=== PATIENT | male | born 1960 | race Caucasian/White ===

== ENCOUNTER → 2017-10-25 | Outpatient (CLI) | payer OTHER ==
[~2017-10-25] VITALS: Ht 182.9 cm; Wt 101.6 kg
[~2017-10-25] MED LIST: CATHETER FLUSH 10 ML SYR IV PRN; EMPA1TAB PO; GLYCOPYRROLATE 0.2 MG/ML (ROBINUL) 2 ML VIAL ONE; HYDR-3816 PO; LACTATED RINGERS 1,000 ML IV ONE; LIDOCAINE JELLY 2% (XYLOCAINE) 5 ML TUBE ONE; LIDOCAINE PF 2% 5 ML (XYLOCAINE) VIAL ONE; LOSA1TAB23 PO; MIDAZOLAM 2 MG/2 ML (VERSED) VIAL ONE; NEOSTIGMINE (BLOXIVERZ ) 1 MG/1ML 10 ML VIAL ONE; ONDANSETRON 4 MG/2 ML (SDV) Z0FRAN ONE; REGADENOSON 0.4 MG/5 ML SYR (LEXISCAN) IV ONE; ROCURONIUM 50 MG/5 ML (ZEMURON) VIAL IV ONE; VERA240T98 PO; fentaNYL INJECTION 100 MCG/2 ML AMP ONE; proPOfol 200 MG/20 ML (DIPRIVAN) VIAL IV ONE
[2017-10-25 07:51] VITALS: BP 170/99
--- NOTE | 2017-10-25 12:58 | STRESS TEST ---
DATE OF SERVICE: 10/25/2017 PHARMACOLOGICAL NUCLEAR STRESS TEST REPORT PRIMARY PHYSICIAN: Dr. Maurice Gtz. DIAGNOSIS: I48.91. PROCEDURE DETAILS: The patient was brought to the stress lab after informed consent was taken. Pharmacological nuclear stress test was performed according to the protocol. For details of the pharmacological stress test, please review Dr. Gtz's dictation. A 10.24 mCi of Myoview were given for rest imaging and 32.0 mCi of Myoview were given for stress imaging. TID 1.04, EF 59% with no wall motion abnormalities. There is a small fixed apical defect noted. CONCLUSION: 1. Normal LV function with no wall motion abnormalities. 2. There is a small fixed apical defect, which is likely an artifact considering that there is normal wall motion on gated images, Job ID: [id number] DocumentID: [id number] Dictated Date: 10/25/2017 10:32:40 Nail Professional Date: 10/25/2017 11:15:08 Dictated By: NIKKI CAMARILLO MD
== END ==
LOC: CARD 06:46
PROVIDERS: ATTEND Internal Medicine
DX: I48.91 Unspecified atrial fibrillation (principal)
CPT/HCPCS: 78452; 93017

== ENCOUNTER 2017-10-26 09:54 | Outpatient (CLI) | payer OTHER ==
[~2017-10-26] VITALS: Ht 182.9 cm; Wt 101.6 kg
[2017-10-26] MEDS ORDERED: VERA240T98 PO (12:58)
[2017-10-26] MEDS ORDERED: LOSA1TAB23 PO (12:58)
[2017-10-26] MEDS ORDERED: HYDR-3816 PO (12:58)
[2017-10-26] MEDS ORDERED: EMPA1TAB PO (12:58)
[2017-10-26 12:59] VITALS: BP 153/94
== END 2017-10-26 13:10 | disposition home or self-care (01) ==
LOC: PREOP 09:54
PROVIDERS: ATTEND Surgery
DX: Z01.818 Encounter for other preprocedural examination (principal); Z11.2 Encounter for screening for other bacterial diseases; K80.20 Calculus of gallbladder without cholecystitis without obstruction
CPT/HCPCS: 87081

== ENCOUNTER 2017-10-27 07:00 | Day surgery (SDC) | payer OTHER ==
[~2017-10-27] VITALS: Ht 182.9 cm; Wt 101.6 kg
[~2017-10-27 07:00] MED LIST changes: -CATHETER FLUSH 10 ML SYR IV PRN; -GLYCOPYRROLATE 0.2 MG/ML (ROBINUL) 2 ML VIAL ONE; -LACTATED RINGERS 1,000 ML IV ONE; -LIDOCAINE JELLY 2% (XYLOCAINE) 5 ML TUBE ONE; -LIDOCAINE PF 2% 5 ML (XYLOCAINE) VIAL ONE; -MIDAZOLAM 2 MG/2 ML (VERSED) VIAL ONE; -NEOSTIGMINE (BLOXIVERZ ) 1 MG/1ML 10 ML VIAL ONE; -ONDANSETRON 4 MG/2 ML (SDV) Z0FRAN ONE; -REGADENOSON 0.4 MG/5 ML SYR (LEXISCAN) IV ONE; -ROCURONIUM 50 MG/5 ML (ZEMURON) VIAL IV ONE; -fentaNYL INJECTION 100 MCG/2 ML AMP ONE; -proPOfol 200 MG/20 ML (DIPRIVAN) VIAL IV ONE
[2017-10-27] MEDS: LACTATED RINGERS 1,000 ML IV PRN ×3 (07:15→11:19)
--- OUTSIDE RECORDS SUMMARY | 2017-10-27 07:27 | XMS REPORT | Continuity of Care Document ---
Author Author [facility] Organization [facility] Address Unknown Phone Unavailable Allergies Active Description Code Type Severity Reaction Onset Reported/Identified Relationship to Patient Clinical Status Yes No Known Drug Allergies [id number] Drug Allergy Unknown N/A 10/25/2017 Medications There is no data. Problems Date Dx Coded Attending Type Code Diagnosis Diagnosed By 04/20/2016 Ot 719.06 JOINT EFFUSION-L/LEG 04/20/2016 Ot 959.7 LOWER LEG INJURY NOS 04/20/2016 Ot E000.8 OTHER EXTERNAL CAUSE STATUS 04/20/2016 Ot E029.9 OTHER ACTIVITY 04/20/2016 Ot E849.0 ACCIDENT IN HOME 04/20/2016 Ot E884.2 FALL FROM CHAIR 04/20/2016 SURENDRA RICHARD MD (DDU) Ot V68.01 DISABILITY EXAMINATION 04/20/2016 SURENDRA RICHARD MD (U) Ot V82.89 SCREEN FOR OTH SPECIF CONDITIONS 04/22/2016 AMANDA MTZ DO Ot R10.13 EPIGASTRIC PAIN 04/22/2016 AMANDA MTZ DO Ot R31.9 HEMATURIA, UNSPECIFIED 05/12/2016 AMANDA MTZ DO Ot R10.13 EPIGASTRIC PAIN 05/12/2016 AMANDA MTZ DO Ot R31.9 HEMATURIA, UNSPECIFIED 10/09/2016 AMANDA MTZ DO Ot R10.13 EPIGASTRIC PAIN 10/09/2016 AMANDA MTZ DO Ot R31.9 HEMATURIA, UNSPECIFIED 10/11/2016 WILLIAN LESTER, TESSA Sanchez Ot M25.562 PAIN IN LEFT KNEE 10/11/2016 WILLIAN LESTER, TESSA Sanchez Ot M54.16 RADICULOPATHY, LUMBAR REGION 11/04/2016 TESSA DORSEY MD Ot M25.562 PAIN IN LEFT KNEE 11/04/2016 WILLIAN LESTER, TESSA Sanchez Ot M54.16 RADICULOPATHY, LUMBAR REGION 10/24/2017 AMANDA MTZ DO Ot R10.13 EPIGASTRIC PAIN 10/24/2017 AMANDA MTZ DO Ot R31.9 HEMATURIA, UNSPECIFIED 10/24/2017 TESSA DORSEY MD Ot M25.562 PAIN IN LEFT KNEE 10/24/2017 TESSA DORSEY MD Ot M54.16 RADICULOPATHY, LUMBAR REGION Procedures There is no data. Results Test Result Range Capillary blood glucose measurement by glucometer (mass/volume) - 10/27/17 07: 17 Capillary blood glucose measurement by glucometer (mass/volume) 203 mg/dL 70-110 Encounters ACCT No. Visit Date/Time Discharge Status Pt. Type Provider Facility Loc./Unit Complaint [id number] 10/09/2016 08:59:00 10/09/2016 23:59:59 CLS Outpatient TESSA DORSEY MD [facility] RAD LUMBAR RADICULOPATHY , KNEE PAIN;LEFT [id number] 04/21/2016 10:09:00 04/21/2016 23:59:59 CLS Outpatient AMANDA MTZ DO [facility] RAD HEMOTURIA,R10.13 [id number] 08/14/2014 11:11:00 08/14/2014 23:59:59 CLS Outpatient JOSE MANUEL LESTER, SURENDRA Wilson (DDU) [facility] RAD [id number] 10/27/2017 07:24:00 Document Registration [id number] 10/25/2017 06:46:00 ACT Outpatient AMANDA MTZ DO [facility] CARD I48.91 [id number] 10/06/2011 09:39:00 Document Registration
--- OUTSIDE RECORDS SUMMARY | 2017-10-27 07:27 | XMS REPORT | Clinical Summary ---
Author Author [facility] Organization [facility] Address Unknown Phone Unavailable Care Team Providers Care Dramatic Art Teacher Name Role Phone PCP Unavailable Source Comments Some departments are not documenting in the electronic medical record. If you do not see the information that you expected, contact Release of Information in the Health Information Management department at [phone] for further assistance in locating additional records.[facility] Allergies No Known Allergies Current Medications Prescription Sig. Disp. Refills Start End Date Status Date losartan-hydrochlorothiaz Take 1 Tab by mouth every Active mauro (HYZAAR) 100-25 mg morning. tablet verapamil SR (VERELAN) Take by mouth at bedtime Active 240 mg C24P daily. empagliflozin-linagliptin Take 25 mg by mouth Active (GLYXAMBI) 25-5 mg tab daily. Active Problems Problem Noted Date Degenerative disc disease, lumbar 01/19/2017 Family History Relation Name Status Comments Father Mother Social History Tobacco Use Types Packs/Day Years Used Date Never Smoker Alcohol Use Drinks/Week oz/Week Comments Yes 1 Standard 0.6 drinks or equivalent Sex Assigned at Date Recorded Not on file Last Filed Vital Signs Vital Sign Reading Time Taken Blood Pressure 139/92 01/19/2017 12:18 PM CDT Pulse 78 01/19/2017 12:18 PM CDT Temperature 36.7 C (98.1 F) 01/19/2017 12:18 PM CDT Respiratory Rate 15 01/19/2017 12:18 PM CDT Oxygen Saturation 96% 01/19/2017 12:18 PM CDT Inhaled Oxygen - - Concentration Weight 103.9 kg (229 lb) 01/19/2017 12:18 PM CDT Height 180.3 cm (5' 11") 01/19/2017 12:18 PM CDT Body Mass Index 31.94 01/19/2017 12:18 PM CDT Plan of Treatment Health Maintenance Due Date Last Done Comments HEPATITIS C SCREENING 1959 PHYSICAL (COMPREHENSIVE) 1966 EXAM PERTUSSIS VACCINE 1970 TETANUS VACCINE 1976 COLORECTAL CANCER 2009 SCREENING INFLUENZA VACCINE 05/10/2017 Results Not on filefrom Last 3 Months
[2017-10-27 07:28] VITALS: BP 172/92
[2017-10-27] MEDS ORDERED: ceFAZolin INJECTION 1,000 MG in NS (IVPB) 50 ML IV ONE (07:30)
--- NOTE | 2017-10-27 07:53 | Progress Note-Pre Operative ---
Pre-Operative Progress Note H&P Reviewed The H&P was reviewed, patient examined and no changes noted. Date Seen by Provider: Oct 27, 2017 Time Seen by Provider: 07:45 Date H&P Reviewed: Oct 27, 2017 Time H&P Reviewed: 07:50 Pre-Operative Diagnosis: Symptomatic Chronic calculous cholecystitis ABBIE LEY APRN Oct 27, 2017 7:53 am
[2017-10-27] MEDS ORDERED: morphine INJ 10 MG/ML 1ML (SYR OR VIAL) IVP PRN (08:00)
[2017-10-27] MEDS ORDERED: ONDANSETRON 4 MG/2 ML (SDV) Z0FRAN IVP PRN ×2 (08:00→10:45)
[2017-10-27] MEDS ORDERED: ACETAMINOPHEN 325 MG TABLET/CAPLET (TYLENOL) PO PRN (08:00)
[2017-10-27] MEDS ORDERED: HYDROcodone/APAP 5 MG/325 MG (LORTAB) TAB PO ONE (08:00)
[2017-10-27] MEDS ORDERED: LIDOCAINE/EPI 1%-1:200,000 (XYLOCAINE) 10 ML VIAL ONE (08:36)
[2017-10-27] MEDS ORDERED: ceFAZolin 1,000 MG (ANCEF) VIAL IV ONE (09:30)
--- NOTE | 2017-10-27 10:34 | Progress Note-Post Operative ---
Post-Operative Progess Note Surgeon (s)/Administrative Underwriter (s) Surgeon LATESHA LEW MD Administrative Underwriter: kyrie goff TOE TRIMMER Pre-Operative Diagnosis Symptomatic Chronic calculous cholecystitis Post-Operative Diagnosis same, liver cirrhosis. Procedure & Operative Findings Date of Procedure 10/27/17 Procedure Performed/Findings laparoscopic cholecystectomy Anesthesia Type GET Estimated Blood Loss Estimated blood loss (mL): minimal Specimens/Packing Specimens Removed gallbladder. LATESHA LEW MD Oct 27, 2017 10:34 am
--- NOTE | 2017-10-27 10:37 | Discharge Inst-Surgical ---
D/C Lap Instructions-KIDO New, Converted, or Re-Newed RX: RX on Chart Follow Up Appt in 2 weeks Activity as tolerated No driving for 24 hours No driving while on pain medications Incentive Spirometry use every 2 hours while awake High Fiber Diet 25g or more per day Avoid Alcohol, Caffeine, Spicy [place] and Acid foods. Drink 64 fluid oz or more of fluids per day. Symptoms to Report: Fever over 101 degree F, Nausea/Vomiting If any problems/questions: Contact your physician or go to Emergency Room LATESHA LEW MD Oct 27, 2017 10:37 am
[2017-10-27] MEDS ORDERED: MEPERIDINE (DEMEROL) INJ 50 MG/ML IVP PRN (10:45)
[2017-10-27] MEDS: morphine INJ 10 MG/ML 1ML (SYR OR VIAL) IVP PRN ×2 (11:01→11:13)
[2017-10-27 11:40] VITALS: BP 170/92
[2017-10-27 12:10] VITALS: BP 159/95
[2017-10-27 12:23] VITALS: BP 159/95
--- NOTE | 2017-10-27 13:22 | OPERATIVE REPORT ---
DATE OF SERVICE: 10/27/2017 PRIMARY CARE PHYSICIAN: Dr. Maurice Gtz. PREOPERATIVE DIAGNOSIS: Symptomatic chronic calculous cholecystitis. POSTOPERATIVE DIAGNOSIS: Symptomatic chronic calculous cholecystitis with liver cirrhosis. PROCEDURE: Laparoscopic cholecystectomy. SURGEON: Latesha Louis MD CERTIFIED SURGICAL TECHNOLOGIST: Chu Smith APRN. ANESTHESIA: General endotracheal. ESTIMATED BLOOD LOSS: Minimal. FINDINGS: Significant liver cirrhosis with mild to moderate chronic gallbladder wall thickening and multiple small stones. DISPOSITION: The patient tolerated the procedure well. INDICATIONS FOR PROCEDURE: The patient is a 57-year-old male with right upper abdominal quadrant pain with associated nausea and vomiting. He has had this for the past few weeks. He reports that the symptoms and pain became severe enough that he was seen in Emergency Department and was found to be in atrial fibrillation with glucose of 486 as well as the WBC of 22. An echocardiogram was done and this atrial fibrillation had been converted back to sinus rhythm. He has been seen by Dr. Contreras since that time and cleared for surgery. A CT scan was done, which showed gallstones as well as liver cirrhosis. DESCRIPTION OF PROCEDURE: The patient was brought to the operating room, laid supine on the table. After adequate IV pain and sedating medications and general endotracheal intubation, the abdomen was prepped and draped in standard surgical fashion. A 0.5% Marcaine with epinephrine was then used to anesthetize the overlying skin in the left upper abdominal quadrant and a small transverse skin incision made using a 15 blade. An 0 silk suture was applied to the medial aspect of the incision for retraction and a Veress needle inserted with a low opening pressure of 0 mmHg and the abdomen was then insufflated to 15 mmHg pressure. The Veress needle removed and a 5 mm Xcel trocar placed followed by a 5 mm 45 degree angle laparoscope visualizing the peritoneal cavity. A four-quadrant abdominal x-ray was performed. There was significant liver cirrhosis identified of unknown etiology. There was no intraperitoneal carcinomatosis as well as no identifiable masses. There was a chronically mild to moderately inflamed gallbladder wall. Under direct visualization, we then proceeded to place a supraumbilical 10 mm port after the skin and peritoneum were anesthetized using 0.5% Marcaine with epinephrine and a transverse skin incision made using a 15 blade. In a similar manner, a right upper abdominal quadrant 5 mm port was placed. The patient was then placed in steep reverse Trendelenburg position as well as planed right side up, left side down. The fundus of the gallbladder was then retracted anteriorly and superiorly. The hepatoduodenal ligament was then opened using electrocautery as well as blunt dissection using the hook instrument. The entire critical view of safety was identified including the triangle of Calot as well as the cystic duct and artery going into the gallbladder as the only two structures going into the gallbladder as well as the cystic plate behind the proximal gallbladder. A timeout was then taken and the cystic duct and artery were then clipped proximally, distally and cut with EndoShears. The gallbladder was then dissected off the liver bed using electrocautery on the hook instrument with visualization of good hemostasis as well as no leaking ducts of Luschka. The gallbladder was removed through the 10 mm port site using an EndoCatch bag. The 10 mm port site fascia and peritoneum were then closed under direct visualization using a Camilo-Urban device and an 0 Vicryl suture. The abdomen was desufflated and remaining ports removed. All skin incisions were closed using 4-0 Monocryl running subcuticular sutures. Wounds were then cleaned and covered with Dermabond. The patient tolerated this procedure well. We will start IV normal pain medication as well as a clear liquid diet. Once he is tolerating clears and has good pain control with oral pain medications and ambulating well, we will discharge him home. Job ID: [id number] DocumentID: [id number] Dictated Date: 10/27/2017 10:35:10 Wig Maker Date: 10/27/2017 13:22:10 Dictated By: LATESHA LOUIS MD MTDD
== END 2017-10-27 12:24 | disposition home or self-care (01) ==
LOC: SDC 07:00
PROVIDERS: ATTEND Surgery
DX: K80.10 Calculus of gallbladder with chronic cholecystitis without obstruction (principal); K74.60 Unspecified cirrhosis of liver; I48.91 Unspecified atrial fibrillation; I10 Essential (primary) hypertension; E11.9 Type 2 diabetes mellitus without complications; Z79.899 Other long term (current) drug therapy
CPT/HCPCS: 82962

== ENCOUNTER → 2019-10-01 | Outpatient (CLI) | payer OTHER ==
[~2019-10-01] MED LIST changes: +HYDR-34 PO; -HYDR-3816 PO; +VERA240T14 PO; -VERA240T98 PO
--- NOTE | 2019-10-01 15:24 | Diagnostic Imaging Report ---
INDICATION: Knee pain. History of previous ACL repair. COMPARISON: None. FINDINGS: Multiple radiographic views of the right knee were obtained. Orthopedic screws are identified within the distal femur and proximal tibia consistent with previous ACL repair. Screws appear appropriately positioned. No unexpected radiopaque foreign bodies are seen. Osseous structures are intact. Joint spaces are maintained. There is no large joint effusion. IMPRESSION: 1. Metallic orthopedic screws consistent with previous ACL repair. 2. No evidence of acute fracture or dislocation of the right knee. Dictated by: Dictated on workstation # [id number]
== END ==
LOC: RAD 14:48
PROVIDERS: ATTEND Internal Medicine
DX: M25.561 Pain in right knee (principal); Z96.698 Presence of other orthopedic joint implants; Z98.890 Other specified postprocedural states
CPT/HCPCS: 73562

== ENCOUNTER 2019-10-03 17:51 | Emergency (ER) | payer OTHER ==
[~2019-10-03] VITALS: Ht 180 cm; Wt 98.6 kg
--- NOTE | 2019-10-03 18:14 | ED Lower Extremity ---
General Chief Complaint: Lower Extremity Stated Complaint: R LEG PAIN Source: patient Exam Limitations: no limitations History of Present Illness Date Seen by Provider: Oct 03, 2019 Time Seen by Provider: 18:12 Initial Comments To ER complaint by 3 females with reports of right leg pain for 6 months. If no different today. One of the females informs me that she is a nurse and that his leg was taught and red today. She is worried about "circulation". The redness has resolved and he is afebrile. History of meniscus surgery to the right leg. The pain is the entire leg from the hip down to the feet. Onset: just prior to arrival Severity: moderate Pain/Injury Location: right knee Method of Injury: fell Modifying Factors: Worse With Movement Allergies and Home Medications Allergies Coded Allergies: No Known Drug Allergies (Unverified , 10/25/17) Home Medications Empagliflozin/Linagliptin 1 Each Tablet, 1 EACH PO DAILY, (Reported) Hydrocodone Bit/Acetaminophen 1 Each Tablet, 1 EACH PO Q6H PRN for PAIN-MODERATE TO SEVERE, (Reported) Losartan/Hydrochlorothiazide 1 Each Tablet, 1 EACH PO DAILY, (Reported) Verapamil HCl 240 Mg Tablet.er, 240 MG PO DAILY, (Reported) Patient Home Medication List Home Medication List Reviewed: Yes Review of Systems Constitutional: see HPI EENTM: see HPI Respiratory: no symptoms reported Cardiovascular: no symptoms reported Genitourinary: no symptoms reported Musculoskeletal: see HPI Skin: no symptoms reported Psychiatric/Neurological: No Symptoms Reported Past Wausfqn-Xtfxty-Gpciof Hx Patient Social History Alcohol Use: Denies Use Recreational Drug Use: No Smoking Status: Never a Smoker Recent Foreign Travel: No Contact w/Someone Who Travel: No Recent Hopitalizations: No Physical Abuse: No Sexual Abuse: No Mistreated: No Fear: No Seasonal Allergies Seasonal Allergies: No Past Medical History Surgeries: Yes (R knee ACL and menisucus repair, L knee scope, lumbar fusion) Appendectomy, Gallbladder, Tonsillectomy Respiratory: No Cardiac: Yes (stress test on 10/25/17, ) Hypertension Neurological: No Gastrointestinal: Yes Gall Bladder Disease Musculoskeletal: Yes Degenerate Disk Disease, Arthritis Endocrine: Yes Diabetes, Non-Insulin dep Cancer: No Psychosocial: No Integumentary: No Blood Disorders: No Physical Exam Vital Signs Vital Signs - First Documented 10/03/19 18:07 Temp 36.9 Pulse 79 Resp 20 B/P (MAP) 169/94 (119) Pulse Ox 98 Capillary Refill : Height, Weight, BMI Height: 6'0.00" Weight: 224lbs. 0.0oz. 101.468891ay; 30.4 BMI Method: General Appearance: WD/WN, no apparent distress HEENT: PERRL/EOMI, normal ENT inspection Respiratory: normal breath sounds, no respiratory distress, no accessory muscle use Hips: bilateral hip non-tender, bilateral hip normal inspection, bilateral hip normal range of motion Legs: right leg pain; bilateral leg other Knees: right knee soft tissue tenderness Ankles: bilateral ankle other Feet: bilateral foot other Neurologic/Psychiatric: alert, normal mood/affect, oriented x 3 Skin: normal color, warm/dry There is no asymmetry in the appearance of either leg. The dorsalis pedis and posterior tibial pulses 2+ in strength bilateral. Both lower knees are warm and there is no cellulitis changed to either lower extremity. There is no palpable knee effusion. Progress/Results/Core Measures Results/Orders Lab Results Laboratory Tests Test 10/03/19 18:32 Range/Units White Blood Count 6.0 4.3-11.0 10^3/uL Red Blood Count 4.74 4.35-5.85 10^6/uL Hemoglobin 14.2 13.3-17.7 G/DL Hematocrit 42 40-54 % Mean Corpuscular Volume 90 80-99 FL Mean Corpuscular Hemoglobin 30 25-34 PG Mean Corpuscular Hemoglobin Concent 34 32-36 G/DL Red Cell Distribution Width 13.0 10.0-14.5 % Platelet Count 152 130-400 10^3/uL Mean Platelet Volume 10.6 H 7.4-10.4 FL Neutrophils (%) (Auto) 53 42-75 % Lymphocytes (%) (Auto) 39 12-44 % Monocytes (%) (Auto) 7 0-12 % Eosinophils (%) (Auto) 1 0-10 % Basophils (%) (Auto) 1 0-10 % Neutrophils # (Auto) 3.2 1.8-7.8 X 10^3 Lymphocytes # (Auto) 2.3 1.0-4.0 X 10^3 Monocytes # (Auto) 0.4 0.0-1.0 X 10^3 Eosinophils # (Auto) 0.1 0.0-0.3 10^3/uL Basophils # (Auto) 0.0 0.0-0.1 10^3/uL D-Dimer 0.28 0.00-0.49 UG/ML Sodium Level 133 L 135-145 MMOL/L Potassium Level 3.7 3.6-5.0 MMOL/L Chloride Level 101 98-107 MMOL/L Carbon Dioxide Level 22 21-32 MMOL/L Anion Gap 10 5-14 MMOL/L Blood Urea Nitrogen 16 7-18 MG/DL Creatinine 0.87 0.60-1.30 MG/DL Estimat Glomerular Filtration Rate > 60 BUN/Creatinine Ratio 18 Glucose Level 183 H 70-105 MG/DL Calcium Level 8.6 8.5-10.1 MG/DL My Orders Orders - CHARLENE CHUNG APRN Cbc With Automated Diff (10/03/19 18:11) Basic Metabolic Panel (10/03/19 18:11) Fibrin Degradation Products (10/03/19 18:11) Rx-Hydrocodone/Apap 5-325 Mg (Rx-Vicodin (10/03/19 19:00) Vital Signs/I&O 10/03/19 18:07 Temp 36.9 Pulse 79 Resp 20 B/P (MAP) 169/94 (119) Pulse Ox 98 Departure Communication (Admissions) Right mid calf circumference obtained by RN was 12-3/4 inches, the left was act ually bigger at 13-1/4 inches circumference 1923-I discussed with him the previous MRI of the lumbar spine from 10/09/16 showing neural foraminal narrowing at right side greater than left at L3-L4, L4- L5 and L5-S1. Patient states "whoever read that is full of shit", states that he saw a surgeon Dr. Arenas in [place] who is the orthopedic surgeon for the [facility] and told him that their interpretation of the MRI was incorrect and that his back is not the issue. Impression Primary Impression: Chronic pain of right lower extremity Additional Impression: Lumbar radiculopathy, acute Disposition: 01 HOME, SELF-CARE Condition: Improved Departure-Patient Inst. Decision time for Depature: 18:52 Referrals: AMANDA MTZ DO (PCP/Family) Primary Care Physician Patient Instructions: Radiculopathy (DC) Add. Discharge Instructions: All discharge instructions reviewed with patient and/or family. Voiced understanding. Copy Copies To 1: AMANDA MTZ PETER J APRN Oct 03, 2019 18:14
[2019-10-03 18:45] LABS: BASOPHILS % (AUTO) 1 % (0-10); EOSINOPHILS # (AUTO) 0.1 10^3/uL (0.0-0.3); EOSINOPHILS % (AUTO) 1 % (0-10); HEMATOCRIT 42 % (40-54); HEMOGLOBIN 14.2 G/DL (13.3-17.7); LYMPHOCYTES # (AUTO) 2.3 X 10^3 (1.0-4.0); LYMPHOCYTES % (AUTO) 39 % (12-44); MEAN CORPUSCULAR HEMOGLOBIN 30 PG (25-34); MEAN CORPUSCULAR HGB CONC 34 G/DL (32-36); MEAN CORPUSCULAR VOLUME 90 FL (80-99); MEAN PLATELET VOLUME 10.6 FL (7.4-10.4); MONOCYTES # (AUTO) 0.4 X 10^3 (0.0-1.0); MONOCYTES % (AUTO) 7 % (0-12); NEUTROPHILS # (AUTO) 3.2 X 10^3 (1.8-7.8); NEUTROPHILS % (AUTO) 53 % (42-75); PLATELET COUNT 152 10^3/uL (130-400)
[2019-10-03] MEDS ORDERED: RX-HYDROCODONE/APAP 5/325 MG #4 TAB PK PO PRN (19:00)
[2019-10-03 19:14] LABS: BUN/CREATININE RATIO 18; CALCIUM 8.6 MG/DL (8.5-10.1); CARBON DIOXIDE 22 MMOL/L (21-32); CHLORIDE 101 MMOL/L (98-107); CREATININE SERUM 0.87 MG/DL (0.60-1.30); GFR ESTIMATED > 60; GLUCOSE 183 MG/DL (70-105); POTASSIUM 3.7 MMOL/L (3.6-5.0); SODIUM 133 MMOL/L (135-145)
[2019-10-03 19:26] VITALS: BP 182/89
== END 2019-10-03 19:29 | disposition home or self-care (01) ==
LOC: EDUNIT# 17:51 → ER 17:52
DX: M54.16 Radiculopathy, lumbar region (principal); G89.29 Other chronic pain; I10 Essential (primary) hypertension; E11.9 Type 2 diabetes mellitus without complications; Z90.89 Acquired absence of other organs; Z90.49 Acquired absence of other specified parts of digestive tract
CPT/HCPCS: 36415; 80048; 85025; 85379

== ENCOUNTER → 2019-10-16 | Outpatient (CLI) | payer OTHER ==
--- NOTE | 2019-10-16 10:14 | Diagnostic Imaging Report ---
EXAMINATION: Magnetic resonance imaging of the right knee without intravenous contrast. DATE: October 16, 2019. COMPARISON: Right knee radiographs October 01, 2019. INDICATION: 59-year-old male, right knee pain. Evaluation for iliotibial band fat friction syndrome. TECHNIQUE: Multiplanar, multisequence non contrast enhanced MR imaging was accomplished. FINDINGS: MENISCI: The medial meniscus is intact. The lateral meniscus is intact. LIGAMENTS AND TENDONS: The patient is status post anterior cruciate ligament reconstruction. The graft is intact. The posterior cruciate ligament is intact. The medial collateral ligament is intact. The iliotibial band, mid third lateral capsular ligament, fibular collateral ligament, biceps femoris tendon, and conjoined tendon are intact. The quadriceps tendon and patella ligament are intact. JOINT: There is minimal surface irregularity of the patellar cartilage. The medial and lateral compartment cartilage is intact. There is no knee joint effusion, prominent synovitis, or intra-articular body. BONE: There is unremarkable bone marrow signal. Specifically, negative for fracture, osteomyelitis, osteonecrosis, or marrow replacing process. BURSAE AND SOFT TISSUES: There is no Arenas's cyst. There is no evidence of iliotibial band fat friction syndrome on MRI. IMPRESSION: 1. Status post anterior cruciate ligament reconstruction with intact graft. 2. Intact medial and lateral meniscus. 3. Minimal patellofemoral compartment osteoarthritis. No knee joint effusion. 4. No acute fracture, bone contusion, or evidence of osteonecrosis. 5. Unremarkable soft tissue evaluation. Dictated by: Dictated on workstation # [id number]
== END ==
LOC: RAD 07:45
PROVIDERS: ATTEND Nurse Practitioner
DX: M76.31 Iliotibial band syndrome, right leg (principal); Z98.890 Other specified postprocedural states
CPT/HCPCS: 73721

== ENCOUNTER 2021-06-20 11:57 | Observation (INO) | payer MEDICARE ==
[~2021-06-20] VITALS: Ht 182 cm; Wt 100.0 kg
[~2021-06-20 11:57] MED LIST changes: -VERA240T14 PO; +[UNRECOGNIZED DRUG - CODE] PO
[2021-06-20] MEDS ORDERED: LACTATED RINGERS 1,000 ML IV STA (12:04)
[2021-06-20] MEDS ORDERED: ONDANSETRON 4 MG/2 ML (SDV) Z0FRAN IVP ONE ×2 (12:15→13:45)
[2021-06-20] MEDS ORDERED: NS IV 1000 ML 1,000 ML ONE (12:24)
[2021-06-20 12:25] LABS: BASOPHILS % (AUTO) 0 % (0-10); EOSINOPHILS % (AUTO) 0 % (0-10); HEMATOCRIT 49 % (40-54); HEMOGLOBIN 16.7 g/dL (13.3-17.7); LYMPHOCYTES # (AUTO) 1.6 10^3/uL (1.0-4.0); LYMPHOCYTES % (AUTO) 10 % (12-44); MEAN CORPUSCULAR HEMOGLOBIN 30 pg (25-34); MEAN CORPUSCULAR HGB CONC 34 g/dL (32-36); MEAN CORPUSCULAR VOLUME 88 fL (80-99); MEAN PLATELET VOLUME 11.1 fL (9.0-12.2); MONOCYTES # (AUTO) 0.9 10^3/uL (0.0-1.0); MONOCYTES % (AUTO) 5 % (0-12); NEUTROPHILS # (AUTO) 13.3 10^3/uL (1.8-7.8); NEUTROPHILS % (AUTO) 84 % (42-75); PLATELET COUNT 204 10^3/uL (130-400); WHITE BLOOD COUNT 15.8 10^3/uL (4.3-11.0)
--- NOTE | 2021-06-20 12:29 | ED GI ---
General Stated Complaint: NAUSEA/VOMITING Source of Information: Patient History of Present Illness Date Seen by Provider: Jun 20, 2021 Time Seen by Provider: 12:05 Initial Comments PT ARRIVES VIA POV FROM HOME C/O NAUSEA/VOMITING AND ABDOMINAL PAIN SINCE 299 YESTERDAY AM HAS VOMITED X 5 TODAY--STATES HE HAS NOT BEEN ABLE TO KEEP ANYTHING DOWN --LAST FOOD INTAKE WAS 2100 ON TUESDAY NIGHT 06/18/21 PAIN IS MOSTLY ALL ACROSS UPPER ABDOMEN, AND IS MUCH WORSE IF HE TRIES TO DRINK ANYTHING--HAS NOT ATTEMPTED TO EAT SINCE SYMPTOMS BEGAN HAD NORMAL BM THIS AM HAS HAD DECREASED URINE OUTPUT NO FEVER NO COUGH OR RESPIRATORY SYMPTOMS PT HAS HAD PRIOR CHOLECYSTECTOMY AND APPENDECTOMY, BUT DENIES ANY CHRONIC GI PROBLEMS PT IS DIABETIC, NORMALLY TAKES PILLS, BUT HAS NOT TAKEN ANY OF HIS MEDICATIONS AT ALL SINCE TUESDAY PT DOES NOT CHECK HIS BLOOD SUGAR NO KNOWN SICK CONTACTS OR SUSPICIOUS FOODS PT HAS HAD BOTH COVID-19 VACCINES--LAST ONE IN JANUARY OR FEBRUARY PCP: DR. MTZ Allergies and Home Medications Allergies Coded Allergies: No Known Drug Allergies (Unverified , 10/25/17) Patient Home Medication List Home Medication List Reviewed: Yes Hydrocodone Bit/Acetaminophen (Lortab 7.5 Mg Tablet) 1 Each Tablet, 1 EACH PO Q6H PRN for PAIN-MODERATE TO SEVERE, (Reported) Entered as Reported by: PRAVEENA CRAMER on 10/26/171257 Last Action: Last Taken Edited Losartan/Hydrochlorothiazide (Losartan-Hctz 100-25 mg Tab) 1 Each Tablet, 1 EACH PO DAILY, (Reported) Entered as Reported by: PRAVEENA CRAMER on 10/26/171257 Last Action: Last Taken Edited Verapamil HCl (Verapamil ER) 240 Mg Tablet.er, 240 MG PO DAILY, (Reported) Entered as Reported by: PRAVEENA CRAMER on 10/26/171257 Last Action: Last Taken Edited Discontinued Medications Empagliflozin/Linagliptin (Glyxambi 25 mg-5 mg Tablet) 1 Each Tablet, 1 EACH PO DAILY, (Reported) Discontinued Reason: No Longer Taking Entered as Reported by: PRAVEENA CRAMER on 10/26/171257 Last Action: Discontinued Review of Systems Review of Systems Constitutional: no symptoms reported Respiratory: No Symptoms Reported Cardiovascular: No Symptoms Reported Gastrointestinal: See HPI, Abdominal Pain; Denies Constipated, Denies Diarrhea; Nausea, Poor Appetite, Poor Fluid Intake, Vomiting Genitourinary: See HPI Musculoskeletal: no symptoms reported Skin: no symptoms reported Psychiatric/Neurological: No Symptoms Reported Endocrine: No Symptoms Reported Hematologic/Lymphatic: No Symptoms Reported Past Hnkwvmn-Nlntfc-Tgcyxz Hx Patient Social History Tobacco Use?: No Substance use?: No Alcohol Use?: Yes (HEAVY USE IN PAST, NOW WITH RARE USE) Seasonal Allergies Seasonal Allergies: No Past Medical History Surgery/Hospitalization HX: RIGHT KNEE MENISCUS REPAIR 2014 RIGHT ACL REPAIR 02/2017 LEFT KNEE SCOPE 2009 APPENDECTOMY CHOLECYSTECTOMY 2018 LUMBAR FUSION 2010 SPINAL CORD STIMULATOR TONSILLECTOMY Surgeries: Yes (R knee ACL and menisucus repair, L knee scope, lumbar fusion) Appendectomy, Gallbladder, Orthopedic, Tonsillectomy Respiratory: No Cardiac: Yes (stress test on 10/25/17, ) Hypertension Neurological: No Genitourinary: No Gastrointestinal: Yes (S/P GEORGES AND APPY) Gall Bladder Disease Musculoskeletal: Yes (LUMBAR FUSION; SPINE STIMULATOR; BILAT KNEE SURGERIES) Degenerate Disk Disease, Arthritis, Chronic Back Pain Endocrine: Yes (DOES NOT CHECK BLOOD SUGAR) Diabetes, Non-Insulin dep HEENT: No (S/P TONSILLECTOMY) Tonsilitis Cancer: No Psychosocial: No Integumentary: No Blood Disorders: No Physical Exam Vital Signs Vital Signs - First Documented 06/20/21 12:00 Temp 36.3 Pulse 96 Resp 18 B/P (MAP) 193/98 (129) Pulse Ox 98 O2 Delivery Room Air Capillary Refill : Height/Weight/BMI Height: 6'0.00" Weight: 224lbs. 0.0oz. [id number]; 30.00 BMI Method: General Appearance: WD/WN, no apparent distress HEENT: No scleral icterus (R), No scleral icterus (L); other (ORAL MUCOSA DRY) Neck: normal inspection Respiratory: normal breath sounds, no respiratory distress, no accessory muscle use Cardiovascular: normal peripheral pulses, regular rate, rhythm, no murmur Gastrointestinal: abnormal bowel sounds (DECREASED), distended; No guarding, No rebound; tenderness (DIFFUSE UPPER ABDOMINAL TENDERNESS); No hernia, No mass; other Extremities: normal inspection, no pedal edema, normal capillary refill Back: normal inspection, no CVA tenderness Neurologic/Psychiatric: renal dietitian II-XII nml as tested, no motor/sensory deficits, alert, normal mood/affect, oriented x 3 Skin: normal color, warm/dry; No rash Progress/Results/Core Measures Results/Orders Lab Results Laboratory Tests Test 06/20/21 12:05 06/20/21 12:10 06/20/21 12:22 Range/Units SARS-CoV-2 RNA (RT-PCR) Not Detected Not Detecte White Blood Count 15.8 H 4.3-11.0 10^3/uL Red Blood Count 5.58 H 4.30-5.52 10^6/uL Hemoglobin 16.7 13.3-17.7 g/dL Hematocrit 49 40-54 % Mean Corpuscular Volume 88 80-99 fL Mean Corpuscular Hemoglobin 30 25-34 pg Mean Corpuscular Hemoglobin Concent 34 32-36 g/dL Red Cell Distribution Width 12.6 10.0-14.5 % Platelet Count 204 130-400 10^3/uL Mean Platelet Volume 11.1 9.0-12.2 fL Immature Granulocyte % (Auto) 0 % Neutrophils (%) (Auto) 84 H 42-75 % Lymphocytes (%) (Auto) 10 L 12-44 % Monocytes (%) (Auto) 5 0-12 % Eosinophils (%) (Auto) 0 0-10 % Basophils (%) (Auto) 0 0-10 % Neutrophils # (Auto) 13.3 H 1.8-7.8 10^3/uL Lymphocytes # (Auto) 1.6 1.0-4.0 10^3/uL Monocytes # (Auto) 0.9 0.0-1.0 10^3/uL Eosinophils # (Auto) 0.0 0.0-0.3 10^3/uL Basophils # (Auto) 0.0 0.0-0.1 10^3/uL Immature Granulocyte # (Auto) 0.1 0.0-0.1 10^3/uL Neutrophils % (Manual) 85 % Lymphocytes % (Manual) 11 % Monocytes % (Manual) 4 % Blood Morphology Comment NORMAL Erythrocyte Sedimentation Rate 3 0-30 MM/HR Sodium Level 137 135-145 MMOL/L Potassium Level 3.3 L 3.6-5.0 MMOL/L Chloride Level 86 L 98-107 MMOL/L Carbon Dioxide Level 27 21-32 MMOL/L Anion Gap 24 H 5-14 MMOL/L Blood Urea Nitrogen 32 H 7-18 MG/DL Creatinine 1.23 0.60-1.30 MG/DL Estimat Glomerular Filtration Rate 60 BUN/Creatinine Ratio 26 Glucose Level 464 *H 70-105 MG/DL Calcium Level 9.9 8.5-10.1 MG/DL Corrected Calcium 9.7 8.5-10.1 MG/DL Magnesium Level 2.0 1.6-2.4 MG/DL Total Bilirubin 1.0 0.1-1.0 MG/DL Aspartate Amino Transf (AST/SGOT) 19 5-34 U/L Alanine Aminotransferase (ALT/SGPT) 59 H 0-55 U/L Alkaline Phosphatase 91 40-136 U/L Troponin I < 0.028 <0.028 NG/ML C-Reactive Protein High Sensitivity 0.57 H 0.00-0.50 MG/DL Total Protein 8.0 6.4-8.2 GM/DL Albumin 4.3 3.2-4.5 GM/DL Amylase Level 54 25-125 U/L Lipase 35 8-78 U/L Procalcitonin 0.05 <0.10 NG/ML Glucometer 464 *H 70-110 MG/DL My Orders Orders - LORETA LEE DO Ed Iv/Invasive Line Start (06/20/21 12:04) Ekg Tracing (06/20/21 12:04) Monitor-Rhythm Ecg Trace Only (06/20/21 12:04) Cbc With Automated Diff (06/20/21 12:04) Comprehensive Metabolic Panel (06/20/21 12:04) Procalcitonin (Pct) (06/20/21 12:04) Hs C Reactive Protein (06/20/21 12:04) Erythrocyte Sedimentation Rate (06/20/21 12:04) Chest 1 View, Ap/Pa Only (06/20/21 12:04) Covid 19 Inhouse Test (06/20/21 12:04) Ondansetron Injection (Zofran Injectio (06/20/21 12:15) Lactated Ringers (Lr 1000 Ml Iv Solution (06/20/21 12:04) Ed Iv/Invasive Line Start (06/20/21 12:04) Amylase (06/20/21 12:04) Lipase (06/20/21 12:04) Magnesium (06/20/21 12:04) Ua Culture If Indicated (06/20/21 12:04) Troponin I (06/20/21 12:04) Isolation Central Supply Req (06/20/21 12:04) Accucheck Stat ONCE (06/20/21 12:23) Ed Iv/Invasive Line Start (06/20/21 12:23) Ns Iv 1000 Ml (Sodium Chloride 0.9%) (06/20/21 12:30) Ns Iv 1000 Ml (Sodium Chloride 0.9%) (06/20/21 12:24) Manual Differential (06/20/21 12:10) Insulin (Regular) Human (Novolin R (Per (06/20/21 13:00) Ed Iv/Invasive Line Start (06/20/21 12:50) Ns Iv 1000 Ml (Sodium Chloride 0.9%) (06/20/21 13:00) Ct Abdomen/Pelvis W (06/20/21 12:52) Iohexol Injection (Omnipaque 350 Mg/Ml 1 (06/20/21 13:15) Received Contrast (Hold Metformin- Contr (06/20/21 13:15) Ns (Ivpb) (Sodium Chloride 0.9% Ivpb Bag (06/20/21 13:15) Hydralazine Injection (Apresoline Inject (06/20/21 13:45) Ondansetron Injection (Zofran Injectio (06/20/21 13:45) Pantoprazole Injection (Protonix Injecti (06/20/21 13:45) Fentanyl Inj (Sublimaze Injection) (06/20/21 13:45) Medications Given in ED Vital Signs/I&O 06/20/21 12:00 Temp 36.3 Pulse 96 Resp 18 B/P (MAP) 193/98 (129) Pulse Ox 98 O2 Delivery Room Air 06/21/21 00:00 Intake Total 1000 ml Balance 1000 ml Progress Progress Note : Progress Note PLACED IN ISOLATION ROOM PPE WORN AT ALL TIMES COVID-19 TESTING PERFORMED ACCUCHECK 464 GIVEN IV FLUIDS AND ZOFRAN, PHENERGAN + BENADRYL PT EVENTUALLY ABLE TO VOID AFTER 3RD LITER OF FLUIDS GIVEN HYDRALAZINE FOR ELEVATED BP Initial ECG Impression Date: Jun 20, 2021 Initial ECG Impression Time: 13:41 Initial ECG Rate: 90 Initial ECG Rhythm: Normal Sinus Diagnostic Imaging Comments PER RADIOLOGIST REPORTS AT 1358: CXR-- FINDINGS: The heart size, mediastinal configuration, and pulmonary vascularity are within normal limits. There is no pleural effusion, pneumothorax, or pneumonia. The osseous structures are unremarkable. IMPRESSION: No acute cardiopulmonary abnormality. CT ABDOMEN/PELVIS-- FINDINGS: The heart size is normal. The lung bases are clear. There is fatty infiltration of the liver. There are no focal liver lesions. There is a somewhat nodular contour of the liver suggesting cirrhotic morphology. Gallbladder surgically absent. No biliary duct dilatation. Spleen is normal. The pancreas and adrenal glands are unremarkable. There is a 5 to 6 mm nonobstructing stone in the right kidney. There is no other evidence of nephrolithiasis. The stone is unchanged compared to prior examination. There is no hydronephrosis. There are no ureteral stones. Aorta is nonaneurysmal. Bowel gas pattern is nonspecific. There is no CT evidence of appendicitis. No free air. No ascites. No focal inflammatory changes. Bladder is normal. Prostate is normal. There is no pelvic mass, adenopathy or free fluid. There are degenerative post surgical changes in lumbar spine. IMPRESSION: Unchanged 6 mm nonobstructing right renal calculus. There is no evidence of obstructive uropathy. Fatty infiltration liver. Additionally there is nodular contour of the liver suggesting cirrhotic morphology. Recommend clinical correlation. Degenerative and postsurgical changes in the lumbar spine. No other acute abnormality in the abdomen or pelvis. Reviewed: Reviewed by Ok Departure Communication (Admissions) 1402--MESSAGE LEFT ON DR DUMONT'S CELL PHONE. [phone]--SPOKE WITH DR. DUMONT, ACCEPTS PT FOR ADMIT. Impression Primary Impression: Uncontrolled type 2 diabetes mellitus Additional Impressions: Intractable nausea and vomiting Dehydration Hypertension Disposition: ADMITTED INPATIENT Condition: Improved (ERASED) Admissions Decision to Admit Reason: Admit from ER (General) Decision to Admit/Date: Jun 20, 2021 Time/Decision to Admit Time: 14:00 Departure-Patient Inst. Referrals: AMANDA MTZ DO (PCP/Family) Primary Care Physician LORETA LEE DO Jun 20, 2021 12:29
[2021-06-20] MEDS ORDERED: NS IV 1000 ML 1,000 ML IV SCH ×2 (12:30→13:00)
[2021-06-20 12:36] LABS: ALBUMIN 4.3 GM/DL (3.2-4.5); CHLORIDE 86 MMOL/L (98-107); POTASSIUM 3.3 MMOL/L (3.6-5.0); SODIUM 137 MMOL/L (135-145)
[2021-06-20 12:38] LABS: AMYLASE 54 U/L (25-125); CALCIUM 9.9 MG/DL (8.5-10.1)
[2021-06-20 12:40] LABS: CARBON DIOXIDE 27 MMOL/L (21-32)
[2021-06-20 12:42] LABS: ALKALINE PHOSPHATASE 91 U/L (40-136); CREATININE SERUM 1.23 MG/DL (0.60-1.30); GFR ESTIMATED 60; GLUCOSE 464 MG/DL (70-105); LYMPHOCYTES % (MANUAL) 11 %; MONOCYTES % (MANUAL) 4 %; NEUTROPHILS % (MANUAL) 85 %; RBC MORPH NORMAL
[2021-06-20 12:44] LABS: BUN/CREATININE RATIO 26
[2021-06-20 12:45] LABS: ALANINE AMINOTRANSFERASE 59 U/L (0-55)
[2021-06-20 12:46] LABS: LIPASE 35 U/L (8-78)
[2021-06-20 12:50] LABS: ERYTHROCYTE SEDIMENTATION RATE 3 MM/HR (0-30)
[2021-06-20] MEDS ORDERED: inSUlin (REGULAR) HUMAN 1 UNIT/0.01 ML (CHARGE PER UNIT) SC ONE (13:00)
[2021-06-20] MEDS ORDERED: NS 100 ML (IVPB) BAG IV ONE (13:15)
[2021-06-20] MEDS ORDERED: HOLD METFORMIN - RECEIVED CONTRAST 20 ML VIAL IV SCH (13:15)
[2021-06-20] MEDS ORDERED: IOHEXOL 350 MG/ML 100 ML (OMNIPAQUE 350) VIAL IV ONE (13:15)
[2021-06-20] MEDS ORDERED: PANTOPRAZOLE 40 MG (PROTONIX) VIAL IV ONE (13:45)
[2021-06-20] MEDS ORDERED: fentaNYL INJ 100 MCG/2 ML AMP IVP ONE (13:45)
[2021-06-20] MEDS ORDERED: hydrALAZINE (APESOLINE) 20 MG/ML VIAL IV ONE (13:45)
--- NOTE | 2021-06-20 13:50 | Diagnostic Imaging Report ---
PROCEDURE: CT abdomen and pelvis with contrast. TECHNIQUE: Multiple contiguous axial images were obtained through the abdomen and pelvis after administration of intravenous contrast. Auto Exposure Controls were utilized during the CT exam to meet ALARA standards for radiation dose reduction. All CT scans use one or more of the following dose optimizing techniques: automated exposure control, MA and/or KvP adjustment based on patient size and exam type or iterative reconstruction. INDICATION: Abdominal pain with nausea and vomiting. Comparison made with prior examination of 04/21/2016. FINDINGS: The heart size is normal. The lung bases are clear. There is fatty infiltration of the liver. There are no focal liver lesions. There is a somewhat nodular contour of the liver suggesting cirrhotic morphology. Gallbladder surgically absent. No biliary duct dilatation. Spleen is normal. The pancreas and adrenal glands are unremarkable. There is a 5 to 6 mm nonobstructing stone in the right kidney. There is no other evidence of nephrolithiasis. The stone is unchanged compared to prior examination. There is no hydronephrosis. There are no ureteral stones. Aorta is nonaneurysmal. Bowel gas pattern is nonspecific. There is no CT evidence of appendicitis. No free air. No ascites. No focal inflammatory changes. Bladder is normal. Prostate is normal. There is no pelvic mass, adenopathy or free fluid. There are degenerative post surgical changes in lumbar spine. IMPRESSION: Unchanged 6 mm nonobstructing right renal calculus. There is no evidence of obstructive uropathy. Fatty infiltration liver. Additionally there is nodular contour of the liver suggesting cirrhotic morphology. Recommend clinical correlation. Degenerative and postsurgical changes in the lumbar spine. No other acute abnormality in the abdomen or pelvis. Dictated by: Dictated on workstation # [id number]
--- NOTE | 2021-06-20 13:53 | Diagnostic Imaging Report ---
INDICATION: Nausea and vomiting. FINDINGS: The heart size, mediastinal configuration, and pulmonary vascularity are within normal limits. There is no pleural effusion, pneumothorax, or pneumonia. The osseous structures are unremarkable. IMPRESSION: No acute cardiopulmonary abnormality. Dictated by: Dictated on workstation # [id number]
[2021-06-20] MEDS ORDERED: diphenhydrAMINE 50 MG/ML INJ (BENADRYL) ONE (14:13)
[2021-06-20] MEDS ORDERED: PROMETHAZINE INJ 25 MG/ML (PHENERGAN) AMP ONE (14:14)
[2021-06-20] MEDS ORDERED: PROMETHAZINE INJ 25 MG/ML (PHENERGAN) AMP IVP ONE (14:15)
[2021-06-20] MEDS ORDERED: diphenhydrAMINE 50 MG/ML INJ (BENADRYL) IVP ONE (14:15)
[2021-06-20] MEDS: 1/2 NS W/KCL 20 MEQ/L 1,000 ML IV SCH ×3 (14:41→22:21)
[2021-06-20 15:00] VITALS: BP 194/74
[2021-06-20 15:22] LABS: BILIRUBIN,URINE NEGATIVE (NEGATIVE); CLARITY,URINE CLEAR; COLOR,URINE YELLOW; GLUCOSE, URINE (UA) 3+ (NEGATIVE); KETONES,URINE 1+ (NEGATIVE); LEUKOCYTE ESTERASE ,URINE NEGATIVE (NEGATIVE); NITRITE,URINE NEGATIVE (NEGATIVE); PROTEIN,URINE 2+ (NEGATIVE)
[2021-06-20 15:38] LABS: BACTERIA,URINE NEGATIVE /HPF; RBC,URINE 0-2 /HPF; RENAL EPITHELIAL CELLS,URINE 0-2 /HPF; SQUAMOUS EPITHELIAL CELL,UR 0-2 /HPF; WBC,URINE RARE /HPF
[2021-06-20 15:45] VITALS: BP 164/94
[2021-06-20] MEDS ORDERED: diphenhydrAMINE 50 MG/ML INJ (BENADRYL) IV PRN (15:45)
[2021-06-20] MEDS: ONDANSETRON 4 MG/2 ML (SDV) Z0FRAN IV PRN ×2 (15:47→22:10)
[2021-06-20] MEDS: inSUlin ASPART (NovoLOG) 1 UNIT/0.01 ML (CHARGE PER UNIT) SC SCH ×2 (17:13→20:52)
[2021-06-20] MEDS: PROMETHAZINE INJ 25 MG/ML (PHENERGAN) AMP IV PRN (17:20)
[2021-06-20] MEDS: fentaNYL INJ 100 MCG/2 ML AMP IV PRN ×3 (17:43→22:21)
[2021-06-20] MEDS: hydrALAZINE (APESOLINE) 20 MG/ML VIAL IV PRN (19:55)
[2021-06-20 20:00] VITALS: BP 179/91
[2021-06-20 23:30] VITALS: BP 169/79
[2021-06-21] VITALS (7 sets, daily range): BP systolic 172–198; BP diastolic 81–98
[2021-06-21] MEDS: fentaNYL INJ 100 MCG/2 ML AMP IV PRN ×11 (00:58→23:44)
[2021-06-21] MEDS: PROMETHAZINE INJ 25 MG/ML (PHENERGAN) AMP IV PRN ×3 (00:58→16:18)
[2021-06-21] MEDS: 1/2 NS W/KCL 20 MEQ/L 1,000 ML IV SCH ×5 (01:12→18:39)
[2021-06-21] MEDS: hydrALAZINE (APESOLINE) 20 MG/ML VIAL IV PRN ×4 (03:17→23:44)
[2021-06-21] MEDS: inSUlin ASPART (NovoLOG) 1 UNIT/0.01 ML (CHARGE PER UNIT) SC SCH ×4 (06:14→20:45)
[2021-06-21 06:27] LABS: BASOPHILS % (AUTO) 0 % (0-10); EOSINOPHILS % (AUTO) 0 % (0-10); HEMATOCRIT 43 % (40-54); LYMPHOCYTES # (AUTO) 2.1 10^3/uL (1.0-4.0); LYMPHOCYTES % (AUTO) 17 % (12-44); MEAN CORPUSCULAR HEMOGLOBIN 30 pg (25-34); MEAN CORPUSCULAR HGB CONC 33 g/dL (32-36); MEAN CORPUSCULAR VOLUME 91 fL (80-99); MONOCYTES # (AUTO) 0.9 10^3/uL (0.0-1.0); MONOCYTES % (AUTO) 7 % (0-12); NEUTROPHILS # (AUTO) 9.6 10^3/uL (1.8-7.8); NEUTROPHILS % (AUTO) 76 % (42-75); PLATELET COUNT 157 10^3/uL (130-400); WHITE BLOOD COUNT 12.7 10^3/uL (4.3-11.0)
[2021-06-21 06:56] LABS: ALBUMIN 3.4 GM/DL (3.2-4.5); POTASSIUM 3.4 MMOL/L (3.6-5.0)
[2021-06-21 06:58] LABS: CALCIUM 8.3 MG/DL (8.5-10.1)
[2021-06-21 07:02] LABS: CREATININE SERUM 0.79 MG/DL (0.60-1.30)
[2021-06-21] MEDS: ONDANSETRON 4 MG/2 ML (SDV) Z0FRAN IV PRN (08:55)
[2021-06-21] MEDS: PANTOPRAZOLE 40 MG (PROTONIX) VIAL IV SCH (08:55)
[2021-06-21] MEDS: VERAPAMIL SR 240 MG (CALAN SR) TAB PO SCH (11:24)
[2021-06-21] MEDS: LOSARTAN 100 MG (COZAAR) TABLET PO SCH (11:25)
[2021-06-21] MEDS ORDERED: CHLORASEPTIC SPRAY 177 ML LIQUID MC PRN (11:30)
--- NOTE | 2021-06-21 12:07 | History & Physical-Hospitalist ---
History of Present Illness HPI/Chief Complaint Pt is a 61 yo male who presented to ED yesterday morning for nausea and vomiting for the last 36 hours. Pt has hx of HTN, uncontrolled non-insulin dependent diabetes and hyperlipidemia. Pt reports not being able to keep anything down for 36 hours and sever epigastric pain. Pt states he has pain when swallowing. Pt's last meal was and he last vomited yesterday evening. He has been dry heaving today, but has not vomited. Last BM was solid yesterday morning. Pt reports he takes Rybelsus for his diabetes, but is not compliant. He last saw his PCP in March and believes his HgbA1c was around 9, but he is not certain of this. Source: patient Exam Limitations: no limitations Date Seen 06/21/21 Time Seen by a Provider: 09:45 Attending Physician Frances Griffin MD PCP Maurice Gtz DO Referring Physician Date of Admission Jun 20, 2021 at 14:00 Home Medications & Allergies Home Medications Reviewed patient Home Medication Reconciliation performed by pharmacy medication reconciliations certified bench jeweler technician and/or nursing. Patients Allergies have been reviewed. Allergies Allergies Coded Allergies No Known Drug Allergies (Unverified10/25/17) Past Azaljho-Zmehsl-Veafyf Hx Patient Social History Tobacco Use?: No Substance use?: No Alcohol Use?: Yes (HEAVY USE IN PAST, NOW WITH RARE USE) Pt feels they are or have been: No Immunizations Up To Date Second COVID19 Vaccination Kofi: MODERNA BOTH VACCINES Seasonal Allergies Seasonal Allergies: No Current Status Advance Directives: No Communicates: Verbally Primary Language: [place] Preferred Spoken Language: [place] Is interpretation needed?: Yes Implanted or Applied Medical D: Orthopedic hardware Past Medical History Surgeries: Appendectomy, Gallbladder, Orthopedic, Tonsillectomy Hypertension Gall Bladder Disease Degenerate Disk Disease, Arthritis, Chronic Back Pain Diabetes, Non-Insulin dep Tonsilitis Blood Disorders: No Review of Systems Constitutional: no symptoms reported Respiratory: No cough, No dyspnea on exertion, No short of breath Cardiovascular: No chest pain, No palpitations Gastrointestinal: abdominal pain (RLQ); No constipation, No diarrhea; loss of appetite, nausea, vomiting Genitourinary: No dysuria, No frequency, No hematuria Psychiatric/Neurological: Headache Physical Exam Physical Exam Vital Signs Vital Signs - First Documented 06/20/21 12:00 Temp 36.3 Pulse 96 Resp 18 B/P (MAP) 193/98 (129) Pulse Ox 98 O2 Delivery Room Air Capillary Refill : Less Than 3 Seconds Height, Weight, BMI Height: 6'0.00" Weight: 224lbs. 0.0oz. 101.443367nx; 30.18 BMI Method: General Appearance: Mild Distress (d/t pain) HEENT: PERRL/EOMI Neck: Full Range of Motion, Normal Inspection Respiratory: Chest Non Tender, Lungs Clear, Normal Breath Sounds, No Accessory Muscle Use, No Respiratory Distress Cardiovascular: Regular Rate, Rhythm, No Murmur, Normal Peripheral Pulses Gastrointestinal: Normal Bowel Sounds, Soft, Tenderness (RLQ and epigastric regions) Extremity: Normal Capillary Refill, Normal Inspection, Normal Range of Motion, Non Tender, No Calf Tenderness, No Pedal Edema Neurologic/Psychiatric: Alert, Oriented x3, No Motor/Sensory Deficits, Normal Mood/Affect, civil design specialist II-XII Norm as Tested Skin: Normal Color, Warm/Dry Results Results/Procedures Labs Laboratory Tests 06/20/21 12:10 06/21/21 05:35 Patient resulted labs reviewed. Assessment/Plan Admission Diagnosis Uncontrolled T2DM, Intractable Nausea/vomiting Admission Status: Observation Reason for Inpatient Admission: Uncontrolled T2DM, intractable N/V Assessment and Plan Intractable N/V with epigastric and RLQ abdominal pain 6mm ureteral stone Dehydration ROSAMARIA- POA I'm unsure of the etiology his symptoms though it's likely multifactorial Discussed with surgery who will see today and possible scope if able Continue fentanyl for pain Zofran and Phenergan prn nausea Chloraseptic spray for sore throat Continue IVF Creatinine improved Urology consult for tomorrow AM\\ Protonix Uncontrolled Non-Insulin Dependent T2DM -SSI a1c ordered BS 464 on arrival, improved to the 200s today Sliding scale a Resume home meds when med rec done HTN hydralazine prn until able to PO Hx of ETOH abuse -CT abd/pelvis showed fatty liver with signs of possible cirrhosis Diagnosis/Problems Diagnosis/Problems (1) Uncontrolled type 2 diabetes mellitus Status: Acute Qualifiers: Glycemic state: with hyperglycemia Qualified Codes: E11.65 - Type 2 diabetes mellitus with hyperglycemia (2) Intractable nausea and vomiting Status: Acute (3) Hypertension Status: Acute (4) Dehydration Status: Acute FRANCES GRIFFIN MD Jun 21, 2021 12:07
--- NOTE | 2021-06-21 15:55 | Consultation - Surgery ---
RALPH NEW 06/21/21 1555: History of Present Illness History of Present Illness Patient Consulted On(mario/time) 06/21/21 15:49 Date Seen by Provider: Jun 21, 2021 Time Seen by Provider: 15:30 Reason for Visit: Nausea and Vomiting History of Present Illness Patient is a 61 y/o male who presented to the ED yesterday morning, 20 June, for intractable nausea and vomiting. Patient reports that he has had severe nausea and vomiting since . Patient reports he has not been able to keep a meal down since . He has associated epigastric pain that has been occurring alongside the nausea and vomiting. The patient reports that Zofran, Benadryl, and ice chips help with the nausea. He says that eating, drinking, or swallowing makes it worse. He reports the pain as a constant sharp pain that feels like heartburn. He says it hurts "when I'm awake." The pain stays local to the epigastric region but he also reports rib pain due to vomiting and dry heaving. He says that the pain is a 5/10 when it is minor and a 9/10 at its worst. Patient reports normal bowel and bladder habits and denies bloody stool or vomitus. Allergies and Home Medications Allergies Coded Allergies: No Known Drug Allergies (Unverified , 10/25/17) Patient Home Medication List Hydrocodone Bit/Acetaminophen (Lortab 7.5 Mg Tablet) 1 Each Tablet, 1 EACH PO Q6H PRN for PAIN-MODERATE TO SEVERE, (Reported) Entered as Reported by: PRAVEENA CRAMER on 10/26/171257 Last Action: Last Taken Edited Losartan/Hydrochlorothiazide (Losartan-Hctz 100-25 mg Tab) 1 Each Tablet, 1 EACH PO DAILY, (Reported) Entered as Reported by: PRAVEENA CRAMER on 10/26/171257 Last Action: Converted Verapamil HCl (Verapamil ER) 240 Mg Tablet.er, 240 MG PO DAILY, (Reported) Entered as Reported by: PRAVEENA CRAMER on 10/26/171257 Last Action: Continued Discontinued Medications Empagliflozin/Linagliptin (Glyxambi 25 mg-5 mg Tablet) 1 Each Tablet, 1 EACH PO DAILY, (Reported) Discontinued Reason: No Longer Taking Entered as Reported by: PRAVEENA CRAMER on 10/26/17 6880 Last Action: Discontinued Past Tlcwucw-Ulpels-Mjdsxq Hx Patient Social History Smoking Status: Never a Smoker Recent Hopitalizations: No Alcohol Use?: Yes (HEAVY USE IN PAST, NOW WITH RARE USE) Have you traveled recently?: No Seasonal Allergies Seasonal Allergies: No Surgeries History of Surgeries: Yes (R knee ACL and menisucus repair, L knee scope, l umbar fusion) Surgeries: Appendectomy, Gallbladder, Orthopedic, Tonsillectomy Respiratory History of Respiratory Disorde: No Cardiovascular History of Cardiac Disorders: Yes (stress test on 10/25/17, ) Cardiac Disorders: Hypertension Neurological History of Neurological Disord: No Genitourinary History of Genitourinary Disor: Yes Genitourinary Disorders: Kidney Stones Gastrointestinal History of Gastrointestinal Di: Yes (S/P GEORGES AND APPY) Gastrointestinal Disorders: Gall Bladder Disease Musculoskeletal History of Musculoskeletal Dis: Yes (LUMBAR FUSION; SPINE STIMULATOR; BILAT KNEE SURGERIES) Musculoskeletal Disorders: Degenerate Disk Disease, Arthritis, Chronic Back Pain Endocrine History of Endocrine Disorders: Yes (DOES NOT CHECK BLOOD SUGAR) Endocrine Disorders: Diabetes, Non-Insulin dep HEENT History of HEENT Disorders: No (S/P TONSILLECTOMY) HEENT Disorders: Tonsilitis Cancer History of Cancer: No Psychosocial History of Psychiatric Problem: No Integumentary History of Skin or Integumenta: No Blood Transfusions History of Blood Disorders: No Family Medical History Significant Family History: Heart Disease (Mother and Sister), Cancer (Colon cancer in brother and lung cancer in sister), GI Disease (Sister and mother with ulcerative colitis), Stroke (Father) Review of Systems-General Constitutional: No chills EENTM: throat pain Respiratory: No cough, No hemoptysis Gastrointestinal: abdominal pain (Diffuse abdominal tenderness); No constipation, No diarrhea, No melena; nausea, vomiting Genitourinary: No dysuria, No frequency Musculoskeletal: back pain Physical Exam-General Problems Physical Exam Vital Signs Vital Signs - First Documented 06/20/21 12:00 Temp 36.3 Pulse 96 Resp 18 B/P (MAP) 193/98 (129) Pulse Ox 98 O2 Delivery Room Air Capillary Refill : Less Than 3 Seconds General Appearance: moderate distress (Patient in moderate amount of pain at the beginning of the encounter but pain wore off as medicine took effect) Eyes: Bilateral Eye PERRL, Bilateral Eye EOMI HEENT: PERRL/EOMI; No pale conjunctivae (R), No pale conjunctivae (L) Neck: non-tender, supple, normal inspection Respiratory: lungs clear, normal breath sounds, no respiratory distress, no accessory muscle use, other (Rib tenderness from vomiting) Cardiovascular: normal peripheral pulses, regular rate, rhythm, no murmur Peripheral Pulses: 2+ Dorsalis Pedis (R), 2+ Left Dors-Pedis (L), 2+ Radial Pulses (R), 2+ Radial Pulses (L) Gastrointestinal: normal bowel sounds, soft; No distended, No guarding; tenderness (Diffuse tenderness over all 4 quadrants) Extremities: normal inspection, no pedal edema, normal capillary refill 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, no motor/sensory deficits, alert, normal mood/affect, oriented x 3 Skin: normal color, warm/dry Lymphatic: no adenopathy (Head and neck) Data Review Labs Laboratory Tests 06/20/21 20:11: Glucometer 253H 06/21/21 05:35: White Blood Count 12.7H, Red Blood Count 4.70, Hemoglobin 14.0, Hematocrit 43, Mean Corpuscular Volume 91, Mean Corpuscular Hemoglobin 30, Mean Corpuscular Hemoglobin Concent 33, Red Cell Distribution Width 12.9, Platelet Count 157, Mean Platelet Volume 11.0, Immature Granulocyte % (Auto) 0, Neutrophils (%) (Auto) 76H, Lymphocytes (%) (Auto) 17, Monocytes (%) (Auto) 7, Eosinophils (%) (Auto) 0, Basophils (%) (Auto) 0, Neutrophils # (Auto) 9.6H, Lymphocytes # (Auto) 2.1, Monocytes # (Auto) 0.9, Eosinophils # (Auto) 0.0, Basophils # (Auto) 0.0, Immature Granulocyte # (Auto) 0.1, Sodium Level 136, Potassium Level 3.4L, Chloride Level 98, Carbon Dioxide Level 28, Anion Gap 10, Blood Urea Nitrogen 29H, Creatinine 0.79, Estimat Glomerular Filtration Rate 99, BUN/Creatinine Ratio 37, Glucose Level 200H, Calcium Level 8.3L, Corrected Calcium 8.8, Total Bilirubin 1.0, Aspartate Amino Transf (AST/SGOT) 16, Alanine Aminotransferase (ALT/SGPT) 39, Alkaline Phosphatase 61, Total Protein 6.0L, Albumin 3.4 06/21/21 06:09: Glucometer 203H 06/21/21 12:07: Glucometer 178H Assessment/Plan Assessment/Plan Assessment/Plan 1. Acute nausea and vomiting 2. HTN, Diabetes 3. Family history of colon cancer (brother) 1. Continue Zofran, benadryl, and pain medication PRN. Continue IV fluids to help combat dehydration. Consider possible workup for viral or bacterial origin. 2. Possible EGD to address N/V 3. Possible colonoscopy to address family history of colon cancer. Patient has never had a colonoscopy. NGOC CABALLERO DO 06/21/21 1629: History of Present Illness History of Present Illness Time Seen by Provider: 14:01 History of Present Illness Surgery asked to consult regarding burning abd pain. HPI per ED: PT ARRIVES VIA POV FROM HOME, C/O NAUSEA/VOMITING AND ABDOMINAL PAIN SINCE 0300 YESTERDAY AM HAS VOMITED X 5 TODAY--STATES HE HAS NOT BEEN ABLE TO KEEP ANYTHING DOWN --LAST FOOD INTAKE WAS 2100 ON TUESDAY NIGHT 06/18/21 PAIN IS MOSTLY ALL ACROSS UPPER ABDOMEN, AND IS MUCH WORSE IF HE TRIES TO DRINK ANYTHING--HAS NOT ATTEMPTED TO EAT SINCE SYMPTOMS BEGAN HAD NORMAL BM THIS AM, HAS HAD DECREASED URINE OUTPUT, NO FEVER, NO COUGH OR RESPIRATORY SYMPTOMS PT HAS HAD PRIOR CHOLECYSTECTOMY AND APPENDECTOMY, BUT DENIES ANY CHRONIC GI PROBLEMS PT IS DIABETIC, NORMALLY TAKES PILLS, BUT HAS NOT TAKEN ANY OF HIS MEDICATIONS AT ALL SINCE TUESDAY PT DOES NOT CHECK HIS BLOOD SUGAR, NO KNOWN SICK CONTACTS OR SUSPICIOUS FOODS, PT HAS HAD BOTH COVID-19 VACCINES--LAST ONE IN JANUARY OR FEBRUARY Pt states abdominal pain started after vomiting all night. Vomiting started after eating a subway sandwich. When he got here is Glucose was 460's. Allergies and Home Medications Allergies Coded Allergies: No Known Drug Allergies (Unverified , 10/25/17) Patient Home Medication List Home Medication List Reviewed: Yes Hydrocodone Bit/Acetaminophen (Lortab 7.5 Mg Tablet) 1 Each Tablet, 1 EACH PO Q6H PRN for PAIN-MODERATE TO SEVERE, (Reported) Entered as Reported by: PRAVEENA CRAMER on 10/26/17 1258 Last Action: Last Taken Edited Losartan/Hydrochlorothiazide (Losartan-Hctz 100-25 mg Tab) 1 Each Tablet, 1 EACH PO DAILY, (Reported) Entered as Reported by: PRAVEENA CRAMER on 10/26/171257 Last Action: Converted Verapamil HCl (Verapamil ER) 240 Mg Tablet.er, 240 MG PO DAILY, (Reported) Entered as Reported by: PRAVEENA CRAMER on 10/26/171257 Last Action: Continued Discontinued Medications Empagliflozin/Linagliptin (Glyxambi 25 mg-5 mg Tablet) 1 Each Tablet, 1 EACH PO DAILY, (Reported) Discontinued Reason: No Longer Taking Entered as Reported by: PRAVEENA CRAMER on 10/26/171257 Last Action: Discontinued Past Tnsmpfx-Vlydie-Bvbncn Hx Patient Social History Smoking Status: Never a Smoker Alcohol Use?: No Surgeries History of Surgeries: Yes Surgeries: Appendectomy, Gallbladder, Orthopedic, Tonsillectomy Respiratory History of Respiratory Disorde: No Cardiovascular History of Cardiac Disorders: Yes Cardiac Disorders: Hypertension Neurological History of Neurological Disord: No Genitourinary History of Genitourinary Disor: Yes Genitourinary Disorders: Kidney Stones Gastrointestinal History of Gastrointestinal Di: Yes Gastrointestinal Disorders: Gall Bladder Disease Musculoskeletal History of Musculoskeletal Dis: Yes Musculoskeletal Disorders: Degenerate Disk Disease, Arthritis, Chronic Back Pain Endocrine History of Endocrine Disorders: Yes Endocrine Disorders: Diabetes, Non-Insulin dep (uncontrolled) HEENT Loss of Vision: Denies Hearing Impairment: Hard of Hearing Cancer History of Cancer: No Psychosocial History of Psychiatric Problem: No Family Medical History Significant Family History: Heart Disease (Mother and Sister), Cancer (Colon cancer in brother and lung cancer in sister), GI Disease (Sister and mother with ulcerative colitis), Stroke (Father) Review of Systems-General Constitutional: No chills; malaise EENTM: throat pain; No hoarseness, No mouth pain, No mouth swelling Respiratory: No cough, No hemoptysis Cardiovascular: No chest pain, No edema Gastrointestinal: abdominal pain (Diffuse abdominal tenderness); No constipation, No diarrhea, No melena; nausea, vomiting Genitourinary: No dysuria, No frequency Musculoskeletal: back pain, joint pain, muscle stiffness Skin: No change in color, No change in hair/nails Psychiatric/Neurological: Denies Anxiety, Denies Depressed, Denies Seizure, Denies Tremors Physical Exam-General Problems Physical Exam General Appearance: WD/WN, mild distress Eyes: Bilateral Eye PERRL, Bilateral Eye EOMI HEENT: No pale conjunctivae (R), No pale conjunctivae (L) Neck: non-tender, supple, normal inspection Respiratory: lungs clear, normal breath sounds, no respiratory distress Cardiovascular: regular rate, rhythm, no murmur Gastrointestinal: normal bowel sounds, soft; No distended, No guarding; ten derness (Diffuse tenderness over all 4 quadrants, most sub-xyphoid and more in RUQ compared to other quadrants) Back: no CVA tenderness, no vertebral tenderness Extremities: normal inspection, no pedal edema, normal capillary refill 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 TECHNIQUE: Multiple contiguous axial images were obtained through the abdomen and pelvis after administration of intravenous contrast. Auto Exposure Controls were utilized during the CT exam to meet ALARA standards for radiation dose reduction. All CT scans use one or more of the following dose optimizing techniques: automated exposure control, MA and/or KvP adjustment based on patient size and exam type or iterative reconstruction. INDICATION: Abdominal pain with nausea and vomiting. Comparison made with prior examination of 04/21/2016. FINDINGS: The heart size is normal. The lung bases are clear. There is fatty infiltration of the liver. There are no focal liver lesions. There is a somewhat nodular contour of the liver suggesting cirrhotic morphology. Gallbladder surgically absent. No biliary duct dilatation. Spleen is normal. The pancreas and adrenal glands are unremarkable. There is a 5 to 6 mm nonobstructing stone in the right kidney. There is no other evidence of nephrolithiasis. The stone is unchanged compared to prior examination. There is no hydronephrosis. There are no ureteral stones. Aorta is nonaneurysmal. Bowel gas pattern is nonspecific. There is no CT evidence of appendicitis. No free air. No ascites. No focal inflammatory changes. Bladder is normal. Prostate is normal. There is no pelvic mass, adenopathy or free fluid. There are degenerative post surgical changes in lumbar spine. IMPRESSION: Unchanged 6 mm nonobstructing right renal calculus. There is no evidence of obstructive uropathy. Fatty infiltration liver. Additionally there is nodular contour of the liver suggesting cirrhotic morphology. Recommend clinical correlation. Degenerative and postsurgical changes in the lumbar spine. No other acute abnormality in the abdomen or pelvis. Dictated by: Dictated on workstation # [id number] Dict: 06/20/21 1342 Trans: 06/20/21 1438 CV [id number] Interpreted by: JADE SALAS MD Electronically signed by: JADE SALAS MD 06/20/21 1438 Assessment/Plan Assessment/Plan Assessment/Plan 1. Acute nausea and vomiting 2. Abdominal pain 3. HTN, Diabetes 4. Family history of colon cancer (brother) 1. Continue Zofran, benadryl, and pain medication PRN. Continue IV fluids to help combat dehydration. Consider possible workup for viral or bacterial origin. 2. Possible EGD to address N/V 3. Possible colonoscopy because of age and family history of colon cancer; however brother was in his 60's when diagnosed. Patient has never had a colonoscopy. No reason to do EGD during this visit; because no hematemesis or coffee ground emesis and even though he describes a burning pain it started after vomiting. If anything changes or pt is here long enough could prep and do both while he is here. Supervisory-Addendum Brief Verification & Attestation Participated in pt care: history, MDM, physical Personally performed: exam, history, MDM, supervision of care Care discussed with: Medical Student Procedures: n/a Verification and Attestation of Medical Student E/M Service A medical student performed and documented this service. I then reviewed and verified all information documented by the medical student and made modifications to such information, when appropriate. I personally performed a physical exam, medical decision making and then discussed any differences between the notes and made revisions as necessary to create one note. Ngoc Caballero , 06/21/21 , 16:35 RALPH NEW Jun 21, 2021 15:55 NGOC CABALLERO DO Jun 21, 2021 16:29
[2021-06-21] MEDS ORDERED: NITROGLYCERIN 2% OINT 1 GM UNIT DOSE PACKET TOP PRN (20:45)
[2021-06-22] MEDS: 1/2 NS W/KCL 20 MEQ/L 1,000 ML IV SCH ×3 (01:16→17:04)
[2021-06-22] MEDS: fentaNYL INJ 100 MCG/2 ML AMP IV PRN ×5 (02:53→13:31)
[2021-06-22] MEDS: ONDANSETRON 4 MG/2 ML (SDV) Z0FRAN IV PRN ×2 (02:53→08:58)
[2021-06-22 03:53] VITALS: BP 172/84
[2021-06-22 04:30] LABS: HEMOGLOBIN 13.2 g/dL (13.3-17.7); MEAN PLATELET VOLUME 10.8 fL (9.0-12.2); WHITE BLOOD COUNT 8.5 10^3/uL (4.3-11.0)
[2021-06-22 04:48] LABS: POTASSIUM 3.8 MMOL/L (3.6-5.0)
[2021-06-22 04:49] LABS: CALCIUM 8.1 MG/DL (8.5-10.1)
[2021-06-22 04:54] LABS: CREATININE SERUM 0.71 MG/DL (0.60-1.30)
[2021-06-22] MEDS: inSUlin ASPART (NovoLOG) 1 UNIT/0.01 ML (CHARGE PER UNIT) SC SCH ×3 (05:21→16:20)
[2021-06-22] MEDS: PROMETHAZINE INJ 25 MG/ML (PHENERGAN) AMP IV PRN (05:57)
--- NOTE | 2021-06-22 08:11 | Progress Note - Surgery ---
SHADY LYLES MED STUDENT 06/22/21 0811: Subjective Date Seen by a Provider: Jun 22, 2021 Time Seen by a Provider: 07:15 Subjective/Events-last exam surgery consult for: N/V/abdominal pain Patient is resting comfortably in bed. He complains of sharp 8/10 epigastric pain that comes and goes. It has improved since fluid intake. He continues to have dry heaving, FRANCO, nausea. He states his abdomen is tender and feels bloated. The medications have helped. His is tolerating a liquid diet, ambulating, and having no difficulty with BM or urination. Review of Systems General: No Chills, No Fatigue, No Malaise HEENT: Head Aches; No Visual Changes, No Eye Pain Pulmonary: No Dyspnea, No Cough Cardiovascular: No: Chest Pain, Palpitations Gastrointestinal: Nausea, Abdominal Pain (epigastric); No: Vomiting, Diarrhea, Constipation Genitourinary: No Dysuria, No Frequency Neurological: No: Weakness, Numbness Objective Exam Vital Signs Date Time Temp Pulse Resp B/P (MAP) Pulse Ox O2 Delivery O2 Flow Rate FiO2 06/22/21 05:56 37.1 06/22/21 03:53 37.1 82 20 172/84 (113) 95 Room Air 06/22/21 01:00 95 06/21/21 23:30 37.6 85 18 195/87 (123) 96 Room Air 06/21/21 21:29 36.9 06/21/21 20:16 36.9 78 18 198/92 (127) 97 Room Air 06/21/21 20:00 Room Air 06/21/21 19:00 91 06/21/21 15:30 37.0 78 18 180/84 (116) 96 Room Air 06/21/21 12:58 88 06/21/21 11:01 37.4 88 20 178/81 (113) 97 Room Air 06/21/21 08:25 172/92 (118) I & O 06/22/21 07:00 Intake Total 3850 ml Balance 3850 ml Capillary Refill : Less Than 3 Seconds General Appearance: Mild Distress (d/t pain) HEENT: PERRL/EOMI Neck: Full Range of Motion, Normal Inspection, Non Tender, Supple Respiratory: Chest Non Tender, Lungs Clear, Normal Breath Sounds, No Accessory Muscle Use, No Respiratory Distress Cardiovascular: Regular Rate, Rhythm, No Murmur, Normal Peripheral Pulses Peripheral Pulses: 2+ Dorsalis Pedis (R), 2+ Left Dors-Pedis (L), 2+ Radial Pulses (R), 2+ Radial Pulses (L) Gastrointestinal: normal bowel sounds, soft, distended; No guarding; tenderness (diffuse tenderness, mostly epigastric) Extremity: Normal Capillary Refill, Normal Inspection, Normal Range of Motion, Non Tender, No Calf Tenderness, No Pedal Edema Neurologic/Psychiatric: Alert, Oriented x3, No Motor/Sensory Deficits, Normal Mood/Affect, 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 Norm as Tested Skin: Normal Color, Warm/Dry Results Lab Laboratory Tests 06/21/21 12:07: Glucometer 178H 06/21/21 16:26: Glucometer 189H 06/21/21 19:47: Glucometer 182H 06/22/21 04:15: White Blood Count 8.5, Red Blood Count 4.48, Hemoglobin 13.2L, Hematocrit 40, Mean Corpuscular Volume 90, Mean Corpuscular Hemoglobin 30, Mean Corpuscular Hemoglobin Concent 33, Red Cell Distribution Width 12.7, Platelet Count 123L, Mean Platelet Volume 10.8, Percent Immature Platelet Fraction 5.2, Sodium Level 134L, Potassium Level 3.8, Chloride Level 101, Carbon Dioxide Level 22, Anion Gap 11, Blood Urea Nitrogen 23H, Creatinine 0.71, Estimat Glomerular Filtration Rate 112, BUN/Creatinine Ratio 32, Glucose Level 177H, Calcium Level 8.1L 06/22/21 05:30: Glucometer 176H Assessment/Plan Assessment/Plan Assessment/Plan 1. Acute nausea and vomiting 2. Abdominal pain 3. HTN, Diabetes 4. Family history of colon cancer (brother) 1. Continue Zofran, benadryl, and pain medication PRN. Continue IV fluids to help combat dehydration. advance diet as tolerated. 2. EGD and colonoscopy as outpatient for symptoms of N/V and no prior screening colonoscopy and family hx of colon cancer. consider starting a PPI. No reason to do EGD during this visit; because no hematemesis or coffee ground emesis and even though he describes a burning pain it started after vomiting. If anything changes or pt is here long enough could prep and do both while he is here. 3. CT abdomen/pelvis showed nonobstructing renal stone and chronic liver pathology. Continue to drink plenty of fluids. NOBLE CABALLERO DO 06/22/21 1641: Subjective Time Seen by a Provider: 15:16 Subjective/Events-last exam Pt seen and examined, states pain is better; still no hematemesis or coffee ground emesis. Review of Systems General: No Chills Pulmonary: No Dyspnea, No Cough Cardiovascular: No: Chest Pain, Palpitations Gastrointestinal: Nausea, Abdominal Pain (epigastric); No: Vomiting, Diarrhea, Constipation Objective Exam General Appearance: Mild Distress (d/t pain) Respiratory: Lungs Clear, Normal Breath Sounds, No Accessory Muscle Use, No Respiratory Distress Cardiovascular: Regular Rate, Rhythm, No Murmur Gastrointestinal: soft, distended; No guarding; tenderness (diffuse tenderness, mostly epigastric) Assessment/Plan Assessment/Plan Assessment/Plan 1. Acute nausea and vomiting 2. Abdominal pain 3. HTN, Diabetes 4. Family history of colon cancer (brother) 1. Continue Zofran, benadryl, and pain medication PRN. Continue IV fluids to help combat dehydration. advance diet as tolerated. 2. EGD and colonoscopy as outpatient for symptoms of N/V and no prior screening colonoscopy and family hx of colon cancer. consider starting a PPI. No reason to do EGD during this visit; because no hematemesis or coffee ground emesis and even though he describes a burning pain it started after vomiting. If anything changes or pt is here long enough could prep and do both while he is here. 3. CT abdomen/pelvis showed nonobstructing renal stone and chronic liver pathology. Continue to drink plenty of fluids. Supervisory-Addendum Brief Verification & Attestation Participated in pt care: history, MDM, physical Personally performed: exam, history, MDM, supervision of care Care discussed with: Medical Student Procedures: n/a Verification and Attestation of Medical Student E/M Service A medical student performed and documented this service. I then reviewed and verified all information documented by the medical student and made modifications to such information, when appropriate. I personally performed a physical exam, medical decision making and then discussed any differences between the notes and made revisions as necessary to create one note. Noble Caballero , 06/22/21 , 16:41 SHADY LYLES MED STUDENT Jun 22, 2021 08:11 NOBLE CABALLERO DO Jun 22, 2021 16:41
[2021-06-22 08:20] VITALS: BP 183/100
[2021-06-22] MEDS: VERAPAMIL SR 240 MG (CALAN SR) TAB PO SCH (08:57)
[2021-06-22] MEDS: PANTOPRAZOLE 40 MG (PROTONIX) VIAL IV SCH (08:57)
[2021-06-22] MEDS: LOSARTAN 100 MG (COZAAR) TABLET PO SCH (08:58)
[2021-06-22] MEDS ORDERED: BACL20TA PO (09:27)
[2021-06-22] MEDS ORDERED: SEMA3TAB PO (09:27)
[2021-06-22] MEDS ORDERED: FENO200C PO (09:27)
[2021-06-22] MEDS ORDERED: HYDR-3817 PO (09:27)
[2021-06-22 10:11] VITALS: BP 190/86
[2021-06-22] MEDS: hydrALAZINE (APESOLINE) 20 MG/ML VIAL IV PRN (10:19)
[2021-06-22 12:00] VITALS: BP 142/60
[2021-06-22 16:00] VITALS: BP 182/86
[2021-06-22] MEDS ORDERED: PANT40TA52 PO (16:44)
[2021-06-22] MEDS ORDERED: ONDA4TAB11 PO (16:44)
--- NOTE | 2021-06-23 12:41 | CONSULTATION REPORT ---
DATE OF SERVICE: 06/22/2021 ATTENDING PHYSICIAN: Dr. Griffin. SUMMARY: A 61-year-old white man admitted through the emergency room because of nausea and vomiting, was found by CAT scan to have a 6 mm nonobstructing right renal stone that has not changed from before. He has no symptoms related to it. I reviewed his present history and physical. IMPRESSION: Right renal stone, nonobstructing. PLAN: It is the choice of the patient if he wants to observe the stone or proceed later on with ESWL, he will inform us of his decision if he wants the ESWL. CC: Dr. Rocio Griffin -- requested, unable to deliver. CC: Dr. Nathalie Cuadra -- requested, unable to deliver. Job ID: [id number] DocumentID: [id number] Dictated Date: 06/23/2021 11:55:28 Tier And Detonator Date: 06/23/2021 12:40:16 Dictated By: VENKAT MALDONADO MD
--- NOTE | 2021-06-26 09:54 | Physician Query-Final Dx ---
GUILLERMINA TREVINO 06/26/21 0954: Final Diagnosis Give Final Diagnosis Please give Final Diagnosis FRANCES DUMONT MD 06/29/21 1506: Final Diagnosis Give Final Diagnosis Dr Cuadra discharged patient. please send to him. GUILLERMINA TREVINO Jun 26, 2021 09:54 FRANCES DUMONT MD Jun 29, 2021 15:06
== END 2021-06-22 16:41 | disposition home or self-care (01) ==
LOC: EDUNIT# 11:57 → ER 12:00 → UNDOADMOB 14:00 → 4TH 14:00 → UNDODISOB 06-22 17:20
PROVIDERS: ADMIT Family Medicine; ATTEND Internal Medicine
DX: E11.65 Type 2 diabetes mellitus with hyperglycemia (principal); R11.2 Nausea with vomiting, unspecified; I10 Essential (primary) hypertension; E86.0 Dehydration; M19.90 Unspecified osteoarthritis, unspecified site; G89.29 Other chronic pain; M54.9 Dorsalgia, unspecified; E11.9 Type 2 diabetes mellitus without complications; Z79.891 Long term (current) use of opiate analgesic; Z79.899 Other long term (current) drug therapy; Z90.89 Acquired absence of other organs; Z90.49 Acquired absence of other specified parts of digestive tract; Z80.0 Family history of malignant neoplasm of digestive organs
CPT/HCPCS: 71045; 74177; 80048; 80053 ×2; 81000; 82150; 82947 ×3; 83036; 83690; 83735; 84145; 84484; 85007; 85025; 85027 ×2; 85652; 86141; 87636; 93005; 93041; 96361; 96372; 96374; 96375; 96376; 99284; G0378; 36415

== ENCOUNTER 2022-05-20 05:31 | Emergency (ER) | payer MEDICARE | END 2022-05-20 06:20 | disposition left against medical advice (07) | LOC: EDUNIT# 05:31 → ER 05:33 | DX: R09.81 Nasal congestion (principal) ==

== ENCOUNTER → 2022-05-20 | Outpatient (CLI) | payer MEDICARE ==
[~2022-05-20] MED LIST changes: +BACL20TA PO; +FENO200C27 PO; +HYDR-3817 PO; +ONDA4TAB11 PO; +PANT40TA52 PO; +SEMA3TAB4 PO; +VERA240T90 PO; -[UNRECOGNIZED DRUG - CODE] PO
--- NOTE | 2022-05-20 11:34 | Diagnostic Imaging Report ---
INDICATION: Facial paresthesias. TECHNIQUE: Multiple contiguous axial images were obtained through the brain without the use of intravenous contrast. Auto Exposure Controls were utilized during the CT exam to meet ALARA standards for radiation dose reduction. There is no prior CT for comparison. FINDINGS: There are no extra-axial fluid collections. No intracranial hemorrhage. No intracranial mass or mass effect. No midline shift. The ventricles are normal in size and position. There are some ill-defined low-density changes in the left posterior temporal/occipital cortex and subcortical white matter. No other focal abnormalities in the brain parenchyma are seen IMPRESSION: Focal patchy areas of low density in the left temporo-occipital region, in the cortex and subcortical white matter. These may represent ischemic changes; recommend MRI for further characterization. There is no hemorrhage or mass effect. Dictated by: Dictated on workstation # [id number]
--- NOTE | 2022-05-20 12:42 | Diagnostic Imaging Report ---
PROCEDURE: US carotid duplex, bilateral. TECHNIQUE: Multiple real-time grayscale images were obtained over the carotid arteries in various projections, bilaterally. Additional spectral analysis and color Doppler duplex images were also obtained. INDICATION: Facial paresthesias COMPARISON: None available. FINDINGS: Minimal plaque noted within bilateral carotid arterial systems. Peak systolic velocities of the bilateral carotid arterial systems are within normal limits. Additionally, the bilateral internal carotid artery to common carotid artery ratios are within normal limits. Antegrade flow within the bilateral vertebral arteries. IMPRESSION: No evidence of hemodynamically significant stenosis. Antegrade flow within the bilateral vertebral arteries. Parameters based on the consensus panel Bryson-Scale and Doppler ultrasound criteria published August 2003, Radiology, Volume 229. DOPPLER (peak systolic velocity M/S Right Left CCA 0.68 0.59 ICA Proximal 0.68 0.53 ICA Mid 0.91 0.45 ICA Distal 0.51 0.44 RATIO 1.34 0.90 ECA 0.58 0.90 VERT 0.40 0.47 Dictated by: Dictated on workstation # [id number]
== END ==
LOC: RAD 12:00
PROVIDERS: ATTEND Internal Medicine
DX: R20.2 Paresthesia of skin (principal); E11.9 Type 2 diabetes mellitus without complications; I10 Essential (primary) hypertension
CPT/HCPCS: 70450; 93880

== ENCOUNTER 2022-05-31 08:54 | Inpatient (IN) | payer MEDICARE ==
[~2022-05-31] VITALS: Ht 188 cm; Wt 99.4 kg
[2022-05-31] MEDS ORDERED: DOCUSATE SODIUM 100 MG (COLACE) CAP PO PRN (09:45)
[2022-05-31] MEDS ORDERED: LACTULOSE SYRUP 10GM/15ML (ENULOSE) 30ML UDC PO PRN (09:45)
[2022-05-31] MEDS ORDERED: LOPERAMIDE 2 MG (IMODIUM) TABLET PO PRN (09:45)
[2022-05-31] MEDS ORDERED: guaiFENesin/CODEINE (ROBITUSSIN AC) 10ML UDC PO PRN (09:45)
[2022-05-31] MEDS ORDERED: MELATONIN 3 MG TABLET PO PRN (09:45)
[2022-05-31] MEDS ORDERED: diphenhydrAMINE 25 MG TAB (BENADRYL) PO PRN (09:45)
[2022-05-31] MEDS ORDERED: ALPRAZolam 0.25 MG (XANAX) TAB PO PRN (09:45)
[2022-05-31] MEDS ORDERED: ACETAMINOPHEN 325 MG TABLET PO PRN (09:45)
[2022-05-31] MEDS ORDERED: FLEET ENEMA ADULT 1 EA BTL PR PRN (09:45)
[2022-05-31] MEDS ORDERED: BISACODYL 10 MG SUPP (DULCOLAX) PR PRN (09:45)
[2022-05-31] MEDS ORDERED: ONDANSETRON 4 MG (ZOFRAN) ORAL DISSOLVE TAB PO PRN (09:45)
[2022-05-31] MEDS ORDERED: CALCIUM CARBONATE 500 MG (TUMS) TAB.CHEW PO PRN (09:45)
[2022-05-31] MEDS ORDERED: CLOP75TA28 PO (12:41)
[2022-05-31] MEDS ORDERED: ASPI-1238 PO (12:41)
[2022-05-31] MEDS ORDERED: LOSA100T57 PO (12:41)
[2022-05-31] MEDS ORDERED: GABA-486 PO (12:41)
[2022-05-31] MEDS ORDERED: INSU200I4 SC (12:41)
[2022-05-31] MEDS ORDERED: ATOR40TA70 PO (12:41)
[2022-05-31] MEDS ORDERED: AMLO-251 PO (12:41)
[2022-05-31] MEDS ORDERED: INSU100I40 SC (12:41)
[2022-05-31] MEDS ORDERED: ALPR0.5T7 PO (12:41)
--- NOTE | 2022-05-31 15:32 | Progress Note ---
JITENDRA HENDERSON 05/31/22 1532: Progress Note CC: Debility due to CVA HPI: Cole Hernandez is a 62y/o M who presented to the [facility] ED on 05/22 due to FRANCO, facial droop, and weakness. His sxs started earlier in the week and he went to the ED at [facility] in [facility] on 05/20 but he left w/o being seen. He reported his sxs to his PCP. A head CT and carotid US were ordered by his PCP. CT findings were, according to radiology, focal patchy areas of low density in the left temporo- occipital region, in the cortex and subcortical white matter. These may represent ischemic changes; recommend MRI for further characterization. Carotid US showed no evidence of hemodynamically significant stenosis. He continued to have intermittent FRANCO and facial droop and that was what caused him to go to the ER at [facility] on 05/22. While at [facility] he was followed by neurology and cardiology. Received PT and OT as well. He did have an episode where he fell while in the bathroom while at [facility]. Pt was able to live at home w/o issue before this incident. He now has greatly decreased function of both right extremities in addition to right sided facial droop. Pt feels that he has been having slow improvement in the function of his right side. PMH: HTN, DM type 2, HLD, sleep apnea, anxiety, chronic back pain, arthritis PSH: appendectomy, cholecystectomy, tonsillectomy, spinal cord stimulator All: NKDA Medications: lortab 7.5/325 Q4H PRN, alprazolam 0.5mg Q8H PRN, lipitor 80mg HS, aspirin 81mg QD, plavix 75mg QD, insulin glargine 24 units QAM, lispro 8 units before meals, losartan 100mg QD, verapamil 240mg QD, gabapentin 100 HS, fenofibrate 200mg QD SH: non-smoker, lives at home, denies alcohol use FH: Afib, cancer, stroke, GI disease ROS: gen- no fever, chills heent- decreased vision on right, no eye pain cardiac- no CP, palpitations lungs- no SOB, cough GI- no ab pain, N/V, constipation, diarrhea - no dysuria, hematuria MSK- right sided weakness, no back pain neuro- no numbness or tingling PE: gen- WD/WN, no distress heent- EOMI/PERRL, no photophobia cardiac- RRR, no murmurs lungs- CTAB, regular rate GI- soft, not tender LE- not tender, no edema neuro- CN 7,11 abnormal on right side, CN 2-12 otherwise normal, strength in RUE and RLQ 1/5, LUE and LLE 5/5, DTR 2+/4 b/l in triceps, biceps, patellar and achilles, unable to do gait testing due to inability to walk Imaging: Head CT 05/20- focal patchy areas of low density in the left temporo-occipital region, in the cortex and subcortical white matter. These may represent ischemic changes; recommend MRI for further characterization. Carotid US 05/20- no evidence of hemodynamically significant stenosis. Head MRI 05/23- multiple areas of encephelomalacia CTA head 05/24- high-grade stenosis of occlusion of M1 segement of MCA CT brain 05/25- multiple left sided conn radiata infarctions MRI fast 05/25- multifocal restricted diffusion throughout left cerebral hemisphere consistent w/ multiple infarctions Assessment: Debility CVA Right sided weakness HTN Diabetes mellitus type 2 HLD Sleep apnea Anxiety Chronic back pain Fall risk Plan: Start PT, OT, speech therapy Monitor blood sugars Start long acting insulin and SSI Restart home meds Pain control Closely monitor due to risk of fall DVT prophylaxis: SCDs Diet: diabetic diet Code status; full code HIWOT ORTIZ DO 06/01/22 0549: Supervisory-Addendum Brief Verification & Attestation Participated in pt care: history, MDM, physical Personally performed: exam, history, MDM, supervision of care Care discussed with: Medical Student Procedures: n/a Results interpretation: Verified all documentation Verification and Attestation of Medical Student E/M Service A medical student performed and documented this service in my presence. I reviewed and verified all information documented by the medical student and made modifications to such information, when appropriate. I personally performed the physical exam and medical decision making. Hiwot Ortiz Jun 01, 2022,05:49 JITENDRA HENDERSON May 31, 2022 15:32 HIWOT ORTIZ DO Jun 01, 2022 05:49
--- NOTE | 2022-05-31 15:59 | PM&R Post Admission Assessment ---
PM&R HP Date of Visit: May 31, 2022 Time of Visit: 19:00 History of Present Illness CC: CVA with right sided weakness and dysarthria HPI: This is a 62[address]WM of [address] Gtz's who presents to ARU following a hospital course at [facility] for CVA suspected embolic type. Right sided weakness is profound with dysarthria will require aggressive therapy in order to regain function in order to return back to independent living. Suspected PAF so monitor placed prior to DC from [facility] and remains in place. CC: Debility due to CVA HPI: Cole Hernandez is a 62y/o M who presented to the [facility] ED on 05/22 due to FRANCO, facial droop, and weakness. His sxs started earlier in the week and he went to the ED at [facility] in [facility] on 05/20 but he left w/o being seen. He reported his sxs to his PCP. A head CT and carotid US were ordered by his PCP. CT findings were, according to radiology, focal patchy areas of low density in the left temporo- occipital region, in the cortex and subcortical white matter. These may represent ischemic changes; recommend MRI for further characterization. Carotid US showed no evidence of hemodynamically significant stenosis. He continued to have intermittent FRANCO and facial droop and that was what caused him to go to the ER at [facility] on 05/22. While at [facility] he was followed by neurology and cardiology. Received PT and OT as well. He did have an episode where he fell while in the bathroom while at [place]. Pt was able to live at home w/o issue before this incident. He now has greatly decreased function of both right extremities in addition to right sided facial droop. Pt feels that he has been having slow improvement in the function of his right side. PMH: HTN, DM type 2, HLD, sleep apnea, anxiety, chronic back pain, arthritis PSH: appendectomy, cholecystectomy, tonsillectomy, spinal cord stimulator All: NKDA Medications: lortab 7.5/325 Q4H PRN, alprazolam 0.5mg Q8H PRN, lipitor 80mg HS, aspirin 81mg QD, plavix 75mg QD, insulin glargine 24 units QAM, lispro 8 units before meals, losartan 100mg QD, verapamil 240mg QD, gabapentin 100 HS, fenofibrate 200mg QD SH: non-smoker, lives at home, denies alcohol use FH: Afib, cancer, stroke, GI disease ROS: gen- no fever, chills heent- decreased vision on right, no eye pain cardiac- no CP, palpitations lungs- no SOB, cough GI- no ab pain, N/V, constipation, diarrhea - no dysuria, hematuria MSK- right sided weakness, no back pain neuro- no numbness or tingling PE: gen- WD/WN, no distress heent- EOMI/PERRL, no photophobia cardiac- RRR, no murmurs lungs- CTAB, regular rate GI- soft, not tender LE- not tender, no edema neuro- CN 7,11 abnormal on right side, CN 2-12 otherwise normal, strength in RUE and RLQ 1/5, LUE and LLE 5/5, DTR 2+/4 b/l in triceps, biceps, patellar and achilles, unable to do gait testing due to inability to walk Imaging: Head CT 05/20- focal patchy areas of low density in the left temporo-occipital region, in the cortex and subcortical white matter. These may represent ischemic changes; recommend MRI for further characterization. Carotid US 05/20- no evidence of hemodynamically significant stenosis. Head MRI 05/23- multiple areas of encephelomalacia CTA head 05/24- high-grade stenosis of occlusion of M1 segement of MCA CT brain 05/25- multiple left sided conn radiata infarctions MRI fast 05/25- multifocal restricted diffusion throughout left cerebral hemisphere consistent w/ multiple infarctions Assessment: Debility CVA Right sided weakness HTN Diabetes mellitus type 2 HLD Sleep apnea Anxiety Chronic back pain Fall risk Plan: Start PT, OT, speech therapy Monitor blood sugars Start long acting insulin and SSI Restart home meds Pain control Closely monitor due to risk of fall DVT prophylaxis: SCDs Diet: diabetic diet Code status; full code JITENDRA HENDERSON May 31, 2022 15:32 Past [id number] Hx Past Med/Social Hx: Reviewed Nursing Past Med/Soc Hx, Reviewed and Corrections made Patient Social History Marrital Status: Employed/Student: employed Alcohol Use: Denies Use Smoking Status: Never a Smoker Recent Hopitalizations: No Seasonal Allergies Seasonal Allergies: No Past Medical History Surgeries: Appendectomy, Gallbladder, Orthopedic, Tonsillectomy Cardiac: High Cholesterol, Hypertension Neurological: Stroke Genitourinary: Kidney Stones Gastrointestinal: Gall Bladder Disease Musculoskeletal: Degenerate Disk Disease, Arthritis, Chronic Back Pain Endocrine: Diabetes, Non-Insulin dep HEENT: Tonsilitis Loss of Vision: Denies Hearing Impairment: Hard of Hearing History of Blood Disorders: No Family History Heart Disease, Cancer, GI Disease, Stroke PM&R Allergy/Meds/Data Review Allergies Coded Allergies: No Known Drug Allergies (Unverified , 10/25/17) Home Medications Scheduled Amlodipine Besylate (Amlodipine Besylate), 10 MG PO DAILY, (Reported) Aspirin (Aspirin EC), 81 MG PO DAILY, (Reported) Atorvastatin Calcium (Atorvastatin Calcium), 40 MG PO HS, (Reported) Clopidogrel Bisulfate (Clopidogrel), 75 MG PO DAILY, (Reported) Fenofibrate,Micronized (Fenofibrate), 200 MG PO DAILY, (Reported) Gabapentin (Gabapentin), 100 MG PO HS, (Reported) Insulin Aspart (Niacinamide) (Fiasp 100 Unit/ml Flextouch), 8 UNITS SC AC, (Reported) Insulin Degludec (Tresiba Flextouch U-200), 24 UNITS SC DAILY, (Reported) Losartan Potassium (Losartan Potassium), 100 MG PO DAILY, (Reported) Verapamil HCl (Verapamil ER), 240 MG PO DAILY, (Reported) Scheduled PRN Alprazolam (Alprazolam), 0.5 MG PO Q8H PRN for ANXIETY, (Reported) Baclofen (Baclofen), 20 MG PO Q8H PRN for MUSCLE SPASMS, (Reported) Hydrocodone/Acetaminophen (Hydrocodone-Acetamin 7.5-325), 1 EACH PO Q4H PRN for PAIN-MODERATE (5-7), (Reported) Discontinued Medications Losartan/Hydrochlorothiazide (Losartan-Hctz 100-25 mg Tab), 1 EACH PO DAILY, (Reported) Discontinued Reason: No Longer Taking Ondansetron (Ondansetron Odt), 4 MG PO Q6H PRN for NAUSEA/VOMITING Discontinued Reason: No Longer Taking Pantoprazole Sodium (Pantoprazole Sodium), 40 MG PO DAILY Discontinued Reason: No Longer Taking Semaglutide (Rybelsus), 3 MG PO DAILY, (Reported) Discontinued Reason: No Longer Taking Current Medications Current Medications Reviewed Review of Systems Constitutional: see HPI, malaise, weakness EENTM: no symptoms reported Respiratory: no symptoms reported Cardiovascular: no symptoms reported Gastrointestinal: no symptoms reported Genitourinary: no symptoms reported Musculoskeletal: back pain, joint pain Skin: no symptoms reported Psychiatric/Neurological: Anxiety, Depressed, Numbness, Paresthesia, Tingling, Tremors, Weakness All Other Systems Reviewed Negative Unless Noted: Yes Physical Exam Physical Exam Vital Signs Capillary Refill : Height, Weight, BMI Height: 6'0.00" Weight: 224lbs. 0.0oz. [id number]; 30.18 BMI Method: General Appearance: No Apparent Distress, WD/WN, Obese Eyes: Bilateral Eye Normal Inspection, Bilateral Eye PERRL HEENT: PERRL/EOMI, Normal ENT Inspection, Pharynx Normal Neck: Full Range of Motion, Normal Inspection, Non Tender, Supple, Carotid Bruit Respiratory: Chest Non Tender, Lungs Clear, Normal Breath Sounds, No Accessory Muscle Use, No Respiratory Distress Cardiovascular: Regular Rate, Rhythm, No Edema, No Gallop, No JVD, No Murmur, Normal Peripheral Pulses Gastrointestinal: Normal Bowel Sounds, No Organomegaly, No Pulsatile Mass, Non Tender, Soft Back: Normal Inspection, No CVA Tenderness, No Vertebral Tenderness Extremity: Normal Capillary Refill, Normal Inspection, Normal Range of Motion (except right side), Non Tender, No Calf Tenderness, No Pedal Edema Neurologic/Psychiatric: Alert, Oriented x3, Normal Mood/Affect, concession attendant II-XII Norm as Tested, Abnormal Gait, Aphasia, Depressed Affect, Motor Weakness (right sided weakness 1/5) Skin: Normal Color, Warm/Dry Lymphatic: No Adenopathy PM&R Medical Assessment & Plan REHAB/MEDICAL ASSESSMENT AND PLAN: REHAB IMPAIRMENT GROUP: CVA ETIOLOGIC DIAGNOSIS: CVA The comorbidities that impact the patients function and/or functional outcome by: catastrophic CVA with right sided weakness, DM, HTN, HLP, Suspected PAF monitor intact REHAB PLAN: The patient is being admitted to our comprehensive inpatient rehabilitation facility and can tolerate the intensity of service consisting of at least: 180 minutes of therapy a day, 5 out of 7 days a week Rehab treatment will consist of: PT OT will focus on regaining independence with use of assistive devices in order to compensate for right sided weakness in order to return to independent living The patient/family has a good understanding of our discharge process and will benefit from an interdisciplinary inpatient rehabilitation program. The patient has potential to make improvement and is in need of at least two of the [facility] multidisciplinary therapies including but not limited to physical, occupational, speech, and prosthetics and orthotics. Additionally the patient will need services from respiratory, nutritional services, wound care, psychology, etc. (Customize this to each patient). Given the patients complex condition and risk of further medical complications, rehabilitation services cannot be safely or effectively provided at a lower level of care such as a assisted facility. BARRIERS TO DISCHARGE: Catastrophic CVA right sided weakness ESTIMATED LOS: 14 days DISPOSITION: Home with spouse RELEVANT CHANGES SINCE PREADMISSION SCREENING: I have compared the patients medical and functional status at the time of the preadmission screening and there are: no changes PROGNOSIS: Fair REHABILITATION GOALS: 1. PT OT will focus on regaining independence with use of assistive devices in order to compensate for right sided weakness in order to return to independent living All the above goals were reviewed with the patient and he/she is in agreement. By signing this document, I acknowledge that I have personally performed a full physical examination on this patient within 24 hours of admission to this inpatient rehabilitation facility and have determined the patient to be able to tolerate the above course of treatment at an intensive level for a reasonable period of time. I will be completing a detailed individualized Plan of Care for this patient by day #4 of the patients stay based upon the Preadmission Screen, the Post-Admission Evaluation, and the therapy evaluations. Admission Dx/Comorbidities: (1) CVA (cerebral vascular accident) ICD Codes: I63.9 - Cerebral infarction, unspecified (2) Dysarthria ICD Codes: R47.1 - Dysarthria and anarthria (3) Right sided weakness ICD Codes: R53.1 - Weakness (4) Uncontrolled type 2 diabetes mellitus Status: Acute ICD Codes: E11.65 - Type 2 diabetes mellitus with hyperglycemia (5) Hypertension Status: Acute ICD Codes: I10 - Essential (primary) hypertension Assessment/Plan Assessment and Plan Assess & Plan/Chief Complaint Assessment: Debility CVA Right sided weakness Dysarthria HTN Diabetes mellitus type 2 HLD Sleep apnea Anxiety Chronic back pain Fall risk SHAE suspected needs sleep study Suspected AF monitor in place Plan: Start PT, OT, speech therapy Monitor blood sugars Start long acting insulin and SSI Restart home meds Pain control Closely monitor due to risk of fall DEBBY ORTIZ DO May 31, 2022 15:59
[2022-05-31] MEDS ORDERED: NON-FORMULARY MEDICATION 1 EA EA (Baclofen 20 MG) PO PRN (16:00)
[2022-05-31] MEDS ORDERED: HYDROcodone/APAP 7.5 MG/325 MG (LORTAB, LORCET PLUS) TABLET PO PRN (16:00)
--- NOTE | 2022-05-31 16:22 | Physical Therapy Evaluation ---
PT Evaluation-General Medical Diagnosis Admission Date May 31, 2022 at 14:55 Medical Diagnosis: CVA Onset Date: May 22, 2022 Therapy Diagnosis Therapy Diagnosis: impaired mobility, right hemiparesis Height/Weight Height (Feet): 6 Height (Inches): 0.00 Weight (Pounds): 224 Weight (Ounces): 0.0 Referral Physician: Hiwot Duenas DO Reason for Referral: Evaluation/Treatment Medical History Additional Medical History PMH: HTN, DM type 2, HLD, sleep apnea, anxiety, chronic back pain, arthritis PSH: appendectomy, cholecystectomy, tonsillectomy, spinal cord stimulator Reviewed History: Yes Social History Current Living Status: Spouse Entry Into Home: Level Entry Prior Prior Level of Function SCALE: Activities may be completed with or without assistive devices. 9-Wjydagzuzj-ghobbfm completes the activity by him/herself with no assistance from a helper. 5-Set-up or Clean-up Assistance-helper sets up or cleans up; patient completes activity. [place] assists only prior to or following the activity. 4-Supervision or Touching Assistance-helper provides verbal cues and/or touching/steadying and/or contact guard assistance as patient completes activity. Assistance may be provided throughout the activity or intermittently. 3-Partial/Moderate Assistance-helper does LESS THAN HALF the effort. [place] lifts, holds or supports trunk or limbs, but provides less than half the effort. 2-Substantial/Maximal Assistance-helper does MORE THAN HALF the effort. [place] lifts or holds trunk or limbs and provides more than half the effort. 6-Meuqptlzq-vaxalh does ALL the effort. Patient does none of the effort to complete the activity. Or, the assistance of 2 or more helpers is required for the patient to complete the activity. If activity was not attempted, code reason: 7-Patient Refused. 9-Not Applicable-not attempted and the patient did not perform the activity before the current illness, exacerbation or injury. 10-Not Attempted due to Environmental Limitations-(lack of equipment, weather restraints, etc.). 88-Not Attempted due to Medical Conditions or Safety Concerns. Bed Mobility: 6 Transfers (B,C,W/C): 6 Gait: 6 Stairs: 6 Indoor Mobility (Ambulation): Independent Stairs: Independent PT Evaluation-Current Subjective Patient in family vehicle pre tx, agrees to PT, has no complaints of pain. Will be co-treating with OT for part of tx due to poor patient mobility, strength, endurance, severe debility, coordinate UE and LE during activity, safety and reduce risk of falls. Pt/Family Goals to be independent at home Objective Patient Orientation: Person, Place, Non-Verbal/Aphasic, Situation ROM/Strength ROM Lower Extremities WNL Strength Lower Extremities LLE (hip flexion 4/5, knee flexion 5/5, knee extension 5/5, dorsiflexion 5/5), RLE (hip flexion 0/5, knee flexion 0/5, knee extension 2/5, dorsiflexion 0/5) Neuromuscular (Tone, Coordination, Reflexes) Patient has difficulty communicating but seemed to be able to follow directions for visual testing, patient appears to have intact peripheral vision and tracking bilaterally Sensory Vision: Functional Hearing: Functional Sensation Right Lower Extremit: Intact Sensation Left Lower Extremity: Intact Transfers Roll Left & Right (QC): 3 Sit to Lying (QC): 3 Lying to Sitting/Side of Bed(Q: 3 Sit to Stand (QC): 3 Chair/Mqe-oe-Juwpu Xfer(QC): 3 Toilet Transfer (QC): 3 Car Transfer (QC): 3 Patient performs rolling and supine <-> sit with min assist, sit <-> stand min assist, stand pivot to the left with min assist and to the right with mod assist, car transfer mod assist. Needs assist moving right leg during supine <- > sit, positioning and safety during transfers. Gait Does the Patient Walk?: Yes Mode of Locomotion: Both Anticipated Mode of Locomotion: Walk Walk 10 feet (QC): 3 Walk 50 ft with 2 Turns(QC): 88 Walk 150 ft (QC): 88 Walking 10ft/uneven surface-QC: 88 Distance: 20'x4 Gait Assistive Device: Walker Platform Comments/Gait Description Patient can ambulate 20' with a platform walker with min assist, used nichole wrap on the right ankle to prevent dropfoot but patient still drags his toes a little, leans to the right side, poor step through on the right side. Patient also ambulated 20' with a hemiwalker with min/mod assist, still use of nichole wrap. Patient has some knee hyperextension on the right side, sometimes slight buckling but can bear weight pretty well on the right LE. Wheelchair Training Does the Pt Use a Wheelchair?: Yes Distance: 150'x2, 120' Wheel 50 ft with 2 turns (QC): 3 Wheel 150 ft (QC): 3 Type of Wheelchair: Manual min assist, uses left arm and leg to propel and steer, min assist for tight areas and through doorways Stairs 1 Step (curb) (QC): 88 4 Steps (QC): 88 12 Steps (QC): 88 Balance Sitting Static: Fair Sitting Dynamic: Poor Standing Static: Poor Standing Dynamic: Poor Picking up an Object (QC): 88 Treatment Patient also stood in the parallel bars practicing weight shifting and also toe taps on the left side with right side weight bearing (3 sets of 10). PT performed bed mobility and transfers, ambulation, standing and toe taps, WC mobility, OT performed UE positioning and safety during activity, safety education with patient and . Assessment/Needs Patient in bed post tx with nurse call, phone, tray, all needs met. Patient has impaired mobility and right hemiparesis. Needs min to mod assist for transfers and bed mobility. Patient will need an AFO. Rehab Potential: Fair PT Short Term Goals Short Term Goals Time Frame: Jun 07, 2022 Roll Left & Right: 4 (CGA) Sit to lyin (CGA) Lying to sitting on side of be: 4 (CGA) Sit to stand: 4 (CGA) Chair/kss-mm-lvasw transfer: 4 (CGA) Walk 10 feet: 4 (CGA) Walk 50 feet with two turns: 4 (CGA) PT Chcf Goals Factory Worker Goals PT Factory Worker Goals Time Frame: Jun 21, 2022 Roll Left & Right (QC): 4 (SBA) Sit to Lying (QC): 4 (SBA) Lying-Sitting on Side/Bed(QC): 4 (SBA) Sit to Stand (QC): 4 (SBA) Chair/Ehi-yj-Qivyw Xfer(QC): 4 (SBA) Toilet Transfer (QC): 4 (SBA) Car Transfer (QC): 4 (CGA) Does the Patient Walk: Yes Walk 10 feet (QC): 4 (SBA) Walk 50ft with 2 Turns (QC): 4 (SBA) Walk 150 ft (QC): 4 (SBA) Walking 10ft on Uneven Surface: 4 (CGA) 1 Step (curb) (QC): 4 (CGA) 4 Steps (QC): 88 12 Steps (QC): 88 Picking up an Object (QC): 4 (CGA using it administrative assistant) Wheel 50 feet with 2 turns (QC: 6 Wheel 150 feet: 6 PT Plan Problem List Problem List: Activity Tolerance, Functional Strength, Safety, Balance, Gait, Transfer, Bed Mobility, ROM Treatment/Plan Treatment Plan: Continue Plan of Care Treatment Plan: Bed Mobility, Education, Functional Activity Malini, Functional Strength, Group Therapy, Gait, Safety, Therapeutic Exercise, Transfers Treatment Duration: Jun 21, 2022 Frequency: At least 5 of 7 days/Wk (IRF) Estimated Hrs Per Day: 1.5 hours per day Patient and/or Family Agrees t: Yes Safety Risks/Education Patient Education: Gait Training, Transfer Techniques, Correct Positioning, W/C Management, Safety Issues Teaching Recipient: Patient Teaching Methods: Demonstration, Discussion Response to Teaching: Reinforcement Needed Discharge Recommendations Plan Patient will perform bed mobility and transfer training, balance and endurance training, functional strengthening, stair training, gait training, and education, to improve functional mobility and independence at home. Therapy Discharge Recommendati: Scheduled Assistance, Home & Family, Post Acute PT Time/GCodes Time In: 1455 Time Out: 1635 Total Billed Treatment Time: 90 Total Billed Treatment 1 visit EVM 10' FA 80' PT eval from [id number], OT eval from [id number], co-treat from [id number] BUDDY GARCIA PT May 31, 2022 16:22
--- NOTE | 2022-05-31 16:27 | Occupational Therapy Eval ---
OT Evaluation-General/PLF Medical Diagnosis Admission Date May 31, 2022 at 14:55 Medical Diagnosis: CVA Onset Date: May 22, 2022 Therapy Diagnosis Therapy Diagnosis: decreased ADL status, impaired functional use RUE Height/Weight Height (Feet): 6 Height (Inches): 0.00 Weight (Pounds): 224 Weight (Ounces): 0.0 Referral Physician: Yulissa Referral Reason: Evaluation/Treatment Medical History Additional Medical History HTN, DM type 2, HLD, sleep apnea, anxiety, chronic back pain, arthritis, appendectomy, cholecystectomy, tonsillectomy, spinal cord stimulator Current History ED 05/22/22 c/o FRANCO, facial droop, weakness Social History Home: Single Level Current Living Status: Spouse Entry Into Home: Level Entry ADL-Prior Level of Function SCALE: Activities may be completed with or without assistive devices. 2-Kattzbtdsp-rdamllq completes the activity by him/herself with no assistance from a helper. 5-Set-up or Clean-up Assistance-helper sets up or cleans up; patient completes activity. [place] assists only prior to or following the activity. 4-Supervision or Touching Assistance-helper provides verbal cues and/or touching/steadying and/or contact guard assistance as patient completes activity. Assistance may be provided throughout the activity or intermittently. 3-Partial/Moderate Assistance-helper does LESS THAN HALF the effort. [place] lifts, holds or supports trunk or limbs, but provides less than half the effort. 2-Substantial/Maximal Assistance-helper does MORE THAN HALF the effort. [place] lifts or holds trunk or limbs and provides more than half the effort. 6-Vybtkbotq-pikess does ALL the effort. Patient does none of the effort to complete the activity. Or, the assistance of 2 or more helpers is required for the patient to complete the activity. If activity was not attempted, code reason: 7-Patient Refused. 9-Not Applicable-not attempted and the patient did not perform the activity before the current illness, exacerbation or injury. 10-Not Attempted due to Environmental Limitations-(lack of equipment, weather restraints, etc.). 88-Not Attempted due to Medical Conditions or Safety Concerns. ADL PLOF Comments Pt reports IND with ADLS and functional mobility at PLOF, no AD. He has a walk in shower with a small seat, or a tub/shower without SC. Self Care: Independent Functional Cognition: Independent DME/Equipment: Shower (built in seat), Tub/Shower OT Current Status Subjective Pt agreeable to OT evaluation and OT/PT cotreat. Pt had difficulty with word finding during session, requiring increased time to communicate. Mental Status/Objective Patient Orientation: Person, Place, Situation Current Hand Dominance: Right Upper Extremity ROM LUE WFL RUE decreased. trace movements palpated in shoulder against gravity. Pt able to flex/extend elbow in gravity eliminated plane. finger flexion/extension with increased time. Upper Extremity Coordination Decreased due to decreased movement RUE. Upper Extremity Sensation Pt reports "duller" sensation in RUE. Upper Extremity Strength RUE grossly 2-/5 LUE grossly 5/5 ADL-Treatment Eating (QC): 5 (Per pt/spouse report.) Oral Hygiene (QC): 7 Shower/Bathe Self (QC): 7 Upper Body Dressing (QC): 7 Lower Body Dressing (QC): 7 On/Off Footwear (QC): 7 Toileting Hygiene (QC): 7 Other Treatments OT evaluation complete. OT/PT cotreat due to skill of 2 clinicians required which a cardiac rehabilitation specialist could not perform in order to coordinate UE/LEs, decrease fall risk, and due to pt's limitations in strength, L side weakness, mobility, and transfers. OT focused on UE placement and cues for sequencing and safety, PT focused on LE placement, gross overall movement, and transfers/mobility. Pt performed functional mobility in therapy gym using hemiwalker (20' min/mod A and nichole wrap R ankle to prevent drop foot), bed mobility, then w/c mobility in hallways. He stood in parallel bars and performed weight shifting side to side in order to increase proprioceptive input to RUE/LE and weight bear through R side. Pt then completed 3x10 LLE toe touches to a step, requiring pt to bear weight through R side. Pt used R platform walker x3 trials (20') across therapy gym, w/c follow, min A (nichole wrap R ankle to prevent drop foot). Pt performed w/c mobility back to his room, transferring to bed. Post tx, pt in bed, call light in reach and all needs met. SPT Min A to L side, mod A to R side. Min A rolling and supine to/from sit (assist moving RLE), min A sit to/from stand. Mod A car transfer. Pt requires cues for positioning and safety during transfers. Education OT Patient Education: Correct positioning, Energy conservation, Modified ADL techniques, Progress toward Goal/Update tx plan, Purpose of tx/functional activities, Rehab process, Safety issues, Transfer techniques Teaching Recipient: Patient Teaching Methods: Discussion Response to Teaching: Verbalize Understanding OT Short Term Goals Short Term Goals Time Frame: Jun 23, 2022 Oral hygiene: 5 Toileting hygiene: 4 Shower/bathe self: 4 Lower body dressin Putting on/taking off footwear: 4 OT Slot Floor Person Goals Slot Floor Person Goals Time Frame: Jul 02, 2022 Eating (QC): 6 Oral Hygiene (QC): 6 Toileting Hygiene (QC): 6 Shower/Bathe Self (QC): 6 Upper Body Dressing (QC): 6 Lower Body Dressing (QC): 6 On/Off Footwear (QC): 6 Additional Goals: 1-Demonstrate ADL Tasks, 2-Verbalize Understanding, 3- ImproveStrength/Malini 1=Demonstrate adherence to instructed precautions during ADL tasks. 2=Patient will verbalize/demonstrate understanding of assistive devices/modifications for ADL. 3=Patient will improve strength/tolerance for activity to enable patient to perform ADL's. OT Education/Plan Problem List/Assessment Assessment: Decreased Activ Tolerance, Decreased UE Strength, Impaired Bed Mob ility, Impaired Coordination, Impaired Funct Balance, Impaired I ADL's, Impaired Self-Care Skills, Restricted Funct UE ROM Discharge Recommendations Plan/Recommendations: Continue POC Treatment Plan/Plan of Care Patient would benefit from OT for education, treatment and training to promote independence in ADL's, mobility, safety and/or upper extremity function for ADL's. Plan of Care: ADL Retraining, Functional Mobility, Group Exercise/Act as Ind, UE Funct Exercise/Act, UE Neuromus Re-Ed/Coord, W/C Management Training Treatment Duration: Jul 02, 2022 Frequency: At least 5 of 7 days/Wk (IRF) Estimated Hrs Per Day: 1.5 hours per day Agreement: Yes Rehab Potential: Good Time/GCodes Start Time: 15:05 Stop Time: 16:35 Total Time Billed (hr/min): 90 Billed Treatment Time [id number] OT eval (10'), [id number] Cotreat (80') 1, EVM (10'), FA 5 (80') DYLON DIETZ OT May 31, 2022 16:27
[2022-05-31 16:31] VITALS: BP 134/63
[2022-05-31] MEDS ORDERED: INSULIN ASPART SC SCH (17:00)
[2022-05-31] MEDS ORDERED: BACLOFEN 10 MG (LIORESAL) TAB PO PRN (17:00)
[2022-05-31] MEDS ORDERED: [UNRECOGNIZED DRUG - OTHER] SC SCH (17:00)
[2022-05-31] MEDS: inSUlin ASPART (NovoLOG) 1 UNIT/0.01 ML (CHARGE PER UNIT) SC SCH (17:44)
[2022-05-31 19:21] VITALS: BP 139/62
[2022-05-31] MEDS: polyethylene glycoL POWDER 17 GM (MIRALAX) PACK PO SCH (20:43)
[2022-05-31] MEDS: SENNA W/DOCUSATE (SENOKOT S) TABLET PO SCH (20:44)
[2022-05-31] MEDS: amLODIPine 10 MG (NORVASC) TAB PO SCH (20:48)
[2022-05-31] MEDS ORDERED: DOCUSATE SODIUM 100 MG (COLACE) CAP PO SCH (21:00)
[2022-05-31] MEDS ORDERED: GABAPENTIN 100 MG (NEURONTIN) CAP PO SCH (21:00)
[2022-05-31] MEDS: ALPRAZolam 0.5 MG (XANAX) TAB PO PRN (21:12)
[2022-05-31 21:27] VITALS: BP 162/69
[2022-06-01 06:06] LABS: BASOPHILS % (AUTO) 0 % (0-10); EOSINOPHILS # (AUTO) 0.1 10^3/uL (0.0-0.3); EOSINOPHILS % (AUTO) 1 % (0-10); HEMATOCRIT 30 % (40-54); HEMOGLOBIN 10.1 g/dL (13.3-17.7); LYMPHOCYTES # (AUTO) 1.9 10^3/uL (1.0-4.0); LYMPHOCYTES % (AUTO) 27 % (12-44); MEAN CORPUSCULAR HEMOGLOBIN 31 pg (25-34); MEAN CORPUSCULAR HGB CONC 34 g/dL (32-36); MEAN CORPUSCULAR VOLUME 91 fL (80-99); MEAN PLATELET VOLUME 10.2 fL (9.0-12.2); MONOCYTES # (AUTO) 0.6 10^3/uL (0.0-1.0); MONOCYTES % (AUTO) 9 % (0-12); NEUTROPHILS # (AUTO) 4.4 10^3/uL (1.8-7.8); NEUTROPHILS % (AUTO) 62 % (42-75); PLATELET COUNT 200 10^3/uL (130-400); WHITE BLOOD COUNT 7.1 10^3/uL (4.3-11.0)
--- NOTE | 2022-06-01 06:14 | PM&R Progress Note ---
Subjective HPI/CC On Admission Date Seen by Provider: Jun 01, 2022 Time Seen by Provider: 09:00 Subjective/Events-last exam 06/01/2022: Pt is doing a lot better Pt is a very private person Discontinue Gabapnetin per request Bowels moved yesterday He fell last night without an injury Updated pt and regarding the plan Review of Systems General: Fatigue, Malaise Neurological: Weakness, Incoordination, Change in speech Objective Exam Vital Signs Vital Signs Date Time Temp Pulse Resp B/P (MAP) Pulse Ox O2 Delivery O2 Flow Rate FiO2 06/01/22 09:39 96 Room Air 06/01/22 07:34 36.5 84 20 177/86 (116) Capillary Refill : General Appearance: No Apparent Distress, WD/WN, Obese HEENT: PERRL/EOMI, Normal ENT Inspection, Pharynx Normal Neck: Full Range of Motion, Normal Inspection, Non Tender, Supple, Carotid Bruit Respiratory: Chest Non Tender, Lungs Clear, Normal Breath Sounds, No Accessory Muscle Use, No Respiratory Distress Cardiovascular: Regular Rate, Rhythm, No Edema, No Gallop, No JVD, No Murmur, Normal Peripheral Pulses Gastrointestinal: Normal Bowel Sounds, No Organomegaly, No Pulsatile Mass, Non Tender, Soft Back: Normal Inspection, No CVA Tenderness, No Vertebral Tenderness Extremity: Normal Capillary Refill, Normal Inspection, Normal Range of Motion (except right side), Non Tender, No Calf Tenderness, No Pedal Edema Neurologic/Psychiatric: Alert, Oriented x3, Normal Mood/Affect, event coordinator II-XII Norm as Tested, Abnormal Gait, Aphasia, Depressed Affect, Motor Weakness (right sided weakness 1/5) Skin: Normal Color, Warm/Dry Lymphatic: No Adenopathy Results/Procedures Lab Laboratory Tests 06/01/22 05:51 Patient resulted labs reviewed. FIM Transfers Therapy Code Descriptions/Definitions Functional [place] Measure: 0=Not Assessed/NA 4=Minimal Assistance 1=Total Assistance 5=Supervision or Setup 2=Maximal Assistance 6=Modified [place] 3=Moderate Assistance 7=Complete IndependenceSCALE: Activities may be completed with or without assistive devices. 7-Pjmrxgmwfx-eccnuvb completes the activity by him/herself with no assistance from a helper. 5-Set-up or Clean-up Assistance-helper sets up or cleans up; patient completes activity. [place] assists only prior to or following the activity. 4-Supervision or Touching Assistance-helper provides verbal cues and/or touching/steadying and/or contact guard assistance as patient completes activity. Assistance may be provided throughout the activity or intermittently. 3-Partial/Moderate Assistance-helper does LESS THAN HALF the effort. [place] lifts, holds or supports trunk or limbs, but provides less than half the effort. 2-Substantial/Maximal Assistance-helper does MORE THAN HALF the effort. [place] lifts or holds trunk or limbs and provides more than half the effort. 3-Gddsrxywn-bitebg does ALL the effort. Patient does none of the effort to complete the activity. Or, the assistance of 2 or more helpers is required for the patient to complete the activity. If activity was not attempted, code reason: 7-Patient Refused. 9-Not Applicable-not attempted and the patient did not perform the activity before the current illness, exacerbation or injury. 10-Not Attempted due to Environmental Limitations-(lack of equipment, weather restraints, etc.). 88-Not Attempted due to Medical Conditions or Safety Concerns. Roll Left to Right (QC): 3 Sit to Lying (QC): 3 Sit to Stand (QC): 3 Chair/Yqn-io-Qhszw Xfer(QC): 3 Car Transfer (QC): 3 Gait Training Does the Patient Walk?: Yes Walk 10 feet (QC): 3 Walk 50 ft with 2 Turns(QC): 88 Walk 150 ft (QC): 88 Walking 10ft/uneven surface-QC: 88 Gait Assistive Device: Walker Platform Wheelchair Training Does the Pt Use a Wheelchair?: Yes Distance: 150'x2, 120' Wheel 50 ft with 2 turns (QC): 3 Wheel 150 ft (QC): 3 Type of Wheelchair: Manual Stair Training 1 Step (curb) (QC): 88 4 Steps (QC): 88 12 Steps (QC): 88 Balance Picking up an Object (QC): 88 ADL-Treatment Eating (QC): 5 (Per pt/spouse report.) Oral Hygiene (QC): 7 Shower/Bathe Self (QC): 7 Upper Body Dressing (QC): 7 Lower Body Dressing (QC): 7 On/Off Footwear (QC): 7 Toileting Hygiene (QC): 7 Assessment/Plan Assessment and Plan Assess & Plan/Chief Complaint Assessment: Debility CVA Right sided weakness Dysarthria HTN Diabetes mellitus type 2 HLD Sleep apnea Anxiety Chronic back pain Fall risk SHAE suspected needs sleep study Suspected AF monitor in place Plan: Start PT, OT, speech therapy Monitor blood sugars Start long acting insulin and SSI Restart home meds Pain control Closely monitor due to risk of fall 06/01/2022: Fall risk Monitor closely (1) CVA (cerebral vascular accident) (2) Dysarthria (3) Right sided weakness (4) Uncontrolled type 2 diabetes mellitus Status: Acute (5) Hypertension Status: Acute DEBBY ORTIZ DO Jun 01, 2022 06:14
--- NOTE | 2022-06-01 06:15 | Individualized Plan of Care ---
Individualized Plan of Care Rehab Nursing IPOC Order Admission Date May 31, 2022 at 14:55 Current Orders Orders Admission Order(Inpt,Obs,Sdc) (05/31/22 09:41) Kendall Woo (05/31/22 09:41) Sequential Compression Device (05/31/22 09:41) Signal Worker-Inpt Rehab Con (05/31/22 09:41) Rehab Nursing Orders-Ipoc (05/31/22 09:41) Physical Therapy Rehab Orders (05/31/22 09:41) Occupational Therapy Rehab Ord (05/31/22 09:41) Speech Therapy Rehab Orders (05/31/22 09:41) Cbc With Automated Diff (06/01/22 06:00) Comprehensive Metabolic Panel (06/01/22 06:00) Precautions (Aru) (05/31/22 09:41) Weekly Weight WEEK (05/31/22 09:41) Rehab-Intensity Of Therapy (05/31/22 09:41) Alprazolam Tablet (Xanax Tablet) (05/31/22 09:45) Calcium Carbonate Chew Tablet (Antacid C (05/31/22 09:45) Diphenhydramine Tablet (Benadryl Tablet) (05/31/22 09:45) Docusate Sodium Capsule (Colace Capsule) (05/31/22 21:00) Docusate Sodium Capsule (Colace Capsule) (05/31/22 09:45) Bisacodyl Suppository (Dulcolax Supposit (05/31/22 09:45) Lactulose Oral Solution (Enulose Oral So (05/31/22 09:45) Na Phos/Na Biphos Enema (Fleet Enema Jerry (05/31/22 09:45) Guaifenesin/Codeine Syrup (Robitussin Ac (05/31/22 09:45) Loperamide Tablet (Imodium Tablet) (05/31/22 09:45) Melatonin Tablet (Melatonin Tablet) (05/31/22 09:45) Polyethylene Glycol Powder Pkt (Miralax (05/31/22 21:00) Ondansetron Oral Dissolve Tab (Zofran (05/31/22 09:45) Senna S Tablet (Senokot S Tablet) (05/31/22 21:00) Acetaminophen Tablet/Caplet (Tylenol T (05/31/22 09:45) Code/Resuscitation (05/31/22 09:41) Initiate Admission Nursing Pro .admission (05/31/22 09:41) Admission Arrival Bed Request (05/31/22 15:02) Alprazolam Tablet (Xanax Tablet) (05/31/22 16:00) Amlodipine Tablet (Norvasc Tablet) (06/01/22 09:00) Aspirin Enteric Coated Tablet (Ecotrin T (06/01/22 09:00) Atorvastatin Tablet (Lipitor Tablet) (05/31/22 21:00) Clopidogrel Tablet (Plavix Tablet) (06/01/22 09:00) Gabapentin Capsule/Tablet (Neurontin Cap (05/31/22 21:00) Hydrocodone/Apap 7.5/325 Tab (Lortab 7. (05/31/22 16:00) Losartan Tablet (Cozaar Tablet) (06/01/22 09:00) Verapamil Sr Tablet (Calan Sr Tablet) (06/01/22 09:00) (Nf) Baclofen (05/31/22 16:00) (Nf) Fenofibrate,Micronized (Fenofibrate (06/01/22 09:00) (Nf) Insulin Aspart (Niacinamide) (Fiasp (05/31/22 17:00) (Nf) Insulin Degludec (Tresiba Flextouch (06/01/22 09:00) Accucheck Achs ACHS (05/31/22 15:58) Follow-Up Appointment (05/31/22 16:04) Cho 90g/M 0snack (25-2900 [place]) (05/31/22 Lunch) Insulin Aspart (Novolog) (Novolog (Charg (05/31/22 18:00) Baclofen Tablet (Lioresal Tablet) (05/31/22 17:00) Insulin Determir (Per Unit) (Levemir (Pe (06/01/22 09:00) Fenofibrate,Micronized Capsule (Lofibra (06/01/22 09:00) Amlodipine Tablet (Norvasc Tablet) (05/31/22 21:00) Enoxaparin Injection (Lovenox Injection) (06/01/22 08:00) Patient Visit (05/31/22 ) Pt Eval Moderate Complexity (05/31/22 ) Functional Activities, Ea 15 (05/31/22 ) Patient Visit (06/01/22 ) Speech Sound Lang Comp (06/01/22 ) Treat. Speech/Lang/Voice (06/01/22 ) Patient Visit (06/01/22 ) Exercise Therap, Ea 15 Min (06/01/22 ) Functional Activities, Ea 15 (06/01/22 ) Patient Visit (06/01/22 ) Rehab Nursing Orders: Ongoing Assess. of Function Status, Bladder Management, Bladder Scan, Bladder Training, Bowel Management, Bowel Training, Disease Management & Educaiton, DVT Prophylaxis, Fall Prevention, Fluid/Electrolyte/Nutrition Mgmt, Infection Prevention, Medication Management & Education, Management of Risks & Complications, Management of Skin Intergrity, Nutrition Management, Pain Management, Patient/Family Support, Safety Management, Swallow Precautions, Weight Bearing Precaution Intensity of Therapy to be met Patient to be seen: Min.3h per day/5 of 7d PT IPOC Problem List: Activity Tolerance, Functional Strength, Safety, Balance, Gait, Transfer, Bed Mobility, ROM Treatment Plan: Continue Plan of Care Bed Mobility, Education, Functional Activity Malini, Functional Strength, Group Therapy, Gait, Safety, Therapeutic Exercise, Transfers Treatment Duration: Jun 21, 2022 Frequency: At least 5 of 7 days/Wk (IRF) Estimated Hrs Per Day: 1.5 hours per day OT IPOC Problems: Decreased Activ Tolerance, Decreased UE Strength, Impaired Bed Mobility, Impaired Coordination, Impaired Funct Balance, Impaired I ADL's, Impaired Self-Care Skills, Restricted Funct UE ROM OT Treatment, Training and Edu: Yes Plan of Care: ADL Retraining, Functional Mobility, Group Exercise/Act as Ind, UE Funct Exercise/Act, UE Neuromus Re-Ed/Coord, W/C Management Training Treatment Duration: Jul 02, 2022 Frequency: At least 5 of 7 days/Wk (IRF) Estimated Hrs Per Day: 1.[address] IPOC Speech Therapy Treatment Plan: Continue Plan of Care Treatment Duration: Jun 01, 2022 Frequency: Modified Program (IRF) Estimated Hrs Per Day: Other Signal Worker/Case Mgmt Signal Worker/Case Managemen: Discharge Planning Dietitian/Lead Business Systems Analyst Dietitian/Lead Business Systems Analyst to monitor nutritional status and make changes and/or recommendations as needed and work with speech pathology on dietary upgrades as the occur. Physician IPOC Medical Issues being managed closely and that require the 24 hour availability of a physician: Recent catastrophic CVA with right sided weakness will require close monitoring for and additional deficits which could occur and will monitor closely for decline in function and progression of CVA Medical Issues: Bowel/Bladder Function, DVT Prophylaxis, Falls Precautions, Fluid/Electrolyte/Nutrition Balance, Infection Protection, Pain Management Brief Synthesis of Preadmission Screen, Post-Admission Evaluation, and Therapy Evaluations: PT OT will focus on regaining function of right side with use of assistive devices in order to regain stamina and ambulatory ability and increase ADL independence Medical Prognosis: Good Anticipated Length of Stay: 14 days DEBBY ORTIZ DO Jun 01, 2022 06:15
[2022-06-01 06:26] LABS: ALBUMIN 3.4 GM/DL (3.2-4.5); BILIRUBIN,TOTAL 0.4 MG/DL (0.1-1.0); CALCIUM 8.8 MG/DL (8.5-10.1); CREATININE SERUM 0.95 MG/DL (0.60-1.30); POTASSIUM 3.8 MMOL/L (3.6-5.0); TOTAL PROTEIN 5.8 GM/DL (6.4-8.2)
[2022-06-01 07:34] VITALS: BP 177/86
[2022-06-01] MEDS: FENOFIBRATE 134 MG (LOFIBRA) CAPSULE PO SCH (08:03)
[2022-06-01] MEDS: ASPIRIN E.C. 81 MG (ECOTRIN) TAB PO SCH (08:03)
[2022-06-01] MEDS: ENOXAPARIN 40 MG/0.4 ML (LOVENOX) SYR SC SCH (08:03)
[2022-06-01] MEDS: CLOPIDOGREL 75 MG (PLAVIX) TABLET PO SCH (08:03)
[2022-06-01] MEDS: LOSARTAN 100 MG (COZAAR) TABLET PO SCH (08:03)
[2022-06-01] MEDS: inSUlin ASPART (NovoLOG) 1 UNIT/0.01 ML (CHARGE PER UNIT) SC SCH ×3 (08:04→17:49)
[2022-06-01] MEDS ORDERED: amLODIPine 10 MG (NORVASC) TAB PO SCH (09:00)
[2022-06-01] MEDS ORDERED: FENOFIBRATE MICRONIZED 200 MG PO SCH (09:00)
[2022-06-01] MEDS ORDERED: INSULIN DEGLUDEC 24 UNIT SC SCH (09:00)
[2022-06-01] MEDS: SENNA W/DOCUSATE (SENOKOT S) TABLET PO SCH ×2 (09:34→21:00)
[2022-06-01] MEDS: VERAPAMIL SR 240 MG (CALAN SR) TAB PO SCH (09:34)
[2022-06-01] MEDS: polyethylene glycoL POWDER 17 GM (MIRALAX) PACK PO SCH ×2 (09:34→21:00)
--- NOTE | 2022-06-01 10:47 | ST Cognitive Linguistic Eval ---
Speech Evaluation-General Medical Diagnosis CVA Onset Date: May 22, 2022 Therapy Diagnosis Therapy Diagnosis: Expressive Aphasia, Dysarthria Precautions Precautions: Fall, Aspiration Precautions/Isolations: Aspiration, Fall Prevention, Standard Precautions Referral Referring Physician: Dr. Duenas Reason for Referral: Evaluation/Treatment Medical History Current History The patient is a 62 year-old male with a past medical history of HTN, DM, HLD, sleep apnea, anxiety, and arthritis, who presents to ARU following a CVA, Reviewed History: Yes Social History Current Living Status: Spouse Speech PLF-Current Status Prior Level of Function The patient was able to fluently communicate his wants and needs prior to his recent CVA. Subjective The patient was seated upright in his recliner, awake and alert upon entrance to his room by the clinician. The patient non-verbally acknowledged the clinician's verbal greeting and was agreeable to participation in the cognitive linguistic assessment. The patient's was present at bedside. To note, the patient's evaluation will focus on language with cognitive evaluation occurring following an improvement in expressive language skills. Language Eval: Auditory Comprehends Simple Yes/No Ques: Functional Indent/Objects Multiple Peace: Functional Ident/Pics in Multiple Peace: Functional Follows 1-Step Commands: Functional Follows General Conversations: Functional Language Eval: Verbal Language Completes Spontaneous Greeting: Functional Produces Auto, Serial Info: Mild Imitates Simple Words/Phrases: Moderate Word Finding: Moderate Requests Basic Needs: Moderate States Basic Personal Info: Mild Expresses Complex Ideas: Severe Objective Oral Motor/Speech Production The patient displays a right labial facial droop and weakness resulting in moderate dysarthria. Lingual protrusion is at midline. The patient is intelligible at the single word level, however, intelligible at more complex phrase structures cannot be evaluated due to expressive aphasia. Impression The patient displays moderate expressive aphasia and moderate dysarthria at this time. Skilled speech pathology is warranted to improve verbal communication while reducing the patient's frustrations with language deficits. Speech Patient Assess Expression of Ideas/Wants: Frequently (2) Understanding Verbal Content: Understands (4) Brief Interview-Mental Status: Yes Repetition of Three Words: Three (3) Temporal Orientation: Year: Correct (3) Temporal Orientation: Month: Accurate within 5 days(2) Temporal Orientation: Day: Correct (1) Recall : Wear to say "Sock": No, could not recall (0) (Due to expressive language deficit, not secondary to cognition.) Recall : Color: No, could not recall (0) (Due to expressive language deficit, not secondary to cognition.) Recall : Bed: No, could not recall (0) (Due to expressive language deficit, not secondary to cognition.) Memory/Recall Ability: None of the above were recalled (Due to expressive language deficit, the patient was unable to express the following information. The patient's cognition remains intact.) Speech Short Term Goals Short Term Goals Short Term Goals 1. The patient will complete confrontational naming with 90% accuracy and mild clinician verbal cueing. Time Frame-STG: One Week. Speech Sand Mill Operator Facing Sand Goals Sand Mill Operator Facing Sand Goals 1. The patient will display improved expressive communication for safe discharge to the least restricted environment. Time Frame: Three Weeks. Speech-Plan Treatment Plan Speech Therapy Treatment Plan: Continue Plan of Care Frequency: Modified Program (IRF) (Four to five times per week.) Estimated Hrs Per Day: .5 hour per day Rehab Potential: Fair Pt/Family Agrees to Plan: Yes Safety Risks/Education Teaching Recipient: Patient, Significant Other Teaching Methods: Discussion Response to Teaching: Verbalize Understanding Education Topics Provided: Results, Education re: Aphasia, Plan of Care, Goals Time Speech Therapy Time In: 09:30 Speech Therapy Time Out: 10:00 Total Billed Time: 30 Billed Treatment Time 1, DEBBIE STUART ELIZABETH ST Jun 01, 2022 10:47
--- NOTE | 2022-06-01 10:54 | Physical Therapy Daily Note ---
PT Daily Note-Current Subjective Patient in recliner pre tx, agrees to PT, has no complaints of pain. Appearance Patient in recliner post tx with nurse call, phone, tray, all needs met, in room. Mental Status Patient Orientation: Person, Unable to Assess, Non-Verbal/Aphasic Transfers SCALE: Activities may be completed with or without assistive devices. 6-Btqtagrsly-eyfifmp completes the activity by him/herself with no assistance from a helper. 5-Set-up or Clean-up Assistance-helper sets up or cleans up; patient completes activity. [place] assists only prior to or following the activity. 4-Supervision or Touching Assistance-helper provides verbal cues and/or touching/steadying and/or contact guard assistance as patient completes activity. Assistance may be provided throughout the activity or intermittently. 3-Partial/Moderate Assistance-helper does LESS THAN HALF the effort. [place] lifts, holds or supports trunk or limbs, but provides less than half the effort. 2-Substantial/Maximal Assistance-helper does MORE THAN HALF the effort. [place] lifts or holds trunk or limbs and provides more than half the effort. 8-Hzfswgqeb-rjvhaz does ALL the effort. Patient does none of the effort to complete the activity. Or, the assistance of 2 or more helpers is required for the patient to complete the activity. If activity was not attempted, code reason: 7-Patient Refused. 9-Not Applicable-not attempted and the patient did not perform the activity before the current illness, exacerbation or injury. 10-Not Attempted due to Environmental Limitations-(lack of equipment, weather restraints, etc.). 88-Not Attempted due to Medical Conditions or Safety Concerns. Sit to Stand (QC): 3 Chair/Rnq-yc-Vvmyw Xfer(QC): 3 Gait Training Distance: 50'x3 Walk 10 feet (QC): 3 Walk 50 ft with 2 Turns(QC): 3 Gait Persons Needed: 1 Gait Assistive Device: Walker Timothy min to mod assist for balance and weight shifting to help patient advance his right leg, nichole wrap for dropfoot on right side, occasional right knee hyperextension Wheelchair Training Does the Pt Use a Wheelchair?: Yes Wheel 50 ft with 2 turns (QC): 4 Wheel 150 ft (QC): 4 Type of Wheelchair: Manual SBA, has some difficulty turning but can do it on his own Exercises NuStep Minutes: 15 NuStep Workload: 5 (RUE not used) Treatments transfers, ambulation, functional strengthening, WC mobility Assessment Current Status: Fair Progress improving ambulation but needs significant assistance PT Short Term Goals Short Term Goals Time Frame: Jun 07, 2022 Roll Left & Right: 4 (CGA) Sit to lyin (CGA) Lying to sitting on side of be: 4 (CGA) Sit to stand: 4 (CGA) Chair/str-ps-kegkr transfer: 4 (CGA) Walk 10 feet: 4 (CGA) Walk 50 feet with two turns: 4 (CGA) PT Detention Goals Detention Goals PT Clearing Distribution Clerk Goals Time Frame: Jun 21, 2022 Roll Left & Right (QC): 4 (SBA) Sit to Lying (QC): 4 (SBA) Lying-Sitting on Side/Bed(QC): 4 (SBA) Sit to Stand (QC): 4 (SBA) Chair/Tdm-lm-[place] Xfer(QC): 4 (SBA) Toilet Transfer (QC): 4 (SBA) Car Transfer (QC): 4 (CGA) Does the Patient Walk: Yes Walk 10 feet (QC): 4 (SBA) Walk 50ft with 2 Turns (QC): 4 (SBA) Walk 150 ft (QC): 4 (SBA) Walking 10ft on Uneven Surface: 4 (CGA) 1 Step (curb) (QC): 4 (CGA) 4 Steps (QC): 88 12 Steps (QC): 88 Picking up an Object (QC): 4 (CGA using crystal machining coordinator) Wheel 50 feet with 2 turns (QC: 6 Wheel 150 feet: 6 PT Plan Problem List Problem List: Activity Tolerance, Functional Strength, Safety, Balance, Gait, Transfer, Bed Mobility, ROM Treatment/Plan Treatment Plan: Continue Plan of Care Treatment Plan: Bed Mobility, Education, Functional Activity Malini, Functional Strength, Group Therapy, Gait, Safety, Therapeutic Exercise, Transfers Treatment Duration: Jun 21, 2022 Frequency: At least 5 of 7 days/Wk (IRF) Estimated Hrs Per Day: 1.5 hours per day Patient and/or Family Agrees t: Yes Safety Risks/Education Patient Education: Gait Training, Transfer Techniques, Correct Positioning, W/C Management, Safety Issues Teaching Recipient: Patient Teaching Methods: Demonstration, Discussion Response to Teaching: Reinforcement Needed Time/GCodes Time In: 1000 Time Out: 1100 Total Billed Treatment Time: 60 Total Billed Treatment 1 visit EX 15' FA 45' BUDDY GARCIA PT Jun 01, 2022 10:54
--- NOTE | 2022-06-01 12:44 | Occupational Ther Daily Note ---
OT Current Status-Daily Note Subjective Pt alert, ambulating with nrsg using platform FWW. Pt is very anxious and frustrated today. present in room. Mental Status/Objective Patient Orientation: Person, Place, Non-Verbal/Aphasic, Time, Situation ADL-Treatment Pt declines completing shower today. Pt does agree to complete upper body bathing and dressing. Pt is very modest and anxious about completing ADLs. Mod A after set up with upper body bathing. Pt requires assist to stabilize in standing and assist to hike pants over hips for lower body dressing and toileting (clothing manipulation). Min A for upper body dressing. Sitting at sink, pt able to complete oral care independently. Dependent with footwear. Set up for eating. Therapy Code Descriptions/Definitions Functional [place] Measure: 0=Not Assessed/NA 4=Minimal Assistance 1=Total Assistance 5=Supervision or Setup 2=Maximal Assistance 6=Modified [place] 3=Moderate Assistance 7=Complete IndependenceSCALE: Activities may be completed with or without assistive devices. 4-Xgvhhfphco-igdfyxp completes the activity by him/herself with no assistance from a helper. 5-Set-up or Clean-up Assistance-helper sets up or cleans up; patient completes activity. [place] assists only prior to or following the activity. 4-Supervision or Touching Assistance-helper provides verbal cues and/or touching/steadying and/or contact guard assistance as patient completes activity. Assistance may be provided throughout the activity or intermittently. 3-Partial/Moderate Assistance-helper does LESS THAN HALF the effort. [place] lifts, holds or supports trunk or limbs, but provides less than half the effort. 2-Substantial/Maximal Assistance-helper does MORE THAN HALF the effort. [place] lifts or holds trunk or limbs and provides more than half the effort. 5-Jqvhjqyvg-thkuqv does ALL the effort. Patient does none of the effort to complete the activity. Or, the assistance of 2 or more helpers is required for the patient to complete the activity. If activity was not attempted, code reason: 7-Patient Refused. 9-Not Applicable-not attempted and the patient did not perform the activity before the current illness, exacerbation or injury. 10-Not Attempted due to Environmental Limitations-(lack of equipment, weather restraints, etc.). 88-Not Attempted due to Medical Conditions or Safety Concerns. Eating (QC): 5 Oral Hygiene (QC): 6 Shower/Bathe Self (QC): 1 (Per clinical judgment.) Upper Body Dressing (QC): 3 Lower Body Dressing (QC): 1 On/Off Footwear: 1 Toileting Hygiene (QC): 1 Toilet Transfer (QC): 1 Other Treatment Pt able to complete 5 R shldr elevations before fatiguing. 10 elbow flexion before fatigue with muscle facilitation then able to flex elbow 45 degrees by self. Pt given w/c tray to support R UE while in w/c. After therapy, pt sitting in recliner with call light/phone in reach. All needs met in room. OT Short Term Goals Short Term Goals Time Frame: Jun 23, 2022 Oral hygiene: 5 Toileting hygiene: 4 Shower/bathe self: 4 Lower body dressin Putting on/taking off footwear: 4 OT Skilled Nursing Goals Financial Reporting Analyst Goals Time Frame: Jul 02, 2022 Eating (QC): 6 Oral Hygiene (QC): 6 Toileting Hygiene (QC): 6 Shower/Bathe Self (QC): 6 Upper Body Dressing (QC): 6 Lower Body Dressing (QC): 6 On/Off Footwear (QC): 6 Additional Goals: 1-Demonstrate ADL Tasks, 2-Verbalize Understanding, 3- ImproveStrength/Malini 1=Demonstrate adherence to instructed precautions during ADL tasks. 2=Patient will verbalize/demonstrate understanding of assistive devices/modifications for ADL. 3=Patient will improve strength/tolerance for activity to enable patient to perform ADL's. OT Education/Plan Problem List/Assessment Assessment: Decreased Activ Tolerance, Decreased Safety Aware, Decreased UE Strength, Impaired Bed Mobility, Impaired Coordination, Impaired Funct Balance, Impaired Self-Care Skills, Restricted Funct UE ROM Discharge Recommendations Plan/Recommendations: Continue POC Treatment Plan/Plan of Care Patient would benefit from OT for education, treatment and training to promote independence in ADL's, mobility, safety and/or upper extremity function for ADL's. Plan of Care: ADL Retraining, Functional Mobility, Group Exercise/Act as Ind, UE Funct Exercise/Act, UE Neuromus Re-Ed/Coord, W/C Management Training Treatment Duration: Jul 02, 2022 Frequency: At least 5 of 7 days/Wk (IRF) Estimated Hrs Per Day: 1.5 hours per day Agreement: Yes Rehab Potential: Fair Time/GCodes Start Time: 08:30 Stop Time: 09:30 Total Time Billed (hr/min): 60 Billed Treatment Time 1 visit-ADL 3 (45 min) NM 1 (15 min) JEANETTE VALDOVINOS Jun 01, 2022 12:44
--- NOTE | 2022-06-01 14:30 | Therapy Group Daily Note ---
Therapy Daily Group Note Patient Education Topic Energy Cons, Other List Below (energy conservation/community access) Exercises LE Seated Exercise, UE Exercise Session Ratio (pt:therapist): 3:1 Goal of Session: Energy Conservation Tech., UE/LE Strengthing Goal Met for this Session: Yes Pt Benefit of Group: Contributions to Others, F/U Use of Strategies @Home, Increased Functional Safety, Increased Functional Strength, Improved Cognition, Recognition of Peers, Socialization Other/Notes Pt transported via w/c to OT/PT group in [facility]. OT/PT group consisted of introductions (name, place living, favorite restaurant), socialization, B UE/LE seated exercises and educational topics of energy conservation/community access. Pt anxious and requested not to introduce self though did actively listen to peers. Pt was able to complete B UE/LE seated exercises correctly with skilled instruction and modifications. Pt was able to demonstrate understanding of educational topics by nodding head in affirmative. After therapy, pt lying in bed with call light/phone in reach. All needs met in room. Start Time: 13:00 Stop Time: 14:00 Total Billed Treatment Time: 60 Total Billed Treatment 1-GRP JEANETTE VALDOVINOS Jun 01, 2022 14:30
[2022-06-01 20:30] VITALS: BP 146/66
[2022-06-01] MEDS: amLODIPine 10 MG (NORVASC) TAB PO SCH (20:59)
--- NOTE | 2022-06-02 06:15 | PM&R Progress Note ---
Subjective HPI/CC On Admission Date Seen by Provider: Jun 02, 2022 Time Seen by Provider: 08:30 Subjective/Events-last exam 06/02/2022: Pt is doing pretty well Bowels are moving Responding better Severely depressed so will initiate a behavioral consult No pain is reported 06/01/2022: Pt is doing a lot better Pt is a very private person Discontinue Gabapnetin per request Bowels moved yesterday He fell last night without an injury Updated pt and regarding the plan Review of Systems General: Fatigue, Malaise Objective Exam Vital Signs Vital Signs Date Time Temp Pulse Resp B/P (MAP) Pulse Ox O2 Delivery O2 Flow Rate FiO2 06/02/22 20:14 37.4 78 18 149/68 (95) 96 Room Air Capillary Refill : General Appearance: No Apparent Distress, WD/WN, Obese HEENT: PERRL/EOMI, Normal ENT Inspection, Pharynx Normal Neck: Full Range of Motion, Normal Inspection, Non Tender, Supple, Carotid Bruit Respiratory: Chest Non Tender, Lungs Clear, Normal Breath Sounds, No Accessory Muscle Use, No Respiratory Distress Cardiovascular: Regular Rate, Rhythm, No Edema, No Gallop, No JVD, No Murmur, Normal Peripheral Pulses Gastrointestinal: Normal Bowel Sounds, No Organomegaly, No Pulsatile Mass, Non Tender, Soft Back: Normal Inspection, No CVA Tenderness, No Vertebral Tenderness Extremity: Normal Capillary Refill, Normal Inspection, Normal Range of Motion (except right side), Non Tender, No Calf Tenderness, No Pedal Edema Neurologic/Psychiatric: Alert, Oriented x3, Normal Mood/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 FIM Transfers Therapy Code Descriptions/Definitions Functional [place] Measure: 0=Not Assessed/NA 4=Minimal Assistance 1=Total Assistance 5=Supervision or Setup 2=Maximal Assistance 6=Modified [place] 3=Moderate Assistance 7=Complete IndependenceSCALE: Activities may be completed with or without assistive devices. 8-Yhdrpgrurs-aazbwdw completes the activity by him/herself with no assistance from a helper. 5-Set-up or Clean-up Assistance-helper sets up or cleans up; patient completes activity. [place] assists only prior to or following the activity. 4-Supervision or Touching Assistance-helper provides verbal cues and/or touchi ng/steadying and/or contact guard assistance as patient completes activity. Assistance may be provided throughout the activity or intermittently. 3-Partial/Moderate Assistance-helper does LESS THAN HALF the effort. [place] lifts, holds or supports trunk or limbs, but provides less than half the effort. 2-Substantial/Maximal Assistance-helper does MORE THAN HALF the effort. [place] lifts or holds trunk or limbs and provides more than half the effort. 6-Xrbtzqfuy-feaeki does ALL the effort. Patient does none of the effort to complete the activity. Or, the assistance of 2 or more helpers is required for the patient to complete the activity. If activity was not attempted, code reason: 7-Patient Refused. 9-Not Applicable-not attempted and the patient did not perform the activity before the current illness, exacerbation or injury. 10-Not Attempted due to Environmental Limitations-(lack of equipment, weather restraints, etc.). 88-Not Attempted due to Medical Conditions or Safety Concerns. Roll Left to Right (QC): 3 Sit to Lying (QC): 3 Sit to Stand (QC): 3 Chair/Ryd-yq-Wxail Xfer(QC): 3 Car Transfer (QC): 3 Gait Training Does the Patient Walk?: Yes Distance: 50'x3 Walk 10 feet (QC): 3 Walk 50 ft with 2 Turns(QC): 3 Walk 150 ft (QC): 88 Walking 10ft/uneven surface-QC: 88 Gait Persons Needed: 1 Gait Assistive Device: Walker Timothy Wheelchair Training Does the Pt Use a Wheelchair?: Yes Distance: 150'x2, 120' Wheel 50 ft with 2 turns (QC): 4 Wheel 150 ft (QC): 4 Type of Wheelchair: Manual Stair Training 1 Step (curb) (QC): 88 4 Steps (QC): 88 12 Steps (QC): 88 Balance Picking up an Object (QC): 88 ADL-Treatment Eating (QC): 5 Oral Hygiene (QC): 6 Shower/Bathe Self (QC): 1 (Per clinical judgment.) Upper Body Dressing (QC): 3 Lower Body Dressing (QC): 1 On/Off Footwear (QC): 1 Toileting Hygiene (QC): 1 Toilet Transfer (QC): 1 Assessment/Plan Assessment and Plan Assess & Plan/Chief Complaint Assessment: Debility CVA Right sided weakness Dysarthria HTN Diabetes mellitus type 2 HLD Sleep apnea Anxiety Chronic back pain Fall risk SHAE suspected needs sleep study Suspected AF monitor in place Plan: Start PT, OT, speech therapy Monitor blood sugars Start long acting insulin and SSI Restart home meds Pain control Closely monitor due to risk of fall 06/01/2022: Fall risk Monitor closely 06/02/2022: Behavioral health consult for depression Supportive care (1) CVA (cerebral vascular accident) (2) Dysarthria (3) Right sided weakness (4) Uncontrolled type 2 diabetes mellitus Status: Acute (5) Hypertension Status: Acute DEBBY ORTIZ DO Jun 02, 2022 06:15
[2022-06-02 07:44] VITALS: BP 161/77
[2022-06-02] MEDS: inSUlin ASPART (NovoLOG) 1 UNIT/0.01 ML (CHARGE PER UNIT) SC SCH ×3 (07:56→18:32)
[2022-06-02] MEDS: ENOXAPARIN 40 MG/0.4 ML (LOVENOX) SYR SC SCH (07:57)
[2022-06-02 07:58] VITALS: BP 190/95
[2022-06-02] MEDS: SENNA W/DOCUSATE (SENOKOT S) TABLET PO SCH ×2 (09:15→19:50)
[2022-06-02] MEDS: FENOFIBRATE 134 MG (LOFIBRA) CAPSULE PO SCH (09:15)
[2022-06-02] MEDS: VERAPAMIL SR 240 MG (CALAN SR) TAB PO SCH (09:15)
[2022-06-02] MEDS: LOSARTAN 100 MG (COZAAR) TABLET PO SCH (09:15)
[2022-06-02] MEDS: CLOPIDOGREL 75 MG (PLAVIX) TABLET PO SCH (09:15)
[2022-06-02] MEDS: ASPIRIN E.C. 81 MG (ECOTRIN) TAB PO SCH (09:15)
[2022-06-02] MEDS: polyethylene glycoL POWDER 17 GM (MIRALAX) PACK PO SCH ×2 (09:17→19:50)
--- NOTE | 2022-06-02 10:05 | Speech Therapy Daily Note ---
Speech Daily Progress Note Subjective Date Seen by Provider: Jun 02, 2022 Time Seen by Provider: 09:30 The patient was seated upright in bed, awake and alert upon entrance to his room by the clinician. The patient greeted the clinician appropriately and was agreeable to participation in the language treatment session. Objective The patient becomes tearful throughout the treatment session on this date (similar to the prior session) during attempts at verbal communication. The clinician provided supportive listening and encouragement, providing education to the patient regarding language rehabilitation. Confrontational Naming of Familiar Objects: The clinician provided the patient with a toothbrush, toothpaste, brush, and razor. Each item was named verbally by the clinician prior to the patient's attempts. The patient was unable to name any of the objects independently on this date. Providing a cue regarding item function was not helpful with verbalization. Providing the initial phoneme was consistently helpful in 100% accuracy with object identification. The patient is able to consistently accurately repeat the word following a clinician model. Initial phoneme paraphasia was consistently present. Additionally perseveration of "toothbrush" was present throughout the exercise. Functional Phrases: The clinician visited with the patient regarding functional phrases and initiated a mock conversation between the patient and his . The patient was asked to respond with common phrases familiar to him. The patient was able to state, "I slept well." and "What have you been doing?" The clinician will begin to form a functional phrase list to aid in continued verbal communication at the conversational level. Assessment Assessment Current Status: Fair Progress Treatment Plan Continue Plan of Care Speech Short Term Goals Short Term Goals Short Term Goals 1. The patient will complete confrontational naming with 90% accuracy and mild clinician verbal cueing. Time Frame-STG: One Week. Speech End Matcher Goals Retirement Goals 1. The patient will display improved expressive communication for safe discharge to the least restricted environment. Time Frame: Three Weeks. Speech-Plan Treatment Plan Speech Therapy Treatment Plan: Continue Plan of Care Treatment Duration: Jun 01, 2022 Frequency: Modified Program (IRF) Estimated Hrs Per Day: .5 hour per day Rehab Potential: Fair Safety Risks/Education Teaching Recipient: Patient Teaching Methods: Discussion Response to Teaching: Verbalize Understanding Education Topics Provided: Word Finding Strategies, Cueing Hierarchy, Plan of Care Time Speech Therapy Time In: 09:30 Speech Therapy Time Out: 10:00 Total Billed Time: 30 Billed Treatment Time 1, SHADY WILLIAMSON Jun 02, 2022 10:05
--- NOTE | 2022-06-02 11:01 | Occupational Ther Daily Note ---
OT Current Status-Daily Note Subjective Pt alert, lying in bed. Pt agrees to therapy. present in room. Family training completed today for shower, pt is resistive to staff while completing toileting and shower, assisting with GAFFNEY present and assisting with transfers. Mental Status/Objective Patient Orientation: Person, Place, Non-Verbal/Aphasic, Time, Situation Attachments: Other-See Comments (loop recorder) ADL-Treatment Set up for eating. Independent oral care sitting at sink. Min A shower sitting 100% of the time on BSC. Min A upper body dressing, continues to need instruction for one armed technique. Max A for lower body dressing. Pt requires assist to thread R foot into pants then threaded pants on L by self. Assist to stand and hike pants over hips. Dependent with footwear. Toileting min to mod A. Therapy Code Descriptions/Definitions Functional [place] Measure: 0=Not Assessed/NA 4=Minimal Assistance 1=Total Assistance 5=Supervision or Setup 2=Maximal Assistance 6=Modified [place] 3=Moderate Assistance 7=Complete IndependenceSCALE: Activities may be completed with or without assistive devices. 0-Vgasxdowqt-ffepeez completes the activity by him/herself with no assistance from a helper. 5-Set-up or Clean-up Assistance-helper sets up or cleans up; patient completes activity. [place] assists only prior to or following the activity. 4-Supervision or Touching Assistance-helper provides verbal cues and/or touching/steadying and/or contact guard assistance as patient completes activity. Assistance may be provided throughout the activity or intermittently. 3-Partial/Moderate Assistance-helper does LESS THAN HALF the effort. [place] lifts, holds or supports trunk or limbs, but provides less than half the effort. 2-Substantial/Maximal Assistance-helper does MORE THAN HALF the effort. [place] lifts or holds trunk or limbs and provides more than half the effort. 7-Mzoxicswh-qrkahr does ALL the effort. Patient does none of the effort to complete the activity. Or, the assistance of 2 or more helpers is required for the patient to complete the activity. If activity was not attempted, code reason: 7-Patient Refused. 9-Not Applicable-not attempted and the patient did not perform the activity before the current illness, exacerbation or injury. 10-Not Attempted due to Environmental Limitations-(lack of equipment, weather restraints, etc.). 88-Not Attempted due to Medical Conditions or Safety Concerns. Eating (QC): 5 Oral Hygiene (QC): 6 Shower/Bathe Self (QC): 3 Upper Body Dressing (QC): 3 Lower Body Dressing (QC): 2 On/Off Footwear: 1 Toileting Hygiene (QC): 3 Toilet Transfer (QC): 4 Pt is demonstrating increased muscle activation throughout R UE. Pt is able to complete 1 set 10 reps of AAROM shldr ext, elbow flex/ext, wrist flex ext, AROM of finger flex/ext (fair). ROM completed in supine with gravity eliminated. After session pt lying in bed with call light/phone in reach. All needs met in room. OT Short Term Goals Short Term Goals Time Frame: Jun 23, 2022 Oral hygiene: 5 Toileting hygiene: 4 Shower/bathe self: 4 Lower body dressin Putting on/taking off footwear: 4 OT Correction Goals Landscape Crew Member Goals Time Frame: Jul 02, 2022 Eating (QC): 6 Oral Hygiene (QC): 6 Toileting Hygiene (QC): 6 Shower/Bathe Self (QC): 6 Upper Body Dressing (QC): 6 Lower Body Dressing (QC): 6 On/Off Footwear (QC): 6 Additional Goals: 1-Demonstrate ADL Tasks, 2-Verbalize Understanding, 3- ImproveStrength/Malini 1=Demonstrate adherence to instructed precautions during ADL tasks. 2=Patient will verbalize/demonstrate understanding of assistive devices/modifications for ADL. 3=Patient will improve strength/tolerance for activity to enable patient to perform ADL's. OT Education/Plan Problem List/Assessment Assessment: Decreased Activ Tolerance, Decreased UE Strength, Impaired Coordination, Impaired Self-Care Skills, Restricted Funct UE ROM (RUE) Discharge Recommendations Plan/Recommendations: Continue POC Treatment Plan/Plan of Care Patient would benefit from OT for education, treatment and training to promote independence in ADL's, mobility, safety and/or upper extremity function for ADL's. Plan of Care: ADL Retraining, Functional Mobility, Group Exercise/Act as Ind, UE Funct Exercise/Act, UE Neuromus Re-Ed/Coord, W/C Management Training Treatment Duration: Jul 02, 2022 Frequency: At least 5 of 7 days/Wk (IRF) Estimated Hrs Per Day: 1.5 hours per day Agreement: Yes Rehab Potential: Fair Time/GCodes Start Time: 07:30 Stop Time: 08:45 Total Time Billed (hr/min): 75 Billed Treatment Time 1 visit-ADL 5 (60 min) NM 1 (15 min) JEANETTE VALDOVINOS Jun 02, 2022 11:01
--- NOTE | 2022-06-02 11:05 | Physical Therapy Daily Note ---
PT Daily Note-Current Subjective Pt. in bed, agrees to Rx, appears frustrated during Rx. Pain Location: No Pain Reported Mental Status Patient Orientation: Non-Verbal/Aphasic Attachments: Other-See Comments (nichole wrap to facilitate DF R foot) Transfers SCALE: Activities may be completed with or without assistive devices. 6-Ybuhyjaevw-nsxowlc completes the activity by him/herself with no assistance from a helper. 5-Set-up or Clean-up Assistance-helper sets up or cleans up; patient completes activity. [place] assists only prior to or following the activity. 4-Supervision or Touching Assistance-helper provides verbal cues and/or touching/steadying and/or contact guard assistance as patient completes activity. Assistance may be provided throughout the activity or intermittently. 3-Partial/Moderate Assistance-helper does LESS THAN HALF the effort. [place] lifts, holds or supports trunk or limbs, but provides less than half the effort. 2-Substantial/Maximal Assistance-helper does MORE THAN HALF the effort. [place] lifts or holds trunk or limbs and provides more than half the effort. 9-Sksfidpuo-plqwfx does ALL the effort. Patient does none of the effort to complete the activity. Or, the assistance of 2 or more helpers is required for the patient to complete the activity. If activity was not attempted, code reason: 7-Patient Refused. 9-Not Applicable-not attempted and the patient did not perform the activity before the current illness, exacerbation or injury. 10-Not Attempted due to Environmental Limitations-(lack of equipment, weather restraints, etc.). 88-Not Attempted due to Medical Conditions or Safety Concerns. Sit to Stand (QC): 4 Chair/Ydr-hj-Xlfmf Xfer(QC): 3 needed instruction each TRF for technique etc Gait Training Does the Patient Walk?: Yes Walk 10 feet (QC): 3 Walk 50 ft with 2 Turns(QC): 3 Gait Persons Needed: 1 Gait Assistive Device: Walker Platform w/c close behind, needs assist to stabilize R LE a times, needs instruction for sequence as well as occas asisst to advance RLE and to take more even step length Wheelchair Training Does the Pt Use a Wheelchair?: Yes Wheel 50 ft with 2 turns (QC): 5 Wheel 150 ft (QC): 5 Type of Wheelchair: Manual needs assist for instruction in braking and use of LEs Exercises Supine Ex: Bridging, Ankle pumps, Quad Set, Rolling, Glut sets, Heel Slides, Short Arc Quads, Scooting, D1 F/E UE, Straight leg raise, Hip abd/add Supine Reps: 15 (assisted) Seated Therapy Exercises: Sit to stand, Shoulder Flex Seated Reps: 12 Standing: Sit to Stand, Weight shifts Standing Reps: 12 Treatments sup therex, sitting RLE P/AAROM, sit to stands using LUE on arm of chair, standing at // bars for right knee stabilization/ extension and wt shift left to right, awareness, safety , gait platform on right 50 ft x 3 , see above, up in recliner after Rx with scott at hand Assessment Current Status: Good Progress frustrated but gives good effort PT Short Term Goals Short Term Goals Time Frame: Jun 07, 2022 Roll Left & Right: 4 (CGA) Sit to lyin (CGA) Lying to sitting on side of be: 4 (CGA) Sit to stand: 4 (CGA) Chair/tos-od-vpyds transfer: 4 (CGA) Walk 10 feet: 4 (CGA) Walk 50 feet with two turns: 4 (CGA) PT Sorter Upholstery Parts Goals Sorter Upholstery Parts Goals PT Sorter Upholstery Parts Goals Time Frame: Jun 21, 2022 Roll Left & Right (QC): 4 (SBA) Sit to Lying (QC): 4 (SBA) Lying-Sitting on Side/Bed(QC): 4 (SBA) Sit to Stand (QC): 4 (SBA) Chair/Bld-jq-Ilcus Xfer(QC): 4 (SBA) Toilet Transfer (QC): 4 (SBA) Car Transfer (QC): 4 (CGA) Does the Patient Walk: Yes Walk 10 feet (QC): 4 (SBA) Walk 50ft with 2 Turns (QC): 4 (SBA) Walk 150 ft (QC): 4 (SBA) Walking 10ft on Uneven Surface: 4 (CGA) 1 Step (curb) (QC): 4 (CGA) 4 Steps (QC): 88 12 Steps (QC): 88 Picking up an Object (QC): 4 (CGA using horse groomer) Wheel 50 feet with 2 turns (QC: 6 Wheel 150 feet: 6 PT Plan Treatment/Plan Treatment Plan: Continue Plan of Care Treatment Plan: Bed Mobility, Education, Functional Activity Malini, Functional Strength, Group Therapy, Gait, Safety, Therapeutic Exercise, Transfers Treatment Duration: Jun 21, 2022 Frequency: At least 5 of 7 days/Wk (IRF) Estimated Hrs Per Day: 1.5 hours per day Patient and/or Family Agrees t: Yes Safety Risks/Education Patient Education: Gait Training, Transfer Techniques, Correct Positioning, W/C Management, Disease Process, Safety Issues Teaching Recipient: Patient Teaching Methods: Demonstration, Discussion Response to Teaching: Verbalize Understanding, Return Demonstration, Reinforcement Needed Time/GCodes Time In: 1000 Time Out: 1100 Total Billed Treatment Time: 60 Total Billed Treatment 1,GT20m,FA15m,EX25m GEOVANNA JONES BREAKDOWN PERSON Jun 02, 2022 11:05
--- NOTE | 2022-06-02 13:25 | Physical Therapy Daily Note ---
PT Daily Note-Current Subjective Pt. up in recliner with lunch tray in front of him. He had not eaten or drank any thing from it. Pt. declined allowing this HYDRAULIC BULL RIVETER OPERATOR to help him eat. Pt. does not make eye contact and again this PM appears depressed, agrees to short gait, in bed and LE ex Pain Location: No Pain Reported Mental Status Patient Orientation: Non-Verbal/Aphasic Transfers SCALE: Activities may be completed with or without assistive devices. 4-Csyntparvi-cngoosu completes the activity by him/herself with no assistance from a helper. 5-Set-up or Clean-up Assistance-helper sets up or cleans up; patient completes activity. [place] assists only prior to or following the activity. 4-Supervision or Touching Assistance-helper provides verbal cues and/or touching/steadying and/or contact guard assistance as patient completes activity. Assistance may be provided throughout the activity or intermittently. 3-Partial/Moderate Assistance-helper does LESS THAN HALF the effort. [place] li fts, holds or supports trunk or limbs, but provides less than half the effort. 2-Substantial/Maximal Assistance-helper does MORE THAN HALF the effort. [place] lifts or holds trunk or limbs and provides more than half the effort. 9-Faifhesyb-iwtwrz does ALL the effort. Patient does none of the effort to complete the activity. Or, the assistance of 2 or more helpers is required for the patient to complete the activity. If activity was not attempted, code reason: 7-Patient Refused. 9-Not Applicable-not attempted and the patient did not perform the activity before the current illness, exacerbation or injury. 10-Not Attempted due to Environmental Limitations-(lack of equipment, weather restraints, etc.). 88-Not Attempted due to Medical Conditions or Safety Concerns. sit to stand min to CGA, gait 10 ft platf walker mod assist, gets somewhat upset with instruction for approaching the bed safely, pt. not completely turned to safely sit but lets go of walker with no regard for right arm and attempts to sit . This HYDRAULIC BULL RIVETER OPERATOR reinstructing pt. which appears to perturb him Gait Training Does the Patient Walk?: Yes Gait Assistive Device: Walker Platform mod asst 10 ft to bed with turn, unsafe technique Exercises Supine Ex: Ankle pumps, Rolling, Heel Slides, Scooting, Straight leg raise Supine Reps: 10 (assisted) Treatments TRs, gait, pillows for positioning, call scott left hand Assessment Current Status: Fair Progress appears depressed, lacks motivation PT Short Term Goals Short Term Goals Time Frame: Jun 07, 2022 Roll Left & Right: 4 (CGA) Sit to lyin (CGA) Lying to sitting on side of be: 4 (CGA) Sit to stand: 4 (CGA) Chair/pgk-rt-pmlnj transfer: 4 (CGA) Walk 10 feet: 4 (CGA) Walk 50 feet with two turns: 4 (CGA) PT L D Rn Goals Assisted Goals PT L D Rn Goals Time Frame: Jun 21, 2022 Roll Left & Right (QC): 4 (SBA) Sit to Lying (QC): 4 (SBA) Lying-Sitting on Side/Bed(QC): 4 (SBA) Sit to Stand (QC): 4 (SBA) Chair/Apz-nd-Qiidb Xfer(QC): 4 (SBA) Toilet Transfer (QC): 4 (SBA) Car Transfer (QC): 4 (CGA) Does the Patient Walk: Yes Walk 10 feet (QC): 4 (SBA) Walk 50ft with 2 Turns (QC): 4 (SBA) Walk 150 ft (QC): 4 (SBA) Walking 10ft on Uneven Surface: 4 (CGA) 1 Step (curb) (QC): 4 (CGA) 4 Steps (QC): 88 12 Steps (QC): 88 Picking up an Object (QC): 4 (CGA using system engineer) Wheel 50 feet with 2 turns (QC: 6 Wheel 150 feet: 6 PT Plan Treatment/Plan Treatment Plan: Continue Plan of Care Treatment Plan: Bed Mobility, Education, Functional Activity Malini, Functional Strength, Group Therapy, Gait, Safety, Therapeutic Exercise, Transfers Treatment Duration: Jun 21, 2022 Frequency: At least 5 of 7 days/Wk (IRF) Estimated Hrs Per Day: 1.5 hours per day Patient and/or Family Agrees t: Yes Safety Risks/Education Patient Education: Gait Training, Transfer Techniques, Correct Positioning, Safety Issues Teaching Recipient: Health Care Proxy Teaching Methods: Demonstration Response to Teaching: Unable to Return Demonstration, Reinforcement Needed Time/GCodes Time In: 1245 Time Out: 1300 Total Billed Treatment Time: 15 Total Billed Treatment 1,FA15m GEOVANNA JONES HYDRAULIC BULL RIVETER OPERATOR Jun 02, 2022 13:25
[2022-06-02 20:14] VITALS: BP 149/68
[2022-06-02] MEDS: amLODIPine 10 MG (NORVASC) TAB PO SCH (20:19)
--- NOTE | 2022-06-03 06:00 | PM&R Progress Note ---
Subjective HPI/CC On Admission Date Seen by Provider: Jun 03, 2022 Time Seen by Provider: 11:00 Subjective/Events-last exam 06/03/2022: Patient dramatically improved Able to walk with a complex cane with leg support Feels much better Improved morale 06/02/2022: Pt is doing pretty well Bowels are moving Responding better Severely depressed so will initiate a behavioral consult No pain is reported 06/01/2022: Pt is doing a lot better Pt is a very private person Discontinue Gabapnetin per request Bowels moved yesterday He fell last night without an injury Updated pt and regarding the plan Review of Systems General: Fatigue, Malaise Objective Exam Vital Signs Vital Signs Date Time Temp Pulse Resp B/P (MAP) Pulse Ox O2 Delivery O2 Flow Rate FiO2 06/03/22 21:30 Room Air 06/03/22 19:32 37.2 73 20 165/76 (105) 98 Capillary Refill : General Appearance: No Apparent Distress, WD/WN, Obese HEENT: PERRL/EOMI, Normal ENT Inspection, Pharynx Normal Neck: Full Range of Motion, Normal Inspection, Non Tender, Supple, Carotid Bruit Respiratory: Chest Non Tender, Lungs Clear, Normal Breath Sounds, No Accessory Muscle Use, No Respiratory Distress Cardiovascular: Regular Rate, Rhythm, No Edema, No Gallop, No JVD, No Murmur, Normal Peripheral Pulses Gastrointestinal: Normal Bowel Sounds, No Organomegaly, No Pulsatile Mass, Non Tender, Soft Back: Normal Inspection, No CVA Tenderness, No Vertebral Tenderness Extremity: Normal Capillary Refill, Normal Inspection, Normal Range of Motion (except right side), Non Tender, No Calf Tenderness, No Pedal Edema Neurologic/Psychiatric: Alert, Oriented x3, Normal Mood/Affect, staff research scientist II-XII Norm as Tested, Abnormal Gait, Aphasia, Depressed Affect, Motor Weakness (right sided weakness 1/5) Skin: Normal Color, Warm/Dry Lymphatic: No Adenopathy Results/Procedures Lab Patient resulted labs reviewed. FIM Transfers Therapy Code Descriptions/Definitions Functional [place] Measure: 0=Not Assessed/NA 4=Minimal Assistance 1=Total Assistance 5=Supervision or Setup 2=Maximal Assistance 6=Modified [place] 3=Moderate Assistance 7=Complete IndependenceSCALE: Activities may be completed with or without assistive devices. 3-Loqmnafbay-poctprb completes the activity by him/herself with no assistance from a helper. 5-Set-up or Clean-up Assistance-helper sets up or cleans up; patient completes activity. [place] assists only prior to or following the activity. 4-Supervision or Touching Assistance-helper provides verbal cues and/or touching/steadying and/or contact guard assistance as patient completes activity. Assistance may be provided throughout the activity or intermittently. 3-Partial/Moderate Assistance-helper does LESS THAN HALF the effort. [place] li fts, holds or supports trunk or limbs, but provides less than half the effort. 2-Substantial/Maximal Assistance-helper does MORE THAN HALF the effort. [place] lifts or holds trunk or limbs and provides more than half the effort. 9-Twkbhulfp-bqjhuc does ALL the effort. Patient does none of the effort to complete the activity. Or, the assistance of 2 or more helpers is required for the patient to complete the activity. If activity was not attempted, code reason: 7-Patient Refused. 9-Not Applicable-not attempted and the patient did not perform the activity before the current illness, exacerbation or injury. 10-Not Attempted due to Environmental Limitations-(lack of equipment, weather restraints, etc.). 88-Not Attempted due to Medical Conditions or Safety Concerns. Roll Left to Right (QC): 3 Sit to Lying (QC): 3 Sit to Stand (QC): 4 Chair/Ubt-qr-Plzgn Xfer(QC): 3 Car Transfer (QC): 3 Gait Training Does the Patient Walk?: Yes Distance: 50'x3 Walk 10 feet (QC): 3 Walk 50 ft with 2 Turns(QC): 3 Walk 150 ft (QC): 88 Walking 10ft/uneven surface-QC: 88 Gait Persons Needed: 1 Gait Assistive Device: Walker Platform Wheelchair Training Does the Pt Use a Wheelchair?: Yes Distance: 150'x2, 120' Wheel 50 ft with 2 turns (QC): 5 Wheel 150 ft (QC): 5 Type of Wheelchair: Manual Stair Training 1 Step (curb) (QC): 88 4 Steps (QC): 88 12 Steps (QC): 88 Balance Picking up an Object (QC): 88 ADL-Treatment Eating (QC): 5 Oral Hygiene (QC): 6 Shower/Bathe Self (QC): 3 Upper Body Dressing (QC): 3 Lower Body Dressing (QC): 2 On/Off Footwear (QC): 1 Toileting Hygiene (QC): 3 Toilet Transfer (QC): 4 Assessment/Plan Assessment and Plan Assess & Plan/Chief Complaint Assessment: Debility CVA Right sided weakness Dysarthria HTN Diabetes mellitus type 2 HLD Sleep apnea Anxiety Chronic back pain Fall risk SHAE suspected needs sleep study Suspected AF monitor in place Plan: Start PT, OT, speech therapy Monitor blood sugars Start long acting insulin and SSI Restart home meds Pain control Closely monitor due to risk of fall 06/01/2022: Fall risk Monitor closely 06/02/2022: Behavioral health consult for depression Supportive care 06/03/2022: Dramatic improvement Ambulated (1) CVA (cerebral vascular accident) (2) Dysarthria (3) Right sided weakness (4) Uncontrolled type 2 diabetes mellitus Status: Acute (5) Hypertension Status: Acute DEBBY ORTIZ DO Jun 03, 2022 06:00
[2022-06-03 07:54] VITALS: BP 162/78
[2022-06-03] MEDS: inSUlin ASPART (NovoLOG) 1 UNIT/0.01 ML (CHARGE PER UNIT) SC SCH ×3 (08:38→16:58)
[2022-06-03] MEDS: ENOXAPARIN 40 MG/0.4 ML (LOVENOX) SYR SC SCH (08:39)
[2022-06-03] MEDS: ASPIRIN E.C. 81 MG (ECOTRIN) TAB PO SCH (08:41)
[2022-06-03] MEDS: CLOPIDOGREL 75 MG (PLAVIX) TABLET PO SCH (08:41)
[2022-06-03] MEDS: LOSARTAN 100 MG (COZAAR) TABLET PO SCH (08:41)
[2022-06-03] MEDS: FENOFIBRATE 134 MG (LOFIBRA) CAPSULE PO SCH (08:41)
[2022-06-03] MEDS: VERAPAMIL SR 240 MG (CALAN SR) TAB PO SCH (08:41)
--- NOTE | 2022-06-03 08:45 | Occupational Ther Daily Note ---
OT Current Status-Daily Note Subjective Pt alert, lying in bed. Pt's in room. Pt agrees to therapy. No c/o pain at this time. Mental Status/Objective Patient Orientation: Person, Place, Non-Verbal/Aphasic, Time, Situation Attachments: Other-See Comments (loop recorder) ADL-Treatment SBA for supine to EOB. CGA for SPT from EOB to w/c. Pt propelled w/c to bathroom then assist to position at sink. Pt completed oral care independently seated at sink. Therapy Code Descriptions/Definitions Functional [place] Measure: 0=Not Assessed/NA 4=Minimal Assistance 1=Total Assistance 5=Supervision or Setup 2=Maximal Assistance 6=Modified [place] 3=Moderate Assistance 7=Complete IndependenceSCALE: Activities may be completed with or without assistive devices. 8-Cucsqmaist-spqkfhx completes the activity by him/herself with no assistance from a helper. 5-Set-up or Clean-up Assistance-helper sets up or cleans up; patient completes activity. [place] assists only prior to or following the activity. 4-Supervision or Touching Assistance-helper provides verbal cues and/or touching/steadying and/or contact guard assistance as patient completes activity. Assistance may be provided throughout the activity or intermittently. 3-Partial/Moderate Assistance-helper does LESS THAN HALF the effort. [place] lifts, holds or supports trunk or limbs, but provides less than half the effort. 2-Substantial/Maximal Assistance-helper does MORE THAN HALF the effort. [place] lifts or holds trunk or limbs and provides more than half the effort. 2-Icejxdpvm-pqhpcx does ALL the effort. Patient does none of the effort to complete the activity. Or, the assistance of 2 or more helpers is required for the patient to complete the activity. If activity was not attempted, code reason: 7-Patient Refused. 9-Not Applicable-not attempted and the patient did not perform the activity before the current illness, exacerbation or injury. 10-Not Attempted due to Environmental Limitations-(lack of equipment, weather restraints, etc.). 88-Not Attempted due to Medical Conditions or Safety Concerns. Eating (QC): 5 Oral Hygiene (QC): 6 Upper Body Dressing (QC): 2 (Mod A) Other Treatment Pt propels w/c to therapy gym independently. Pt transferred to therapy mat with CGA. Pt sat on edge of mat table independently. Pt completed dynamic sitting and wt bearing through R UE to increase muscle activation using proprioception. Pt required assistance to position R UE during wt bearing though pt was able to stabilize R UE in position in static sitting. Minimal subluxation of R shldr jt noted. Massage and light stretch to R shldr to increase ROM and decrease pain with movement. Pt then complete AAROM and APROM for shldr flexion, shldr elevation, elbow flex/ext. Fair AROM with forearm sup/pron, wrist flex and finger flex/ext. Arm bike completed 4 min forward/backward rotation with minim al resistance and facilitation of R UE movements. Initially with arm bike movements pt able to maintain R shldr positioning then after 2 min shldr fatigue and subluxation noted required support to maintain proper positioning. Then with assistance pt able to use R UE to complete forward rotation on arm bike for 1.5 min. Pt then complete passive stretch with table to R UE by sliding extended arm forward. After therapy, pt lying in bed with call light/phone in reach. All needs met in room. OT Short Term Goals Short Term Goals Time Frame: Jun 23, 2022 Oral hygiene: 5 Toileting hygiene: 4 Shower/bathe self: 4 Lower body dressin Putting on/taking off footwear: 4 OT Jail Goals Medical Billing And Coding Specialist Goals Time Frame: Jul 02, 2022 Eating (QC): 6 Oral Hygiene (QC): 6 Toileting Hygiene (QC): 6 Shower/Bathe Self (QC): 6 Upper Body Dressing (QC): 6 Lower Body Dressing (QC): 6 On/Off Footwear (QC): 6 Additional Goals: 1-Demonstrate ADL Tasks, 2-Verbalize Understanding, 3- ImproveStrength/Malini 1=Demonstrate adherence to instructed precautions during ADL tasks. 2=Patient will verbalize/demonstrate understanding of assistive devices/modifications for ADL. 3=Patient will improve strength/tolerance for activity to enable patient to perform ADL's. OT Education/Plan Problem List/Assessment Assessment: Decreased Activ Tolerance, Decreased Safety Aware, Decreased UE Strength, Impaired Coordination, Impaired Funct Balance, Impaired Self-Care Skills, Restricted Funct UE ROM Discharge Recommendations Plan/Recommendations: Continue POC Treatment Plan/Plan of Care Patient would benefit from OT for education, treatment and training to promote independence in ADL's, mobility, safety and/or upper extremity function for ADL's. Plan of Care: ADL Retraining, Functional Mobility, Group Exercise/Act as Ind, UE Funct Exercise/Act, UE Neuromus Re-Ed/Coord, W/C Management Training Treatment Duration: Jul 02, 2022 Frequency: At least 5 of 7 days/Wk (IRF) Estimated Hrs Per Day: 1.5 hours per day Agreement: Yes Rehab Potential: Fair Time/GCodes Start Time: 07:30 Stop Time: 08:45 Total Time Billed (hr/min): 75 Billed Treatment Time 1 visit-ADL 2 (30 min) NM 3 (45 min) JEANETTE VALDOVINOS Jun 03, 2022 08:45
[2022-06-03] MEDS: SENNA W/DOCUSATE (SENOKOT S) TABLET PO SCH ×2 (09:21→21:00)
[2022-06-03] MEDS: polyethylene glycoL POWDER 17 GM (MIRALAX) PACK PO SCH ×2 (09:21→21:00)
--- NOTE | 2022-06-03 10:32 | Speech Therapy Daily Note ---
Speech Daily Progress Note Subjective Date Seen by Provider: Jun 03, 2022 Time Seen by Provider: 09:30 The patient was seated upright in bed, awake and alert upon entrance to his room by the clinician. The patient acknowledged the clinician's verbal greeting and was agreeable to participation in the cognitive linguistic treatment session. Objective Confrontational Naming of Familiar Objects: The clinician provided the patient with a toothbrush, toothpaste, brush, and razor. Each item was named verbally by the clinician prior to the patient's attempts and the patient completed accurate repetition. The patient was unable to name any of the objects independently on this date. Providing a cue regarding item function was not helpful with verbalization. Providing the initial phoneme was consistently helpful in 100% accuracy with object identification. Writing: Writing was attempted on this date. The patient attempted to write his name, a sentence, water, and bathroom. The patient wrote "[place]" for his name, water (accurately), "I was" for his sentence, and was unable to print bathroom. The patient uses his non-dominant hand for all writing. The patient was unable to provide an additional word following "was" throughout his sentence. The patient wrote "water" with ease, however, could not initiate "bathroom." The patient was unable to follow verbal directions for letter identification, requiring the clinician to print the letter for copying. A handout was provided with a recommended therapy schedule and additional practice while the clinician is not providing one on one care. Additionally, the clinician discussed the patient's ability to get his wants and needs met. The patient was able to accurately state, "I need the bathroom," when asked what he would say to staff if he needed the restroom. The clinician asked if a communication board may be useful to point to and the patient agreed. The clinician will work to provide a communication board for the patient. Assessment Assessment Current Status: Fair Progress Treatment Plan Continue Plan of Care Speech Short Term Goals Short Term Goals Short Term Goals 1. The patient will complete confrontational naming with 90% accuracy and mild clinician verbal cueing. Time Frame-STG: One Week. Speech Care Home Goals Care Home Goals 1. The patient will display improved expressive communication for safe discharge to the least restricted environment. Time Frame: Three Weeks. Speech-Plan Treatment Plan Speech Therapy Treatment Plan: Continue Plan of Care Treatment Duration: Jun 01, 2022 Frequency: Modified Program (IRF) Estimated Hrs Per Day: .5 hour per day Rehab Potential: Fair Safety Risks/Education Teaching Recipient: Patient Teaching Methods: Discussion Response to Teaching: Verbalize Understanding Education Topics Provided: Recommendations, Word Finding Strategies Time Speech Therapy Time In: 09:30 Speech Therapy Time Out: 10:00 Total Billed Time: 30 Billed Treatment Time Valdo KBESTEBAN SHADY HERNANDEZ Jun 03, 2022 10:31
--- NOTE | 2022-06-03 10:54 | Physical Therapy Daily Note ---
PT Daily Note-Current Subjective Patient in bed pre tx, agrees to PT, has no complaints of pain. Patient now has shoes that we can put an AFO into. Patient puts on shirt with assist and shoes with AFO. Appearance Patient in recliner post tx with nurse call, phone, tray, all needs met. Mental Status Patient Orientation: Person, Unable to Assess, Non-Verbal/Aphasic Transfers SCALE: Activities may be completed with or without assistive devices. 4-Nqpdyiizwc-daoqggl completes the activity by him/herself with no assistance from a helper. 5-Set-up or Clean-up Assistance-helper sets up or cleans up; patient completes activity. [place] assists only prior to or following the activity. 4-Supervision or Touching Assistance-helper provides verbal cues and/or touching/steadying and/or contact guard assistance as patient completes activity. Assistance may be provided throughout the activity or intermittently. 3-Partial/Moderate Assistance-helper does LESS THAN HALF the effort. [place] lifts, holds or supports trunk or limbs, but provides less than half the effort. 2-Substantial/Maximal Assistance-helper does MORE THAN HALF the effort. [place] lifts or holds trunk or limbs and provides more than half the effort. 9-Ppjvqnhoo-ymtvbe does ALL the effort. Patient does none of the effort to complete the activity. Or, the assistance of 2 or more helpers is required for the patient to complete the activity. If activity was not attempted, code reason: 7-Patient Refused. 9-Not Applicable-not attempted and the patient did not perform the activity before the current illness, exacerbation or injury. 10-Not Attempted due to Environmental Limitations-(lack of equipment, weather restraints, etc.). 88-Not Attempted due to Medical Conditions or Safety Concerns. Roll Left & Right (QC): 4 Lying to Sitting/Side of Bed(Q: 4 Sit to Stand (QC): 3 Chair/Chi-ve-Pkcdv Xfer(QC): 3 Gait Training Distance: 30'x9 Walk 10 feet (QC): 3 Gait Persons Needed: 1 Gait Assistive Device: Walker Timothy Patient ambulated 30' x 9 with min assist using a hemiwalker. Patient also uses a right side AFO and a right side knee cage to control knee hyperextension. Patient needs assist with balance and proper positioning and assistance to encourage foot clearance and step through on the right side. Treatments bed mobility and transfers, ambulation Assessment Current Status: Fair Progress Patient needs a custom fit AFO set into a few degrees of dorsiflexion to control knee hyperextension and promote foot clearance to decrease risk of falls during ambulation and transfers. PT Short Term Goals Short Term Goals Time Frame: Jun 07, 2022 Roll Left & Right: 4 (CGA) Sit to lyin (CGA) Lying to sitting on side of be: 4 (CGA) Sit to stand: 4 (CGA) Chair/bwk-fj-wcozn transfer: 4 (CGA) Walk 10 feet: 4 (CGA) Walk 50 feet with two turns: 4 (CGA) PT Residential Goals Residential Goals PT Residential Goals Time Frame: Jun 21, 2022 Roll Left & Right (QC): 4 (SBA) Sit to Lying (QC): 4 (SBA) Lying-Sitting on Side/Bed(QC): 4 (SBA) Sit to Stand (QC): 4 (SBA) Chair/Rsw-ou-Zvhvp Xfer(QC): 4 (SBA) Toilet Transfer (QC): 4 (SBA) Car Transfer (QC): 4 (CGA) Does the Patient Walk: Yes Walk 10 feet (QC): 4 (SBA) Walk 50ft with 2 Turns (QC): 4 (SBA) Walk 150 ft (QC): 4 (SBA) Walking 10ft on Uneven Surface: 4 (CGA) 1 Step (curb) (QC): 4 (CGA) 4 Steps (QC): 88 12 Steps (QC): 88 Picking up an Object (QC): 4 (CGA using farm equipment engine mechanic) Wheel 50 feet with 2 turns (QC: 6 Wheel 150 feet: 6 PT Plan Problem List Problem List: Activity Tolerance, Functional Strength, Safety, Balance, Gait, Transfer, Bed Mobility, ROM Treatment/Plan Treatment Plan: Continue Plan of Care Treatment Plan: Bed Mobility, Education, Functional Activity Malini, Functional Strength, Group Therapy, Gait, Safety, Therapeutic Exercise, Transfers Treatment Duration: Jun 21, 2022 Frequency: At least 5 of 7 days/Wk (IRF) Estimated Hrs Per Day: 1.5 hours per day Patient and/or Family Agrees t: Yes Safety Risks/Education Patient Education: Gait Training, Transfer Techniques, Correct Positioning, Safety Issues Teaching Recipient: Patient Teaching Methods: Demonstration, Discussion Response to Teaching: Reinforcement Needed Time/GCodes Time In: 1000 Time Out: 1100 Total Billed Treatment Time: 60 Total Billed Treatment 1 visit FA BUDDY BARKER PT Jun 03, 2022 10:54
--- NOTE | 2022-06-03 15:07 | Physical Therapy Daily Note ---
PT Daily Note-Current Subjective Patient in bed pre tx, agrees to PT, has no complaints of pain. Appearance Patient in bed post tx, has nurse call, phone, tray, in room. Mental Status Patient Orientation: Person, Non-Verbal/Aphasic Transfers SCALE: Activities may be completed with or without assistive devices. 8-Ihzkwckewq-ubyloye completes the activity by him/herself with no assistance from a helper. 5-Set-up or Clean-up Assistance-helper sets up or cleans up; patient completes activity. [place] assists only prior to or following the activity. 4-Supervision or Touching Assistance-helper provides verbal cues and/or touching/steadying and/or contact guard assistance as patient completes activity. Assistance may be provided throughout the activity or intermittently. 3-Partial/Moderate Assistance-helper does LESS THAN HALF the effort. [place] lifts, holds or supports trunk or limbs, but provides less than half the effort. 2-Substantial/Maximal Assistance-helper does MORE THAN HALF the effort. [place] l ifts or holds trunk or limbs and provides more than half the effort. 4-Uzivukbwu-xzmeqx does ALL the effort. Patient does none of the effort to complete the activity. Or, the assistance of 2 or more helpers is required for the patient to complete the activity. If activity was not attempted, code reason: 7-Patient Refused. 9-Not Applicable-not attempted and the patient did not perform the activity before the current illness, exacerbation or injury. 10-Not Attempted due to Environmental Limitations-(lack of equipment, weather restraints, etc.). 88-Not Attempted due to Medical Conditions or Safety Concerns. Exercises Supine Ex: Bridging, Heel Slides, Short Arc Quads, Straight leg raise, Hip abd/add Supine Reps: 20 (AAROM RLE except for bridging) manually resisted leg press x20, supine hip flexion AAROM x20, hooklying hip add RLE x20 Treatments RLE strengthening Assessment Current Status: Fair Progress AAROM with most of the exercises PT Short Term Goals Short Term Goals Time Frame: Jun 07, 2022 Roll Left & Right: 4 (CGA) Sit to lyin (CGA) Lying to sitting on side of be: 4 (CGA) Sit to stand: 4 (CGA) Chair/hej-of-wwsbz transfer: 4 (CGA) Walk 10 feet: 4 (CGA) Walk 50 feet with two turns: 4 (CGA) PT Inventory Associate And Driver Goals Nursing Home Goals PT Inventory Associate And Driver Goals Time Frame: Jun 21, 2022 Roll Left & Right (QC): 4 (SBA) Sit to Lying (QC): 4 (SBA) Lying-Sitting on Side/Bed(QC): 4 (SBA) Sit to Stand (QC): 4 (SBA) Chair/Vdr-fd-Fabsl Xfer(QC): 4 (SBA) Toilet Transfer (QC): 4 (SBA) Car Transfer (QC): 4 (CGA) Does the Patient Walk: Yes Walk 10 feet (QC): 4 (SBA) Walk 50ft with 2 Turns (QC): 4 (SBA) Walk 150 ft (QC): 4 (SBA) Walking 10ft on Uneven Surface: 4 (CGA) 1 Step (curb) (QC): 4 (CGA) 4 Steps (QC): 88 12 Steps (QC): 88 Picking up an Object (QC): 4 (CGA using full stack python developer) Wheel 50 feet with 2 turns (QC: 6 Wheel 150 feet: 6 PT Plan Problem List Problem List: Activity Tolerance, Functional Strength, Safety, Balance, Gait, Transfer, Bed Mobility, ROM Treatment/Plan Treatment Plan: Continue Plan of Care Treatment Plan: Bed Mobility, Education, Functional Activity Malini, Functional Strength, Group Therapy, Gait, Safety, Therapeutic Exercise, Transfers Treatment Duration: Jun 21, 2022 Frequency: At least 5 of 7 days/Wk (IRF) Estimated Hrs Per Day: 1.5 hours per day Patient and/or Family Agrees t: Yes Safety Risks/Education Patient Education: Correct Positioning, Safety Issues Teaching Recipient: Patient Teaching Methods: Demonstration, Discussion Response to Teaching: Reinforcement Needed Time/GCodes Time In: 1450 Time Out: 1505 Total Billed Treatment Time: 15 Total Billed Treatment 1 visit EX 15BUDDY VELASQUEZ PT Jun 03, 2022 15:07
[2022-06-03 19:32] VITALS: BP 165/76
[2022-06-03] MEDS: amLODIPine 10 MG (NORVASC) TAB PO SCH (21:21)
--- NOTE | 2022-06-04 06:13 | PM&R Progress Note ---
Subjective HPI/CC On Admission Date Seen by Provider: Jun 04, 2022 Time Seen by Provider: 12:30 Subjective/Events-last exam 06/04/2022: Patient still doing pretty well Right eye drooping noted and the decision was made to place on Eliquis empirically since he is external monitoring is not a live feed so will place on telemetry in the meantime Consulting cardiology evaluated the records and noted Eliquis was not on the dis charge med list so it was not started until today when I started it Patient overall doing much better Hesitant about depression medication and I did speak with Deb after she saw him at 1400 06/03/2022: Patient dramatically improved Able to walk with a complex cane with leg support Feels much better Improved morale 06/02/2022: Pt is doing pretty well Bowels are moving Responding better Severely depressed so will initiate a behavioral consult No pain is reported 06/01/2022: Pt is doing a lot better Pt is a very private person Discontinue Gabapnetin per request Bowels moved yesterday He fell last night without an injury Updated pt and regarding the plan Review of Systems General: Fatigue, Malaise Objective Exam Vital Signs Vital Signs Date Time Temp Pulse Resp B/P (MAP) Pulse Ox O2 Delivery O2 Flow Rate FiO2 06/05/22 01:00 70 06/04/22 21:01 36.8 16 149/71 (97) 98 Room Air Capillary Refill : General Appearance: No Apparent Distress, WD/WN, Obese HEENT: PERRL/EOMI, Normal ENT Inspection, Pharynx Normal Neck: Full Range of Motion, Normal Inspection, Non Tender, Supple, Carotid Bruit Respiratory: Chest Non Tender, Lungs Clear, Normal Breath Sounds, No Accessory Muscle Use, No Respiratory Distress Cardiovascular: Regular Rate, Rhythm, No Edema, No Gallop, No JVD, No Murmur, Normal Peripheral Pulses Gastrointestinal: Normal Bowel Sounds, No Organomegaly, No Pulsatile Mass, Non Tender, Soft Back: Normal Inspection, No CVA Tenderness, No Vertebral Tenderness Extremity: Normal Capillary Refill, Normal Inspection, Normal Range of Motion (except right side), Non Tender, No Calf Tenderness, No Pedal Edema Neurologic/Psychiatric: Alert, Oriented x3, Normal Mood/Affect, hose cementer II-XII Norm as Tested, Abnormal Gait, Aphasia, Depressed Affect, Motor Weakness (right sided weakness 1/5) Skin: Normal Color, Warm/Dry Lymphatic: No Adenopathy Results/Procedures Lab Patient resulted labs reviewed. FIM Transfers Therapy Code Descriptions/Definitions Functional [place] Measure: 0=Not Assessed/NA 4=Minimal Assistance 1=Total Assistance 5=Supervision or Setup 2=Maximal Assistance 6=Modified [place] 3=Moderate Assistance 7=Complete IndependenceSCALE: Activities may be completed with or without assistive devices. 5-Usucjiogun-ajmljai completes the activity by him/herself with no assistance from a helper. 5-Set-up or Clean-up Assistance-helper sets up or cleans up; patient completes activity. [place] assists only prior to or following the activity. 4-Supervision or Touching Assistance-helper provides verbal cues and/or touching/steadying and/or contact guard assistance as patient completes activity. Assistance may be provided throughout the activity or intermittently. 3-Partial/Moderate Assistance-helper does LESS THAN HALF the effort. [place] lifts, holds or supports trunk or limbs, but provides less than half the effort. 2-Substantial/Maximal Assistance-helper does MORE THAN HALF the effort. [place] lifts or holds trunk or limbs and provides more than half the effort. 7-Junvijbgb-wczgwk does ALL the effort. Patient does none of the effort to complete the activity. Or, the assistance of 2 or more helpers is required for the patient to complete the activity. If activity was not attempted, code reason: 7-Patient Refused. 9-Not Applicable-not attempted and the patient did not perform the activity before the current illness, exacerbation or injury. 10-Not Attempted due to Environmental Limitations-(lack of equipment, weather restraints, etc.). 88-Not Attempted due to Medical Conditions or Safety Concerns. Roll Left to Right (QC): 4 Sit to Lying (QC): 3 Sit to Stand (QC): 3 Chair/Txb-az-Lfgkp Xfer(QC): 3 Car Transfer (QC): 3 Gait Training Does the Patient Walk?: Yes Distance: 30'x9 Walk 10 feet (QC): 3 Walk 50 ft with 2 Turns(QC): 3 Walk 150 ft (QC): 88 Walking 10ft/uneven surface-QC: 88 Gait Persons Needed: 1 Gait Assistive Device: Walker Timothy Wheelchair Training Does the Pt Use a Wheelchair?: Yes Distance: 150'x2, 120' Wheel 50 ft with 2 turns (QC): 5 Wheel 150 ft (QC): 5 Type of Wheelchair: Manual Stair Training 1 Step (curb) (QC): 88 4 Steps (QC): 88 12 Steps (QC): 88 Balance Picking up an Object (QC): 88 ADL-Treatment Eating (QC): 5 Oral Hygiene (QC): 6 Shower/Bathe Self (QC): 3 Upper Body Dressing (QC): 2 (Mod A) Lower Body Dressing (QC): 2 On/Off Footwear (QC): 1 Toileting Hygiene (QC): 3 Toilet Transfer (QC): 4 Assessment/Plan Assessment and Plan Assess & Plan/Chief Complaint Assessment: Debility CVA Right sided weakness Dysarthria HTN Diabetes mellitus type 2 HLD Sleep apnea Anxiety Chronic back pain Fall risk SHAE suspected needs sleep study Suspected AF monitor in place and placed on Eliquis empirically on 06/04/2022 by me Plan: Start PT, OT, speech therapy Monitor blood sugars Start long acting insulin and SSI Restart home meds Pain control Closely monitor due to risk of fall 06/01/2022: Fall risk Monitor closely 06/02/2022: Behavioral health consult for depression Supportive care 06/03/2022: Dramatic improvement Ambulated 06/04/2022: Start Eliquis [employer] Senior Specialist closely (1) CVA (cerebral vascular accident) (2) Dysarthria (3) Right sided weakness (4) Uncontrolled type 2 diabetes mellitus Status: Acute (5) Hypertension Status: Acute DEBBY ORTIZ DO Jun 04, 2022 06:13
--- NOTE | 2022-06-04 06:52 | Occupational Ther Daily Note ---
OT Current Status-Daily Note Subjective Pt in bed, requesting to use toilet. Pt agrees to therapy. No c/o pain. Mental Status/Objective Patient Orientation: Person, Place, Non-Verbal/Aphasic, Time, Situation Attachments: Other-See Comments (extermal loop recorder) ADL-Treatment 1st session () Supine to EOB independent. CGA for SPT from EOB to w/c. Transported to bathroom via w/c. CGA for toilet transfer. Pt completed 1st clothing management with CGA then completed hygiene and pulling pants up over hips while sitting on toilet. Pt requested to go back to bed after washing hands independently at sink. EOB to supine independently. After session, pt lying in bed with call light/phone in reach. All needs met in room. 2nd session () Pt able to set up own meal and use regular utensils to eat. Supine to EOB, independently. Educated on one handed dressing technique, min A with positioning shirt and manipulating over R shldr. Pt declines using AE for Mod A using hemiwalker to ambulate to bathroom. Pt sat at sink to complete oral care and grooming. Therapy Code Descriptions/Definitions Functional [place] Measure: 0=Not Assessed/NA 4=Minimal Assistance 1=Total Assistance 5=Supervision or Setup 2=Maximal Assistance 6=Modified [place] 3=Moderate Assistance 7=Complete IndependenceSCALE: Activities may be completed with or without assistive devices. 9-Hnohxhghau-frkngwc completes the activity by him/herself with no assistance from a helper. 5-Set-up or Clean-up Assistance-helper sets up or cleans up; patient completes activity. [place] assists only prior to or following the activity. 4-Supervision or Touching Assistance-helper provides verbal cues and/or touching/steadying and/or contact guard assistance as patient completes activity. Assistance may be provided throughout the activity or intermittently. 3-Partial/Moderate Assistance-helper does LESS THAN HALF the effort. [place] lifts, holds or supports trunk or limbs, but provides less than half the effort. 2-Substantial/Maximal Assistance-helper does MORE THAN HALF the effort. [place] lifts or holds trunk or limbs and provides more than half the effort. 5-Rgumouyqk-oxfdet does ALL the effort. Patient does none of the effort to complete the activity. Or, the assistance of 2 or more helpers is required for the patient to complete the activity. If activity was not attempted, code reason: 7-Patient Refused. 9-Not Applicable-not attempted and the patient did not perform the activity before the current illness, exacerbation or injury. 10-Not Attempted due to Environmental Limitations-(lack of equipment, weather restraints, etc.). 88-Not Attempted due to Medical Conditions or Safety Concerns. Eating (QC): 6 Oral Hygiene (QC): 6 Upper Body Dressing (QC): 3 Other Treatment 2nd session [id number]: Pt propelled w/c to/from therapy gym independently. Pt completed BUE neuromotor tasks to increase active muscle movement in R UE. Pt is progressing with how many reps completed when using specific muscle groups for shldr elevation, bicep ext/flex, wrist flex/ext and finger flex/ext. Wt bearing and stretch to R UE completed during therapy while in standing and sitting. After session, pt sitting in recliner with call light/phone in reach. All needs met in room. OT Short Term Goals Short Term Goals Time Frame: Jun 23, 2022 Oral hygiene: 5 Toileting hygiene: 4 Shower/bathe self: 4 Lower body dressin Putting on/taking off footwear: 4 OT Maintenance Job Titles Goals Retirement Goals Time Frame: Jul 02, 2022 Eating (QC): 6 Oral Hygiene (QC): 6 Toileting Hygiene (QC): 6 Shower/Bathe Self (QC): 6 Upper Body Dressing (QC): 6 Lower Body Dressing (QC): 6 On/Off Footwear (QC): 6 Additional Goals: 1-Demonstrate ADL Tasks, 2-Verbalize Understanding, 3- ImproveStrength/Malini 1=Demonstrate adherence to instructed precautions during ADL tasks. 2=Patient will verbalize/demonstrate understanding of assistive devices/modifications for ADL. 3=Patient will improve strength/tolerance for activity to enable patient to perform ADL's. OT Education/Plan Problem List/Assessment Assessment: Decreased Activ Tolerance, Impaired Funct Balance, Impaired Self- Care Skills, Restricted Funct UE ROM Discharge Recommendations Plan/Recommendations: Continue POC Treatment Plan/Plan of Care Patient would benefit from OT for education, treatment and training to promote independence in ADL's, mobility, safety and/or upper extremity function for ADL's. Plan of Care: ADL Retraining, Functional Mobility, Group Exercise/Act as Ind, UE Funct Exercise/Act, UE Neuromus Re-Ed/Coord, W/C Management Training Treatment Duration: Jul 02, 2022 Frequency: At least 5 of 7 days/Wk (IRF) Estimated Hrs Per Day: 1.5 hours per day Agreement: Yes Rehab Potential: Fair Time/GCodes Start Time: 06:30 (729) Stop Time: 06:45 (30) Total Time Billed (hr/min): 75 Billed Treatment Time 1st session [id number]: 1 visit-ADL 1 (15 min) 2nd session [id number]: 1 visit-ADL 1 (20 min) NM 3 (40 min) JEANETTE VALDOVINOS Jun 04, 2022 06:51
[2022-06-04 07:57] VITALS: BP 164/73
[2022-06-04] MEDS: CLOPIDOGREL 75 MG (PLAVIX) TABLET PO SCH (07:59)
[2022-06-04] MEDS: FENOFIBRATE 134 MG (LOFIBRA) CAPSULE PO SCH (07:59)
[2022-06-04] MEDS: LOSARTAN 100 MG (COZAAR) TABLET PO SCH (07:59)
[2022-06-04] MEDS: ASPIRIN E.C. 81 MG (ECOTRIN) TAB PO SCH (07:59)
[2022-06-04] MEDS: VERAPAMIL SR 240 MG (CALAN SR) TAB PO SCH (07:59)
[2022-06-04] MEDS: ENOXAPARIN 40 MG/0.4 ML (LOVENOX) SYR SC SCH (08:00)
[2022-06-04] MEDS: inSUlin ASPART (NovoLOG) 1 UNIT/0.01 ML (CHARGE PER UNIT) SC SCH ×3 (08:00→17:17)
[2022-06-04] MEDS: polyethylene glycoL POWDER 17 GM (MIRALAX) PACK PO SCH ×2 (08:06→20:44)
[2022-06-04] MEDS: SENNA W/DOCUSATE (SENOKOT S) TABLET PO SCH ×2 (08:07→20:45)
--- NOTE | 2022-06-04 10:55 | Physical Therapy Daily Note ---
PT Daily Note-Current Subjective Patient in bed pre tx, agrees to PT, has no complaints of pain. Therapist assists patient put on shirt and shoes and AFO and knee cage. Appearance Patient in bed post tx with nurse call, phone, tray, all needs met. Mental Status Patient Orientation: Person, Unable to Assess, Non-Verbal/Aphasic Transfers SCALE: Activities may be completed with or without assistive devices. 7-Tnshqqoivz-sbtvkxj completes the activity by him/herself with no assistance from a helper. 5-Set-up or Clean-up Assistance-helper sets up or cleans up; patient completes activity. [place] assists only prior to or following the activity. 4-Supervision or Touching Assistance-helper provides verbal cues and/or touching/steadying and/or contact guard assistance as patient completes activity. Assistance may be provided throughout the activity or intermittently. 3-Partial/Moderate Assistance-helper does LESS THAN HALF the effort. [place] lifts, holds or supports trunk or limbs, but provides less than half the effort. 2-Substantial/Maximal Assistance-helper does MORE THAN HALF the effort. [place] lifts or holds trunk or limbs and provides more than half the effort. 9-Wcojyhrgz-fgqsye does ALL the effort. Patient does none of the effort to complete the activity. Or, the assistance of 2 or more helpers is required for the patient to complete the activity. If activity was not attempted, code reason: 7-Patient Refused. 9-Not Applicable-not attempted and the patient did not perform the activity before the current illness, exacerbation or injury. 10-Not Attempted due to Environmental Limitations-(lack of equipment, weather restraints, etc.). 88-Not Attempted due to Medical Conditions or Safety Concerns. Roll Left & Right (QC): 6 Sit to Lying (QC): 3 Lying to Sitting/Side of Bed(Q: 4 Sit to Stand (QC): 3 Chair/Vgg-wv-Wwmkd Xfer(QC): 3 Practiced stand pivot transfers x5 to each side, focusing on safety and positioning Gait Training Distance: 40'x3 Walk 10 feet (QC): 3 Gait Persons Needed: 1 Gait Assistive Device: Walker Timothy AFO right side and right side knee cage. Patient needs assist with balance and advancing his right leg. Wheelchair Training Does the Pt Use a Wheelchair?: Yes Wheel 50 ft with 2 turns (QC): 4 Wheel 150 ft (QC): 4 Type of Wheelchair: Manual 200', patient needed a couple of rest breaks Exercises NuStep Minutes: 15 NuStep Workload: 5 (right arm not used) Treatments bed mobility and transfers, ambulation, functional strengthening, WC mobility training Assessment Current Status: Fair Progress slightly improved ambulation, still has poor endurance, needs frequent rest breaks PT Short Term Goals Short Term Goals Time Frame: Jun 07, 2022 Roll Left & Right: 4 (CGA) Sit to lyin (CGA) Lying to sitting on side of be: 4 (CGA) Sit to stand: 4 (CGA) Chair/cth-zh-hytci transfer: 4 (CGA) Walk 10 feet: 4 (CGA) Walk 50 feet with two turns: 4 (CGA) PT Correction Goals Station Operator Goals PT Station Operator Goals Time Frame: Jun 21, 2022 Roll Left & Right (QC): 4 (SBA) Sit to Lying (QC): 4 (SBA) Lying-Sitting on Side/Bed(QC): 4 (SBA) Sit to Stand (QC): 4 (SBA) Chair/Xdy-kg-Ltzks Xfer(QC): 4 (SBA) Toilet Transfer (QC): 4 (SBA) Car Transfer (QC): 4 (CGA) Does the Patient Walk: Yes Walk 10 feet (QC): 4 (SBA) Walk 50ft with 2 Turns (QC): 4 (SBA) Walk 150 ft (QC): 4 (SBA) Walking 10ft on Uneven Surface: 4 (CGA) 1 Step (curb) (QC): 4 (CGA) 4 Steps (QC): 88 12 Steps (QC): 88 Picking up an Object (QC): 4 (CGA using sumatra opener) Wheel 50 feet with 2 turns (QC: 6 Wheel 150 feet: 6 PT Plan Problem List Problem List: Activity Tolerance, Functional Strength, Safety, Balance, Gait, T ransfer, Bed Mobility, ROM Treatment/Plan Treatment Plan: Continue Plan of Care Treatment Plan: Bed Mobility, Education, Functional Activity Malini, Functional Strength, Group Therapy, Gait, Safety, Therapeutic Exercise, Transfers Treatment Duration: Jun 21, 2022 Frequency: At least 5 of 7 days/Wk (IRF) Estimated Hrs Per Day: 1.5 hours per day Patient and/or Family Agrees t: Yes Safety Risks/Education Patient Education: Gait Training, Transfer Techniques, Correct Positioning, W/C Management, Safety Issues Teaching Recipient: Patient Teaching Methods: Demonstration, Discussion Response to Teaching: Reinforcement Needed Time/GCodes Time In: 1000 Time Out: 1100 Total Billed Treatment Time: 60 Total Billed Treatment 1 visit EX 15' FA 45' BUDDY GARCIA PT Jun 04, 2022 10:55
[2022-06-04 11:02] VITALS: BP 159/76
[2022-06-04] MEDS: APIXABAN 5 MG (ELIQUIS) TABLET PO SCH ×2 (11:45→20:44)
[2022-06-04] MEDS ORDERED: ARTIFICAL TEARS 0.4 ML UNIT DOSE (REFRESH PLUS) OU PRN (12:15)
--- NOTE | 2022-06-04 12:30 | Speech Therapy Daily Note ---
Speech Daily Progress Note Subjective Date Seen by Provider: Jun 04, 2022 Time Seen by Provider: 09:30 The patient was seated upright in his bed, awake and alert upon entrance to his room by the clinician. The patient greeted the clinician appropriately and was agreeable to participation in the cognitive linguistic treatment session. The patient's was present at bedside and remained throughout the evaluation. Objective - Functional phrases: With the patient's present, the clinician could retrieve information from the patient's and patient regarding functional phrases the patient may use frequently. The following were presented: - "Get out of my way." The patient's dogs' names are Stefany and Lalito. - The patient consumes root beer, sprite, and powerade. - "What are we cooking tonight." - The patient will most frequently requests chips. - "Where's the kids?" - The patient's children's names are Margret and Dinesh. The patient's grand children's names are Crew and Genevieve. - The clinician requested the patient's bring pictures of family members for therapy use. Per patient's , the patient was soft-spoken prior to the CVA and "Did not speak often but when he did it was short and direct." As the clinician has struggled to elicit appropriate intensity levels or verbose speech, the importance and rationale of increased communication attempts were provided. The patient appears significantly reluctant to display errors, which are necessary so the clinician can provide accurate modeling and correction. Additionally, the clinician was able to educate and practice cueing hierarchy for word-finding throughout daily, spontaneous conversation. As the clinician was contemplating the usefulness of a communication board, the patient continues to display the ability to request specific items of need (bathroom, thirsty, drink, etc), as well as, nonverbally request items through pointing, facial expressions and gestures. At this time, a communication board is not appropriate and may hinder my request for additional verbal communication requests. Assessment Assessment Current Status: Fair Progress Treatment Plan Continue Plan of Care Speech Short Term Goals Short Term Goals Short Term Goals 1. The patient will complete confrontational naming with 90% accuracy and mild clinician verbal cueing. Time Frame-STG: One Week. Speech Prison Goals Air Tool Operator Goals 1. The patient will display improved expressive communication for safe discharge to the least restricted environment. Time Frame: Three Weeks. Speech-Plan Treatment Plan Speech Therapy Treatment Plan: Continue Plan of Care Treatment Duration: Jun 01, 2022 Frequency: Modified Program (IRF) Estimated Hrs Per Day: .5 hour per day Rehab Potential: Fair Safety Risks/Education Teaching Recipient: Patient, Significant Other Teaching Methods: Discussion Response to Teaching: Verbalize Understanding Education Topics Provided: Hierarchy Word-Finding Cueing Time Speech Therapy Time In: 09:30 Speech Therapy Time Out: 10:00 Total Billed Time: 30 Billed Treatment Time 1DEBBIE ELIZABETH ST Jun 04, 2022 12:30
--- NOTE | 2022-06-04 13:56 | Consultation-Cardiology ---
HPI-Cardiology Cardiology Consultation: Date of Consultation 06/04/22 Time Seen by a Provider: 14:15 Date of Admission 05-31-22 Attending Physician Maurice Gtz DO Admitting Physician Admitting Physician: Hiwot Duenas DO Attending Physician: Hiwot Duenas DO Consulting Physician Ben Powers MD HPI: Chief Complaint: Cryptogenic CVA Mr. 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 He is currently able to answer questions with simple, one word answers. No c/o CP, SOB or palpitations at this time. Review of Systems-Cardiology Review of Systems Constitutional: No chills; malaise Ears/Nose/Throat: No epistaxis Respiratory: As described under HPI Cardiovascular: As described under HPI Gastrointestinal: No diarrhea, No vomiting Genitourinary: No dysuria Musculoskeletal: no symptoms reported Skin: No rash on exposed areas, No ulcerations on exposed areas Psychiatric/Neurological: As described under HPI, anxiety Hematologic: No bleeding abnormalities All Other Systems Reviewed Negative Unless Noted: Yes OEB-Qyfrjy-Rlobll Hx Patient Social History Marrital Status: Employed/Student: employed Smoking Status: Never a Smoker Have you traveled recently?: No Alcohol Use?: No Pt feels they are or have been: No Past Medical History PMH As described under Assessment. Family Medical History Family Medical History: Documented family h/o mother having a-fib Allergies and Home Medications Allergies Coded Allergies: No Known Drug Allergies (Unverified , 10/25/17) Patient Home Medication List Alprazolam (Alprazolam) 0.5 Mg Tablet, 0.5 MG PO Q8H PRN for ANXIETY, (Reported) Entered as Reported by: EVAN TAM on 05/31/221240 Last Action: Continued Amlodipine Besylate (Amlodipine Besylate) 10 Mg Tablet, 10 MG PO DAILY, (Reported) Entered as Reported by: EVAN TAM on 05/31/221240 Last Action: Continued Aspirin (Aspirin EC) 81 Mg Tablet.dr, 81 MG PO DAILY, (Reported) Entered as Reported by: EAVN TAM on 05/31/22 124 Last Action: Continued Atorvastatin Calcium (Atorvastatin Calcium) 40 Mg Tablet, 80 MG PO HS, (Reported) Entered as Reported by: EVAN TAM on 05/31/221240 Last Action: Reviewed Baclofen (Baclofen) 20 Mg Tablet, 20 MG PO Q8H PRN for MUSCLE SPASMS, (Reported) Entered as Reported by: JANUARY HUDSON on 06/22/21926 Last Action: Converted Clopidogrel Bisulfate (Clopidogrel) 75 Mg Tablet, 75 MG PO DAILY, (Reported) Entered as Reported by: EVAN TAM on 05/31/221240 Last Action: Continued Fenofibrate,Micronized (Fenofibrate) 200 Mg Capsule, 200 MG PO DAILY, (Reported) Entered as Reported by: JANUARY HUDSON on 06/22/21926 Last Action: Converted Gabapentin (Gabapentin) 100 Mg Capsule, 100 MG PO HS, (Reported) Entered as Reported by: EVAN TAM on 05/31/221240 Last Action: Continued Hydrocodone/Acetaminophen (Hydrocodone-Acetamin 7.5-325) 1 Each Tablet, 1 EACH PO Q4H PRN for PAIN-MODERATE (5-7), (Reported) Entered as Reported by: JANUARY HUDSON on 06/22/21926 Last Action: Continued Insulin Aspart (Niacinamide) (Fiasp 100 Unit/ml Flextouch) 100 Unit/Ml (3 Ml) Insuln.pen, 8 UNITS SC AC, (Reported) Entered as Reported by: EVAN TAM on 05/31/221240 Last Action: Converted Insulin Degludec (Tresiba Flextouch U-200) 200 Unit/Ml (3 Ml) Insuln.pen, 24 UNITS SC DAILY, (Reported) Entered as Reported by: EVAN TAM on 05/31/221240 Last Action: Converted Losartan Potassium (Losartan Potassium) 100 Mg Tablet, 100 MG PO DAILY, (Reported) Entered as Reported by: EVAN TAM on 05/31/221240 Last Action: Continued Verapamil HCl (Verapamil ER) 240 Mg Tablet.er, 240 MG PO DAILY, (Reported) Entered as Reported by: PRAVEENA CRAMER on 10/26/17 236 Last Action: Continued Discontinued Medications Losartan/Hydrochlorothiazide (Losartan-Hctz 100-25 mg Tab) 1 Each Tablet, 1 EACH PO DAILY, (Reported) Discontinued Reason: No Longer Taking Entered as Reported by: PRAVEENA CRAMER on 10/26/17 1258 Last Action: Discontinued Ondansetron (Ondansetron Odt) 4 Mg Tab.rapdis, 4 MG PO Q6H PRN for NAUSEA/VOMITING Discontinued Reason: No Longer Taking Prescribed by: YOLANDA CAMPBELL on 06/22/211643 Last Action: Discontinued Pantoprazole Sodium (Pantoprazole Sodium) 40 Mg Tablet.dr, 40 MG PO DAILY Discontinued Reason: No Longer Taking Prescribed by: YOLANDA CAMPBELL on 06/22/211643 Last Action: Discontinued Semaglutide (Rybelsus) 3 Mg Tablet, 3 MG PO DAILY, (Reported) Discontinued Reason: No Longer Taking Entered as Reported by: JANUARY HUDSON on 06/22/21 0942 Last Action: Discontinued Physical Exam-Cardiology Physical Exam Vital Signs/I&O 06/07/22 07:49 Temp 37.3 Pulse 81 Resp 16 B/P (MAP) 151/74 (99) Pulse Ox 97 O2 Delivery Room Air Capillary Refill : Constitutional: other (Awake, alert and oriented) HEENT: hearing is well preserved, oral hygience is good Neck: No carotid bruit; carotid pulses are 2 + bilaterally Respiratory: No accessory muscle use, No respiratory distress; chest expansion is symmetric, chest is bilaterally symmetric, lungs clear to auscultation Cardiovascular: regular rate-rhythm; No JVD; S1 and S2 Gastrointestinal: No tender; soft, round, audible bowel sounds Extremities: no lower extremity edema bilateral Neurologic/Psychiatric: other (expressive aphasia; right hemiparesis) Skin: No rash on exposed areas, No ulcerations on exposed areas Data Review Labs Laboratory Tests 06/06/22 11:19: Glucometer 185H 06/06/22 15:34: Glucometer 164H 06/06/22 20:18: Glucometer 135H 06/07/22 05:38: White Blood Count 5.7, Red Blood Count 3.58L, Hemoglobin 10.9L, Hematocrit 33L, Mean Corpuscular Volume 92, Mean Corpuscular Hemoglobin 30, Mean Corpuscular Hemoglobin Concent 33, Red Cell Distribution Width 13.1, Platelet Count 114L, Mean Platelet Volume 11.8, Immature Granulocyte % (Auto) 0, Neutrophils (%) (Auto) 55, Lymphocytes (%) (Auto) 36, Monocytes (%) (Auto) 7, Eosinophils (%) (Auto) 2, Basophils (%) (Auto) 1, Neutrophils # (Auto) 3.1, Lymphocytes # (Auto) 2.0, Monocytes # (Auto) 0.4, Eosinophils # (Auto) 0.1, Basophils # (Auto) 0.1, Immature Granulocyte # (Auto) 0.0, Sodium Level 137, Potassium Level 4.7, Chl oride Level 109H, Carbon Dioxide Level 14L, Anion Gap 14, Blood Urea Nitrogen 18, Creatinine 0.93, Estimat Glomerular Filtration Rate 92, BUN/Creatinine Ratio 19, Glucose Level 101, Calcium Level 8.8, Corrected Calcium 9.4, Total Bilirubin 0.4, Aspartate Amino Transf (AST/SGOT) 41H, Alanine Aminotransferase (ALT/SGPT) 33, Alkaline Phosphatase 59, Total Protein 6.7, Albumin 3.3 06/07/22 06:12: Glucometer 94 ECG Impression ECG Initial ECG Rhythm: Normal Sinus A/P-Cardiology Assessment/Admission Diagnosis 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 Aceves at [facility] states atrial arrhythmia is suspected by [place] cardiology services (although never documented); Eliquis was listed as being started, but it does not seem to be on his discharge meds from [place] - [place] [facility], Dr. Guzman, notes state they are concerned stroke is d/t short segment of MCA stenosis - 21 Day event monitor is in place from [facility] this is scheduled to be followed by Dr. Rose of [place] cardiology services Echocardiogram at [facility] is stated to show LVEF 60% with no evidence of PFO or shunt Carotid u/s of 05-20-22: No evidence of hemodynamically significant stenosis. Antegrade flow within the bilateral vertebral arteries. 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 - Continue tele to eval for arrhythmia - Continue Eliquis d/t suspected arrhythmia (although none documented as of yet) - D/t suspicion of MCA stenosis as cause of CVA for which he has been on Plavix and ASA we will continue antiplatelet tx with Plavix - we are stopping ASA b/c having him on all 3 agents increases his risk of bleeding Monitor lab closely Advise out pt sleep studies 21 [address] in [address] (from [place]) - continue Extensive records from [place] have been reviewed in detail Further recs will be based on his hospital course We would like to thank medical services for this consult I have discussed plan of care with patient and spouse SUMMER AL Jun 04, 2022 13:56
--- NOTE | 2022-06-04 14:09 | Physical Therapy Daily Note ---
PT Daily Note-Current Subjective Patient in bed pre tx, agrees to PT, has no complaints of pain. Appearance Patient in bed post tx with nurse call, phone, tray, all needs met. Mental Status Patient Orientation: Person, Unable to Assess, Non-Verbal/Aphasic Transfers SCALE: Activities may be completed with or without assistive devices. 3-Ziobhigcfi-rpdvocd completes the activity by him/herself with no assistance from a helper. 5-Set-up or Clean-up Assistance-helper sets up or cleans up; patient completes activity. [place] assists only prior to or following the activity. 4-Supervision or Touching Assistance-helper provides verbal cues and/or touching/steadying and/or contact guard assistance as patient completes activity. Assistance may be provided throughout the activity or intermittently. 3-Partial/Moderate Assistance-helper does LESS THAN HALF the effort. [place] lifts, holds or supports trunk or limbs, but provides less than half the effort. 2-Substantial/Maximal Assistance-helper does MORE THAN HALF the effort. [place] lifts or holds trunk or limbs and provides more than half the effort. 4-Ydylskhyp-eufiak does ALL the effort. Patient does none of the effort to complete the activity. Or, the assistance of 2 or more helpers is required for the patient to complete the activity. If activity was not attempted, code reason: 7-Patient Refused. 9-Not Applicable-not attempted and the patient did not perform the activity before the current illness, exacerbation or injury. 10-Not Attempted due to Environmental Limitations-(lack of equipment, weather restraints, etc.). 88-Not Attempted due to Medical Conditions or Safety Concerns. Exercises Supine Ex: Bridging (AROM), Heel Slides, Short Arc Quads Supine Reps: 20 (AAROM) supine hip flexion x20 AAROM, manually resisted leg press x20, hooklying hip add x20 AAROM Treatments RLE exercise Assessment Current Status: Poor Progress no change seen in muscle activation PT Short Term Goals Short Term Goals Time Frame: Jun 07, 2022 Roll Left & Right: 4 (CGA) Sit to lyin (CGA) Lying to sitting on side of be: 4 (CGA) Sit to stand: 4 (CGA) Chair/oog-jz-orgbx transfer: 4 (CGA) Walk 10 feet: 4 (CGA) Walk 50 feet with two turns: 4 (CGA) PT Detention Goals Nuclear Supervising Operator Goals PT Nuclear Supervising Operator Goals Time Frame: Jun 21, 2022 Roll Left & Right (QC): 4 (SBA) Sit to Lying (QC): 4 (SBA) Lying-Sitting on Side/Bed(QC): 4 (SBA) Sit to Stand (QC): 4 (SBA) Chair/Wek-gw-Ygsfv Xfer(QC): 4 (SBA) Toilet Transfer (QC): 4 (SBA) Car Transfer (QC): 4 (CGA) Does the Patient Walk: Yes Walk 10 feet (QC): 4 (SBA) Walk 50ft with 2 Turns (QC): 4 (SBA) Walk 150 ft (QC): 4 (SBA) Walking 10ft on Uneven Surface: 4 (CGA) 1 Step (curb) (QC): 4 (CGA) 4 Steps (QC): 88 12 Steps (QC): 88 Picking up an Object (QC): 4 (CGA using broker assistant) Wheel 50 feet with 2 turns (QC: 6 Wheel 150 feet: 6 PT Plan Problem List Problem List: Activity Tolerance, Functional Strength, Safety, Balance, Gait, Transfer, Bed Mobility, ROM Treatment/Plan Treatment Plan: Continue Plan of Care Treatment Plan: Bed Mobility, Education, Functional Activity Malini, Functional Strength, Group Therapy, Gait, Safety, Therapeutic Exercise, Transfers Treatment Duration: Jun 21, 2022 Frequency: At least 5 of 7 days/Wk (IRF) Estimated Hrs Per Day: 1.5 hours per day Patient and/or Family Agrees t: Yes Safety Risks/Education Patient Education: Correct Positioning, Safety Issues Teaching Recipient: Patient Teaching Methods: Demonstration, Discussion Response to Teaching: Reinforcement Needed Time/GCodes Time In: 1345 Time Out: 1400 Total Billed Treatment Time: 15 Total Billed Treatment 1 visit EX BUDDY GUY PT Jun 04, 2022 14:09
--- NOTE | 2022-06-04 14:44 | Behavioral Health Consult ---
Consult- Consult Date Seen by Provider: Jun 04, 2022 Time Seen by Provider: 13:49 Patient: Cole Hernandez : 1960 Date: 06/04/2022 Referral: Dr. Duenas CPT Code: 48211 Psychodiagnostic Examination, 1 unit(s) Start Time: 1348 Stop Time: 1430 Chief Complaint: Depression Referral: Cole Hernandez is a 62 year old male referred by Dr. Duenas for a clinical diagnostic assessment. Information sources for this evaluation include self-report/observation and medical records. Presenting Problem: The presenting clinical problem is Depression. Mr. Hernandez was evaluated in his hospital room on the rehabilitation unit. He is post stroke and has severe expressive aphasia. He was frustrated with trying to communicate and yes/no questions were utilized to assist this. Mr. Hernandez agreed that he michaud s had some down feelings but was somewhat reluctant to classify this as depression. He does feel he is coping with new challenges, and this is overwhelming. He was also able to confirm that he is seeing progress, and this does make him more hopeful. He was provided with some education regarding the prevalence of depression and stroke recovery. He is recommended for antidepressant treatment. He did not disagree but was not ready to agree until he shares this information with his and discusses it more with her. Symptoms observed or reported requiring current level of care include depressed mood. Observations/Mental Status: Overall appearance was unremarkable clinically. Mr. Ramires general approach to the evaluation indicated interest. Orientation was intact for person, place, time, and situation. He evidenced good understanding of the reason for the appointment. The predominant mood was that of frustrated with inability to vocalize. Affect appropriate to expressed concerns and presenting problem. Immediate attention and concentration were unremarkable clinically during the interview. Level of intellectual functioning compared to same age peers was average range. Tone of voice was soft and manner of speech was hesitant due to severe aphasia. Expressive speech was marked by poor word articulation. Current destructive behavior patterns: none reported or indicated. Eye contact was good. Insight was average. Mr. Ramires style of interacting during the appointment was appropriate and motivated. Current/Previous Mental Health Treatment: Past psychiatric history: denied. History of self or other harm: denied. Summary of Assessment Information/Prognosis: Mr. Ramires presenting problem and symptoms appear consistent with a preliminary diagnosis of F43.21 Adjustment Disorder with Depressed Mood at this point. Current emotional symptoms are of moderate intensity. Diagnostic Impressions: ICD-10: F43.21 Adjustment Disorder with Depressed Mood Initial Treatment Plan/Recommendations: The anticipated long-term goal(s) include take medication as prescribed and report as to effectiveness and side effects. The recommendations at this time include the following: Antidepressant treatment. Karlie Humbertojuanpablojenna verbalized an understanding of these recommendations. GUILHERME BASS [facility] Jun 04, 2022 14:44
--- NOTE | 2022-06-04 16:56 | Consultation-Cardiology ---
HPI-Cardiology Cardiology Consultation: Date of Consultation 06/04/22 Time Seen by a Provider: 16:30 Date of Admission Attending Physician Maurice Gtz DO Admitting Physician Admitting Physician: Hiwot Duenas DO Attending Physician: Hiwot Duenas DO Consulting Physician MARTIN IVERSON MD, MA, FACP, FACC, [facility], CCDS HPI: Chief Complaint: Cryptogenic CVA Mr. 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 He is currently able to answer questions with simple, one word answers. No c/o CP, SOB or palpitations at this time. Review of Systems-Cardiology Review of Systems Constitutional: No chills; malaise Ears/Nose/Throat: No epistaxis Respiratory: As described under HPI Cardiovascular: As described under HPI Gastrointestinal: No diarrhea, No vomiting Genitourinary: No dysuria Musculoskeletal: no symptoms reported Skin: No rash on exposed areas, No ulcerations on exposed areas Psychiatric/Neurological: As described under HPI, anxiety Hematologic: No bleeding abnormalities All Other Systems Reviewed Negative Unless Noted: Yes SNR-Cwnlkb-Awlkwx Hx Patient Social History Marrital Status: Employed/Student: employed Smoking Status: Never a Smoker Have you traveled recently?: No Alcohol Use?: No Pt feels they are or have been: No Past Medical History PMH As described under Assessment. Family Medical History Family Medical History: Documented family h/o mother having a-fib Allergies and Home Medications Allergies Coded Allergies: No Known Drug Allergies (Unverified , 10/25/17) Patient Home Medication List Home Medication List Reviewed: Yes Alprazolam (Alprazolam) 0.5 Mg Tablet, 0.5 MG PO Q8H PRN for ANXIETY, (Reported) Entered as Reported by: EVAN TAM on 05/31/221240 Last Action: Continued Amlodipine Besylate (Amlodipine Besylate) 10 Mg Tablet, 10 MG PO DAILY, (Reported) Entered as Reported by: EVAN TAM on 05/31/221240 Last Action: Continued Aspirin (Aspirin EC) 81 Mg Tablet.dr, 81 MG PO DAILY, (Reported) Entered as Reported by: EVAN TAM on 05/31/22 124 Last Action: Continued Atorvastatin Calcium (Atorvastatin Calcium) 40 Mg Tablet, 80 MG PO HS, (Reported) Entered as Reported by: EVAN TAM on 05/31/221240 Last Action: Reviewed Baclofen (Baclofen) 20 Mg Tablet, 20 MG PO Q8H PRN for MUSCLE SPASMS, (Reported) Entered as Reported by: JANUARY HUDSON on 06/22/21926 Last Action: Converted Clopidogrel Bisulfate (Clopidogrel) 75 Mg Tablet, 75 MG PO DAILY, (Reported) Entered as Reported by: EVAN TAM on 05/31/221240 Last Action: Continued Fenofibrate,Micronized (Fenofibrate) 200 Mg Capsule, 200 MG PO DAILY, (Reported) Entered as Reported by: JANUARY HUDSON on 06/22/21926 Last Action: Converted Gabapentin (Gabapentin) 100 Mg Capsule, 100 MG PO HS, (Reported) Entered as Reported by: EVAN TAM on 05/31/221240 Last Action: Continued Hydrocodone/Acetaminophen (Hydrocodone-Acetamin 7.5-325) 1 Each Tablet, 1 EACH PO Q4H PRN for PAIN-MODERATE (5-7), (Reported) Entered as Reported by: JANUARY HUDSON on 06/22/21926 Last Action: Continued Insulin Aspart (Niacinamide) (Fiasp 100 Unit/ml Flextouch) 100 Unit/Ml (3 Ml) Insuln.pen, 8 UNITS SC AC, (Reported) Entered as Reported by: EVAN TAM on 05/31/221240 Last Action: Converted Insulin Degludec (Tresiba Flextouch U-200) 200 Unit/Ml (3 Ml) Insuln.pen, 24 UNITS SC DAILY, (Reported) Entered as Reported by: EVAN TAM on 05/31/221240 Last Action: Converted Losartan Potassium (Losartan Potassium) 100 Mg Tablet, 100 MG PO DAILY, (Reported) Entered as Reported by: EVAN TAM on 05/31/221240 Last Action: Continued Verapamil HCl (Verapamil ER) 240 Mg Tablet.er, 240 MG PO DAILY, (Reported) Entered as Reported by: PRAVEENA CRAMER on 10/26/17 2873 Last Action: Continued Discontinued Medications Losartan/Hydrochlorothiazide (Losartan-Hctz 100-25 mg Tab) 1 Each Tablet, 1 EACH PO DAILY, (Reported) Discontinued Reason: No Longer Taking Entered as Reported by: PRAVEENA CRAMER on 10/26/17 1258 Last Action: Discontinued Ondansetron (Ondansetron Odt) 4 Mg Tab.rapdis, 4 MG PO Q6H PRN for NAUSEA/VOMITING Discontinued Reason: No Longer Taking Prescribed by: YOLANDA CAMPBELL on 06/22/211643 Last Action: Discontinued Pantoprazole Sodium (Pantoprazole Sodium) 40 Mg Tablet.dr, 40 MG PO DAILY Discontinued Reason: No Longer Taking Prescribed by: YOLANDA CAMPBELL on 06/22/211643 Last Action: Discontinued Semaglutide (Rybelsus) 3 Mg Tablet, 3 MG PO DAILY, (Reported) Discontinued Reason: No Longer Taking Entered as Reported by: JANUARY HUDSON on 06/22/21926 Last Action: Discontinued Physical Exam-Cardiology Physical Exam Vital Signs/I&O 06/04/22 06/04/22 06/04/22 06/04/22 07:57 09:13 11:02 12:05 Temp 37.7 37.0 Pulse 76 78 59 Resp 18 18 B/P (MAP) 164/73 (103) 159/76 (103) Pulse Ox 97 96 O2 Delivery Room Air Room Air Room Air 06/04/22 12:52 Pulse 74 Capillary Refill : Constitutional: other (Awake, alert and oriented) HEENT: hearing is well preserved, oral hygience is good Neck: No carotid bruit; carotid pulses are 2 + bilaterally Respiratory: No accessory muscle use, No respiratory distress; chest expansion is symmetric, chest is bilaterally symmetric, lungs clear to auscultation Cardiovascular: regular rate-rhythm; No JVD; S1 and S2 Gastrointestinal: No tender; soft, round, audible bowel sounds Extremities: no lower extremity edema bilateral Neurologic/Psychiatric: other (expressive aphasia; right hemiparesis) Skin: No rash on exposed areas, No ulcerations on exposed areas Data Review Labs Laboratory Tests 06/03/22 20:46: Glucometer 149H 06/04/22 05:28: Glucometer 126H 06/04/22 10:51: Glucometer 124H A/P-Cardiology Assessment/Admission Diagnosis 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 Aceves at [facility] states atrial arrhythmia is suspected by [facility] services (although never documented); Eliquis was listed as being started, but it does not seem to be on his discharge meds from [facility], Dr. Guzman, notes state they are concerned stroke is d/t short segment of MCA stenosis - 21 Day event monitor is in place from [facility] this is scheduled to be followed by Dr. Rose of [facility] Echocardiogram at [facility] is stated to show LVEF 60% with no evidence of PFO or shunt Carotid u/s of 05-20-22: No evidence of hemodynamically significant stenosis. Antegrade flow within the bilateral vertebral arteries. 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 - Continue tele to eval for arrhythmia - Continue Eliquis d/t suspected atrial arrhythmia - D/t suspicion of MCA stenosis as cause of CVA for which he has been on Plavix and ASA we will continue antiplatelet tx with Plavix - we are stopping ASA b/c having him on all 3 agents increases his risk of bleeding Monitor lab closely Advise out pt sleep studies 21 [address] monitor in place (from [facility]) - continue Extensive records from [facility] have been reviewed in detail Further recs will be based on his hospital course We would like to thank medical services for this consult I have discussed plan of care with patient and spouse MARTIN IVERSON MD FACP [facility] CCDS Jun 04, 2022 16:56
[2022-06-04] MEDS: amLODIPine 10 MG (NORVASC) TAB PO SCH (20:54)
[2022-06-04 21:01] VITALS: BP 149/71
--- NOTE | 2022-06-05 06:37 | PM&R Progress Note ---
Subjective HPI/CC On Admission Date Seen by Provider: Jun 05, 2022 Time Seen by Provider: 12:00 Subjective/Events-last exam 06/05/2022: Appreciate Dr. Powers Doing well overall and son at the bedside Concerned about his vision at times Eliquis maintained 06/04/2022: Patient still doing pretty well Right eye drooping noted and the decision was made to place on Eliquis empirically since he is external monitoring is not a live feed so will place on telemetry in the meantime Consulting cardiology evaluated the records and noted Eliquis was not on the discharge med list so it was not started until today when I started it Patient overall doing much better Hesitant about depression medication and I did speak with Deb after she saw him at 1400 06/03/2022: Patient dramatically improved Able to walk with a complex cane with leg support Feels much better Improved morale 06/02/2022: Pt is doing pretty well Bowels are moving Responding better Severely depressed so will initiate a behavioral consult No pain is reported 06/01/2022: Pt is doing a lot better Pt is a very private person Discontinue Gabapnetin per request Bowels moved yesterday He fell last night without an injury Updated pt and regarding the plan Review of Systems General: Fatigue, Malaise Neurological: Weakness Objective Exam Vital Signs Vital Signs Date Time Temp Pulse Resp B/P (MAP) Pulse Ox O2 Delivery O2 Flow Rate FiO2 06/05/22 12:21 75 06/05/22 09:00 Room Air 06/05/22 07:30 36.6 20 154/73 (100) 98 Capillary Refill : General Appearance: No Apparent Distress, WD/WN, Obese HEENT: PERRL/EOMI, Normal ENT Inspection, Pharynx Normal Neck: Full Range of Motion, Normal Inspection, Non Tender, Supple, Carotid Bruit Respiratory: Chest Non Tender, Lungs Clear, Normal Breath Sounds, No Accessory Muscle Use, No Respiratory Distress Cardiovascular: Regular Rate, Rhythm, No Edema, No Gallop, No JVD, No Murmur, Normal Peripheral Pulses Gastrointestinal: Normal Bowel Sounds, No Organomegaly, No Pulsatile Mass, Non Tender, Soft Back: Normal Inspection, No CVA Tenderness, No Vertebral Tenderness Extremity: Normal Capillary Refill, Normal Inspection, Normal Range of Motion (except right side), Non Tender, No Calf Tenderness, No Pedal Edema Neurologic/Psychiatric: Alert, Oriented x3, Normal Mood/Affect, refining still operator II-XII Norm as Tested, Abnormal Gait, Aphasia, Depressed Affect, Motor Weakness (right sided weakness 1/5) Skin: Normal Color, Warm/Dry Lymphatic: No Adenopathy Results/Procedures Lab Patient resulted labs reviewed. FIM Transfers Therapy Code Descriptions/Definitions Functional [place] Measure: 0=Not Assessed/NA 4=Minimal Assistance 1=Total Assistance 5=Supervision or Setup 2=Maximal Assistance 6=Modified [place] 3=Moderate Assistance 7=Complete IndependenceSCALE: Activities may be completed with or without assistive devices. 0-Dzerxknktv-muthllv completes the activity by him/herself with no assistance from a helper. 5-Set-up or Clean-up Assistance-helper sets up or cleans up; patient completes activity. [place] assists only prior to or following the activity. 4-Supervision or Touching Assistance-helper provides verbal cues and/or touching/steadying and/or contact guard assistance as patient completes activity. Assistance may be provided throughout the activity or intermittently. 3-Partial/Moderate Assistance-helper does LESS THAN HALF the effort. [place] lifts, holds or supports trunk or limbs, but provides less than half the effort. 2-Substantial/Maximal Assistance-helper does MORE THAN HALF the effort. [place] lifts or holds trunk or limbs and provides more than half the effort. 0-Papuhbjts-ycpvsw does ALL the effort. Patient does none of the effort to complete the activity. Or, the assistance of 2 or more helpers is required for the patient to complete the activity. If activity was not attempted, code reason: 7-Patient Refused. 9-Not Applicable-not attempted and the patient did not perform the activity before the current illness, exacerbation or injury. 10-Not Attempted due to Environmental Limitations-(lack of equipment, weather restraints, etc.). 88-Not Attempted due to Medical Conditions or Safety Concerns. Roll Left to Right (QC): 6 Sit to Lying (QC): 3 Sit to Stand (QC): 3 Chair/Uif-oh-Dgncg Xfer(QC): 3 Car Transfer (QC): 3 Gait Training Does the Patient Walk?: Yes Distance: 40'x3 Walk 10 feet (QC): 3 Walk 50 ft with 2 Turns(QC): 3 Walk 150 ft (QC): 88 Walking 10ft/uneven surface-QC: 88 Gait Persons Needed: 1 Gait Assistive Device: Walker Timothy Wheelchair Training Does the Pt Use a Wheelchair?: Yes Distance: 150'x2, 120' Wheel 50 ft with 2 turns (QC): 4 Wheel 150 ft (QC): 4 Type of Wheelchair: Manual Stair Training 1 Step (curb) (QC): 88 4 Steps (QC): 88 12 Steps (QC): 88 Balance Picking up an Object (QC): 88 ADL-Treatment Eating (QC): 6 Oral Hygiene (QC): 6 Shower/Bathe Self (QC): 3 Upper Body Dressing (QC): 3 Lower Body Dressing (QC): 2 On/Off Footwear (QC): 1 Toileting Hygiene (QC): 3 Toilet Transfer (QC): 4 Assessment/Plan Assessment and Plan Assess & Plan/Chief Complaint Assessment: Debility CVA Right sided weakness Dysarthria HTN Diabetes mellitus type 2 HLD Sleep apnea Anxiety Chronic back pain Fall risk SHAE suspected needs sleep study Suspected AF monitor in place and placed on Eliquis empirically on 06/04/2022 by nv Plan: Start PT, OT, speech therapy Monitor blood sugars Start long acting insulin and SSI Restart home meds Pain control Closely monitor due to risk of fall 06/01/2022: Fall risk Monitor closely 06/02/2022: Behavioral health consult for depression Supportive care 06/03/2022: Dramatic improvement Ambulated 06/04/2022: Start Eliquis Tour Coordinator closely 06/05/2022: Eliquis PT and OT (1) CVA (cerebral vascular accident) (2) Dysarthria (3) Right sided weakness (4) Uncontrolled type 2 diabetes mellitus Status: Acute (5) Hypertension Status: Acute DEBBY ORTIZ DO Jun 05, 2022 06:37
[2022-06-05 07:30] VITALS: BP 154/73
[2022-06-05] MEDS: inSUlin ASPART (NovoLOG) 1 UNIT/0.01 ML (CHARGE PER UNIT) SC SCH ×3 (08:30→17:00)
[2022-06-05] MEDS: LOSARTAN 100 MG (COZAAR) TABLET PO SCH (08:30)
[2022-06-05] MEDS: polyethylene glycoL POWDER 17 GM (MIRALAX) PACK PO SCH ×2 (08:30→19:26)
[2022-06-05] MEDS: VERAPAMIL SR 240 MG (CALAN SR) TAB PO SCH (08:30)
[2022-06-05] MEDS: FENOFIBRATE 134 MG (LOFIBRA) CAPSULE PO SCH (08:30)
[2022-06-05] MEDS: CLOPIDOGREL 75 MG (PLAVIX) TABLET PO SCH (08:30)
[2022-06-05] MEDS: APIXABAN 5 MG (ELIQUIS) TABLET PO SCH ×2 (08:30→20:31)
[2022-06-05] MEDS: SENNA W/DOCUSATE (SENOKOT S) TABLET PO SCH ×2 (08:31→20:31)
--- NOTE | 2022-06-05 09:32 | Physical Therapy Daily Note ---
PT Daily Note-Current Subjective Pt sitting up in recliner with Sp shaving pt's face upon arrival. Pt agrees to PT. Mental Status Patient Orientation: Person, Place Attachments: Other-See Comments (Telemetry as well as AFO & knee cage for R LE) Transfers SCALE: Activities may be completed with or without assistive devices. 6-Sgqmtpijuu-kduikje completes the activity by him/herself with no assistance from a helper. 5-Set-up or Clean-up Assistance-helper sets up or cleans up; patient completes activity. [place] assists only prior to or following the activity. 4-Supervision or Touching Assistance-helper provides verbal cues and/or rajesh poncho/steadying and/or contact guard assistance as patient completes activity. Assistance may be provided throughout the activity or intermittently. 3-Partial/Moderate Assistance-helper does LESS THAN HALF the effort. [place] lifts, holds or supports trunk or limbs, but provides less than half the effort. 2-Substantial/Maximal Assistance-helper does MORE THAN HALF the effort. [place] lifts or holds trunk or limbs and provides more than half the effort. 1-Lsrgoetjl-fgvsoa does ALL the effort. Patient does none of the effort to complete the activity. Or, the assistance of 2 or more helpers is required for the patient to complete the activity. If activity was not attempted, code reason: 7-Patient Refused. 9-Not Applicable-not attempted and the patient did not perform the activity before the current illness, exacerbation or injury. 10-Not Attempted due to Environmental Limitations-(lack of equipment, weather restraints, etc.). 88-Not Attempted due to Medical Conditions or Safety Concerns. Sit to Lying (QC): 4 Sit to Stand (QC): 3 Weight Bearing Full Weight Bearing Full Weight Bearing Exercises Supine Ex: Ankle pumps, Quad Set, Glut sets, Heel Slides, Straight leg raise, Hip abd/add Supine Reps: 15 Treatments Pt reports fatigue and asks to return to bed since pt has been up for several hours. Nurse gives meds before TF. Pt TF from recliner via SPT to EOB then to Supine. Pt completes Supine EX with RB as needed. Pt resting with all needs met,call light in hand. Assessment Current Status: Fair Progress Pt fatigues easily, needs RB to recover. PT Short Term Goals Short Term Goals Time Frame: Jun 07, 2022 Roll Left & Right: 4 (CGA) Sit to lyin (CGA) Lying to sitting on side of be: 4 (CGA) Sit to stand: 4 (CGA) Chair/aqs-uw-gcyxk transfer: 4 (CGA) Walk 10 feet: 4 (CGA) Walk 50 feet with two turns: 4 (CGA) PT Banquet Stewardess Goals Mcc Goals PT Mcc Goals Time Frame: Jun 21, 2022 Roll Left & Right (QC): 4 (SBA) Sit to Lying (QC): 4 (SBA) Lying-Sitting on Side/Bed(QC): 4 (SBA) Sit to Stand (QC): 4 (SBA) Chair/Ozv-oi-Chnzi Xfer(QC): 4 (SBA) Toilet Transfer (QC): 4 (SBA) Car Transfer (QC): 4 (CGA) Does the Patient Walk: Yes Walk 10 feet (QC): 4 (SBA) Walk 50ft with 2 Turns (QC): 4 (SBA) Walk 150 ft (QC): 4 (SBA) Walking 10ft on Uneven Surface: 4 (CGA) 1 Step (curb) (QC): 4 (CGA) 4 Steps (QC): 88 12 Steps (QC): 88 Picking up an Object (QC): 4 (CGA using salvage worker) Wheel 50 feet with 2 turns (QC: 6 Wheel 150 feet: 6 PT Plan Problem List Problem List: Activity Tolerance, Functional Strength Treatment/Plan Treatment Plan: Continue Plan of Care Treatment Plan: Bed Mobility, Education, Functional Activity Malini, Functional Strength, Group Therapy, Gait, Safety, Therapeutic Exercise, Transfers Treatment Duration: Jun 21, 2022 Frequency: At least 5 of 7 days/Wk (IRF) Estimated Hrs Per Day: 1.5 hours per day Patient and/or Family Agrees t: Yes Time/GCodes Time In: 830 Time Out: 900 Total Billed Treatment Time: 30 Total Billed Treatment 1, FA (10m) & EX (20m) CARMITA ANNE PTA Jun 05, 2022 09:32
--- NOTE | 2022-06-05 12:14 | Progress Note - Cardiology ---
Cardiology SOAP Progress Note Subjective: No cp or palp or syncope Some gen weakness and malaise Persistent R-sided weakness No n/v/d Objective: I&O/Vital Signs 06/05/22 06/05/22 06/05/22 06/05/22 01:00 07:00 07:30 09:00 Temp 36.6 Pulse 70 68 78 Resp 20 B/P (MAP) 154/73 (100) Pulse Ox 98 O2 Delivery Room Air Room Air Weight (Pounds): 224 Weight (Ounces): 0.0 Weight (Calculated Kilograms): 101.814444 Constitutional: other (Awake, alert and oriented) Respiratory: No accessory muscle use, No respiratory distress; chest expansion is symmetric, chest is bilaterally symmetric, lungs clear to auscultation Cardiovascular: regular rate-rhythm; No JVD; S1 and S2 Gastrointestional: No tender; soft, round, audible bowel sounds Extremities: no lower extremity edema bilateral Neurologic/Psychiatric: other (expressive aphasia; right hemiparesis) Skin: No rash on exposed areas, No ulcerations on exposed areas Results/Procedures: Labs Laboratory Tests 06/04/22 21:01: Glucometer 106 06/05/22 06:00: Glucometer 105 06/05/22 11:11: Glucometer 121H A/P: Assessment: 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 Aceves at [facility] states atrial arrhythmia is suspected by [facility] (although never documented); Eliquis was listed as being started, but it does not seem to be on his discharge meds from [facility], Dr. Guzman, notes state they are concerned stroke is d/t short segment of MCA stenosis - 21 Day event monitor is in place from [facility] this is scheduled to be followed by Dr. Rose of [facility] Echocardiogram at [facility] is stated to show LVEF 60% with no evidence of PFO or shunt Carotid u/s of 8-11-22: No evidence of hemodynamically significant stenosis. Antegrade flow within the bilateral vertebral arteries. 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 - Continue tele to eval for arrhythmia - Continue Eliquis d/t suspected atrial arrhythmia - D/t suspicion of MCA stenosis as cause of CVA for which he has been on Plavix and ASA we will continue antiplatelet tx with Plavix - we are stopping ASA b/c having him on all 3 agents increases his risk of bleeding Monitor lab closely Advise out pt sleep studies [address] (from [facility]) - continue Extensive records from [facility] have been reviewed in detail Further recs will be based on his hospital course We would like to thank medical services for this consult I have discussed plan of care with patient and spouse MARTIN IVERSON MD FACP FAC CCDS Jun 05, 2022 12:13
[2022-06-05 20:30] VITALS: BP 147/69
[2022-06-05] MEDS: amLODIPine 10 MG (NORVASC) TAB PO SCH (20:31)
[2022-06-06] MEDS: polyethylene glycoL POWDER 17 GM (MIRALAX) PACK PO SCH ×2 (07:20→19:16)
[2022-06-06 07:30] VITALS: BP 171/74
--- NOTE | 2022-06-06 07:39 | PM&R Progress Note ---
Subjective HPI/CC On Admission Date Seen by Provider: Jun 06, 2022 Time Seen by Provider: 12:00 Subjective/Events-last exam 06/06/2022: Patient doing well Eliquis maintained No bleeding problems Discontinue the telemetry Monitoring closely 06/05/2022: Appreciate Dr. Powers Doing well overall and son at the bedside Concerned about his vision at times Eliquis maintained 06/04/2022: Patient still doing pretty well Right eye drooping noted and the decision was made to place on Eliquis empirically since he is external monitoring is not a live feed so will place on telemetry in the meantime Consulting cardiology evaluated the records and noted Eliquis was not on the discharge med list so it was not started until today when I started it Patient overall doing much better Hesitant about depression medication and I did speak with Deb after she saw him at 1400 06/03/2022: Patient dramatically improved Able to walk with a complex cane with leg support Feels much better Improved morale 06/02/2022: Pt is doing pretty well Bowels are moving Responding better Severely depressed so will initiate a behavioral consult No pain is reported 06/01/2022: Pt is doing a lot better Pt is a very private person Discontinue Gabapnetin per request Bowels moved yesterday He fell last night without an injury Updated pt and regarding the plan Review of Systems General: Fatigue HEENT: Visual Changes Neurological: Weakness, Incoordination, Change in speech Objective Exam Vital Signs Vital Signs Date Time Temp Pulse Resp B/P (MAP) Pulse Ox O2 Delivery O2 Flow Rate FiO2 06/06/22 20:00 Room Air 06/06/22 07:30 36.8 82 18 171/74 (106) 97 Capillary Refill : General Appearance: No Apparent Distress, WD/WN, Obese HEENT: PERRL/EOMI, Normal ENT Inspection, Pharynx Normal Neck: Full Range of Motion, Normal Inspection, Non Tender, Supple, Carotid Bruit Respiratory: Chest Non Tender, Lungs Clear, Normal Breath Sounds, No Accessory Muscle Use, No Respiratory Distress Cardiovascular: Regular Rate, Rhythm, No Edema, No Gallop, No JVD, No Murmur, Normal Peripheral Pulses Gastrointestinal: Normal Bowel Sounds, No Organomegaly, No Pulsatile Mass, Non Tender, Soft Back: Normal Inspection, No CVA Tenderness, No Vertebral Tenderness Extremity: Normal Capillary Refill, Normal Inspection, Normal Range of Motion (except right side), Non Tender, No Calf Tenderness, No Pedal Edema Neurologic/Psychiatric: Alert, Oriented x3, Normal Mood/Affect, block captain II-XII Norm as Tested, Abnormal Gait, Aphasia, Depressed Affect, Motor Weakness (right sided weakness 1/5) Skin: Normal Color, Warm/Dry Lymphatic: No Adenopathy Results/Procedures Lab Patient resulted labs reviewed. FIM Transfers Therapy Code Descriptions/Definitions Functional [place] Measure: 0=Not Assessed/NA 4=Minimal Assistance 1=Total Assistance 5=Supervision or Setup 2=Maximal Assistance 6=Modified [place] 3=Moderate Assistance 7=Complete IndependenceSCALE: Activities may be completed with or without assistive devices. 9-Votrlwoxyi-kefsnre completes the activity by him/herself with no assistance from a helper. 5-Set-up or Clean-up Assistance-helper sets up or cleans up; patient completes activity. [place] assists only prior to or following the activity. 4-Supervision or Touching Assistance-helper provides verbal cues and/or touching/steadying and/or contact guard assistance as patient completes activity. Assistance may be provided throughout the activity or intermittently. 3-Partial/Moderate Assistance-helper does LESS THAN HALF the effort. [place] lifts, holds or supports trunk or limbs, but provides less than half the effort. 2-Substantial/Maximal Assistance-helper does MORE THAN HALF the effort. [place] lifts or holds trunk or limbs and provides more than half the effort. 6-Xftgzrmwy-lrybod does ALL the effort. Patient does none of the effort to complete the activity. Or, the assistance of 2 or more helpers is required for the patient to complete the activity. If activity was not attempted, code reason: 7-Patient Refused. 9-Not Applicable-not attempted and the patient did not perform the activity before the current illness, exacerbation or injury. 10-Not Attempted due to Environmental Limitations-(lack of equipment, weather restraints, etc.). 88-Not Attempted due to Medical Conditions or Safety Concerns. Roll Left to Right (QC): 6 Sit to Lying (QC): 4 Sit to Stand (QC): 3 Chair/Wgd-ny-Aricx Xfer(QC): 3 Car Transfer (QC): 3 Gait Training Does the Patient Walk?: Yes Distance: 40'x3 Walk 10 feet (QC): 3 Walk 50 ft with 2 Turns(QC): 3 Walk 150 ft (QC): 88 Walking 10ft/uneven surface-QC: 88 Gait Persons Needed: 1 Gait Assistive Device: Walker Timothy Wheelchair Training Does the Pt Use a Wheelchair?: Yes Distance: 150'x2, 120' Wheel 50 ft with 2 turns (QC): 4 Wheel 150 ft (QC): 4 Type of Wheelchair: Manual Stair Training 1 Step (curb) (QC): 88 4 Steps (QC): 88 12 Steps (QC): 88 Balance Picking up an Object (QC): 88 ADL-Treatment Eating (QC): 6 Oral Hygiene (QC): 6 Shower/Bathe Self (QC): 3 Upper Body Dressing (QC): 3 Lower Body Dressing (QC): 2 On/Off Footwear (QC): 1 Toileting Hygiene (QC): 3 Toilet Transfer (QC): 4 Assessment/Plan Assessment and Plan Assess & Plan/Chief Complaint Assessment: Debility CVA Right sided weakness Dysarthria HTN Diabetes mellitus type 2 HLD Sleep apnea Anxiety Chronic back pain Fall risk SHAE suspected needs sleep study Suspected AF monitor in place and placed on Eliquis empirically on 06/04/2022 by [place] Plan: Start PT, OT, speech therapy Monitor blood sugars Start long acting insulin and SSI Restart home meds Pain control Closely monitor due to risk of fall 06/01/2022: Fall risk Monitor closely 06/02/2022: Behavioral health consult for depression Supportive care 06/03/2022: Dramatic improvement Ambulated 06/04/2022: Start Eliquis Nursing Faculty closely 06/05/2022: Eliquis PT and OT 06/06/2022: Eliquis Aggressive therapy (1) CVA (cerebral vascular accident) (2) Dysarthria (3) Right sided weakness (4) Uncontrolled type 2 diabetes mellitus Status: Acute (5) Hypertension Status: Acute DEBBY ORTIZ DO Jun 06, 2022 07:39
[2022-06-06] MEDS: inSUlin ASPART (NovoLOG) 1 UNIT/0.01 ML (CHARGE PER UNIT) SC SCH ×3 (08:41→17:11)
[2022-06-06] MEDS: APIXABAN 5 MG (ELIQUIS) TABLET PO SCH ×2 (08:42→19:51)
[2022-06-06] MEDS: SENNA W/DOCUSATE (SENOKOT S) TABLET PO SCH ×2 (08:42→19:51)
[2022-06-06] MEDS: CLOPIDOGREL 75 MG (PLAVIX) TABLET PO SCH (08:42)
[2022-06-06] MEDS: FENOFIBRATE 134 MG (LOFIBRA) CAPSULE PO SCH (08:42)
[2022-06-06] MEDS: VERAPAMIL SR 240 MG (CALAN SR) TAB PO SCH (08:42)
[2022-06-06] MEDS: LOSARTAN 100 MG (COZAAR) TABLET PO SCH (08:42)
--- NOTE | 2022-06-06 12:34 | Progress Note - Cardiology ---
Cardiology SOAP Progress Note Subjective: No cp or palp or syncope No shortness of breath No swelling R-sided weakness as before Speech impairment as before Objective: I&O/Vital Signs 06/06/22 06/06/22 06/06/22 06/06/22 01:00 07:22 07:30 09:00 Temp 36.8 Pulse 80 72 82 Resp 18 B/P (MAP) 171/74 (106) Pulse Ox 97 O2 Delivery Room Air Room Air Weight (Pounds): 224 Weight (Ounces): 0.0 Weight (Calculated Kilograms): 101.927798 Constitutional: other (Awake, alert and oriented) Respiratory: No accessory muscle use, No respiratory distress; chest expansion is symmetric, chest is bilaterally symmetric, lungs clear to auscultation Cardiovascular: regular rate-rhythm; No JVD; S1 and S2 Gastrointestional: No tender; soft, round, audible bowel sounds Extremities: no lower extremity edema bilateral Neurologic/Psychiatric: other (expressive aphasia; right hemiparesis) Skin: No rash on exposed areas, No ulcerations on exposed areas Results/Procedures: Labs Laboratory Tests 06/05/22 15:41: Glucometer 158H 06/05/22 20:33: Glucometer 168H 06/06/22 05:44: Glucometer 113H 06/06/22 11:19: Glucometer 185H A/P: Assessment: Thromboembolic CVA with right-sided hemiparesis and dyphasia (Studies at [facility] as below) - Head MRI 05/23/22- multiple areas of encephelomalacia - CTA head 05/24/22- high-grade stenosis of occlusion of M1 segement of MCA - CT brain 05/25/22- multiple left sided conn radiata infarctions - MRI fast 05/25/22- multifocal restricted diffusion throughout left cerebral hemisphere consistent w/ multiple infarctions - Per Discharge note of Dr. Aceves at [facility] states atrial arrhythmia is suspected by [facility] [facility] (although never documented); Eliquis was listed as being started, but it does not seem to be on his discharge meds from [facility] [facility], Dr. Guzman, notes state they are concerned stroke is d/t short segment of MCA stenosis - 21 Day event monitor is in place from [facility] this is scheduled to be followed by Dr. Rose of [facility] Echocardiogram at [facility] is stated to show LVEF 60% with no evidence of PFO or shunt Carotid u/s of 8-11-22: No evidence of hemodynamically significant stenosis. Antegrade flow within the bilateral vertebral arteries. 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 - Continue tele to eval for arrhythmia - Continue Eliquis d/t suspected atrial arrhythmia - D/t suspicion of MCA stenosis as cause of CVA for which he has been on Plavix and ASA we will continue antiplatelet tx with Plavix - we are stopping ASA b/c having him on all 3 agents increases his risk of bleeding Monitor lab closely Advise out pt sleep studies [address] monitor in place (from [facility] [facility]) - continue BP averaging somewhat high, but appears reasonable to maintain at this level, given his severe cerebrovascular stenoses (i.e, avoid hypotension) I have discussed plan of care with patient and spouse MARTIN IVERSON MD FACP FAC CCDS Jun 06, 2022 12:34
[2022-06-06] MEDS: amLODIPine 10 MG (NORVASC) TAB PO SCH (19:51)
[2022-06-06 20:21] VITALS: BP 152/70
[2022-06-07 05:45] LABS: BASOPHILS # (AUTO) 0.1 10^3/uL (0.0-0.1); BASOPHILS % (AUTO) 1 % (0-10); EOSINOPHILS # (AUTO) 0.1 10^3/uL (0.0-0.3); EOSINOPHILS % (AUTO) 2 % (0-10); HEMATOCRIT 33 % (40-54); HEMOGLOBIN 10.9 g/dL (13.3-17.7); LYMPHOCYTES % (AUTO) 36 % (12-44); MEAN CORPUSCULAR HEMOGLOBIN 30 pg (25-34); MEAN CORPUSCULAR HGB CONC 33 g/dL (32-36); MEAN CORPUSCULAR VOLUME 92 fL (80-99); MEAN PLATELET VOLUME 11.8 fL (9.0-12.2); MONOCYTES # (AUTO) 0.4 10^3/uL (0.0-1.0); MONOCYTES % (AUTO) 7 % (0-12); NEUTROPHILS # (AUTO) 3.1 10^3/uL (1.8-7.8); NEUTROPHILS % (AUTO) 55 % (42-75); PLATELET COUNT 114 10^3/uL (130-400); WHITE BLOOD COUNT 5.7 10^3/uL (4.3-11.0)
[2022-06-07 05:53] LABS: ALBUMIN 3.3 GM/DL (3.2-4.5)
--- NOTE | 2022-06-07 05:53 | PM&R Progress Note ---
Subjective HPI/CC On Admission Date Seen by Provider: Jun 07, 2022 Time Seen by Provider: 09:30 Subjective/Events-last exam 06/07/2022: Much improved status Working with therapy Motivation doing fairly well Declines anti-depressant No falls 06/06/2022: Patient doing well Eliquis maintained No bleeding problems Discontinue the telemetry Monitoring closely 06/05/2022: Appreciate Dr. Powers Doing well overall and son at the bedside Concerned about his vision at times Eliquis maintained 06/04/2022: Patient still doing pretty well Right eye drooping noted and the decision was made to place on Eliquis empirically since he is external monitoring is not a live feed so will place on telemetry in the meantime Consulting cardiology evaluated the records and noted Eliquis was not on the discharge med list so it was not started until today when I started it Patient overall doing much better Hesitant about depression medication and I did speak with Deb after she saw him at 1400 06/03/2022: Patient dramatically improved Able to walk with a complex cane with leg support Feels much better Improved morale 06/02/2022: Pt is doing pretty well Bowels are moving Responding better Severely depressed so will initiate a behavioral consult No pain is reported 06/01/2022: Pt is doing a lot better Pt is a very private person Discontinue Gabapnetin per request Bowels moved yesterday He fell last night without an injury Updated pt and regarding the plan Review of Systems General: Fatigue, Malaise Objective Exam Vital Signs Vital Signs Date Time Temp Pulse Resp B/P (MAP) Pulse Ox O2 Delivery O2 Flow Rate FiO2 06/07/22 21:08 36.7 65 16 144/67 (92) 96 Room Air Capillary Refill : General Appearance: No Apparent Distress, WD/WN, Obese HEENT: PERRL/EOMI, Normal ENT Inspection, Pharynx Normal Neck: Full Range of Motion, Normal Inspection, Non Tender, Supple, Carotid Bruit Respiratory: Chest Non Tender, Lungs Clear, Normal Breath Sounds, No Accessory Muscle Use, No Respiratory Distress Cardiovascular: Regular Rate, Rhythm, No Edema, No Gallop, No JVD, No Murmur, Normal Peripheral Pulses Gastrointestinal: Normal Bowel Sounds, No Organomegaly, No Pulsatile Mass, Non Tender, Soft Back: Normal Inspection, No CVA Tenderness, No Vertebral Tenderness Extremity: Normal Capillary Refill, Normal Inspection, Normal Range of Motion (except right side), Non Tender, No Calf Tenderness, No Pedal Edema Neurologic/Psychiatric: Alert, Oriented x3, Normal 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 FIM Transfers Therapy Code Descriptions/Definitions Functional [place] Measure: 0=Not Assessed/NA 4=Minimal Assistance 1=Total Assistance 5=Supervision or Setup 2=Maximal Assistance 6=Modified [place] 3=Moderate Assistance 7=Complete IndependenceSCALE: Activities may be completed with or without assistive devices. 0-Jirhhmcsvd-ncjfqab completes the activity by him/herself with no assistance from a helper. 5-Set-up or Clean-up Assistance-helper sets up or cleans up; patient completes activity. [place] assists only prior to or following the activity. 4-Supervision or Touching Assistance-helper provides verbal cues and/or touching/steadying and/or contact guard assistance as patient completes activity. Assistance may be provided throughout the activity or intermittently. 3-Partial/Moderate Assistance-helper does LESS THAN HALF the effort. [place] lifts, holds or supports trunk or limbs, but provides less than half the effort. 2-Substantial/Maximal Assistance-helper does MORE THAN HALF the effort. [place] lifts or holds trunk or limbs and provides more than half the effort. 6-Tcpqfswdq-dlzhgt does ALL the effort. Patient does none of the effort to complete the activity. Or, the assistance of 2 or more helpers is required for the patient to complete the activity. If activity was not attempted, code reason: 7-Patient Refused. 9-Not Applicable-not attempted and the patient did not perform the activity before the current illness, exacerbation or injury. 10-Not Attempted due to Environmental Limitations-(lack of equipment, weather restraints, etc.). 88-Not Attempted due to Medical Conditions or Safety Concerns. Roll Left to Right (QC): 6 Sit to Lying (QC): 4 Sit to Stand (QC): 3 Chair/Hvq-mv-Oowsd Xfer(QC): 3 Car Transfer (QC): 3 Gait Training Does the Patient Walk?: Yes Distance: 40'x3 Walk 10 feet (QC): 3 Walk 50 ft with 2 Turns(QC): 3 Walk 150 ft (QC): 88 Walking 10ft/uneven surface-QC: 88 Gait Persons Needed: 1 Gait Assistive Device: Walker Timothy Wheelchair Training Does the Pt Use a Wheelchair?: Yes Distance: 150'x2, 120' Wheel 50 ft with 2 turns (QC): 4 Wheel 150 ft (QC): 4 Type of Wheelchair: Manual Stair Training 1 Step (curb) (QC): 88 4 Steps (QC): 88 12 Steps (QC): 88 Balance Picking up an Object (QC): 88 ADL-Treatment Eating (QC): 6 Oral Hygiene (QC): 6 Shower/Bathe Self (QC): 3 Upper Body Dressing (QC): 3 Lower Body Dressing (QC): 2 On/Off Footwear (QC): 1 Toileting Hygiene (QC): 3 Toilet Transfer (QC): 4 Assessment/Plan Assessment and Plan Assess & Plan/Chief Complaint Assessment: Debility CVA Right sided weakness Dysarthria HTN Diabetes mellitus type 2 HLD Sleep apnea Anxiety Chronic back pain Fall risk SHAE suspected needs sleep study Suspected AF monitor in place and placed on Eliquis empirically on 06/04/2022 by ri Plan: Start PT, OT, speech therapy Monitor blood sugars Start long acting insulin and SSI Restart home meds Pain control Closely monitor due to risk of fall 06/01/2022: Fall risk Monitor closely 06/02/2022: Behavioral health consult for depression Supportive care 06/03/2022: Dramatic improvement Ambulated 06/04/2022: Start Eliquis Label Operator closely 06/05/2022: Eliquis PT and OT 06/06/2022: Eliquis Aggressive therapy 06/07/2022: Suspect SHAE Monitor BP (1) CVA (cerebral vascular accident) (2) Dysarthria (3) Right sided weakness (4) Uncontrolled type 2 diabetes mellitus Status: Acute (5) Hypertension Status: Acute DEBBY ORTIZ DO Jun 07, 2022 05:53
[2022-06-07 05:54] LABS: POTASSIUM 4.7 MMOL/L (3.6-5.0)
[2022-06-07 05:55] LABS: CALCIUM 8.8 MG/DL (8.5-10.1)
[2022-06-07 05:56] LABS: TOTAL PROTEIN 6.7 GM/DL (6.4-8.2)
[2022-06-07 05:58] LABS: BILIRUBIN,TOTAL 0.4 MG/DL (0.1-1.0)
[2022-06-07 05:59] LABS: CREATININE SERUM 0.93 MG/DL (0.60-1.30)
[2022-06-07 07:49] VITALS: BP 151/74
--- NOTE | 2022-06-07 08:30 | Occupational Ther Daily Note ---
OT Current Status-Daily Note Subjective Pt alert, sitting in recliner. Pt agrees to therapy. No c/o or signs of pain. Mental Status/Objective Patient Orientation: Person, Place, Non-Verbal/Aphasic, Time, Situation Attachments: IV ADL-Treatment Pt makes known that his assisted with shower over weekend. Verbal and physical cues to educate pt on one handed technique, min A. Independent with o ral care sitting at sink. Therapy Code Descriptions/Definitions Functional [place] Measure: 0=Not Assessed/NA 4=Minimal Assistance 1=Total Assistance 5=Supervision or Setup 2=Maximal Assistance 6=Modified [place] 3=Moderate Assistance 7=Complete IndependenceSCALE: Activities may be completed with or without assistive devices. 3-[place]-zwoimpe completes the activity by him/herself with no assistance from a helper. 5-Set-up or Clean-up Assistance-helper sets up or cleans up; patient completes activity. [place] assists only prior to or following the activity. 4-Supervision or Touching Assistance-helper provides verbal cues and/or touching/steadying and/or contact guard assistance as patient completes activity. Assistance may be provided throughout the activity or intermittently. 3-Partial/Moderate Assistance-helper does LESS THAN HALF the effort. [place] lifts, holds or supports trunk or limbs, but provides less than half the effort. 2-Substantial/Maximal Assistance-helper does MORE THAN HALF the effort. [place] lifts or holds trunk or limbs and provides more than half the effort. 1-Tqltewzzz-rojxqd does ALL the effort. Patient does none of the effort to complete the activity. Or, the assistance of 2 or more helpers is required for the patient to complete the activity. If activity was not attempted, code reason: 7-Patient Refused. 9-Not Applicable-not attempted and the patient did not perform the activity before the current illness, exacerbation or injury. 10-Not Attempted due to Environmental Limitations-(lack of equipment, weather restraints, etc.). 88-Not Attempted due to Medical Conditions or Safety Concerns. Eating (QC): 6 Oral Hygiene (QC): 6 Upper Body Dressing (QC): 3 On/Off Footwear: 2 Other Treatment Assist to propel w/c to therapy gym, propelled w/c independently back to room. Pt transferred to therapy mat, CGA. Pt working on dynamic sitting balance with wt bearing through R UE. Pt required moderate physical cues to stabilize R elbow during wt bearing. Pt is demonstrating movement throughout R UE. Pt given light resistance therapy sponge to work on strengthening priest and finger extensions. After therapy, pt lying in bed with call light/phone in reach. All needs met. Education OT Patient Education: Modified ADL techniques OT Short Term Goals Short Term Goals Time Frame: Jun 23, 2022 Oral hygiene: 5 Toileting hygiene: 4 Shower/bathe self: 4 Lower body dressin Putting on/taking off footwear: 4 OT Correction Goals Toy Painter Goals Time Frame: Jul 02, 2022 Eating (QC): 6 Oral Hygiene (QC): 6 Toileting Hygiene (QC): 6 Shower/Bathe Self (QC): 6 Upper Body Dressing (QC): 6 Lower Body Dressing (QC): 6 On/Off Footwear (QC): 6 Additional Goals: 1-Demonstrate ADL Tasks, 2-Verbalize Understanding, 3- ImproveStrength/Malini 1=Demonstrate adherence to instructed precautions during ADL tasks. 2=Patient will verbalize/demonstrate understanding of assistive devices/modifications for ADL. 3=Patient will improve strength/tolerance for activity to enable patient to perform ADL's. OT Education/Plan Problem List/Assessment Assessment: Decreased Safety Aware, Decreased UE Strength, Impaired Co ordination, Impaired Funct Balance, Impaired Self-Care Skills, Restricted Funct UE ROM Discharge Recommendations Plan/Recommendations: Continue POC Treatment Plan/Plan of Care Patient would benefit from OT for education, treatment and training to promote independence in ADL's, mobility, safety and/or upper extremity function for ADL's. Plan of Care: ADL Retraining, Functional Mobility, Group Exercise/Act as Ind, UE Funct Exercise/Act, UE Neuromus Re-Ed/Coord, W/C Management Training Treatment Duration: Jul 02, 2022 Frequency: At least 5 of 7 days/Wk (IRF) Estimated Hrs Per Day: 1.5 hours per day Agreement: Yes Rehab Potential: Fair Time/GCodes Start Time: 07:30 Stop Time: 08:15 Total Time Billed (hr/min): 45 Billed Treatment Time 1 visit-ADL 1 (20 min) NM 2 (25 min) JEANETTE VALDOVINOS Jun 07, 2022 08:30
[2022-06-07] MEDS: VERAPAMIL SR 240 MG (CALAN SR) TAB PO SCH (09:28)
[2022-06-07] MEDS: APIXABAN 5 MG (ELIQUIS) TABLET PO SCH ×2 (09:28→21:12)
[2022-06-07] MEDS: SENNA W/DOCUSATE (SENOKOT S) TABLET PO SCH ×2 (09:28→21:14)
[2022-06-07] MEDS: FENOFIBRATE 134 MG (LOFIBRA) CAPSULE PO SCH (09:28)
[2022-06-07] MEDS: LOSARTAN 100 MG (COZAAR) TABLET PO SCH (09:28)
[2022-06-07] MEDS: CLOPIDOGREL 75 MG (PLAVIX) TABLET PO SCH (09:29)
[2022-06-07] MEDS: inSUlin ASPART (NovoLOG) 1 UNIT/0.01 ML (CHARGE PER UNIT) SC SCH ×3 (09:29→17:47)
[2022-06-07] MEDS: polyethylene glycoL POWDER 17 GM (MIRALAX) PACK PO SCH ×2 (09:31→19:29)
--- NOTE | 2022-06-07 11:04 | Physical Therapy Daily Note ---
PT Daily Note-Current Subjective Pt sitting at EOB with Sp present upon arrival. Pt agrees to PT. Pain Location: No Pain Reported Mental Status Patient Orientation: Person, Place, Situation Attachments: Other-See Comments (Sling for R UE) Transfers SCALE: Activities may be completed with or without assistive devices. 4-Qrvjccspms-izsssgk completes the activity by him/herself with no assistance from a helper. 5-Set-up or Clean-up Assistance-helper sets up or cleans up; patient completes activity. [place] assists only prior to or following the activity. 4-Supervision or Touching Assistance-helper provides verbal cues and/or touching/steadying and/or contact guard assistance as patient completes activity. Assistance may be provided throughout the activity or intermittently. 3-Partial/Moderate Assistance-helper does LESS THAN HALF the effort. [place] lifts, holds or supports trunk or limbs, but provides less than half the effort. 2-Substantial/Maximal Assistance-helper does MORE THAN HALF the effort. [place] lifts or holds trunk or limbs and provides more than half the effort. 4-Qwgawrtpk-rtblcw does ALL the effort. Patient does none of the effort to complete the activity. Or, the assistance of 2 or more helpers is required for the patient to complete the activity. If activity was not attempted, code reason: 7-Patient Refused. 9-Not Applicable-not attempted and the patient did not perform the activity before the current illness, exacerbation or injury. 10-Not Attempted due to Environmental Limitations-(lack of equipment, weather restraints, etc.). 88-Not Attempted due to Medical Conditions or Safety Concerns. Sit to Stand (QC): 4 Weight Bearing Full Weight Bearing Full Weight Bearing Wheelchair Training Does the Pt Use a Wheelchair?: Yes Wheel 50 ft with 2 turns (QC): 5 Wheel 150 ft (QC): 5 Type of Wheelchair: Manual Exercises NuStep Minutes: 13 NuStep Workload: 4 Treatments TF to WC via SPT, declines need to use BR. Pt propels WCH in hallway to Therapy Gym. Pt TF to NuStep via SPT and uses for 13m until fatigued. After short RB, pt TF back to WC via SPT. Pt again propels in hallway. Pt and Sp agree that pt is improving and discuss how WC works and WCH safety as Sp is nervous when d/c. Pt TF back to recliner via SPT at CGA and pt rests. All needs met, call light in hand. Assessment Current Status: Good Progress TF are improving and pt is CGA using SPT. Pt needs occasional RB for fatigue. PT Short Term Goals Short Term Goals Time Frame: Jun 07, 2022 Roll Left & Right: 4 (CGA) Sit to lyin (CGA) Lying to sitting on side of be: 4 (CGA) Sit to stand: 4 (CGA) Chair/tpo-xq-futwz transfer: 4 (CGA) Walk 10 feet: 4 (CGA) Walk 50 feet with two turns: 4 (CGA) PT Production Cell Leader Goals Production Cell Leader Goals PT Skilled Nursing Goals Time Frame: Jun 21, 2022 Roll Left & Right (QC): 4 (SBA) Sit to Lying (QC): 4 (SBA) Lying-Sitting on Side/Bed(QC): 4 (SBA) Sit to Stand (QC): 4 (SBA) Chair/Lmt-df-Zcwnp Xfer(QC): 4 (SBA) Toilet Transfer (QC): 4 (SBA) Car Transfer (QC): 4 (CGA) Does the Patient Walk: Yes Walk 10 feet (QC): 4 (SBA) Walk 50ft with 2 Turns (QC): 4 (SBA) Walk 150 ft (QC): 4 (SBA) Walking 10ft on Uneven Surface: 4 (CGA) 1 Step (curb) (QC): 4 (CGA) 4 Steps (QC): 88 12 Steps (QC): 88 Picking up an Object (QC): 4 (CGA using brick off bearer) Wheel 50 feet with 2 turns (QC: 6 Wheel 150 feet: 6 PT Plan Problem List Problem List: Activity Tolerance, Gait Treatment/Plan Treatment Plan: Continue Plan of Care Treatment Plan: Bed Mobility, Education, Functional Activity Malini, Functional Strength, Group Therapy, Gait, Safety, Therapeutic Exercise, Transfers Treatment Duration: Jun 21, 2022 Frequency: At least 5 of 7 days/Wk (IRF) Estimated Hrs Per Day: 1.5 hours per day Patient and/or Family Agrees t: Yes Safety Risks/Education Patient Education: Transfer Techniques, W/C Management, Safety Issues Teaching Recipient: Patient, Significant Other Teaching Methods: Discussion Response to Teaching: Verbalize Understanding Time/GCodes Time In: 1000 Time Out: 1100 Total Billed Treatment Time: 60 Total Billed Treatment 1, WCH (15m), EX (20m) & FA x2 (25m) CARMITA ANNE MONEY MANAGER Jun 07, 2022 11:03
[2022-06-07] MEDS ORDERED: MELO15TA39 PO (12:07)
--- NOTE | 2022-06-07 12:31 | Speech Therapy Daily Note ---
Speech Daily Progress Note Subjective Date Seen by Provider: Jun 07, 2022 Time Seen by Provider: 09:30 The patient was seated upright in his recliner, awake and alert upon entrance to his room by the clinician. The patient greeted the clinician appropriately and was agreeable to participation in the cognitive linguistic treatment session. The patient's was present initially, however, stepped out of the room throughout the clinician's time. Objective The patient has a photo book present with familiar family and friends. The patient and clinician work towards naming familiar individuals and describing specific environments or locations pictured. The patient continues to struggle with confrontational naming, often displaying whole word paraphasia. The patient requires moderate clinician verbal cueing, specifically for encouragement. The patient becomes tearful throughout the exercise on this date, the clinician continues to provide supportive listening and presence. The patient has glasses and hearing aids present for the activity on this date. The clinician continues functional phrases and encourages initiation of conversational topics by the patient. The patient stated he does not speak loudly or often because he is fearful of being incorrect. The clinician stressed the importance of continued verbal output, as the patient is often very quiet throughout therapy sessions providing a barrier to improvement. Assessment Assessment Current Status: Fair Progress Treatment Plan Continue Plan of Care Speech Short Term Goals Short Term Goals Short Term Goals 1. The patient will complete confrontational naming with 90% accuracy and mild clinician verbal cueing. Time Frame-STG: One Week. Speech Jetting Machine Operator Goals Halfway Goals 1. The patient will display improved expressive communication for safe discharge to the least restricted environment. Time Frame: Three Weeks. Speech-Plan Treatment Plan Speech Therapy Treatment Plan: Continue Plan of Care Treatment Duration: Jun 01, 2022 Frequency: Modified Program (IRF) Estimated Hrs Per Day: .5 hour per day Rehab Potential: Fair Safety Risks/Education Teaching Recipient: Patient Teaching Methods: Discussion Response to Teaching: Verbalize Understanding Education Topics Provided: Exercises to Complete Independently Time Speech Therapy Time In: 09:30 Speech Therapy Time Out: 10:00 Total Billed Time: 30 Billed Treatment Time 1DEBBIE ELIZABETH ST Jun 07, 2022 12:31
--- NOTE | 2022-06-07 14:56 | Therapy Group Daily Note ---
Therapy Daily Group Note Patient Education Topic Exercises, Other List Below (Pain Management) Exercises LE Seated Exercise, UE Exercise Session Ratio (pt:therapist): 3:1 Goal of Session: Education on ARU Expectations, UE/LE Strengthing, Other (list) (Pain Management) Goal Met for this Session: Yes Pt Benefit of Group: Contributions to Others, F/U Use of Strategies @Home, Increased Functional Safety, Increased Functional Strength, Improved Cognition, Recognition of Peers, Socialization Other/Notes Pt propels self in [facility] to [facility] area for OT/PT group. Group consisted of introductions (name, place living), socialization, B UE/LE seated exercises, education on pain management and exercise. Pt introduced self appropriately and actively listened to peers. Pt tolerated B UE/LE seated exercises with L side and assistance w/EX on R side. Pt acknowledged understanding of educational topics by engaging in conversation, giving personal examples and actively list ening to topic. After therapy, pt sitting in recliner with call light/phone in reach. All needs met in room. Start Time: 13:00 Stop Time: 14:00 Total Billed Treatment Time: 60 Total Billed Treatment 1, GRP CARMITA ANNE COUTURIERE Jun 07, 2022 14:56
--- NOTE | 2022-06-07 17:16 | Progress Note - Cardiology ---
Cardiology SOAP Progress Note Subjective: No cp or palp or syncope No n/v/d Gen weakness and malaise R-sided weakness Objective: I&O/Vital Signs 06/07/22 06/07/22 07:49 09:00 Temp 37.3 Pulse 81 Resp 16 B/P (MAP) 151/74 (99) Pulse Ox 97 O2 Delivery Room Air Room Air Weight (Pounds): 224 Weight (Ounces): 0.0 Weight (Calculated Kilograms): 101.739295 Constitutional: other (Awake, alert and oriented) Respiratory: No accessory muscle use, No respiratory distress; chest expansion is symmetric, chest is bilaterally symmetric, lungs clear to auscultation Cardiovascular: regular rate-rhythm; No JVD; S1 and S2 Gastrointestional: No tender; soft, round, audible bowel sounds Extremities: no lower extremity edema bilateral Neurologic/Psychiatric: other (expressive aphasia; right hemiparesis) Skin: No rash on exposed areas, No ulcerations on exposed areas Results/Procedures: Labs Laboratory Tests 06/06/22 20:18: Glucometer 135H 06/07/22 05:38: White Blood Count 5.7, Red Blood Count 3.58L, Hemoglobin 10.9L, Hematocrit 33L, Mean Corpuscular Volume 92, Mean Corpuscular Hemoglobin 30, Mean Corpuscular Hemoglobin Concent 33, Red Cell Distribution Width 13.1, Platelet Count 114L, Mean Platelet Volume 11.8, Immature Granulocyte % (Auto) 0, Neutrophils (%) (Auto) 55, Lymphocytes (%) (Auto) 36, Monocytes (%) (Auto) 7, Eosinophils (%) (Auto) 2, Basophils (%) (Auto) 1, Neutrophils # (Auto) 3.1, Lymphocytes # (Auto) 2.0, Monocytes # (Auto) 0.4, Eosinophils # (Auto) 0.1, Basophils # (Auto) 0.1, Immature Granulocyte # (Auto) 0.0, Sodium Level 137, Potassium Level 4.7, Chloride Level 109H, Carbon Dioxide Level 14L, Anion Gap 14, Blood Urea Nitrogen 18, Creatinine 0.93, Estimat Glomerular Filtration Rate 92, BUN/Creatinine Ratio 19, Glucose Level 101, Calcium Level 8.8, Corrected Calcium 9.4, Total Bilirubin 0.4, Aspartate Amino Transf (AST/SGOT) 41H, Alanine Aminotransferase (ALT/SGPT) 33, Alkaline Phosphatase 59, Total Protein 6.7, Albumin 3.3 06/07/22 06:12: Glucometer 94 06/07/22 11:08: Glucometer 108 06/07/22 15:28: Glucometer 154H Laboratory Tests 06/07/22 05:38 A/P: Assessment: 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 Aceves at [facility] states atrial arrhythmia is suspected by [place] [facility] (although never documented); Eliquis was listed as being started, but it does not seem to be on his discharge meds from [place] - [facility] [facility], Dr. Guzman, notes state they are concerned stroke is d/t short segment of MCA stenosis - 21 Day event monitor is in place from [facility] this is scheduled to be followed by Dr. Rose of [place] [facility] Echocardiogram at [facility] is stated to show LVEF 60% with no evidence of PFO or shunt Carotid u/s of 05-20-22: No evidence of hemodynamically significant stenosis. Antegrade flow within the bilateral vertebral arteries. 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 - Continue tele to eval for arrhythmia - Continue Eliquis d/t suspected atrial arrhythmia - D/t suspicion of MCA stenosis as cause of CVA for which he has been on Plavix and ASA we will continue antiplatelet tx with Plavix - we are stopping ASA b/c having him on all 3 agents increases his risk of bleeding Monitor lab closely Advise out pt sleep studies [address] (from [place]) - continue BP averaging somewhat high, but appears reasonable to maintain at this level, given his severe cerebrovascular stenoses (i.e, avoid hypotension) MARTIN IVERSON MD FACP FAC CCDS Jun 07, 2022 17:15
[2022-06-07 21:08] VITALS: BP 144/67
[2022-06-07] MEDS: amLODIPine 10 MG (NORVASC) TAB PO SCH (21:12)
--- NOTE | 2022-06-08 06:48 | PM&R Progress Note ---
Subjective HPI/CC On Admission Date Seen by Provider: Jun 08, 2022 Time Seen by Provider: 09:00 Subjective/Events-last exam 06/08/2022: Major issues from an emotional status Tried to give him a pep talk like Jeff, PT did Very difficult to rise out of grief of catastrophic CVA 06/07/2022: Much improved status Working with therapy Motivation doing fairly well Declines anti-depressant No falls 06/06/2022: Patient doing well Eliquis maintained No bleeding problems Discontinue the telemetry Monitoring closely 06/05/2022: Appreciate Dr. Powers Doing well overall and son at the bedside Concerned about his vision at times Eliquis maintained 06/04/2022: Patient still doing pretty well Right eye drooping noted and the decision was made to place on Eliquis empirically since he is external monitoring is not a live feed so will place on telemetry in the meantime Consulting cardiology evaluated the records and noted Eliquis was not on the discharge med list so it was not started until today when I started it Patient overall doing much better Hesitant about depression medication and I did speak with Deb after she saw him at 1400 06/03/2022: Patient dramatically improved Able to walk with a complex cane with leg support Feels much better Improved morale 06/02/2022: Pt is doing pretty well Bowels are moving Responding better Severely depressed so will initiate a behavioral consult No pain is reported 06/01/2022: Pt is doing a lot better Pt is a very private person Discontinue Gabapnetin per request Bowels moved yesterday He fell last night without an injury Updated pt and regarding the plan Review of Systems General: Fatigue, Malaise Objective Exam Vital Signs Vital Signs Date Time Temp Pulse Resp B/P (MAP) Pulse Ox O2 Delivery O2 Flow Rate FiO2 06/08/22 21:18 36.8 64 16 150/68 (95) 97 Room Air Capillary Refill : General Appearance: No Apparent Distress, WD/WN, Obese HEENT: PERRL/EOMI, Normal ENT Inspection, Pharynx Normal Neck: Full Range of Motion, Normal Inspection, Non Tender, Supple, Carotid Bruit Respiratory: Chest Non Tender, Lungs Clear, Normal Breath Sounds, No Accessory Muscle Use, No Respiratory Distress Cardiovascular: Regular Rate, Rhythm, No Edema, No Gallop, No JVD, No Murmur, Normal Peripheral Pulses Gastrointestinal: Normal Bowel Sounds, No Organomegaly, No Pulsatile Mass, Non Tender, Soft Back: Normal Inspection, No CVA Tenderness, No Vertebral Tenderness Extremity: Normal Capillary Refill, Normal Inspection, Normal Range of Motion (except right side), Non Tender, No Calf Tenderness, No Pedal Edema Neurologic/Psychiatric: Alert, Oriented x3, Normal Mood/Affect, credit analysis manager II-XII Norm as Tested, Abnormal Gait, Aphasia, Depressed Affect, Motor Weakness (right sided weakness 1/5) Skin: Normal Color, Warm/Dry Lymphatic: No Adenopathy Results/Procedures Lab Patient resulted labs reviewed. FIM Transfers Therapy Code Descriptions/Definitions Functional [place] Measure: 0=Not Assessed/NA 4=Minimal Assistance 1=Total Assistance 5=Supervision or Setup 2=Maximal Assistance 6=Modified [place] 3=Moderate Assistance 7=Complete IndependenceSCALE: Activities may be completed with or without assistive devices. 7-Nzigkkoslr-skbizhz completes the activity by him/herself with no assistance from a helper. 5-Set-up or Clean-up Assistance-helper sets up or cleans up; patient completes activity. [place] assists only prior to or following the activity. 4-Supervision or Touching Assistance-helper provides verbal cues and/or touchin g/steadying and/or contact guard assistance as patient completes activity. Assistance may be provided throughout the activity or intermittently. 3-Partial/Moderate Assistance-helper does LESS THAN HALF the effort. [place] lifts, holds or supports trunk or limbs, but provides less than half the effort. 2-Substantial/Maximal Assistance-helper does MORE THAN HALF the effort. [place] lifts or holds trunk or limbs and provides more than half the effort. 2-[place]um[place]-ckyoxf does ALL the effort. Patient does none of the effort to complete the activity. Or, the assistance of 2 or more helpers is required for the patient to complete the activity. If activity was not attempted, code reason: 7-Patient Refused. 9-Not Applicable-not attempted and the patient did not perform the activity before the current illness, exacerbation or injury. 10-Not Attempted due to Environmental Limitations-(lack of equipment, weather restraints, etc.). 88-Not Attempted due to Medical Conditions or Safety Concerns. Roll Left to Right (QC): 6 Sit to Lying (QC): 4 Sit to Stand (QC): 4 Chair/Pfv-jv-Nzfmw Xfer(QC): 3 Car Transfer (QC): 3 Gait Training Does the Patient Walk?: Yes Distance: 40'x3 Walk 10 feet (QC): 3 Walk 50 ft with 2 Turns(QC): 3 Walk 150 ft (QC): 88 Walking 10ft/uneven surface-QC: 88 Gait Persons Needed: 1 Gait Assistive Device: Walker Timothy Wheelchair Training Does the Pt Use a Wheelchair?: Yes Distance: 150'x2, 120' Wheel 50 ft with 2 turns (QC): 5 Wheel 150 ft (QC): 5 Type of Wheelchair: Manual Stair Training 1 Step (curb) (QC): 88 4 Steps (QC): 88 12 Steps (QC): 88 Balance Picking up an Object (QC): 88 ADL-Treatment Eating (QC): 6 Oral Hygiene (QC): 6 Shower/Bathe Self (QC): 3 Upper Body Dressing (QC): 3 Lower Body Dressing (QC): 2 On/Off Footwear (QC): 2 Toileting Hygiene (QC): 3 Toilet Transfer (QC): 4 Assessment/Plan Assessment and Plan Assess & Plan/Chief Complaint Assessment: Debility CVA Right sided weakness Dysarthria HTN Diabetes mellitus type 2 HLD Sleep apnea Anxiety Chronic back pain Fall risk SHAE suspected needs sleep study Suspected AF monitor in place and placed on Eliquis empirically on 06/04/2022 by de Plan: Start PT, OT, speech therapy Monitor blood sugars Start long acting insulin and SSI Restart home meds Pain control Closely monitor due to risk of fall 06/01/2022: Fall risk Monitor closely 06/02/2022: Behavioral health consult for depression Supportive care 06/03/2022: Dramatic improvement Ambulated 06/04/2022: Start Eliquis Revenue Liaison closely 06/05/2022: Eliquis PT and OT 06/06/2022: Eliquis Aggressive therapy 06/07/2022: Suspect SHAE Monitor BP 06/08/2022: Try to rise above grief and depression (1) CVA (cerebral vascular accident) (2) Dysarthria (3) Right sided weakness (4) Uncontrolled type 2 diabetes mellitus Status: Acute (5) Hypertension Status: Acute DEBBY ORTIZ DO Jun 08, 2022 06:48
[2022-06-08 07:24] VITALS: BP 158/74
[2022-06-08] MEDS: VERAPAMIL SR 240 MG (CALAN SR) TAB PO SCH (08:42)
[2022-06-08] MEDS: CLOPIDOGREL 75 MG (PLAVIX) TABLET PO SCH (08:42)
[2022-06-08] MEDS: APIXABAN 5 MG (ELIQUIS) TABLET PO SCH ×2 (08:42→20:45)
[2022-06-08] MEDS: LOSARTAN 100 MG (COZAAR) TABLET PO SCH (08:42)
[2022-06-08] MEDS: FENOFIBRATE 134 MG (LOFIBRA) CAPSULE PO SCH (08:42)
[2022-06-08] MEDS: inSUlin ASPART (NovoLOG) 1 UNIT/0.01 ML (CHARGE PER UNIT) SC SCH ×3 (08:43→17:25)
[2022-06-08] MEDS: polyethylene glycoL POWDER 17 GM (MIRALAX) PACK PO SCH ×2 (08:44→20:49)
[2022-06-08] MEDS: SENNA W/DOCUSATE (SENOKOT S) TABLET PO SCH ×2 (08:44→20:49)
--- NOTE | 2022-06-08 10:18 | Physical Therapy Progress Note ---
Therapy Progress Note Patient politely refuses physical therapy today. Patient has been having a rough day emotionally. Patient continues to refuse even after careful and caring encouragement to participate. Dr. Duenas has talked to patient and also therapy supervisor intelligence analyst. Patient at this time would like to postpone therapy until tomorrow. BUDDY GARCIA PT Jun 08, 2022 10:18
--- NOTE | 2022-06-08 10:27 | Progress Note - Cardiology ---
Cardiology SOAP Progress Note Objective: I&O/Vital Signs 06/08/22 06/08/22 07:24 09:19 Temp 36.8 Pulse 72 Resp 18 B/P (MAP) 158/74 (102) Pulse Ox 97 O2 Delivery Room Air Room Air Weight (Pounds): 224 Weight (Ounces): 0.0 Weight (Calculated Kilograms): 101.329975 Constitutional: other (Awake, alert and oriented) Respiratory: No accessory muscle use, No respiratory distress; chest expansion is symmetric, chest is bilaterally symmetric, lungs clear to auscultation Cardiovascular: regular rate-rhythm; No JVD; S1 and S2 Gastrointestional: No tender; soft, round, audible bowel sounds Extremities: no lower extremity edema bilateral Neurologic/Psychiatric: other (expressive aphasia; right hemiparesis) Skin: No rash on exposed areas, No ulcerations on exposed areas Results/Procedures: Labs Laboratory Tests 06/07/22 11:08: Glucometer 108 06/07/22 15:28: Glucometer 154H 06/07/22 21:07: Glucometer 155H 06/08/22 05:34: Glucometer 130H Laboratory Tests 06/07/22 05:38 A/P: Assessment: 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 Aceves at [facility] states atrial arrhythmia is suspected by [place] [facility] (although never documented); Eliquis was listed as being started, but it does not seem to be on his discharge meds from [place] - [place] [facility], Dr. Guzman, notes state they are concerned stroke is d/t short segment of MCA stenosis - 21 Day event monitor is in place from [facility] this is scheduled to be followed by Dr. Rose of [place] [facility] Echocardiogram at [facility] is stated to show LVEF 60% with no evidence of PFO or shunt Carotid u/s of 05-20-22: No evidence of hemodynamically significant stenosis. Antegrade flow within the bilateral vertebral arteries. 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
--- NOTE | 2022-06-08 11:23 | Speech Therapy Daily Note ---
Speech Daily Progress Note Subjective Date Seen by Provider: Jun 08, 2022 Time Seen by Provider: 09:30 Upon entrance to the room, the patient has his hand over his eyes. The patient responds to the clinician's verbal greeting, however, does not make eye contact on this date. Objective The clinician discusses the upcoming therapy session (exercises, goals, etc.) as the patient becomes tearful. Per patient, the prior night was "bad." The clinician offered communication aid and assistance if the patient wished to discuss his evening with the clinician, however, he politely declined. The clinician provided the patient with "[place]" in larger font as he requested the day prior. The patient did not wish to attempt oral reading, therefore, the clinician read the text aloud for direct modeling of language. The text was left with the clinician's prior recommended exercises in the patient's room, in a plastic sheet. The patient continues tearfulness and continues to turn his face away from the clinician. At this time, the clinician provides the patient support and requested time/space. The patient stated, "just not a good one." At this time, the patient's reluctancy to commit verbal language errors and soft spoken demeanor is providing a barrier towards improvement. The patient has shared he is fearful to speak at louder tones as "the words don't come out right." The clinician encourages the patient to continue audible verbalizations as practice is necessary for improvement, self-awareness, and correction. Assessment Assessment Current Status: Refused Treatment (Politely.) Treatment Plan Continue Plan of Care Speech Short Term Goals Short Term Goals Short Term Goals 1. The patient will complete confrontational naming with 90% accuracy and mild clinician verbal cueing. Time Frame-STG: One Week. Speech Atlassian Administrator Goals Chcf Goals 1. The patient will display improved expressive communication for safe discharge to the least restricted environment. Time Frame: Three Weeks. Speech-Plan Treatment Plan Speech Therapy Treatment Plan: Continue Plan of Care Treatment Duration: Jun 01, 2022 Frequency: Modified Program (IRF) Estimated Hrs Per Day: .5 hour per day Rehab Potential: Fair Safety Risks/Education Teaching Recipient: Patient Teaching Methods: Discussion Response to Teaching: Verbalize Understanding Education Topics Provided: Recommendations, Therapy Progression Time Speech Therapy Time In: 09:30 Speech Therapy Time Out: 09:48 Total Billed Time: 18 Billed Treatment Time 1, SLTS MARY,SHADY ST Jun 08, 2022 11:23
--- NOTE | 2022-06-08 11:32 | Occ Therapy Progress Note ---
Therapy Progress Note Attempted to engage pt in therapy session at 0715 and at 1045. Pt refused therapy each time, making known that he is frustrated and begins to tear up then covers face with L hand and shakes head no. YEIMY continued to attempt to engage pt, asking if he wanted to call his (pt shook head no), go outside for therapy (pt shook head no) or if there was anything that the pt needed (pt shook head no). Alerted therapy supervisor leaf spring fabrication of pt refusal. Will attempt in pm. 2 visit-2 refusals JEANETTE VALDOVINOS Jun 08, 2022 11:32
[2022-06-08] MEDS: ALPRAZolam 0.5 MG (XANAX) TAB PO PRN (12:52)
--- NOTE | 2022-06-08 13:35 | Speech Therapy Daily Note ---
Speech Daily Progress Note Subjective Date Seen by Provider: Jun 08, 2022 Time Seen by Provider: 13:13 The patient was seated upright in his recliner, awake and alert upon entrance to his room by the clinician. The patient greeted the clinician appropriately and was agreeable to participation in the cognitive linguistic treatment session. The patient's was present at bedside and remained for the treatment session. Objective The patient was apologetic regarding his reduced participation throughout the morning visit. The clinician provided supportive presence and understanding, confirming with the patient that we will apple picking supervisor where we left off. The patient remains motivated for improvement. The clinician, patient, and patient's reviewed the recommended language exercises for completion outside of skilled treatment time. Additionally, the clinician and patient completed naming of individuals in the patient's photo book. At one time, the patient stated, "I don't know." The clinician provided praise, as she has requested the patient increased verbalizations to aid in conversation and communication repair. Assessment Assessment Current Status: Fair Progress Treatment Plan Continue Plan of Care Speech Short Term Goals Short Term Goals Short Term Goals 1. The patient will complete confrontational naming with 90% accuracy and mild clinician verbal cueing. Time Frame-STG: One Week. Speech Radiology Director Goals Radiology Director Goals 1. The patient will display improved expressive communication for safe discharge to the least restricted environment. Time Frame: Three Weeks. Speech-Plan Treatment Plan Speech Therapy Treatment Plan: Continue Plan of Care Treatment Duration: Jun 01, 2022 Frequency: Modified Program (IRF) Estimated Hrs Per Day: .5 hour per day Rehab Potential: Fair Safety Risks/Education Teaching Recipient: Patient, Significant Other Teaching Methods: Discussion Response to Teaching: Verbalize Understanding Education Topics Provided: Recommendations, Exercises Time Speech Therapy Time In: 13:13 Speech Therapy Time Out: 13:25 Total Billed Time: 12 Billed Treatment Time 1, TIP WILLIAMSONMIKE WALTERS Jun 08, 2022 13:35
--- NOTE | 2022-06-08 13:48 | Physical Therapy Progress Note ---
Therapy Progress Note Patient continues to refuse physical therapy this afternoon. Will try again in the morning. BUDDY GARCIA PT Jun 08, 2022 13:48
--- NOTE | 2022-06-08 14:06 | Occ Therapy Progress Note ---
Therapy Progress Note Pt declines therapy services. Encouraged pt to participate in OT and gave pt multiple choices, pt continues to pleasantly decline. Throughout the day when GAFFNEY attempted to engage pt in OT sessions, pt was pleasant though visibly upset/frustrated ie, tearful. Will attempt tomorrow. 1 refusal JEANETTE VALDOVINOS Jun 08, 2022 14:06
[2022-06-08] MEDS: amLODIPine 10 MG (NORVASC) TAB PO SCH (20:45)
[2022-06-08 21:18] VITALS: BP 150/68
--- NOTE | 2022-06-09 07:13 | PM&R Progress Note ---
Subjective HPI/CC On Admission Date Seen by Provider: Jun 09, 2022 Time Seen by Provider: 12:00 Subjective/Events-last exam 06/09/2022: Improved status today No pain Improved emotional well being today Participating in therapy 06/08/2022: Major issues from an emotional status Tried to give him a pep talk like Jeff, PT did Very difficult to rise out of grief of catastrophic CVA 06/07/2022: Much improved status Working with therapy Motivation doing fairly well Declines anti-depressant No falls 06/06/2022: Patient doing well Eliquis maintained No bleeding problems Discontinue the telemetry Monitoring closely 06/05/2022: Appreciate Dr. Powers Doing well overall and son at the bedside Concerned about his vision at times Eliquis maintained 06/04/2022: Patient still doing pretty well Right eye drooping noted and the decision was made to place on Eliquis empirically since he is external monitoring is not a live feed so will place on telemetry in the meantime Consulting cardiology evaluated the records and noted Eliquis was not on the discharge med list so it was not started until today when I started it Patient overall doing much better Hesitant about depression medication and I did speak with Deb after she saw him at 1400 06/03/2022: Patient dramatically improved Able to walk with a complex cane with leg support Feels much better Improved morale 06/02/2022: Pt is doing pretty well Bowels are moving Responding better Severely depressed so will initiate a behavioral consult No pain is reported 06/01/2022: Pt is doing a lot better Pt is a very private person Discontinue Gabapnetin per request Bowels moved yesterday He fell last night without an injury Updated pt and regarding the plan Review of Systems Neurological: Other (depression) Objective Exam Vital Signs Vital Signs Date Time Temp Pulse Resp B/P (MAP) Pulse Ox O2 Delivery O2 Flow Rate FiO2 06/09/22 21:00 Room Air 06/09/22 19:54 36.8 65 18 152/70 (97) 97 Capillary Refill : General Appearance: No Apparent Distress, WD/WN, Obese HEENT: PERRL/EOMI, Normal ENT Inspection, Pharynx Normal Neck: Full Range of Motion, Normal Inspection, Non Tender, Supple, Carotid Bruit Respiratory: Chest Non Tender, Lungs Clear, Normal Breath Sounds, No Accessory Muscle Use, No Respiratory Distress Cardiovascular: Regular Rate, Rhythm, No Edema, No Gallop, No JVD, No Murmur, Normal Peripheral Pulses Gastrointestinal: Normal Bowel Sounds, No Organomegaly, No Pulsatile Mass, Non Tender, Soft Back: Normal Inspection, No CVA Tenderness, No Vertebral Tenderness Extremity: Normal Capillary Refill, Normal Inspection, Normal Range of Motion (except right side), Non Tender, No Calf Tenderness, No Pedal Edema Neurologic/Psychiatric: Alert, Oriented x3, Normal Mood/Affect, anesthesiologist assistant certified II-XII Norm as Tested, Abnormal Gait, Aphasia, Depressed Affect, Motor Weakness (right sided weakness 1/5) Skin: Normal Color, Warm/Dry Lymphatic: No Adenopathy Results/Procedures Lab Patient resulted labs reviewed. FIM Transfers Therapy Code Descriptions/Definitions Functional [place] Measure: 0=Not Assessed/NA 4=Minimal Assistance 1=Total Assistance 5=Supervision or Setup 2=Maximal Assistance 6=Modified [place] 3=Moderate Assistance 7=Complete IndependenceSCALE: Activities may be completed with or without assistive devices. 3-Iqftxfcfvw-taxdfcb completes the activity by him/herself with no assistance from a helper. 5-Set-up or Clean-up Assistance-helper sets up or cleans up; patient completes activity. [place] assists only prior to or following the activity. 4-Supervision or Touching Assistance-helper provides verbal cues and/or touching/steadying and/or contact guard assistance as patient completes activity. Assistance may be provided throughout the activity or intermittently. 3-Partial/Moderate Assistance-helper does LESS THAN HALF the effort. [place] lifts, holds or supports trunk or limbs, but provides less than half the effort. 2-Substantial/Maximal Assistance-helper does MORE THAN HALF the effort. [place] lifts or holds trunk or limbs and provides more than half the effort. 5-Ekbfoguau-kdextd does ALL the effort. Patient does none of the effort to complete the activity. Or, the assistance of 2 or more helpers is required for the patient to complete the activity. If activity was not attempted, code reason: 7-Patient Refused. 9-Not Applicable-not attempted and the patient did not perform the activity before the current illness, exacerbation or injury. 10-Not Attempted due to Environmental Limitations-(lack of equipment, weather restraints, etc.). 88-Not Attempted due to Medical Conditions or Safety Concerns. Roll Left to Right (QC): 6 Sit to Lying (QC): 4 Sit to Stand (QC): 4 Chair/Bbr-qd-Ubhdf Xfer(QC): 3 Car Transfer (QC): 3 Gait Training Does the Patient Walk?: Yes Distance: 40'x3 Walk 10 feet (QC): 3 Walk 50 ft with 2 Turns(QC): 3 Walk 150 ft (QC): 88 Walking 10ft/uneven surface-QC: 88 Gait Persons Needed: 1 Gait Assistive Device: Walker Timothy Wheelchair Training Does the Pt Use a Wheelchair?: Yes Distance: 150'x2, 120' Wheel 50 ft with 2 turns (QC): 5 Wheel 150 ft (QC): 5 Type of Wheelchair: Manual Stair Training 1 Step (curb) (QC): 88 4 Steps (QC): 88 12 Steps (QC): 88 Balance Picking up an Object (QC): 88 ADL-Treatment Eating (QC): 6 Oral Hygiene (QC): 6 Shower/Bathe Self (QC): 3 Upper Body Dressing (QC): 3 Lower Body Dressing (QC): 2 On/Off Footwear (QC): 2 Toileting Hygiene (QC): 3 Toilet Transfer (QC): 4 Assessment/Plan Assessment and Plan Assess & Plan/Chief Complaint Assessment: Debility CVA Right sided weakness Dysarthria HTN Diabetes mellitus type 2 HLD Sleep apnea Anxiety Chronic back pain Fall risk SHAE suspected needs sleep study Suspected AF monitor in place and placed on Eliquis empirically on 06/04/2022 by me Depression Plan: Start PT, OT, speech therapy Monitor blood sugars Start long acting insulin and SSI Restart home meds Pain control Closely monitor due to risk of fall 06/01/2022: Fall risk Monitor closely 06/02/2022: Behavioral health consult for depression Supportive care 06/03/2022: Dramatic improvement Ambulated 06/04/2022: Start Eliquis Veterinary Technology Instructor closely 06/05/2022: Eliquis PT and OT 06/06/2022: Eliquis Aggressive therapy 06/07/2022: Suspect SHAE Monitor BP 06/08/2022: Try to rise above grief and depression 06/09/2022: Improved status (1) CVA (cerebral vascular accident) (2) Dysarthria (3) Right sided weakness (4) Uncontrolled type 2 diabetes mellitus Status: Acute (5) Hypertension Status: Acute DEBBY ORTIZ DO Jun 09, 2022 07:13
[2022-06-09 07:49] VITALS: BP 135/70
--- NOTE | 2022-06-09 08:23 | Speech Therapy Progress Note ---
Therapy Progress Note Speech pathology has been approached by multiple staff members requesting the appropriateness of a communication board for the patient. At this time, the patient is able to accurately communicate verbally (single words, yes/no responses, at times- short phrases) with additional response time provided. Additionally, the patient can communicate nonverbally with gestures (pointing, eye contact) and facial expressions. The clinician has attempted writing/spelling with the patient. At this time, the patient's writing mirrors his verbal speech/communication and causes increased frustration, however, does remain a goal. SHADY HERNANDEZ Jun 09, 2022 08:23
[2022-06-09] MEDS: inSUlin ASPART (NovoLOG) 1 UNIT/0.01 ML (CHARGE PER UNIT) SC SCH ×3 (08:32→17:04)
[2022-06-09] MEDS: FENOFIBRATE 134 MG (LOFIBRA) CAPSULE PO SCH (09:01)
[2022-06-09] MEDS: SENNA W/DOCUSATE (SENOKOT S) TABLET PO SCH ×2 (09:01→21:02)
[2022-06-09] MEDS: CLOPIDOGREL 75 MG (PLAVIX) TABLET PO SCH (09:01)
[2022-06-09] MEDS: VERAPAMIL SR 240 MG (CALAN SR) TAB PO SCH (09:01)
[2022-06-09] MEDS: APIXABAN 5 MG (ELIQUIS) TABLET PO SCH ×2 (09:01→21:02)
[2022-06-09] MEDS: LOSARTAN 100 MG (COZAAR) TABLET PO SCH (09:01)
[2022-06-09] MEDS: polyethylene glycoL POWDER 17 GM (MIRALAX) PACK PO SCH ×2 (09:02→21:02)
--- NOTE | 2022-06-09 10:18 | Speech Therapy Daily Note ---
Speech Daily Progress Note Subjective Date Seen by Provider: Jun 09, 2022 Time Seen by Provider: 09:30 The patient was seated upright in his recliner, awake and alert upon entrance to the patient's room by the clinician. The patient is in much improved spirits, motivated, and ready to begin the cognitive linguistic treatment session. The patient has his hearing aides in place and independently places glasses on. Objective While tears remain intermittently present throughout the treatment session, they are displayed appropriately and the patient continues to push himself forward throughout the task. The patient remains extremely participatory throughout each exercise on this date. The patient completes oral reading of a short sentence with fair accuracy, displaying increased difficulty with blends (strike, drops, prism). The sentence is read five times aloud by the patient with moderate verbal cueing from the clinician. Following, the more difficult words were practiced five times each with increasing accuracy on each attempt. A white board was provided by the patient's RN on this date. Due to its presence, the clinician re-attempted writing exercises. The patient is able to write single letters to dictation. The patient was able to write one single word with his left hand, prior to perseveration being present. The clinician will continue attempts at written communication. The patient participated in informal conversation on this date with moderate clinician cueing. Throughout gestures, short phrases, and facial expressions, the patient was able to communicate the location of his street address to the clinician when familiar locations from his hometown were provided. Assessment Assessment Current Status: Fair Progress Treatment Plan Continue Plan of Care Speech Short Term Goals Short Term Goals Short Term Goals 1. The patient will complete confrontational naming with 90% accuracy and mild clinician verbal cueing. Time Frame-STG: One Week. Speech Halfway Goals Programmer Analyst Health It Goals 1. The patient will display improved expressive communication for safe discharge to the least restricted environment. Time Frame: Three Weeks. Speech-Plan Treatment Plan Speech Therapy Treatment Plan: Continue Plan of Care Treatment Duration: Jun 01, 2022 Frequency: Modified Program (IRF) Estimated Hrs Per Day: .5 hour per day Rehab Potential: Fair Safety Risks/Education Teaching Recipient: Patient Teaching Methods: Demonstration, Discussion Response to Teaching: Verbalize Understanding, Return Demonstration Education Topics Provided: Cueing Hierarchy, Communication Exercises Time Speech Therapy Time In: 09:30 Speech Therapy Time Out: 10:00 Total Billed Time: 30 Billed Treatment Time 1, SHADY WILLIAMSON Jun 09, 2022 10:18
--- NOTE | 2022-06-09 10:52 | Physical Therapy Daily Note ---
PT Daily Note-Current Subjective Pt. up in recliner, agrees to Rx, Appears frustrated on and off through Rx. No c/o pain Pain Location: No Pain Reported Mental Status Patient Orientation: Non-Verbal/Aphasic Attachments: Other-See Comments (AFO and cage RLE) Transfers SCALE: Activities may be completed with or without assistive devices. 1-Rofjocogbk-ufbksdz completes the activity by him/herself with no assistance from a helper. 5-Set-up or Clean-up Assistance-helper sets up or cleans up; patient completes activity. Arma assists only prior to or following the activity. 4-Supervision or Touching Assistance-helper provides verbal cues and/or touching/steadying and/or contact guard assistance as patient completes activity. Assistance may be provided throughout the activity or intermittently. 3-Partial/Moderate Assistance-helper does LESS THAN HALF the effort. Arma lifts, holds or supports trunk or limbs, but provides less than half the effort. 2-Substantial/Maximal Assistance-helper does MORE THAN HALF the effort. Arma lifts or holds trunk or limbs and provides more than half the effort. 7-Ehmuxsoqe-lxdhif does ALL the effort. Patient does none of the effort to complete the activity. Or, the assistance of 2 or more helpers is required for the patient to complete the activity. If activity was not attempted, code reason: 7-Patient Refused. 9-Not Applicable-not attempted and the patient did not perform the activity before the current illness, exacerbation or injury. 10-Not Attempted due to Environmental Limitations-(lack of equipment, weather restraints, etc.). 88-Not Attempted due to Medical Conditions or Safety Concerns. Roll Left & Right (QC): 4 Sit to Lying (QC): 4 Lying to Sitting/Side of Bed(Q: 4 Sit to Stand (QC): 4 Chair/Hzp-kp-Ljmpg Xfer(QC): 3 in out bed required min assist and instruction, SPTs chair to chair with discussion about safety and most advantageous , most efficient direction to turn etc Weight Bearing Full Weight Bearing Full Weight Bearing Gait Training Does the Patient Walk?: Yes Walk 10 feet (QC): 3 Walk 50 ft with 2 Turns(QC): 3 Gait Persons Needed: 1 Gait Assistive Device: Walker Timothy gait requires assist for alignment and weight shift and cues for trunk extension R>L . uneven step length, step to gait with w/c close behind 35 ft x 3 Wheelchair Training Does the Pt Use a Wheelchair?: Yes Wheel 50 ft with 2 turns (QC): 5 Type of Wheelchair: Manual pt. frustrated when attempting to move forward in w/c with use of only one arm and inability to successfully put RLE on leg rest and off indep. Pts cervical ROM was assessed, pt. able to see behind himself both left and right and was able to successfully propel w/c reverse with good control looking behind him both ways for 150 ft with [address] in to his room and positioned for short walk to his recliner Exercises Supine Ex: Bridging, Ankle pumps, Quad Set, Rolling, Glut sets, Lower trunk rotation, Heel Slides, Short Arc Quads, Scooting, Straight leg raise, Hip abd/add Supine Reps: 20 assist for ther ex Neuromuscular as above Assessment Current Status: Good Progress PT Short Term Goals Short Term Goals Time Frame: Jun 07, 2022 Roll Left & Right: 4 (CGA) Sit to lyin (CGA) Lying to sitting on side of be: 4 (CGA) Sit to stand: 4 (CGA) Chair/kjx-sd-xdwpa transfer: 4 (CGA) Walk 10 feet: 4 (CGA) Walk 50 feet with two turns: 4 (CGA) PT Nitric Acid Concentrator Operator Goals Jail Goals PT Jail Goals Time Frame: Jun 21, 2022 Roll Left & Right (QC): 4 (SBA) Sit to Lying (QC): 4 (SBA) Lying-Sitting on Side/Bed(QC): 4 (SBA) Sit to Stand (QC): 4 (SBA) Chair/Ani-ue-Ejgzj Xfer(QC): 4 (SBA) Toilet Transfer (QC): 4 (SBA) Car Transfer (QC): 4 (CGA) Does the Patient Walk: Yes Walk 10 feet (QC): 4 (SBA) Walk 50ft with 2 Turns (QC): 4 (SBA) Walk 150 ft (QC): 4 (SBA) Walking 10ft on Uneven Surface: 4 (CGA) 1 Step (curb) (QC): 4 (CGA) 4 Steps (QC): 88 12 Steps (QC): 88 Picking up an Object (QC): 4 (CGA using reproducer) Wheel 50 feet with 2 turns (QC: 6 Wheel 150 feet: 6 PT Plan Treatment/Plan Treatment Plan: Continue Plan of Care Treatment Plan: Bed Mobility, Education, Functional Activity Malini, Functional Strength, Group Therapy, Gait, Safety, Therapeutic Exercise, Transfers Treatment Duration: Jun 21, 2022 Frequency: At least 5 of 7 days/Wk (IRF) Estimated Hrs Per Day: 1.5 hours per day Patient and/or Family Agrees t: Yes Safety Risks/Education Patient Education: Gait Training, Transfer Techniques, Correct Positioning, W/C Management, Disease Process, Safety Issues Teaching Recipient: Patient Teaching Methods: Demonstration, Discussion Response to Teaching: Verbalize Understanding, Return Demonstration, Reinforcement Needed Time/GCodes Time In: 1000 Time Out: 1045 Total Billed Treatment Time: 45 Total Billed Treatment 1,GT20m,WC 10m,EX15m GEOVANNA JONES MANAGER PROCUREMENT Jun 09, 2022 10:52
--- NOTE | 2022-06-09 11:46 | Occupational Ther Daily Note ---
OT Current Status-Daily Note Subjective Pt alert, sitting in recliner. Just finishing with PT session. No c/o pain. Mental Status/Objective Patient Orientation: Person, Place, Non-Verbal/Aphasic, Time, Situation Attachments: Other-See Comments (AFO R ankle) ADL-Treatment Pt declines ADLs. assists with showering. Therapy Code Descriptions/Definitions Functional [place] Measure: 0=Not Assessed/NA 4=Minimal Assistance 1=Total Assistance 5=Supervision or Setup 2=Maximal Assistance 6=Modified [place] 3=Moderate Assistance 7=Complete IndependenceSCALE: Activities may be completed with or without assistive devices. 1-Xvasimwipw-eynwpvv completes the activity by him/herself with no assistance from a helper. 5-Set-up or Clean-up Assistance-helper sets up or cleans up; patient completes activity. [place] assists only prior to or following the activity. 4-Supervision or Touching Assistance-helper provides verbal cues and/or touching/steadying and/or contact guard assistance as patient completes activity. Assistance may be provided throughout the activity or intermittently. 3-Partial/Moderate Assistance-helper does LESS THAN HALF the effort. [place] lifts, holds or supports trunk or limbs, but provides less than half the effort. 2-Substantial/Maximal Assistance-helper does MORE THAN HALF the effort. [place] lifts or holds trunk or limbs and provides more than half the effort. 5-Ojsvrrree-suffns does ALL the effort. Patient does none of the effort to complete the activity. Or, the assistance of 2 or more helpers is required for the patient to complete the activity. If activity was not attempted, code reason: 7-Patient Refused. 9-Not Applicable-not attempted and the patient did not perform the activity before the current illness, exacerbation or injury. 10-Not Attempted due to Environmental Limitations-(lack of equipment, weather restraints, etc.). 88-Not Attempted due to Medical Conditions or Safety Concerns. Other Treatment Pt ambulated ~50' with 2 rest breaks using Inofilewalker mod A. Pt completed arm bike without resistance for 2.5 min forward rotation and 2.5 backward rotation with B UE's then 1 min without resistance forward resistance using R UE and guidance. R hand HOLLAND wrapped to handle to support zipper trimmer. Pt then working on no resistance gravity eliminated horizontal abd/add(AAROM), shldr protraction/retraction(AAROM), finger flex/ext(AROM). Pt then taken back to room. SBA for SPT from w/c to recliner. Call light/phone in reach. All needs met. OT Short Term Goals Short Term Goals Time Frame: Jun 23, 2022 Oral hygiene: 5 Toileting hygiene: 4 Shower/bathe self: 4 Lower body dressin Putting on/taking off footwear: 4 OT Policy Manager Goals Policy Manager Goals Time Frame: Jul 02, 2022 Eating (QC): 6 Oral Hygiene (QC): 6 Toileting Hygiene (QC): 6 Shower/Bathe Self (QC): 6 Upper Body Dressing (QC): 6 Lower Body Dressing (QC): 6 On/Off Footwear (QC): 6 Additional Goals: 1-Demonstrate ADL Tasks, 2-Verbalize Understanding, 3- ImproveStrength/Malini 1=Demonstrate adherence to instructed precautions during ADL tasks. 2=Patient will verbalize/demonstrate understanding of assistive devices/modifications for ADL. 3=Patient will improve strength/tolerance for activity to enable patient to perform ADL's. OT Education/Plan Problem List/Assessment Assessment: Decreased Activ Tolerance, Decreased UE Strength, Impaired Coordination, Impaired Funct Balance, Impaired Self-Care Skills, Restricted Funct UE ROM Discharge Recommendations Plan/Recommendations: Continue POC Treatment Plan/Plan of Care Patient would benefit from OT for education, treatment and training to promote independence in ADL's, mobility, safety and/or upper extremity function for ADL's. Plan of Care: ADL Retraining, Functional Mobility, Group Exercise/Act as Ind, UE Funct Exercise/Act, UE Neuromus Re-Ed/Coord, W/C Management Training Treatment Duration: Jul 02, 2022 Frequency: At least 5 of 7 days/Wk (IRF) Estimated Hrs Per Day: 1.5 hours per day Agreement: Yes Rehab Potential: Fair Time/GCodes Start Time: 10:45 Stop Time: 11:45 Total Time Billed (hr/min): 60 Billed Treatment Time 1 visit-NM 3 (45 min) FA 1 (15 min) JEANETTE VALDOVINOS Jun 09, 2022 11:46
--- NOTE | 2022-06-09 13:20 | Occupational Ther Daily Note ---
OT Current Status-Daily Note Subjective Pt very quiet throughout treatment, only answers minimal questions. Does have aphasia. Appearance Pt left sitting in recliner, all needs within reach at therapy departure. ADL-Treatment Therapy Code Descriptions/Definitions Functional [place] Measure: 0=Not Assessed/NA 4=Minimal Assistance 1=Total Assistance 5=Supervision or Setup 2=Maximal Assistance 6=Modified [place] 3=Moderate Assistance 7=Complete IndependenceSCALE: Activities may be completed with or without assistive devices. 1-Xfdpuoncqf-frkckja completes the activity by him/herself with no assistance from a helper. 5-Set-up or Clean-up Assistance-helper sets up or cleans up; patient completes activity. Vanduser assists only prior to or following the activity. 4-Supervision or Touching Assistance-helper provides verbal cues and/or rajesh poncho/steadying and/or contact guard assistance as patient completes activity. Assistance may be provided throughout the activity or intermittently. 3-Partial/Moderate Assistance-helper does LESS THAN HALF the effort. Vanduser lifts, holds or supports trunk or limbs, but provides less than half the effort. 2-Substantial/Maximal Assistance-helper does MORE THAN HALF the effort. Vanduser lifts or holds trunk or limbs and provides more than half the effort. 0-Sryhtszci-sqgvrv does ALL the effort. Patient does none of the effort to complete the activity. Or, the assistance of 2 or more helpers is required for the patient to complete the activity. If activity was not attempted, code reason: 7-Patient Refused. 9-Not Applicable-not attempted and the patient did not perform the activity before the current illness, exacerbation or injury. 10-Not Attempted due to Environmental Limitations-(lack of equipment, weather restraints, etc.). 88-Not Attempted due to Medical Conditions or Safety Concerns. Other Treatment Pt participated in RUE self/AAROM/and PROM exercises. Minimal subluxation of R shldr jt noted. Massage and light stretch to R shldr to increase ROM and decrease pain with movement. Exercises included: shldr flexion, scapula eleva tion/depression, scapula protraction/retraction, elbow flex/ext, forearm sup/pron, wrist flex and finger flex/ext. Tapping at biceps and triceps at end range to complete full ROM. Min cues/assist to maintain control/coordination of movement. OT also facilitated scapula mobilizations to assist in increasing ROM. Shoulder stretch performed by sliding towel across table anteriorly and diagonally across midline. 1x5 each direction. Pt tolerates treatment well. Education OT Patient Education: Correct positioning, Exercise program, Modified ADL techniques, Purpose of tx/functional activities, Safety issues Teaching Recipient: Patient Teaching Methods: Demonstration, Discussion Response to Teaching: Verbalize Understanding, Return Demonstration, Reinforcement Needed OT Short Term Goals Short Term Goals Time Frame: Jun 23, 2022 Oral hygiene: 5 Toileting hygiene: 4 Shower/bathe self: 4 Lower body dressin Putting on/taking off footwear: 4 OT Vessel Master Goals Senior Living Goals Time Frame: Jul 02, 2022 Eating (QC): 6 Oral Hygiene (QC): 6 Toileting Hygiene (QC): 6 Shower/Bathe Self (QC): 6 Upper Body Dressing (QC): 6 Lower Body Dressing (QC): 6 On/Off Footwear (QC): 6 Additional Goals: 1-Demonstrate ADL Tasks, 2-Verbalize Understanding, 3- ImproveStrength/Malini 1=Demonstrate adherence to instructed precautions during ADL tasks. 2=Patient will verbalize/demonstrate understanding of assistive devices/modifications for ADL. 3=Patient will improve strength/tolerance for activity to enable patient to perform ADL's. OT Education/Plan Problem List/Assessment Assessment: Decreased Activ Tolerance, Decreased UE Strength, Impaired Coordination, Impaired Funct Balance, Impaired I ADL's, Impaired Self-Care Skills, Restricted Funct UE ROM Discharge Recommendations Plan/Recommendations: Continue POC Therapy Discharge Recommendati: Post Acute OT Treatment Plan/Plan of Care Treatment,Training & Education: Yes Patient would benefit from OT for education, treatment and training to promote independence in ADL's, mobility, safety and/or upper extremity function for ADL's. Plan of Care: ADL Retraining, Functional Mobility, Group Exercise/Act as Ind, UE Funct Exercise/Act, UE Neuromus Re-Ed/Coord, W/C Management Training Treatment Duration: Jul 02, 2022 Frequency: At least 5 of 7 days/Wk (IRF) Estimated Hrs Per Day: 1.5 hours per day Agreement: Yes Rehab Potential: Fair Time/GCodes Start Time: 12:55 Stop Time: 13:14 Total Time Billed (hr/min): 19 Billed Treatment Time 1 visit Tamar Burkett OT Jun 09, 2022 13:20
--- NOTE | 2022-06-09 13:51 | Physical Therapy Daily Note ---
PT Daily Note-Current Subjective Patient in recliner pre tx, agrees to PT, has unrated low back pain. Appearance Patient in bed post tx with nurse call, phone, tray, all needs met. Mental Status Patient Orientation: Person, Place, Situation Transfers SCALE: Activities may be completed with or without assistive devices. 1-Pqudkdfpmw-ljjqwyr completes the activity by him/herself with no assistance from a helper. 5-Set-up or Clean-up Assistance-helper sets up or cleans up; patient completes activity. [place] assists only prior to or following the activity. 4-Supervision or Touching Assistance-helper provides verbal cues and/or touching /steadying and/or contact guard assistance as patient completes activity. Assistance may be provided throughout the activity or intermittently. 3-Partial/Moderate Assistance-helper does LESS THAN HALF the effort. [place] lifts, holds or supports trunk or limbs, but provides less than half the effort. 2-Substantial/Maximal Assistance-helper does MORE THAN HALF the effort. [place] lifts or holds trunk or limbs and provides more than half the effort. 9-Ttpigqcal-tzymyg does ALL the effort. Patient does none of the effort to complete the activity. Or, the assistance of 2 or more helpers is required for the patient to complete the activity. If activity was not attempted, code reason: 7-Patient Refused. 9-Not Applicable-not attempted and the patient did not perform the activity before the current illness, exacerbation or injury. 10-Not Attempted due to Environmental Limitations-(lack of equipment, weather restraints, etc.). 88-Not Attempted due to Medical Conditions or Safety Concerns. Roll Left & Right (QC): 6 Sit to Lying (QC): 4 Sit to Stand (QC): 3 Chair/Gst-vo-Giwjm Xfer(QC): 3 Weight Bearing Full Weight Bearing Full Weight Bearing Gait Training Does the Patient Walk?: Yes Distance: 75'x4 Walk 10 feet (QC): 3 Walk 50 ft with 2 Turns(QC): 3 Gait Persons Needed: 1 Gait Assistive Device: Walker Timothy Patient wears a right side AFO and knee cage. Patient needs min assist for balance and weight shifting but this has improved a little. Treatments transfers, ambulation Assessment Current Status: Fair Progress slowly improving ambulation and transfers PT Short Term Goals Short Term Goals Time Frame: Jun 07, 2022 Roll Left & Right: 4 (CGA) Sit to lyin (CGA) Lying to sitting on side of be: 4 (CGA) Sit to stand: 4 (CGA) Chair/fli-nl-djyth transfer: 4 (CGA) Walk 10 feet: 4 (CGA) Walk 50 feet with two turns: 4 (CGA) PT Shelter Goals Insulator Technician Goals PT Shelter Goals Time Frame: Jun 21, 2022 Roll Left & Right (QC): 4 (SBA) Sit to Lying (QC): 4 (SBA) Lying-Sitting on Side/Bed(QC): 4 (SBA) Sit to Stand (QC): 4 (SBA) Chair/Erg-dm-Tdvgf Xfer(QC): 4 (SBA) Toilet Transfer (QC): 4 (SBA) Car Transfer (QC): 4 (CGA) Does the Patient Walk: Yes Walk 10 feet (QC): 4 (SBA) Walk 50ft with 2 Turns (QC): 4 (SBA) Walk 150 ft (QC): 4 (SBA) Walking 10ft on Uneven Surface: 4 (CGA) 1 Step (curb) (QC): 4 (CGA) 4 Steps (QC): 88 12 Steps (QC): 88 Picking up an Object (QC): 4 (CGA using human resources talent manager) Wheel 50 feet with 2 turns (QC: 6 Wheel 150 feet: 6 PT Plan Problem List Problem List: Activity Tolerance, Functional Strength, Safety, Balance, Gait, Transfer, Bed Mobility, ROM Treatment/Plan Treatment Plan: Continue Plan of Care Treatment Plan: Bed Mobility, Education, Functional Activity Malini, Functional Strength, Group Therapy, Gait, Safety, Therapeutic Exercise, Transfers Treatment Duration: Jun 21, 2022 Frequency: At least 5 of 7 days/Wk (IRF) Estimated Hrs Per Day: 1.5 hours per day Patient and/or Family Agrees t: Yes Safety Risks/Education Patient Education: Gait Training, Transfer Techniques, Correct Positioning, Safety Issues Teaching Recipient: Patient Teaching Methods: Demonstration, Discussion Response to Teaching: Reinforcement Needed Time/GCodes Time In: 1315 Time Out: 1345 Total Billed Treatment Time: 30 Total Billed Treatment 1 visit FA 30' BUDDY GARCIA PT Jun 09, 2022 13:51
--- NOTE | 2022-06-09 14:12 | Physical Therapy Progress Note ---
Therapy Progress Note This patient has a mobility limitation that significantly impairs his ability to do several mobility related ADLs in the home. The patients mobility limitation is unsafe to attempt independently with a jermaine walker or other asst device. The patient and his both attest that there is enough space inside their home to utilize a wheelchair. The patient can safely use a wheel chair with assist of caregiver and for short supervised distances on his own HERNAN Dumont LEE A PTA Jun 09, 2022 14:12
[2022-06-09 19:54] VITALS: BP 152/70
[2022-06-09] MEDS: amLODIPine 10 MG (NORVASC) TAB PO SCH (21:02)
--- NOTE | 2022-06-10 06:12 | PM&R Progress Note ---
Subjective HPI/CC On Admission Date Seen by Provider: Jun 10, 2022 Time Seen by Provider: 11:00 Subjective/Events-last exam 06/10/2022: Patient doing much better Dramatic improvement Participating in therapy Having no new issues 06/09/2022: Improved status today No pain Improved emotional well being today Participating in therapy 06/08/2022: Major issues from an emotional status Tried to give him a pep talk like Jeff, PT did Very difficult to rise out of grief of catastrophic CVA 06/07/2022: Much improved status Working with therapy Motivation doing fairly well Declines anti-depressant No falls 06/06/2022: Patient doing well Eliquis maintained No bleeding problems Discontinue the telemetry Monitoring closely 06/05/2022: Appreciate Dr. Powers Doing well overall and son at the bedside Concerned about his vision at times Eliquis maintained 06/04/2022: Patient still doing pretty well Right eye drooping noted and the decision was made to place on Eliquis empirically since he is external monitoring is not a live feed so will place on telemetry in the meantime Consulting cardiology evaluated the records and noted Eliquis was not on the discharge med list so it was not started until today when I started it Patient overall doing much better Hesitant about depression medication and I did speak with Deb after she saw him at 1400 06/03/2022: Patient dramatically improved Able to walk with a complex cane with leg support Feels much better Improved morale 06/02/2022: Pt is doing pretty well Bowels are moving Responding better Severely depressed so will initiate a behavioral consult No pain is reported 06/01/2022: Pt is doing a lot better Pt is a very private person Discontinue Gabapnetin per request Bowels moved yesterday He fell last night without an injury Updated pt and regarding the plan Review of Systems General: Fatigue, Malaise Neurological: Weakness, Incoordination Objective Exam Vital Signs Vital Signs Date Time Temp Pulse Resp B/P (MAP) Pulse Ox O2 Delivery O2 Flow Rate FiO2 06/10/22 20:17 Room Air 06/10/22 20:05 36.9 71 20 160/69 (99) 98 Capillary Refill : General Appearance: No Apparent Distress, WD/WN, Obese HEENT: PERRL/EOMI, Normal ENT Inspection, Pharynx Normal Neck: Full Range of Motion, Normal Inspection, Non Tender, Supple, Carotid Bruit Respiratory: Chest Non Tender, Lungs Clear, Normal Breath Sounds, No Accessory Muscle Use, No Respiratory Distress Cardiovascular: Regular Rate, Rhythm, No Edema, No Gallop, No JVD, No Murmur, Normal Peripheral Pulses Gastrointestinal: Normal Bowel Sounds, No Organomegaly, No Pulsatile Mass, Non Tender, Soft Back: Normal Inspection, No CVA Tenderness, No Vertebral Tenderness Extremity: Normal Capillary Refill, Normal Inspection, Normal Range of Motion (except right side), Non Tender, No Calf Tenderness, No Pedal Edema Neurologic/Psychiatric: Alert, Oriented x3, Normal Mood/Affect, acreage reporter II-XII Norm as Tested, Abnormal Gait, Aphasia, Depressed Affect, Motor Weakness (right sided weakness 1/5) Skin: Normal Color, Warm/Dry Lymphatic: No Adenopathy Results/Procedures Lab Patient resulted labs reviewed. FIM Transfers Therapy Code Descriptions/Definitions Functional Printer Measure: 0=Not Assessed/NA 4=Minimal Assistance 1=Total Assistance 5=Supervision or Setup 2=Maximal Assistance 6=Modified Printer 3=Moderate Assistance 7=Complete IndependenceSCALE: Activities may be completed with or without assistive devices. 0-Axrabimnvj-cmdgibh completes the activity by him/herself with no assistance from a helper. 5-Set-up or Clean-up Assistance-helper sets up or cleans up; patient completes activity. [place] assists only prior to or following the activity. 4-Supervision or Touching Assistance-helper provides verbal cues and/or touching/steadying and/or contact guard assistance as patient completes activity. Assistance may be provided throughout the activity or intermittently. 3-Partial/Moderate Assistance-helper does LESS THAN HALF the effort. [place] lifts, holds or supports trunk or limbs, but provides less than half the effort. 2-Substantial/Maximal Assistance-helper does MORE THAN HALF the effort. [place] lifts or holds trunk or limbs and provides more than half the effort. 8-Omlsafgir-qwhtrq does ALL the effort. Patient does none of the effort to complete the activity. Or, the assistance of 2 or more helpers is required for the patient to complete the activity. If activity was not attempted, code reason: 7-Patient Refused. 9-Not Applicable-not attempted and the patient did not perform the activity before the current illness, exacerbation or injury. 10-Not Attempted due to Environmental Limitations-(lack of equipment, weather restraints, etc.). 88-Not Attempted due to Medical Conditions or Safety Concerns. Roll Left to Right (QC): 6 Sit to Lying (QC): 4 Sit to Stand (QC): 3 Chair/Nxj-mg-Dukqf Xfer(QC): 3 Car Transfer (QC): 3 Gait Training Does the Patient Walk?: Yes Distance: 75'x4 Walk 10 feet (QC): 3 Walk 50 ft with 2 Turns(QC): 3 Walk 150 ft (QC): 88 Walking 10ft/uneven surface-QC: 88 Gait Persons Needed: 1 Gait Assistive Device: Walker Timothy Wheelchair Training Does the Pt Use a Wheelchair?: Yes Distance: 150'x2, 120' Wheel 50 ft with 2 turns (QC): 5 Wheel 150 ft (QC): 5 Type of Wheelchair: Manual Stair Training 1 Step (curb) (QC): 88 4 Steps (QC): 88 12 Steps (QC): 88 Balance Picking up an Object (QC): 88 ADL-Treatment Eating (QC): 6 Oral Hygiene (QC): 6 Shower/Bathe Self (QC): 3 Upper Body Dressing (QC): 3 Lower Body Dressing (QC): 2 On/Off Footwear (QC): 2 Toileting Hygiene (QC): 3 Toilet Transfer (QC): 4 Assessment/Plan Assessment and Plan Assess & Plan/Chief Complaint Assessment: Debility CVA Right sided weakness Dysarthria HTN Diabetes mellitus type 2 HLD Sleep apnea Anxiety Chronic back pain Fall risk SHAE suspected needs sleep study Suspected AF monitor in place and placed on Eliquis empirically on 06/04/2022 by me Depression Plan: Start PT, OT, speech therapy Monitor blood sugars Start long acting insulin and SSI Restart home meds Pain control Closely monitor due to risk of fall 06/01/2022: Fall risk Monitor closely 06/02/2022: Behavioral health consult for depression Supportive care 06/03/2022: Dramatic improvement Ambulated 06/04/2022: Start Eliquis Garbage Truck Dispatcher closely 06/05/2022: Eliquis PT and OT 06/06/2022: Eliquis Aggressive therapy 06/07/2022: Suspect SHAE Monitor BP 06/08/2022: Try to rise above grief and depression 06/09/2022: Improved status 06/10/2022: Supportive care Dramatic improvement (1) CVA (cerebral vascular accident) (2) Dysarthria (3) Right sided weakness (4) Uncontrolled type 2 diabetes mellitus Status: Acute (5) Hypertension Status: Acute DEBBY ORTIZ DO Jun 10, 2022 06:12
[2022-06-10 07:20] VITALS: BP 143/72
[2022-06-10] MEDS: APIXABAN 5 MG (ELIQUIS) TABLET PO SCH ×2 (07:47→20:19)
[2022-06-10] MEDS: VERAPAMIL SR 240 MG (CALAN SR) TAB PO SCH (07:47)
[2022-06-10] MEDS: FENOFIBRATE 134 MG (LOFIBRA) CAPSULE PO SCH (07:47)
[2022-06-10] MEDS: CLOPIDOGREL 75 MG (PLAVIX) TABLET PO SCH (07:47)
[2022-06-10] MEDS: LOSARTAN 100 MG (COZAAR) TABLET PO SCH (07:47)
[2022-06-10] MEDS: inSUlin ASPART (NovoLOG) 1 UNIT/0.01 ML (CHARGE PER UNIT) SC SCH ×3 (07:47→19:10)
[2022-06-10] MEDS: polyethylene glycoL POWDER 17 GM (MIRALAX) PACK PO SCH ×2 (07:48→20:20)
--- NOTE | 2022-06-10 10:35 | Occupational Ther Daily Note ---
OT Current Status-Daily Note Subjective Pt alert, sitting in w/c at sink. Pt agrees to therapy. Pt c/o lower back pain, did not rate, but stated that it was that he was having trouble with his back stimulator. Mental Status/Objective Patient Orientation: Person, Place, Non-Verbal/Aphasic, Time, Situation Attachments: Other-See Comments (external loop recorder) ADL-Treatment Discussion with ... assists pt's transfer in/out of shower to sit on shower bench, pt completes shower by self while in sitting. completes footwear for pt. there for transfer on/off toilet, pt completes toileting by self. Pt demonstrated to GAFFNEY...Pt doffs shirt by self then set up to don shirt with one arm technique. Assist to thread feet into pants then pt able to hike pants up/down hips. Pt simulating task to work on threading feet in/out of pants, completed with SBA then able to hike pants over hips by self in standing. Pt independent with oral care and grooming sitting at sink. R shldr taping to decrease subluxation and pain. Pt states that pain did decrease minimally with taping. Therapy Code Descriptions/Definitions Functional [place] Measure: 0=Not Assessed/NA 4=Minimal Assistance 1=Total Assistance 5=Supervision or Setup 2=Maximal Assistance 6=Modified [place] 3=Moderate Assistance 7=Complete IndependenceSCALE: Activities may be completed with or without assistive devices. 7-Bhwzmhamxz-yeedmhh completes the activity by him/herself with no assistance from a helper. 5-Set-up or Clean-up Assistance-helper sets up or cleans up; patient completes activity. [place] assists only prior to or following the activity. 4-Supervision or Touching Assistance-helper provides verbal cues and/or touching/steadying and/or contact guard assistance as patient completes activity. Assistance may be provided throughout the activity or intermittently. 3-Partial/Moderate Assistance-helper does LESS THAN HALF the effort. [place] lift s, holds or supports trunk or limbs, but provides less than half the effort. 2-Substantial/Maximal Assistance-helper does MORE THAN HALF the effort. [place] lifts or holds trunk or limbs and provides more than half the effort. 4-Gjwfedjyk-qatstl does ALL the effort. Patient does none of the effort to complete the activity. Or, the assistance of 2 or more helpers is required for the patient to complete the activity. If activity was not attempted, code reason: 7-Patient Refused. 9-Not Applicable-not attempted and the patient did not perform the activity before the current illness, exacerbation or injury. 10-Not Attempted due to Environmental Limitations-(lack of equipment, weather restraints, etc.). 88-Not Attempted due to Medical Conditions or Safety Concerns. Eating (QC): 6 Oral Hygiene (QC): 6 Shower/Bathe Self (QC): 4 (per report) Upper Body Dressing (QC): 4 Lower Body Dressing (QC): 3 On/Off Footwear: 2 Toileting Hygiene (QC): 4 Toilet Transfer (QC): 4 Other Treatment SBA for SPT from surface to surface. Pt propelled w/c to therapy gym and back independently. Pt transferred to therapy mat with close SBA then went from EOB <--> supine with min A. Massage and stretch to R UE to increase ROM and decrease tightness. Pt able to complete shldr ext, bicep flex, tricep ext, wrist flex/ext, finger flex/ext against gravity 5-10x's while GAFFNEY positioned limb to decrease compensatory movements and strengthen specific muscle groups. Pt then working on wt bearing in sitting and simulation of donning/doffing pants. Pt is demonstrating progress with each task. After session, pt sitting in recliner with call light/phone in reach. All needs met in room. OT Short Term Goals Short Term Goals Time Frame: Jun 23, 2022 Oral hygiene: 5 Toileting hygiene: 4 Shower/bathe self: 4 Lower body dressin Putting on/taking off footwear: 4 OT Group Home Goals Residential Property Consultant Goals Time Frame: Jul 02, 2022 Eating (QC): 6 Oral Hygiene (QC): 6 Toileting Hygiene (QC): 6 Shower/Bathe Self (QC): 6 Upper Body Dressing (QC): 6 Lower Body Dressing (QC): 6 On/Off Footwear (QC): 6 Additional Goals: 1-Demonstrate ADL Tasks, 2-Verbalize Understanding, 3- ImproveStrength/Malini 1=Demonstrate adherence to instructed precautions during ADL tasks. 2=Patient will verbalize/demonstrate understanding of assistive devices/modifications for ADL. 3=Patient will improve strength/tolerance for activity to enable patient to perform ADL's. OT Education/Plan Problem List/Assessment Assessment: Decreased Activ Tolerance, Decreased UE Strength, Impaired Bed Mobility, Impaired Coordination, Impaired Funct Balance, Impaired Self-Care Skills, Restricted Funct UE ROM (R shldr) Discharge Recommendations Plan/Recommendations: Continue POC Treatment Plan/Plan of Care Patient would benefit from OT for education, treatment and training to promote independence in ADL's, mobility, safety and/or upper extremity function for ADL's. Plan of Care: ADL Retraining, Functional Mobility, Group Exercise/Act as Ind, UE Funct Exercise/Act, UE Neuromus Re-Ed/Coord, W/C Management Training Treatment Duration: Jul 02, 2022 Frequency: At least 5 of 7 days/Wk (IRF) Estimated Hrs Per Day: 1.5 hours per day Agreement: Yes Rehab Potential: Fair Time/GCodes Start Time: 08:15 Stop Time: 09:30 Total Time Billed (hr/min): 75 Billed Treatment Time 1 visit-ADL 3 (40 min) NM 2 (35 min) JEANETTE VALDOVINOS Jun 10, 2022 10:35
--- NOTE | 2022-06-10 11:19 | Physical Therapy Daily Note ---
PT Daily Note-Current Subjective Patient in recliner pre tx, agrees to PT, voices no complaints of pain. Therapist dons patient AFO, shoes, and knee cage. Appearance Patient in recliner post tx with nurse call, phone, tray, all needs met. Mental Status Patient Orientation: Person, Unable to Assess, Non-Verbal/Aphasic Transfers SCALE: Activities may be completed with or without assistive devices. 6-Bclcxyskfw-axcaxzb completes the activity by him/herself with no assistance from a helper. 5-Set-up or Clean-up Assistance-helper sets up or cleans up; patient completes activity. [place] assists only prior to or following the activity. 4-Supervision or Touching Assistance-helper provides verbal cues and/or touching/steadying and/or contact guard assistance as patient completes activity. Assistance may be provided throughout the activity or intermittently. 3-Partial/Moderate Assistance-helper does LESS THAN HALF the effort. [place] lifts, holds or supports trunk or limbs, but provides less than half the effort. 2-Substantial/Maximal Assistance-helper does MORE THAN HALF the effort. [place] lifts or holds trunk or limbs and provides more than half the effort. 1-Ewxpgrwni-wydfmo does ALL the effort. Patient does none of the effort to complete the activity. Or, the assistance of 2 or more helpers is required for the patient to complete the activity. If activity was not attempted, code reason: 7-Patient Refused. 9-Not Applicable-not attempted and the patient did not perform the activity before the current illness, exacerbation or injury. 10-Not Attempted due to Environmental Limitations-(lack of equipment, weather restraints, etc.). 88-Not Attempted due to Medical Conditions or Safety Concerns. Sit to Stand (QC): 4 Chair/Eql-fn-Hlqzd Xfer(QC): 3 Patient performs a stand pivot transfer to the left side with CGA, still min assist to the left side but he has improved Weight Bearing Full Weight Bearing Full Weight Bearing Gait Training Distance: 150' Walk 10 feet (QC): 3 Walk 50 ft with 2 Turns(QC): 3 Walk 150 ft (QC): 3 Gait Persons Needed: 1 Gait Assistive Device: Walker Timothy right side AFO and knee cage, patient needs min assist for balance and weight shifting during ambulation, getting better with foot clearance and advancing his right leg Wheelchair Training Does the Pt Use a Wheelchair?: Yes Wheel 50 ft with 2 turns (QC): 4 Wheel 150 ft (QC): 4 Type of Wheelchair: Manual 300', needed several rest breaks Exercises Standing: Sit to Stand Standing Reps: 10 (2 sets) SLS on right leg with therapist assist for positioning x3 for about 1 min each time, patient also performed toe taps on 4" step with RLE 3 sets of 5 NuStep Minutes: 15 NuStep Workload: 5 (RUE not used) Treatments transfers, ambulation, WC mobility, functional strengthening Assessment Current Status: Fair Progress patient is slowly improving with transfers and ambulation, able to bear more weight on RLE but still has impaired active muscle contraction PT Short Term Goals Short Term Goals Time Frame: Jun 07, 2022 Roll Left & Right: 4 (CGA) Sit to lyin (CGA) Lying to sitting on side of be: 4 (CGA) Sit to stand: 4 (CGA) Chair/jkj-sq-qpkwo transfer: 4 (CGA) Walk 10 feet: 4 (CGA) Walk 50 feet with two turns: 4 (CGA) PT Frame And Scrap Crusher Goals Frame And Scrap Crusher Goals PT Senior Living Goals Time Frame: Jun 21, 2022 Roll Left & Right (QC): 4 (SBA) Sit to Lying (QC): 4 (SBA) Lying-Sitting on Side/Bed(QC): 4 (SBA) Sit to Stand (QC): 4 (SBA) Chair/Mdy-rt-Skwqi Xfer(QC): 4 (SBA) Toilet Transfer (QC): 4 (SBA) Car Transfer (QC): 4 (CGA) Does the Patient Walk: Yes Walk 10 feet (QC): 4 (SBA) Walk 50ft with 2 Turns (QC): 4 (SBA) Walk 150 ft (QC): 4 (SBA) Walking 10ft on Uneven Surface: 4 (CGA) 1 Step (curb) (QC): 4 (CGA) 4 Steps (QC): 88 12 Steps (QC): 88 Picking up an Object (QC): 4 (CGA using java user interface developer) Wheel 50 feet with 2 turns (QC: 6 Wheel 150 feet: 6 PT Plan Problem List Problem List: Activity Tolerance, Functional Strength, Safety, Balance, Gait, Transfer, Bed Mobility, ROM Treatment/Plan Treatment Plan: Continue Plan of Care Treatment Plan: Bed Mobility, Education, Functional Activity Malini, Functional Strength, Group Therapy, Gait, Safety, Therapeutic Exercise, Transfers Treatment Duration: Jun 21, 2022 Frequency: At least 5 of 7 days/Wk (IRF) Estimated Hrs Per Day: 1.5 hours per day Patient and/or Family Agrees t: Yes Safety Risks/Education Patient Education: Gait Training, Transfer Techniques, Correct Positioning, W/C Management, Safety Issues Teaching Recipient: Patient Teaching Methods: Demonstration, Discussion Response to Teaching: Reinforcement Needed Time/GCodes Time In: 1015 Time Out: 1130 Total Billed Treatment Time: 75 Total Billed Treatment 1 visit FA 30' EX 45' BUDDY GARCIA PT Jun 10, 2022 11:19
[2022-06-10] MEDS: SENNA W/DOCUSATE (SENOKOT S) TABLET PO SCH ×2 (12:20→20:20)
--- NOTE | 2022-06-10 13:22 | Speech Therapy Daily Note ---
Speech Daily Progress Note Subjective Date Seen by Provider: Jun 10, 2022 Time Seen by Provider: 09:30 The patient was seated upright in his recliner, awake and alert upon entrance to the patient's room by the clinician. The patient has his hearing aides in place and independently places glasses on. Objective While tears remain intermittently present throughout the treatment session, they are displayed appropriately and the patient continues to push himself forward throughout the task. The patient completes multiple oral reading (MOR) of a short sentence with fair accuracy, displaying continued increased difficulty with blends (strike, drops, prism). The sentence is read five times aloud by the patient with moderate verbal cueing from the clinician. The clinician covered portions of the text to reduce visual stimulation from the patient's visual field. The patient participated in informal conversation on this date with moderate clinician cueing. Throughout gestures, short phrases, and facial expressions, the patient was able to communicate the identification of his neighbors. The clinician initiated recommendations on this date for communication with community members following discharge. The clinician recommends the patient's contact the local police department and fire department to provide information of the patient's current medical status and communication difficulties. Assessment Assessment Current Status: Good Progress Treatment Plan Continue Plan of Care Speech Short Term Goals Short Term Goals Short Term Goals 1. The patient will complete confrontational naming with 90% accuracy and mild clinician verbal cueing. Time Frame-STG: One Week. Speech Branding Specialist Goals Branding Specialist Goals 1. The patient will display improved expressive communication for safe discharge to the least restricted environment. Time Frame: Three Weeks. Speech-Plan Treatment Plan Speech Therapy Treatment Plan: Continue Plan of Care Treatment Duration: Jun 01, 2022 Frequency: Modified Program (IRF) Estimated Hrs Per Day: .5 hour per day Rehab Potential: Fair Safety Risks/Education Teaching Recipient: Patient Teaching Methods: Demonstration, Discussion Response to Teaching: Return Demonstration Education Topics Provided: Language Exercises (MOR) Time Speech Therapy Time In: 09:30 Speech Therapy Time Out: 10:00 Total Billed Time: 30 Billed Treatment Time DEBBIE Lyle ELIZABETH Jun 10, 2022 13:22
[2022-06-10 20:05] VITALS: BP 160/69
[2022-06-10] MEDS: amLODIPine 10 MG (NORVASC) TAB PO SCH (20:19)
[2022-06-11 07:26] VITALS: BP 158/77
[2022-06-11] MEDS: CLOPIDOGREL 75 MG (PLAVIX) TABLET PO SCH (07:40)
[2022-06-11] MEDS: VERAPAMIL SR 240 MG (CALAN SR) TAB PO SCH (07:40)
[2022-06-11] MEDS: LOSARTAN 100 MG (COZAAR) TABLET PO SCH (07:40)
[2022-06-11] MEDS: FENOFIBRATE 134 MG (LOFIBRA) CAPSULE PO SCH (07:40)
[2022-06-11] MEDS: APIXABAN 5 MG (ELIQUIS) TABLET PO SCH ×2 (07:40→21:03)
[2022-06-11] MEDS: inSUlin ASPART (NovoLOG) 1 UNIT/0.01 ML (CHARGE PER UNIT) SC SCH ×3 (08:30→17:13)
--- NOTE | 2022-06-11 08:57 | Physical Therapy Daily Note ---
PT Daily Note-Current Subjective Patient in bed pre tx, agrees to PT, has no complaints of pain. Therapist assists patient get on shirt, shoes, AFO, and knee cage. Patient has to use the restroom, ambulates into the restroom, patient is able to push down shorts and pull them back up himself when done. Appearance Patient in WC at bedside with post tx. Mental Status Patient Orientation: Person, Unable to Assess, Non-Verbal/Aphasic Transfers SCALE: Activities may be completed with or without assistive devices. 3-Dtrogigdjy-ltfmkpv completes the activity by him/herself with no assistance from a helper. 5-Set-up or Clean-up Assistance-helper sets up or cleans up; patient completes activity. [place] assists only prior to or following the activity. 4-Supervision or Touching Assistance-helper provides verbal cues and/or touching/steadying and/or contact guard assistance as patient completes activity. Assistance may be provided throughout the activity or intermittently. 3-Partial/Moderate Assistance-helper does LESS THAN HALF the effort. [place] lifts, holds or supports trunk or limbs, but provides less than half the effort. 2-Substantial/Maximal Assistance-helper does MORE THAN HALF the effort. [place] lifts or holds trunk or limbs and provides more than half the effort. 8-Uvyxhkmvf-bbuzmc does ALL the effort. Patient does none of the effort to complete the activity. Or, the assistance of 2 or more helpers is required for the patient to complete the activity. If activity was not attempted, code reason: 7-Patient Refused. 9-Not Applicable-not attempted and the patient did not perform the activity before the current illness, exacerbation or injury. 10-Not Attempted due to Environmental Limitations-(lack of equipment, weather restraints, etc.). 88-Not Attempted due to Medical Conditions or Safety Concerns. Roll Left & Right (QC): 4 Lying to Sitting/Side of Bed(Q: 4 Sit to Stand (QC): 4 Chair/Pkk-hp-Yijpk Xfer(QC): 4 Patient can now perform stand pivot transfers to the right side with CGA and cues for safety Weight Bearing Full Weight Bearing Full Weight Bearing Gait Training Distance: 150' Walk 10 feet (QC): 3 Walk 50 ft with 2 Turns(QC): 3 Walk 150 ft (QC): 3 Gait Assistive Device: Walker Timothy AFO, knee cage, min assist for balance, less weight shifting assist needed. Exercises 2 sets of 10 toe taps with RLE on 4" step, 2 sets of 3 of SLS of RLE for about 30 sec each time NuStep Minutes: 15 NuStep Workload: 5 (RUE not used) Treatments bed mobility and transfers, ambulation, functional strengthening Assessment Current Status: Fair Progress improving transfers and stability of RLE PT Short Term Goals Short Term Goals Time Frame: Jun 07, 2022 Roll Left & Right: 4 (CGA) Sit to lyin (CGA) Lying to sitting on side of be: 4 (CGA) Sit to stand: 4 (CGA) Chair/lmc-ff-kqexg transfer: 4 (CGA) Walk 10 feet: 4 (CGA) Walk 50 feet with two turns: 4 (CGA) PT Education Faculty Member Goals Education Faculty Member Goals PT Education Faculty Member Goals Time Frame: Jun 21, 2022 Roll Left & Right (QC): 4 (SBA) Sit to Lying (QC): 4 (SBA) Lying-Sitting on Side/Bed(QC): 4 (SBA) Sit to Stand (QC): 4 (SBA) Chair/Gkm-eu-Arsvm Xfer(QC): 4 (SBA) Toilet Transfer (QC): 4 (SBA) Car Transfer (QC): 4 (CGA) Does the Patient Walk: Yes Walk 10 feet (QC): 4 (SBA) Walk 50ft with 2 Turns (QC): 4 (SBA) Walk 150 ft (QC): 4 (SBA) Walking 10ft on Uneven Surface: 4 (CGA) 1 Step (curb) (QC): 4 (CGA) 4 Steps (QC): 88 12 Steps (QC): 88 Picking up an Object (QC): 4 (CGA using brushing operator) Wheel 50 feet with 2 turns (QC: 6 Wheel 150 feet: 6 PT Plan Problem List Problem List: Activity Tolerance, Functional Strength, Safety, Balance, Gait, Transfer, Bed Mobility, ROM Treatment/Plan Treatment Plan: Continue Plan of Care Treatment Plan: Bed Mobility, Education, Functional Activity Malini, Functional Strength, Group Therapy, Gait, Safety, Therapeutic Exercise, Transfers Treatment Duration: Jun 21, 2022 Frequency: At least 5 of 7 days/Wk (IRF) Estimated Hrs Per Day: 1.5 hours per day Patient and/or Family Agrees t: Yes Safety Risks/Education Patient Education: Gait Training, Transfer Techniques, Correct Positioning, Safety Issues Teaching Recipient: Patient Teaching Methods: Demonstration, Discussion Response to Teaching: Reinforcement Needed Time/GCodes Time In: 0800 Time Out: 899 Total Billed Treatment Time: 60 Total Billed Treatment 1 visit EX 30' FA 30' BUDDY GARCIA PT Jun 11, 2022 08:57
[2022-06-11] MEDS: polyethylene glycoL POWDER 17 GM (MIRALAX) PACK PO SCH ×2 (10:26→21:04)
[2022-06-11] MEDS: SENNA W/DOCUSATE (SENOKOT S) TABLET PO SCH ×2 (10:27→21:04)
--- NOTE | 2022-06-11 10:27 | PM&R Progress Note ---
Subjective HPI/CC On Admission Date Seen by Provider: Jun 11, 2022 Time Seen by Provider: 10:30 Subjective/Events-last exam 06/11/2022: Pt is doing really well Bowels moved yesterday Very impulsive Overall feels pretty good 06/10/2022: Patient doing much better Dramatic improvement Participating in therapy Having no new issues 06/09/2022: Improved status today No pain Improved emotional well being today Participating in therapy 06/08/2022: Major issues from an emotional status Tried to give him a pep talk like Jeff, PT did Very difficult to rise out of grief of catastrophic CVA 06/07/2022: Much improved status Working with therapy Motivation doing fairly well Declines anti-depressant No falls 06/06/2022: Patient doing well Eliquis maintained No bleeding problems Discontinue the telemetry Monitoring closely 06/05/2022: Appreciate Dr. Powers Doing well overall and son at the bedside Concerned about his vision at times Eliquis maintained 06/04/2022: Patient still doing pretty well Right eye drooping noted and the decision was made to place on Eliquis empirically since he is external monitoring is not a live feed so will place on telemetry in the meantime Consulting cardiology evaluated the records and noted Eliquis was not on the discharge med list so it was not started until today when I started it Patient overall doing much better Hesitant about depression medication and I did speak with Deb after she saw him at 1400 06/03/2022: Patient dramatically improved Able to walk with a complex cane with leg support Feels much better Improved morale 06/02/2022: Pt is doing pretty well Bowels are moving Responding better Severely depressed so will initiate a behavioral consult No pain is reported 06/01/2022: Pt is doing a lot better Pt is a very private person Discontinue Gabapnetin per request Bowels moved yesterday He fell last night without an injury Updated pt and regarding the plan Review of Systems General: Fatigue, Malaise Neurological: Weakness, Incoordination Objective Exam Vital Signs Vital Signs Date Time Temp Pulse Resp B/P (MAP) Pulse Ox O2 Delivery O2 Flow Rate FiO2 06/11/22 21:15 Room Air 06/11/22 19:38 36.9 65 16 149/65 (93) 98 Capillary Refill : General Appearance: No Apparent Distress, WD/WN, Obese HEENT: PERRL/EOMI, Normal ENT Inspection, Pharynx Normal Neck: Full Range of Motion, Normal Inspection, Non Tender, Supple, Carotid Bruit Respiratory: Chest Non Tender, Lungs Clear, Normal Breath Sounds, No Accessory Muscle Use, No Respiratory Distress Cardiovascular: Regular Rate, Rhythm, No Edema, No Gallop, No JVD, No Murmur, Normal Peripheral Pulses Gastrointestinal: Normal Bowel Sounds, No Organomegaly, No Pulsatile Mass, Non Tender, Soft Back: Normal Inspection, No CVA Tenderness, No Vertebral Tenderness Extremity: Normal Capillary Refill, Normal Inspection, Normal Range of Motion (except right side), Non Tender, No Calf Tenderness, No Pedal Edema Neurologic/Psychiatric: Alert, Oriented x3, Normal Mood/Affect, exterior designer II-XII Norm as Tested, Abnormal Gait, Aphasia, Depressed Affect, Motor Weakness (right sided weakness 1/5) Skin: Normal Color, Warm/Dry Lymphatic: No Adenopathy Results/Procedures Lab Patient resulted labs reviewed. FIM Transfers Therapy Code Descriptions/Definitions Functional [place] Measure: 0=Not Assessed/NA 4=Minimal Assistance 1=Total Assistance 5=Supervision or Setup 2=Maximal Assistance 6=Modified [place] 3=Moderate Assistance 7=Complete IndependenceSCALE: Activities may be completed with or without assistive devices. 1-Ofycidgwui-esweoin completes the activity by him/herself with no assistance from a helper. 5-Set-up or Clean-up Assistance-helper sets up or cleans up; patient completes activity. [place] assists only prior to or following the activity. 4-Supervision or Touching Assistance-helper provides verbal cues and/or touching/steadying and/or contact guard assistance as patient completes activity. Assistance may be provided throughout the activity or intermittently. 3-Partial/Moderate Assistance-helper does LESS THAN HALF the effort. [place] lifts, holds or supports trunk or limbs, but provides less than half the effort. 2-Substantial/Maximal Assistance-helper does MORE THAN HALF the effort. [place] lifts or holds trunk or limbs and provides more than half the effort. 6-Tgxthclis-rtrtpn does ALL the effort. Patient does none of the effort to complete the activity. Or, the assistance of 2 or more helpers is required for the patient to complete the activity. If activity was not attempted, code reason: 7-Patient Refused. 9-Not Applicable-not attempted and the patient did not perform the activity before the current illness, exacerbation or injury. 10-Not Attempted due to Environmental Limitations-(lack of equipment, weather restraints, etc.). 88-Not Attempted due to Medical Conditions or Safety Concerns. Roll Left to Right (QC): 4 Sit to Lying (QC): 4 Sit to Stand (QC): 4 Chair/Ftl-wl-Uwsaj Xfer(QC): 4 Car Transfer (QC): 3 Gait Training Does the Patient Walk?: Yes Distance: 150' Walk 10 feet (QC): 3 Walk 50 ft with 2 Turns(QC): 3 Walk 150 ft (QC): 3 Walking 10ft/uneven surface-QC: 88 Gait Persons Needed: 1 Gait Assistive Device: Walker Timothy Wheelchair Training Does the Pt Use a Wheelchair?: Yes Distance: 150'x2, 120' Wheel 50 ft with 2 turns (QC): 4 Wheel 150 ft (QC): 4 Type of Wheelchair: Manual Stair Training 1 Step (curb) (QC): 88 4 Steps (QC): 88 12 Steps (QC): 88 Balance Picking up an Object (QC): 88 ADL-Treatment Eating (QC): 6 Oral Hygiene (QC): 6 Shower/Bathe Self (QC): 4 (per report) Upper Body Dressing (QC): 4 Lower Body Dressing (QC): 3 On/Off Footwear (QC): 2 Toileting Hygiene (QC): 4 Toilet Transfer (QC): 4 Assessment/Plan Assessment and Plan Assess & Plan/Chief Complaint Assessment: Debility CVA Right sided weakness Dysarthria HTN Diabetes mellitus type 2 HLD Sleep apnea Anxiety Chronic back pain Fall risk SHAE suspected needs sleep study Suspected AF monitor in place and placed on Eliquis empirically on 06/04/2022 by mt Depression Plan: Start PT, OT, speech therapy Monitor blood sugars Start long acting insulin and SSI Restart home meds Pain control Closely monitor due to risk of fall 06/01/2022: Fall risk Monitor closely 06/02/2022: Behavioral health consult for depression Supportive care 06/03/2022: Dramatic improvement Ambulated 06/04/2022: Start Eliquis Airline Lounge Receptionist closely 06/05/2022: Eliquis PT and OT 06/06/2022: Eliquis Aggressive therapy 06/07/2022: Suspect SHAE Monitor BP 06/08/2022: Try to rise above grief and depression 06/09/2022: Improved status 06/10/2022: Supportive care Dramatic improvement 06/11/2022: Supportive care Participation is good (1) CVA (cerebral vascular accident) (2) Dysarthria (3) Right sided weakness (4) Uncontrolled type 2 diabetes mellitus Status: Acute (5) Hypertension Status: Acute DEBBY ORTIZ DO Jun 11, 2022 10:27
--- NOTE | 2022-06-11 11:15 | Occupational Ther Daily Note ---
OT Current Status-Daily Note Subjective Pt alert, sitting in recliner. Took over pt care from BABY REGIST[employer] SALES CONSULTANT. No c/o pain. Mental Status/Objective Patient Orientation: Person, Place, Non-Verbal/Aphasic, Time, Situation Attachments: Other-See Comments (external loop recorder) ADL-Treatment Therapy Code Descriptions/Definitions Functional [place] Measure: 0=Not Assessed/NA 4=Minimal Assistance 1=Total Assistance 5=Supervision or Setup 2=Maximal Assistance 6=Modified [place] 3=Moderate Assistance 7=Complete IndependenceSCALE: Activities may be completed with or without assistive devices. 8-Ascgwiakns-omrmsbo completes the activity by him/herself with no assistance from a helper. 5-Set-up or Clean-up Assistance-helper sets up or cleans up; patient completes activity. [place] assists only prior to or following the activity. 4-Supervision or Touching Assistance-helper provides verbal cues and/or touching/steadying and/or contact guard assistance as patient completes activity. Assistance may be provided throughout the activity or intermittently. 3-Partial/Moderate Assistance-helper does LESS THAN HALF the effort. [place] lifts, holds or supports trunk or limbs, but provides less than half the effort. 2-Substantial/Maximal Assistance-helper does MORE THAN HALF the effort. [place] lifts or holds trunk or limbs and provides more than half the effort. 8-Vuvuqfwjm-inegpz does ALL the effort. Patient does none of the effort to complete the activity. Or, the assistance of 2 or more helpers is required for the patient to complete the activity. If activity was not attempted, code reason: 7-Patient Refused. 9-Not Applicable-not attempted and the patient did not perform the activity before the current illness, exacerbation or injury. 10-Not Attempted due to Environmental Limitations-(lack of equipment, weather restraints, etc.). 88-Not Attempted due to Medical Conditions or Safety Concerns. Other Treatment SBA for SPT from surface to surface. Pt propelled w/c to therapy gym and back independently. Pt completed arm bike with B UE (R hand HOLLAND wrapped to support litigation services manager on handle) for 5 min (2.5 min forward rotation, 2.5 min backward rotation). 1.5 min B UE with arm pulleys, guidance on R shldr for stability. 1.5 min R UE arm huma with resistance provided by GAFFNEY while palpating R shldr with focus ing on active muscle movement. Pt then working on wt bearing in sitting then dynamic sitting balance working on wt bearing and core strengthening. Pt educated on self stretch using table at horizontal level, pt completed appropriately. Pt demonstrated active movement in R shldr girdle while lifting R hand from mat surface to pt's leg in sitting. After session, pt sitting in recliner with call light/phone in reach. All needs met in room. OT Short Term Goals Short Term Goals Time Frame: Jun 23, 2022 Oral hygiene: 5 Toileting hygiene: 4 Shower/bathe self: 4 Lower body dressin Putting on/taking off footwear: 4 OT Appliances Sample Maker Goals Appliances Sample Maker Goals Time Frame: Jul 02, 2022 Eating (QC): 6 Oral Hygiene (QC): 6 Toileting Hygiene (QC): 6 Shower/Bathe Self (QC): 6 Upper Body Dressing (QC): 6 Lower Body Dressing (QC): 6 On/Off Footwear (QC): 6 Additional Goals: 1-Demonstrate ADL Tasks, 2-Verbalize Understanding, 3- ImproveStrength/Malini 1=Demonstrate adherence to instructed precautions during ADL tasks. 2=Patient will verbalize/demonstrate understanding of assistive devices/modifications for ADL. 3=Patient will improve strength/tolerance for activity to enable patient to perform ADL's. OT Education/Plan Problem List/Assessment Assessment: Decreased Activ Tolerance, Decreased UE Strength, Impaired Self- Care Skills, Restricted Funct UE ROM Discharge Recommendations Plan/Recommendations: Continue POC Treatment Plan/Plan of Care Patient would benefit from OT for education, treatment and training to promote independence in ADL's, mobility, safety and/or upper extremity function for ADL's. Plan of Care: ADL Retraining, Functional Mobility, Group Exercise/Act as Ind, UE Funct Exercise/Act, UE Neuromus Re-Ed/Coord, W/C Management Training Treatment Duration: Jul 02, 2022 Frequency: At least 5 of 7 days/Wk (IRF) Estimated Hrs Per Day: 1.5 hours per day Agreement: Yes Rehab Potential: Fair Time/GCodes Start Time: 10:00 Stop Time: 11:15 Total Time Billed (hr/min): 75 Billed Treatment Time 1 visit-ADL 1 (10 min) NM 4 (65 min) JEANETTE VALDOVINOS Jun 11, 2022 11:15
--- NOTE | 2022-06-11 13:52 | Speech Therapy Daily Note ---
Speech Daily Progress Note Subjective Date Seen by Provider: Jun 11, 2022 Time Seen by Provider: 09:30 The patient was seated upright in his recliner, awake and alert upon entrance to his room by the clinician. The patient greeted the clinician appropriately and was agreeable to participation in the cognitive linguistic treatment session. Objective The patient and clinician completed word-finding strategies throughout st ructured conversation. The patient and clinician discussed the patient's children, his hometown, and activities he likes to complete during his down time. The clinician provided maximum verbal prompting and direct modeling throughout the treatment session. Towards the close of the session, the patient was able to state, "Just a minute" as a strategy to request additional time for anomia throughout conversation. Assessment Assessment Current Status: Fair Progress Treatment Plan Continue Plan of Care Speech Short Term Goals Short Term Goals Short Term Goals 1. The patient will complete confrontational naming with 90% accuracy and mild clinician verbal cueing. Time Frame-STG: One Week. Speech Grinder Set Up Operator Thread Tool Goals Chcf Goals 1. The patient will display improved expressive communication for safe discharge to the least restricted environment. Time Frame: Three Weeks. Speech-Plan Treatment Plan Speech Therapy Treatment Plan: Continue Plan of Care Treatment Duration: Jun 01, 2022 Frequency: Modified Program (IRF) Estimated Hrs Per Day: .5 hour per day Rehab Potential: Fair Safety Risks/Education Teaching Recipient: Patient Teaching Methods: Discussion Response to Teaching: Verbalize Understanding, Reinforcement Needed Education Topics Provided: Word-Finding Strategies through Conversation Time Speech Therapy Time In: 09:30 Speech Therapy Time Out: 10:00 Total Billed Time: 30 Billed Treatment Time 1, SHADY WILLIAMSON Jun 11, 2022 13:52
--- NOTE | 2022-06-11 14:14 | Physical Therapy Daily Note ---
PT Daily Note-Current Subjective Patient in bed pre tx, agrees to PT, has no complaints of pain. Appearance Patient in bed post tx with nurse call, phone, tray, all needs met, in room. Mental Status Patient Orientation: Person, Unable to Assess, Non-Verbal/Aphasic Transfers SCALE: Activities may be completed with or without assistive devices. 9-Whouryvjyy-duwmath completes the activity by him/herself with no assistance from a helper. 5-Set-up or Clean-up Assistance-helper sets up or cleans up; patient completes activity. [place] assists only prior to or following the activity. 4-Supervision or Touching Assistance-helper provides verbal cues and/or touching/steadying and/or contact guard assistance as patient completes activity. Assistance may be provided throughout the activity or intermittently. 3-Partial/Moderate Assistance-helper does LESS THAN HALF the effort. [place] lifts, holds or supports trunk or limbs, but provides less than half the effort. 2-Substantial/Maximal Assistance-helper does MORE THAN HALF the effort. [place] lifts or holds trunk or limbs and provides more than half the effort. 9-Flqitcqic-vgveui does ALL the effort. Patient does none of the effort to complete the activity. Or, the assistance of 2 or more helpers is required for the patient to complete the activity. If activity was not attempted, code reason: 7-Patient Refused. 9-Not Applicable-not attempted and the patient did not perform the activity before the current illness, exacerbation or injury. 10-Not Attempted due to Environmental Limitations-(lack of equipment, weather restraints, etc.). 88-Not Attempted due to Medical Conditions or Safety Concerns. Weight Bearing Full Weight Bearing Full Weight Bearing Exercises Supine Ex: Heel Slides, Short Arc Quads, Straight leg raise, Hip abd/add Supine Reps: 20 (RLE AAROM) bridges x20, supine hooklying hip add x20, manually resisted leg press x20 Treatments RLE strengthening Assessment Current Status: Poor Progress slightly improved leg press PT Short Term Goals Short Term Goals Time Frame: Jun 07, 2022 Roll Left & Right: 4 (CGA) Sit to lyin (CGA) Lying to sitting on side of be: 4 (CGA) Sit to stand: 4 (CGA) Chair/zml-xg-owhxy transfer: 4 (CGA) Walk 10 feet: 4 (CGA) Walk 50 feet with two turns: 4 (CGA) PT [place] Goals [place] Goals PT Care Home Goals Time Frame: Jun 21, 2022 Roll Left & Right (QC): 4 (SBA) Sit to Lying (QC): 4 (SBA) Lying-Sitting on Side/Bed(QC): 4 (SBA) Sit to Stand (QC): 4 (SBA) Chair/Cua-cu-[place]aupt Xfer(QC): 4 (SBA) Toilet Transfer (QC): 4 (SBA) Car Transfer (QC): 4 (CGA) Does the Patient Walk: Yes Walk 10 feet (QC): 4 (SBA) Walk 50ft with 2 Turns (QC): 4 (SBA) Walk 150 ft (QC): 4 (SBA) Walking 10ft on Uneven Surface: 4 (CGA) 1 Step (curb) (QC): 4 (CGA) 4 Steps (QC): 88 12 Steps (QC): 88 Picking up an Object (QC): 4 (CGA using sock knitter) Wheel 50 feet with 2 turns (QC: 6 Wheel 150 feet: 6 PT Plan Problem List Problem List: Activity Tolerance, Functional Strength, Safety, Balance, Gait, Transfer, Bed Mobility, ROM Treatment/Plan Treatment Plan: Continue Plan of Care Treatment Plan: Bed Mobility, Education, Functional Activity Malini, Functional Strength, Group Therapy, Gait, Safety, Therapeutic Exercise, Transfers Treatment Duration: Jun 21, 2022 Frequency: At least 5 of 7 days/Wk (IRF) Estimated Hrs Per Day: 1.5 hours per day Patient and/or Family Agrees t: Yes Safety Risks/Education Patient Education: Correct Positioning, Safety Issues Teaching Recipient: Patient Teaching Methods: Demonstration, Discussion Response to Teaching: Reinforcement Needed Time/GCodes Time In: 1400 Time Out: 1415 Total Billed Treatment Time: 15 Total Billed Treatment 1 visit EX BUDDY GUY PT Jun 11, 2022 14:14
[2022-06-11 19:38] VITALS: BP 149/65
[2022-06-11] MEDS: amLODIPine 10 MG (NORVASC) TAB PO SCH (21:03)
--- NOTE | 2022-06-12 06:34 | PM&R Progress Note ---
Subjective HPI/CC On Admission Date Seen by Provider: Jun 12, 2022 Time Seen by Provider: 12:00 Subjective/Events-last exam 06/12/2022: Doing much better Having lunch with his daughter No pain reported No concerns Sugars reviewed 06/11/2022: Pt is doing really well Bowels moved yesterday Very impulsive Overall feels pretty good 06/10/2022: Patient doing much better Dramatic improvement Participating in therapy Having no new issues 06/09/2022: Improved status today No pain Improved emotional well being today Participating in therapy 06/08/2022: Major issues from an emotional status Tried to give him a pep talk like Jeff, PT did Very difficult to rise out of grief of catastrophic CVA 06/07/2022: Much improved status Working with therapy Motivation doing fairly well Declines anti-depressant No falls 06/06/2022: Patient doing well Eliquis maintained No bleeding problems Discontinue the telemetry Monitoring closely 06/05/2022: Appreciate Dr. Powers Doing well overall and son at the bedside Concerned about his vision at times Eliquis maintained 06/04/2022: Patient still doing pretty well Right eye drooping noted and the decision was made to place on Eliquis empirically since he is external monitoring is not a live feed so will place on telemetry in the meantime Consulting cardiology evaluated the records and noted Eliquis was not on the discharge med list so it was not started until today when I started it Patient overall doing much better Hesitant about depression medication and I did speak with Deb after she saw him at 1400 06/03/2022: Patient dramatically improved Able to walk with a complex cane with leg support Feels much better Improved morale 06/02/2022: Pt is doing pretty well Bowels are moving Responding better Severely depressed so will initiate a behavioral consult No pain is reported 06/01/2022: Pt is doing a lot better Pt is a very private person Discontinue Gabapnetin per request Bowels moved yesterday He fell last night without an injury Updated pt and regarding the plan Review of Systems General: Fatigue, Malaise Objective Exam Vital Signs Vital Signs Date Time Temp Pulse Resp B/P (MAP) Pulse Ox O2 Delivery O2 Flow Rate FiO2 06/12/22 09:20 Room Air 06/12/22 07:30 36.5 75 18 153/71 (98) 96 Capillary Refill : General Appearance: No Apparent Distress, WD/WN, Obese HEENT: PERRL/EOMI, Normal ENT Inspection, Pharynx Normal Neck: Full Range of Motion, Normal Inspection, Non Tender, Supple, Carotid Bruit Respiratory: Chest Non Tender, Lungs Clear, Normal Breath Sounds, No Accessory Muscle Use, No Respiratory Distress Cardiovascular: Regular Rate, Rhythm, No Edema, No Gallop, No JVD, No Murmur, Normal Peripheral Pulses Gastrointestinal: Normal Bowel Sounds, No Organomegaly, No Pulsatile Mass, Non Tender, Soft Back: Normal Inspection, No CVA Tenderness, No Vertebral Tenderness Extremity: Normal Capillary Refill, Normal Inspection, Normal Range of Motion (except right side), Non Tender, No Calf Tenderness, No Pedal Edema Neurologic/Psychiatric: Alert, Oriented x3, Normal Mood/Affect, 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 FIM Transfers Therapy Code Descriptions/Definitions Functional [place] Measure: 0=Not Assessed/NA 4=Minimal Assistance 1=Total Assistance 5=Supervision or Setup 2=Maximal Assistance 6=Modified [place] 3=Moderate Assistance 7=Complete IndependenceSCALE: Activities may be completed with or without assistive devices. 7-Edxbpvedlr-lznvjts completes the activity by him/herself with no assistance from a helper. 5-Set-up or Clean-up Assistance-helper sets up or cleans up; patient completes activity. [place] assists only prior to or following the activity. 4-Supervision or Touching Assistance-helper provides verbal cues and/or touching/steadying and/or contact guard assistance as patient completes activity. Assistance may be provided throughout the activity or intermittently. 3-Partial/Moderate Assistance-helper does LESS THAN HALF the effort. [place] lifts, holds or supports trunk or limbs, but provides less than half the effort. 2-Substantial/Maximal Assistance-helper does MORE THAN HALF the effort. [place] lifts or holds trunk or limbs and provides more than half the effort. 9-Smadslhzp-isrjwy does ALL the effort. Patient does none of the effort to complete the activity. Or, the assistance of 2 or more helpers is required for the patient to complete the activity. If activity was not attempted, code reason: 7-Patient Refused. 9-Not Applicable-not attempted and the patient did not perform the activity before the current illness, exacerbation or injury. 10-Not Attempted due to Environmental Limitations-(lack of equipment, weather restraints, etc.). 88-Not Attempted due to Medical Conditions or Safety Concerns. Roll Left to Right (QC): 4 Sit to Lying (QC): 4 Sit to Stand (QC): 4 Chair/Nzk-xb-Pawur Xfer(QC): 4 Car Transfer (QC): 3 Gait Training Does the Patient Walk?: Yes Distance: 150' Walk 10 feet (QC): 3 Walk 50 ft with 2 Turns(QC): 3 Walk 150 ft (QC): 3 Walking 10ft/uneven surface-QC: 88 Gait Persons Needed: 1 Gait Assistive Device: Walker Timothy Wheelchair Training Does the Pt Use a Wheelchair?: Yes Distance: 150'x2, 120' Wheel 50 ft with 2 turns (QC): 4 Wheel 150 ft (QC): 4 Type of Wheelchair: Manual Stair Training 1 Step (curb) (QC): 88 4 Steps (QC): 88 12 Steps (QC): 88 Balance Picking up an Object (QC): 88 ADL-Treatment Eating (QC): 6 Oral Hygiene (QC): 6 Shower/Bathe Self (QC): 4 (per report) Upper Body Dressing (QC): 4 Lower Body Dressing (QC): 3 On/Off Footwear (QC): 2 Toileting Hygiene (QC): 4 Toilet Transfer (QC): 4 Assessment/Plan Assessment and Plan Assess & Plan/Chief Complaint Assessment: Debility CVA Right sided weakness Dysarthria HTN Diabetes mellitus type 2 HLD Sleep apnea Anxiety Chronic back pain Fall risk SHAE suspected needs sleep study Suspected AF monitor in place and placed on Eliquis empirically on 06/04/2022 by me Depression Plan: Start PT, OT, speech therapy Monitor blood sugars Start long acting insulin and SSI Restart home meds Pain control Closely monitor due to risk of fall 06/01/2022: Fall risk Monitor closely 06/02/2022: Behavioral health consult for depression Supportive care 06/03/2022: Dramatic improvement Ambulated 06/04/2022: Start Eliquis Tattoo Artist closely 06/05/2022: Eliquis PT and OT 06/06/2022: Hailey Aggressive therapy 06/07/2022: Suspect SHAE Monitor BP 06/08/2022: Try to rise above grief and depression 06/09/2022: Improved status 06/10/2022: Supportive care Dramatic improvement 06/11/2022: Supportive care Participation is good 06/12/2022: Improved status Sugars good (1) CVA (cerebral vascular accident) (2) Dysarthria (3) Right sided weakness (4) Uncontrolled type 2 diabetes mellitus Status: Acute (5) Hypertension Status: Acute DEBBY ORTIZ DO Jun 12, 2022 06:34
[2022-06-12 07:30] VITALS: BP 153/71
[2022-06-12] MEDS: VERAPAMIL SR 240 MG (CALAN SR) TAB PO SCH (08:01)
[2022-06-12] MEDS: inSUlin ASPART (NovoLOG) 1 UNIT/0.01 ML (CHARGE PER UNIT) SC SCH ×3 (08:02→19:36)
[2022-06-12] MEDS: LOSARTAN 100 MG (COZAAR) TABLET PO SCH (08:02)
[2022-06-12] MEDS: APIXABAN 5 MG (ELIQUIS) TABLET PO SCH ×2 (08:02→21:03)
[2022-06-12] MEDS: FENOFIBRATE 134 MG (LOFIBRA) CAPSULE PO SCH (08:02)
[2022-06-12] MEDS: CLOPIDOGREL 75 MG (PLAVIX) TABLET PO SCH (08:02)
[2022-06-12] MEDS: polyethylene glycoL POWDER 17 GM (MIRALAX) PACK PO SCH ×2 (08:03→21:04)
[2022-06-12] MEDS: SENNA W/DOCUSATE (SENOKOT S) TABLET PO SCH ×2 (08:03→21:04)
--- NOTE | 2022-06-12 10:43 | Physical Therapy Daily Note ---
PT Daily Note-Current Subjective Pt in bed upon arrival and agrees to PT reports that he continues to feel better. No pain reported this date. Mental Status Patient Orientation: Person, Place, Time Transfers SCALE: Activities may be completed with or without assistive devices. 2-Eugimdczbk-eepqkdx completes the activity by him/herself with no assistance from a helper. 5-Set-up or Clean-up Assistance-helper sets up or cleans up; patient completes activity. [place] assists only prior to or following the activity. 4-Supervision or Touching Assistance-helper provides verbal cues and/or touching/steadying and/or contact guard assistance as patient completes a ctivity. Assistance may be provided throughout the activity or intermittently. 3-Partial/Moderate Assistance-helper does LESS THAN HALF the effort. [place] lifts, holds or supports trunk or limbs, but provides less than half the effort. 2-Substantial/Maximal Assistance-helper does MORE THAN HALF the effort. [place] lifts or holds trunk or limbs and provides more than half the effort. 6-Fydwbhsgz-pxxfzx does ALL the effort. Patient does none of the effort to complete the activity. Or, the assistance of 2 or more helpers is required for the patient to complete the activity. If activity was not attempted, code reason: 7-Patient Refused. 9-Not Applicable-not attempted and the patient did not perform the activity before the current illness, exacerbation or injury. 10-Not Attempted due to Environmental Limitations-(lack of equipment, weather restraints, etc.). 88-Not Attempted due to Medical Conditions or Safety Concerns. Roll Left & Right (QC): 5 Sit to Lying (QC): 4 Lying to Sitting/Side of Bed(Q: 5 Sit to Stand (QC): 5 Weight Bearing Full Weight Bearing Full Weight Bearing Wheelchair Training Does the Pt Use a Wheelchair?: Yes Wheel 50 ft with 2 turns (QC): 4 Type of Wheelchair: Manual Exercises NuStep Minutes: 10 NuStep Workload: 5 Treatments Pt TFs back to bed following treatment w/ all needs met and call light nearby. Assessment Current Status: Good Progress Pt slightly fatigued following nustep. Pt requires cues for hand and foot placement while performing TFs. Ciera to don pts shirt and maxA to don socks. PT Short Term Goals Short Term Goals Time Frame: Jun 07, 2022 Roll Left & Right: 4 (CGA) Sit to lyin (CGA) Lying to sitting on side of be: 4 (CGA) Sit to stand: 4 (CGA) Chair/eaj-pe-nnymp transfer: 4 (CGA) Walk 10 feet: 4 (CGA) Walk 50 feet with two turns: 4 (CGA) PT Log Feeder Goals Log Feeder Goals PT Log Feeder Goals Time Frame: Jun 21, 2022 Roll Left & Right (QC): 4 (SBA) Sit to Lying (QC): 4 (SBA) Lying-Sitting on Side/Bed(QC): 4 (SBA) Sit to Stand (QC): 4 (SBA) Chair/Xbl-yw-Tdziy Xfer(QC): 4 (SBA) Toilet Transfer (QC): 4 (SBA) Car Transfer (QC): 4 (CGA) Does the Patient Walk: Yes Walk 10 feet (QC): 4 (SBA) Walk 50ft with 2 Turns (QC): 4 (SBA) Walk 150 ft (QC): 4 (SBA) Walking 10ft on Uneven Surface: 4 (CGA) 1 Step (curb) (QC): 4 (CGA) 4 Steps (QC): 88 12 Steps (QC): 88 Picking up an Object (QC): 4 (CGA using gas operations analyst) Wheel 50 feet with 2 turns (QC: 6 Wheel 150 feet: 6 PT Plan Problem List Problem List: Activity Tolerance, Functional Strength Treatment/Plan Treatment Plan: Continue Plan of Care Treatment Plan: Bed Mobility, Education, Functional Activity Malini, Functional Strength, Group Therapy, Gait, Safety, Therapeutic Exercise, Transfers Treatment Duration: Jun 21, 2022 Frequency: At least 5 of 7 days/Wk (IRF) Estimated Hrs Per Day: 1.5 hours per day Patient and/or Family Agrees t: Yes Safety Risks/Education Patient Education: Transfer Techniques, Correct Positioning Teaching Recipient: Patient Teaching Methods: Demonstration, Discussion Response to Teaching: Verbalize Understanding, Return Demonstration Time/GCodes Time In: 0815 Time Out: 08 Total Billed Treatment Time: 20 Total Billed Treatment 1, EX MURRAY FONTENOT PTA Jun 12, 2022 10:43
[2022-06-12 20:00] VITALS: BP 146/67
[2022-06-12] MEDS: amLODIPine 10 MG (NORVASC) TAB PO SCH (21:03)
--- NOTE | 2022-06-13 06:57 | PM&R Progress Note ---
Subjective HPI/CC On Admission Date Seen by Provider: Jun 13, 2022 Time Seen by Provider: 12:00 Subjective/Events-last exam 06/13/2022: Patient in a good mood today Talking more clearly Supportive care will continue Insulin has been maintained for about a year he reports 06/12/2022: Doing much better Having lunch with his daughter No pain reported No concerns Sugars reviewed 06/11/2022: Pt is doing really well Bowels moved yesterday Very impulsive Overall feels pretty good 06/10/2022: Patient doing much better Dramatic improvement Participating in therapy Having no new issues 06/09/2022: Improved status today No pain Improved emotional well being today Participating in therapy 06/08/2022: Major issues from an emotional status Tried to give him a pep talk like Jeff, PT did Very difficult to rise out of grief of catastrophic CVA 06/07/2022: Much improved status Working with therapy Motivation doing fairly well Declines anti-depressant No falls 06/06/2022: Patient doing well Eliquis maintained No bleeding problems Discontinue the telemetry Monitoring closely 06/05/2022: Appreciate Dr. Powers Doing well overall and son at the bedside Concerned about his vision at times Eliquis maintained 06/04/2022: Patient still doing pretty well Right eye drooping noted and the decision was made to place on Eliquis empirically since he is external monitoring is not a live feed so will place on telemetry in the meantime Consulting cardiology evaluated the records and noted Eliquis was not on the discharge med list so it was not started until today when I started it Patient overall doing much better Hesitant about depression medication and I did speak with Deb after she saw him at 1400 06/03/2022: Patient dramatically improved Able to walk with a complex cane with leg support Feels much better Improved morale 06/02/2022: Pt is doing pretty well Bowels are moving Responding better Severely depressed so will initiate a behavioral consult No pain is reported 06/01/2022: Pt is doing a lot better Pt is a very private person Discontinue Gabapnetin per request Bowels moved yesterday He fell last night without an injury Updated pt and regarding the plan Review of Systems General: Fatigue, Malaise Neurological: Weakness Objective Exam Vital Signs Vital Signs Date Time Temp Pulse Resp B/P (MAP) Pulse Ox O2 Delivery O2 Flow Rate FiO2 06/13/22 09:10 Room Air 06/13/22 07:30 36.8 76 18 170/76 (107) 98 Capillary Refill : General Appearance: No Apparent Distress, WD/WN, Obese HEENT: PERRL/EOMI, Normal ENT Inspection, Pharynx Normal Neck: Full Range of Motion, Normal Inspection, Non Tender, Supple, Carotid Bruit Respiratory: Chest Non Tender, Lungs Clear, Normal Breath Sounds, No Accessory Muscle Use, No Respiratory Distress Cardiovascular: Regular Rate, Rhythm, No Edema, No Gallop, No JVD, No Murmur, Normal Peripheral Pulses Gastrointestinal: Normal Bowel Sounds, No Organomegaly, No Pulsatile Mass, Non Tender, Soft Back: Normal Inspection, No CVA Tenderness, No Vertebral Tenderness Extremity: Normal Capillary Refill, Normal Inspection, Normal Range of Motion (except right side), Non Tender, No Calf Tenderness, No Pedal Edema Neurologic/Psychiatric: Alert, Oriented x3, Normal Mood/Affect, 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 FIM Transfers Therapy Code Descriptions/Definitions Functional [place] Measure: 0=Not Assessed/NA 4=Minimal Assistance 1=Total Assistance 5=Supervision or Setup 2=Maximal Assistance 6=Modified [place] 3=Moderate Assistance 7=Complete IndependenceSCALE: Activities may be completed with or without assistive devices. 1-Bxaqcegwyt-fhixseb completes the activity by him/herself with no assistance from a helper. 5-Set-up or Clean-up Assistance-helper sets up or cleans up; patient completes activity. [place] assists only prior to or following the activity. 4-Supervision or Touching Assistance-helper provides verbal cues and/or touching/steadying and/or contact guard assistance as patient completes activity. Assistance may be provided throughout the activity or intermittently. 3-Partial/Moderate Assistance-helper does LESS THAN HALF the effort. [place] lifts, holds or supports trunk or limbs, but provides less than half the effort. 2-Substantial/Maximal Assistance-helper does MORE THAN HALF the effort. [place] lifts or holds trunk or limbs and provides more than half the effort. 2-Ipaxvsyka-svjzgf does ALL the effort. Patient does none of the effort to complete the activity. Or, the assistance of 2 or more helpers is required for the patient to complete the activity. If activity was not attempted, code reason: 7-Patient Refused. 9-Not Applicable-not attempted and the patient did not perform the activity before the current illness, exacerbation or injury. 10-Not Attempted due to Environmental Limitations-(lack of equipment, weather restraints, etc.). 88-Not Attempted due to Medical Conditions or Safety Concerns. Roll Left to Right (QC): 5 Sit to Lying (QC): 4 Sit to Stand (QC): 5 Chair/Bif-ia-Agbsa Xfer(QC): 4 Car Transfer (QC): 3 Gait Training Does the Patient Walk?: Yes Distance: 150' Walk 10 feet (QC): 3 Walk 50 ft with 2 Turns(QC): 3 Walk 150 ft (QC): 3 Walking 10ft/uneven surface-QC: 88 Gait Persons Needed: 1 Gait Assistive Device: Walker Timothy Wheelchair Training Does the Pt Use a Wheelchair?: Yes Distance: 150'x2, 120' Wheel 50 ft with 2 turns (QC): 4 Wheel 150 ft (QC): 4 Type of Wheelchair: Manual Stair Training 1 Step (curb) (QC): 88 4 Steps (QC): 88 12 Steps (QC): 88 Balance Picking up an Object (QC): 88 ADL-Treatment Eating (QC): 6 Oral Hygiene (QC): 6 Shower/Bathe Self (QC): 4 (per report) Upper Body Dressing (QC): 4 Lower Body Dressing (QC): 3 On/Off Footwear (QC): 2 Toileting Hygiene (QC): 4 Toilet Transfer (QC): 4 Assessment/Plan Assessment and Plan Assess & Plan/Chief Complaint Assessment: Debility CVA Right sided weakness Dysarthria HTN Diabetes mellitus type 2 HLD Sleep apnea Anxiety Chronic back pain Fall risk SHAE suspected needs sleep study Suspected AF monitor in place and placed on Eliquis empirically on 06/04/2022 by Depression Plan: Start PT, OT, speech therapy Monitor blood sugars Start long acting insulin and SSI Restart home meds Pain control Closely monitor due to risk of fall 06/01/2022: Fall risk Monitor closely 06/02/2022: Behavioral health consult for depression Supportive care 06/03/2022: Dramatic improvement Ambulated 06/04/2022: Start Eliquis Beef Splitter closely 06/05/2022: Eliquis PT and OT 06/06/2022: Eliquis Aggressive therapy 06/07/2022: Suspect SHAE Monitor BP 06/08/2022: Try to rise above grief and depression 06/09/2022: Improved status 06/10/2022: Supportive care Dramatic improvement 06/11/2022: Supportive care Participation is good 06/12/2022: Improved status Sugars good 06/13/2022: Continue insulin (1) CVA (cerebral vascular accident) (2) Dysarthria (3) Right sided weakness (4) Uncontrolled type 2 diabetes mellitus Status: Acute (5) Hypertension Status: Acute DEBBY ORTIZ DO Jun 13, 2022 06:57
[2022-06-13 07:30] VITALS: BP 170/76
[2022-06-13] MEDS: VERAPAMIL SR 240 MG (CALAN SR) TAB PO SCH (08:11)
[2022-06-13] MEDS: LOSARTAN 100 MG (COZAAR) TABLET PO SCH (08:11)
[2022-06-13] MEDS: CLOPIDOGREL 75 MG (PLAVIX) TABLET PO SCH (08:11)
[2022-06-13] MEDS: FENOFIBRATE 134 MG (LOFIBRA) CAPSULE PO SCH (08:11)
[2022-06-13] MEDS: APIXABAN 5 MG (ELIQUIS) TABLET PO SCH ×2 (08:11→21:01)
[2022-06-13] MEDS: inSUlin ASPART (NovoLOG) 1 UNIT/0.01 ML (CHARGE PER UNIT) SC SCH ×3 (08:12→18:37)
[2022-06-13] MEDS: polyethylene glycoL POWDER 17 GM (MIRALAX) PACK PO SCH ×2 (08:14→21:02)
[2022-06-13] MEDS: SENNA W/DOCUSATE (SENOKOT S) TABLET PO SCH ×2 (08:14→21:02)
[2022-06-13 20:09] VITALS: BP 157/72
[2022-06-13] MEDS: amLODIPine 10 MG (NORVASC) TAB PO SCH (21:01)
[2022-06-14 06:43] LABS: BASOPHILS # (AUTO) 0.1 10^3/uL (0.0-0.1); BASOPHILS % (AUTO) 1 % (0-10); EOSINOPHILS # (AUTO) 0.1 10^3/uL (0.0-0.3); EOSINOPHILS % (AUTO) 2 % (0-10); HEMATOCRIT 35 % (40-54); HEMOGLOBIN 11.5 g/dL (13.3-17.7); LYMPHOCYTES % (AUTO) 37 % (12-44); MEAN CORPUSCULAR HEMOGLOBIN 30 pg (25-34); MEAN CORPUSCULAR HGB CONC 33 g/dL (32-36); MEAN CORPUSCULAR VOLUME 90 fL (80-99); MEAN PLATELET VOLUME 10.4 fL (9.0-12.2); MONOCYTES # (AUTO) 0.4 10^3/uL (0.0-1.0); MONOCYTES % (AUTO) 7 % (0-12); NEUTROPHILS # (AUTO) 2.9 10^3/uL (1.8-7.8); NEUTROPHILS % (AUTO) 54 % (42-75); PLATELET COUNT 189 10^3/uL (130-400); WHITE BLOOD COUNT 5.4 10^3/uL (4.3-11.0)
[2022-06-14 06:58] LABS: ALBUMIN 3.8 GM/DL (3.2-4.5); BILIRUBIN,TOTAL 0.5 MG/DL (0.1-1.0); CALCIUM 9.2 MG/DL (8.5-10.1); CREATININE SERUM 0.92 MG/DL (0.60-1.30); POTASSIUM 4.3 MMOL/L (3.6-5.0); TOTAL PROTEIN 6.6 GM/DL (6.4-8.2)
--- NOTE | 2022-06-14 07:17 | PM&R Progress Note ---
Subjective HPI/CC On Admission Date Seen by Provider: Jun 14, 2022 Time Seen by Provider: 12:00 Subjective/Events-last exam 06/14/2022: Doing well No major issues Sugars reviewed 06/13/2022: Patient in a good mood today Talking more clearly Supportive care will continue Insulin has been maintained for about a year he reports 06/12/2022: Doing much better Having lunch with his daughter No pain reported No concerns Sugars reviewed 06/11/2022: Pt is doing really well Bowels moved yesterday Very impulsive Overall feels pretty good 06/10/2022: Patient doing much better Dramatic improvement Participating in therapy Having no new issues 06/09/2022: Improved status today No pain Improved emotional well being today Participating in therapy 06/08/2022: Major issues from an emotional status Tried to give him a pep talk like Jeff, PT did Very difficult to rise out of grief of catastrophic CVA 06/07/2022: Much improved status Working with therapy Motivation doing fairly well Declines anti-depressant No falls 06/06/2022: Patient doing well Eliquis maintained No bleeding problems Discontinue the telemetry Monitoring closely 06/05/2022: Appreciate Dr. Powers Doing well overall and son at the bedside Concerned about his vision at times Eliquis maintained 06/04/2022: Patient still doing pretty well Right eye drooping noted and the decision was made to place on Eliquis empirically since he is external monitoring is not a live feed so will place on telemetry in the meantime Consulting cardiology evaluated the records and noted Eliquis was not on the discharge med list so it was not started until today when I started it Patient overall doing much better Hesitant about depression medication and I did speak with Deb after she saw him at 1400 06/03/2022: Patient dramatically improved Able to walk with a complex cane with leg support Feels much better Improved morale 06/02/2022: Pt is doing pretty well Bowels are moving Responding better Severely depressed so will initiate a behavioral consult No pain is reported 06/01/2022: Pt is doing a lot better Pt is a very private person Discontinue Gabapnetin per request Bowels moved yesterday He fell last night without an injury Updated pt and regarding the plan Review of Systems General: Fatigue, Malaise Objective Exam Vital Signs Vital Signs Date Time Temp Pulse Resp B/P (MAP) Pulse Ox O2 Delivery O2 Flow Rate FiO2 06/14/22 09:30 Room Air 06/14/22 07:18 36.7 70 18 143/77 (99) 99 Capillary Refill : General Appearance: No Apparent Distress, WD/WN, Obese HEENT: PERRL/EOMI, Normal ENT Inspection, Pharynx Normal Neck: Full Range of Motion, Normal Inspection, Non Tender, Supple, Carotid Bruit Respiratory: Chest Non Tender, Lungs Clear, Normal Breath Sounds, No Accessory Muscle Use, No Respiratory Distress Cardiovascular: Regular Rate, Rhythm, No Edema, No Gallop, No JVD, No Murmur, Normal Peripheral Pulses Gastrointestinal: Normal Bowel Sounds, No Organomegaly, No Pulsatile Mass, Non Tender, Soft Back: Normal Inspection, No CVA Tenderness, No Vertebral Tenderness Extremity: Normal Capillary Refill, Normal Inspection, Normal Range of Motion (except right side), Non Tender, No Calf Tenderness, No Pedal Edema Neurologic/Psychiatric: Alert, Oriented x3, Normal Mood/Affect, administrative asst II-XII Norm as Tested, Abnormal Gait, Aphasia, Depressed Affect, Motor Weakness (right sided weakness 1/5) Skin: Normal Color, Warm/Dry Lymphatic: No Adenopathy Results/Procedures Lab Laboratory Tests 06/14/22 06:10 Patient resulted labs reviewed. FIM Transfers Therapy Code Descriptions/Definitions Functional [place] Measure: 0=Not Assessed/NA 4=Minimal Assistance 1=Total Assistance 5=Supervision or Setup 2=Maximal Assistance 6=Modified [place] 3=Moderate Assistance 7=Complete IndependenceSCALE: Activities may be completed with or without assistive devices. 9-Xnikwibwga-vmkuora completes the activity by him/herself with no assistance from a helper. 5-Set-up or Clean-up Assistance-helper sets up or cleans up; patient completes activity. [place] assists only prior to or following the activity. 4-Supervision or Touching Assistance-helper provides verbal cues and/or touching/steadying and/or contact guard assistance as patient completes activity. Assistance may be provided throughout the activity or intermittently. 3-Partial/Moderate Assistance-helper does LESS THAN HALF the effort. [place] lifts, holds or supports trunk or limbs, but provides less than half the effort. 2-Substantial/Maximal Assistance-helper does MORE THAN HALF the effort. [place] lifts or holds trunk or limbs and provides more than half the effort. 7-Ovvnhzvuj-qwmdfa does ALL the effort. Patient does none of the effort to complete the activity. Or, the assistance of 2 or more helpers is required for the patient to complete the activity. If activity was not attempted, code reason: 7-Patient Refused. 9-Not Applicable-not attempted and the patient did not perform the activity before the current illness, exacerbation or injury. 10-Not Attempted due to Environmental Limitations-(lack of equipment, weather restraints, etc.). 88-Not Attempted due to Medical Conditions or Safety Concerns. Roll Left to Right (QC): 5 Sit to Lying (QC): 4 Sit to Stand (QC): 5 Chair/Rzo-vj-Jcfon Xfer(QC): 4 Car Transfer (QC): 3 Gait Training Does the Patient Walk?: Yes Distance: 150' Walk 10 feet (QC): 3 Walk 50 ft with 2 Turns(QC): 3 Walk 150 ft (QC): 3 Walking 10ft/uneven surface-QC: 88 Gait Persons Needed: 1 Gait Assistive Device: Walker Timothy Wheelchair Training Does the Pt Use a Wheelchair?: Yes Distance: 150'x2, 120' Wheel 50 ft with 2 turns (QC): 4 Wheel 150 ft (QC): 4 Type of Wheelchair: Manual Stair Training 1 Step (curb) (QC): 88 4 Steps (QC): 88 12 Steps (QC): 88 Balance Picking up an Object (QC): 88 ADL-Treatment Eating (QC): 6 Oral Hygiene (QC): 6 Shower/Bathe Self (QC): 4 (per report) Upper Body Dressing (QC): 4 Lower Body Dressing (QC): 3 On/Off Footwear (QC): 2 Toileting Hygiene (QC): 4 Toilet Transfer (QC): 4 Assessment/Plan Assessment and Plan Assess & Plan/Chief Complaint Assessment: Debility CVA Right sided weakness Dysarthria HTN Diabetes mellitus type 2 HLD Sleep apnea Anxiety Chronic back pain Fall risk SHAE suspected needs sleep study Suspected AF monitor in place and placed on Eliquis empirically on 06/04/2022 by me Depression Plan: Start PT, OT, speech therapy Monitor blood sugars Start long acting insulin and SSI Restart home meds Pain control Closely monitor due to risk of fall 06/01/2022: Fall risk Monitor closely 06/02/2022: Behavioral health consult for depression Supportive care 06/03/2022: Dramatic improvement Ambulated 06/04/2022: Start Eliquis [place] Driver closely 06/05/2022: Eliquis PT and OT 06/06/2022: Eliquis Aggressive therapy 06/07/2022: Suspect SHAE Monitor BP 06/08/2022: Try to rise above grief and depression 06/09/2022: Improved status 06/10/2022: Supportive care Dramatic improvement 06/11/2022: Supportive care Participation is good 06/12/2022: Improved status Sugars good 06/13/2022: Continue insulin 06/14/2022: DC next week (1) CVA (cerebral vascular accident) (2) Dysarthria (3) Right sided weakness (4) Uncontrolled type 2 diabetes mellitus Status: Acute (5) Hypertension Status: Acute DEBBY ORTIZ DO Jun 14, 2022 07:17
[2022-06-14 07:18] VITALS: BP 143/77
[2022-06-14] MEDS: VERAPAMIL SR 240 MG (CALAN SR) TAB PO SCH (07:59)
[2022-06-14] MEDS: CLOPIDOGREL 75 MG (PLAVIX) TABLET PO SCH (07:59)
[2022-06-14] MEDS: APIXABAN 5 MG (ELIQUIS) TABLET PO SCH ×2 (07:59→20:00)
[2022-06-14] MEDS: LOSARTAN 100 MG (COZAAR) TABLET PO SCH (07:59)
[2022-06-14] MEDS: FENOFIBRATE 134 MG (LOFIBRA) CAPSULE PO SCH (07:59)
[2022-06-14] MEDS: inSUlin ASPART (NovoLOG) 1 UNIT/0.01 ML (CHARGE PER UNIT) SC SCH ×3 (08:19→17:56)
--- NOTE | 2022-06-14 10:08 | Physical Therapy Daily Note ---
PT Daily Note-Current Transfers SCALE: Activities may be completed with or without assistive devices. 3-Eftealdejy-hhasivy completes the activity by him/herself with no assistance from a helper. 5-Set-up or Clean-up Assistance-helper sets up or cleans up; patient completes activity. [place] assists only prior to or following the activity. 4-Supervision or Touching Assistance-helper provides verbal cues and/or touching/steadying and/or contact guard assistance as patient completes activity. Assistance may be provided throughout the activity or intermittently. 3-Partial/Moderate Assistance-helper does LESS THAN HALF the effort. [place] lifts, holds or supports trunk or limbs, but provides less than half the effort. 2-Substantial/Maximal Assistance-helper does MORE THAN HALF the effort. [place] lifts or holds trunk or limbs and provides more than half the effort. 8-Sslvgxdzc-ctxsol does ALL the effort. Patient does none of the effort to complete the activity. Or, the assistance of 2 or more helpers is required for the patient to complete the activity. If activity was not attempted, code reason: 7-Patient Refused. 9-Not Applicable-not attempted and the patient did not perform the activity before the current illness, exacerbation or injury. 10-Not Attempted due to Environmental Limitations-(lack of equipment, weather restraints, etc.). 88-Not Attempted due to Medical Conditions or Safety Concerns. Roll Left & Right (QC): 4 Sit to Lying (QC): 4 Practiced rolling (L) and (R). Educated on techniques and performed 10 reps ea Weight Bearing Full Weight Bearing Full Weight Bearing Gait Training Gait Assistive Device: Walker Timothy 150ft x 2 trials with timothy walker, (R) AFO, and (R) knee cage. Performed min assist for (L) wt shift to allow full swing through of the (R) LE. 2 episodes of (R) knee hyperextension Exercises Supine Ex: Rolling, Heel Slides, D1 F/E UE, D2 F/E UE, Hip abd/add Supine Reps: 20 Standing: Marching, Mini squats, Side steps NuStep Minutes: 10 NuStep Workload: 5 Neuromuscular side lying facilitation techniques for rolling (L) and (R); LE PNF D1D2 flex ext ension, side lying hip flexion/extension with tactile cues, double hip flexion with feet on sao tomean ball Assessment Pt showed improved wt shift and foot clearance post mat exercise and PNF techniques. PT Short Term Goals Short Term Goals Time Frame: Jun 07, 2022 Roll Left & Right: 4 (CGA) Sit to lyin (CGA) Lying to sitting on side of be: 4 (CGA) Sit to stand: 4 (CGA) Chair/tqw-zd-vvotf transfer: 4 (CGA) Walk 10 feet: 4 (CGA) Walk 50 feet with two turns: 4 (CGA) PT Hand Drawer In Goals Detention Goals PT Hand Drawer In Goals Time Frame: Jun 21, 2022 Roll Left & Right (QC): 4 (SBA) Sit to Lying (QC): 4 (SBA) Lying-Sitting on Side/Bed(QC): 4 (SBA) Sit to Stand (QC): 4 (SBA) Chair/Zqp-ai-Dijqv Xfer(QC): 4 (SBA) Toilet Transfer (QC): 4 (SBA) Car Transfer (QC): 4 (CGA) Does the Patient Walk: Yes Walk 10 feet (QC): 4 (SBA) Walk 50ft with 2 Turns (QC): 4 (SBA) Walk 150 ft (QC): 4 (SBA) Walking 10ft on Uneven Surface: 4 (CGA) 1 Step (curb) (QC): 4 (CGA) 4 Steps (QC): 88 12 Steps (QC): 88 Picking up an Object (QC): 4 (CGA using waist presser) Wheel 50 feet with 2 turns (QC: 6 Wheel 150 feet: 6 PT Plan Treatment/Plan Treatment Plan: Continue Plan of Care Treatment Plan: Bed Mobility, Education, Functional Activity Malini, Functional Strength, Group Therapy, Gait, Safety, Therapeutic Exercise, Transfers Treatment Duration: Jun 21, 2022 Frequency: At least 5 of 7 days/Wk (IRF) Estimated Hrs Per Day: 1.5 hours per day Patient and/or Family Agrees t: Yes Time/GCodes Time In: 0900 Time Out: 1000 Total Billed Treatment Time: 60 Total Billed Treatment visit, gait activity 30 min, NM 15 min, EX 15 min TRISTIAN AUGUST PT Jun 14, 2022 10:08
[2022-06-14] MEDS: SENNA W/DOCUSATE (SENOKOT S) TABLET PO SCH ×2 (10:22→20:00)
[2022-06-14] MEDS: polyethylene glycoL POWDER 17 GM (MIRALAX) PACK PO SCH ×2 (10:22→20:00)
--- NOTE | 2022-06-14 11:29 | Occupational Ther Daily Note ---
OT Current Status-Daily Note Subjective Pt alert, sitting in recliner. Pt agrees to therapy. No c/o pain. Mental Status/Objective Patient Orientation: Person, Place, Non-Verbal/Aphasic, Time, Situation Attachments: Other-See Comments (external loop recorder) ADL-Treatment Pt declines all ADLs at this time. Therapy Code Descriptions/Definitions Functional [place] Measure: 0=Not Assessed/NA 4=Minimal Assistance 1=Total Assistance 5=Supervision or Setup 2=Maximal Assistance 6=Modified [place] 3=Moderate Assistance 7=Complete IndependenceSCALE: Activities may be completed with or without assistive devices. 0-Gpqimzbmdr-tjtijza completes the activity by him/herself with no assistance from a helper. 5-Set-up or Clean-up Assistance-helper sets up or cleans up; patient completes activity. [place] assists only prior to or following the activity. 4-Supervision or Touching Assistance-helper provides verbal cues and/or rajesh poncho/steadying and/or contact guard assistance as patient completes activity. Assistance may be provided throughout the activity or intermittently. 3-Partial/Moderate Assistance-helper does LESS THAN HALF the effort. [place] lifts, holds or supports trunk or limbs, but provides less than half the effort. 2-Substantial/Maximal Assistance-helper does MORE THAN HALF the effort. [place] lifts or holds trunk or limbs and provides more than half the effort. 9-Uooqfalgl-egrwyi does ALL the effort. Patient does none of the effort to complete the activity. Or, the assistance of 2 or more helpers is required for the patient to complete the activity. If activity was not attempted, code reason: 7-Patient Refused. 9-Not Applicable-not attempted and the patient did not perform the activity before the current illness, exacerbation or injury. 10-Not Attempted due to Environmental Limitations-(lack of equipment, weather restraints, etc.). 88-Not Attempted due to Medical Conditions or Safety Concerns. Other Treatment Sit <--> stand SBA then SBA for SPT from surface to surface. Pt is progressing well with functional balance. Pt taken to therapy gym via w/c. Pt completed B UE strengthening, neuromuscular and ROM activities to regain muscle movement throughout R UE. Wt bearing in R UE while standing at parallel bar and completing crossing midline with L UE. R wrist flexion/extension and finger flex/ext against gravity, pt is progressing in strength and degrees of AROM. Pt then completed arm bike using R UE for forward rotation, assist needed to maintain R grasp while rotating handles. Horizontal abd/add and shldr pro /retraction (maintained exterminator on dowel thomas) in gravity elimination 10 reps. While sitting in recliner, pt able to doff shoes and AFO independently. After therapy, pt sitting in recliner with call light/phone in reach. All needs met in room. OT Short Term Goals Short Term Goals Time Frame: Jun 23, 2022 Oral hygiene: 5 Toileting hygiene: 4 Shower/bathe self: 4 Lower body dressin Putting on/taking off footwear: 4 OT Wool Washing Machine Operator Goals Wool Washing Machine Operator Goals Time Frame: Jul 02, 2022 Eating (QC): 6 Oral Hygiene (QC): 6 Toileting Hygiene (QC): 6 Shower/Bathe Self (QC): 6 Upper Body Dressing (QC): 6 Lower Body Dressing (QC): 6 On/Off Footwear (QC): 6 Additional Goals: 1-Demonstrate ADL Tasks, 2-Verbalize Understanding, 3- ImproveStrength/Malini 1=Demonstrate adherence to instructed precautions during ADL tasks. 2=Patient will verbalize/demonstrate understanding of assistive devices/modifications for ADL. 3=Patient will improve strength/tolerance for activity to enable patient to perform ADL's. OT Education/Plan Problem List/Assessment Assessment: Decreased Activ Tolerance, Decreased UE Strength, Impaired Self- Care Skills, Restricted Funct UE ROM Discharge Recommendations Plan/Recommendations: Continue POC Treatment Plan/Plan of Care Patient would benefit from OT for education, treatment and training to promote independence in ADL's, mobility, safety and/or upper extremity function for ADL's. Plan of Care: ADL Retraining, Functional Mobility, Group Exercise/Act as Ind, UE Funct Exercise/Act, UE Neuromus Re-Ed/Coord, W/C Management Training Treatment Duration: Jul 02, 2022 Frequency: At least 5 of 7 days/Wk (IRF) Estimated Hrs Per Day: 1.5 hours per day Agreement: Yes Rehab Potential: Fair Time/GCodes Start Time: 10:30 Stop Time: 11:30 Total Time Billed (hr/min): 60 Billed Treatment Time 1 visit-TAYLOR 4 (60 min) JEANETTE VALDOVINOS Jun 14, 2022 11:29
--- NOTE | 2022-06-14 14:27 | Therapy Group Daily Note ---
Therapy Daily Group Note Patient Education Topic Exercises Exercises LE Seated Exercise, Balance, ROM, Stretching, Gross Motor, UE Exercise Session Ratio (pt:therapist): 3:1 Goal of Session: Education on ARU Expectations, UE/LE Strengthing Goal Met for this Session: Yes Pt Benefit of Group: Increased Functional Safety, Increased Functional Strength, Improved Cognition, Recognition of Peers, Socialization Other/Notes Bed mobility supine to sit required Min Assist. W/C self propel to group activity. Worked on seated dynamic wt shift and balance during volleyball activity. UE seated exercises for ROM and strength. Seated exercise including: glute sets, LAQ, ankle pumps, trunk rotations, and cervical AROM with end range stretch. Pt encouraged and assisted with word finding during therapist guided group discussion. Start Time: 13:00 Stop Time: 14:00 Total Billed Treatment Time: 60 Total Billed Treatment visit, Therapeutic group 60 min TRISTIAN AUGUST PT Jun 14, 2022 14:27
[2022-06-14 19:33] VITALS: BP 156/68
[2022-06-14] MEDS: amLODIPine 10 MG (NORVASC) TAB PO SCH (20:00)
--- NOTE | 2022-06-15 06:54 | PM&R Progress Note ---
Subjective HPI/CC On Admission Date Seen by Provider: Jun 15, 2022 Time Seen by Provider: 08:30 Subjective/Events-last exam 06/15/2022: No major issues Participation is good Speaking more clearly 06/14/2022: Doing well No major issues Sugars reviewed 06/13/2022: Patient in a good mood today Talking more clearly Supportive care will continue Insulin has been maintained for about a year he reports 06/12/2022: Doing much better Having lunch with his daughter No pain reported No concerns Sugars reviewed 06/11/2022: Pt is doing really well Bowels moved yesterday Very impulsive Overall feels pretty good 06/10/2022: Patient doing much better Dramatic improvement Participating in therapy Having no new issues 06/09/2022: Improved status today No pain Improved emotional well being today Participating in therapy 06/08/2022: Major issues from an emotional status Tried to give him a pep talk like Jeff, PT did Very difficult to rise out of grief of catastrophic CVA 06/07/2022: Much improved status Working with therapy Motivation doing fairly well Declines anti-depressant No falls 06/06/2022: Patient doing well Eliquis maintained No bleeding problems Discontinue the telemetry Monitoring closely 06/05/2022: Appreciate Dr. Powers Doing well overall and son at the bedside Concerned about his vision at times Eliquis maintained 06/04/2022: Patient still doing pretty well Right eye drooping noted and the decision was made to place on Eliquis empirically since he is external monitoring is not a live feed so will place on telemetry in the meantime Consulting cardiology evaluated the records and noted Eliquis was not on the discharge med list so it was not started until today when I started it Patient overall doing much better Hesitant about depression medication and I did speak with Deb after she saw him at 1400 06/03/2022: Patient dramatically improved Able to walk with a complex cane with leg support Feels much better Improved morale 06/02/2022: Pt is doing pretty well Bowels are moving Responding better Severely depressed so will initiate a behavioral consult No pain is reported 06/01/2022: Pt is doing a lot better Pt is a very private person Discontinue Gabapnetin per request Bowels moved yesterday He fell last night without an injury Updated pt and regarding the plan Review of Systems General: Fatigue, Malaise Objective Exam Vital Signs Vital Signs Date Time Temp Pulse Resp B/P (MAP) Pulse Ox O2 Delivery O2 Flow Rate FiO2 06/15/22 19:30 37.0 66 20 131/77 (95) 99 Room Air Capillary Refill : General Appearance: No Apparent Distress, WD/WN, Obese HEENT: PERRL/EOMI, Normal ENT Inspection, Pharynx Normal Neck: Full Range of Motion, Normal Inspection, Non Tender, Supple, Carotid Bruit Respiratory: Chest Non Tender, Lungs Clear, Normal Breath Sounds, No Accessory Muscle Use, No Respiratory Distress Cardiovascular: Regular Rate, Rhythm, No Edema, No Gallop, No JVD, No Murmur, Normal Peripheral Pulses Gastrointestinal: Normal Bowel Sounds, No Organomegaly, No Pulsatile Mass, Non Tender, Soft Back: Normal Inspection, No CVA Tenderness, No Vertebral Tenderness Extremity: Normal Capillary Refill, Normal Inspection, Normal Range of Motion (except right side), Non Tender, No Calf Tenderness, No Pedal Edema Neurologic/Psychiatric: Alert, Oriented x3, Normal Mood/Affect, varnish thinner II-XII Norm as Tested, Abnormal Gait, Aphasia, Depressed Affect, Motor Weakness (right sided weakness 1/5) Skin: Normal Color, Warm/Dry Lymphatic: No Adenopathy Results/Procedures Lab Patient resulted labs reviewed. FIM Transfers Therapy Code Descriptions/Definitions Functional [place] Measure: 0=Not Assessed/NA 4=Minimal Assistance 1=Total Assistance 5=Supervision or Setup 2=Maximal Assistance 6=Modified [place] 3=Moderate Assistance 7=Complete IndependenceSCALE: Activities may be completed with or without assistive devices. 7-Feswxctith-zmrjfqx completes the activity by him/herself with no assistance from a helper. 5-Set-up or Clean-up Assistance-helper sets up or cleans up; patient completes activity. [place] assists only prior to or following the activity. 4-Supervision or Touching Assistance-helper provides verbal cues and/or touching/steadying and/or contact guard assistance as patient completes activity. Assistance may be provided throughout the activity or intermittently. 3-Partial/Moderate Assistance-helper does LESS THAN HALF the effort. [place] lifts, holds or supports trunk or limbs, but provides less than half the effort. 2-Substantial/Maximal Assistance-helper does MORE THAN HALF the effort. [place] lifts or holds trunk or limbs and provides more than half the effort. 8-Jcuhtxhmz-blsrko does ALL the effort. Patient does none of the effort to complete the activity. Or, the assistance of 2 or more helpers is required for the patient to complete the activity. If activity was not attempted, code reason: 7-Patient Refused. 9-Not Applicable-not attempted and the patient did not perform the activity before the current illness, exacerbation or injury. 10-Not Attempted due to Environmental Limitations-(lack of equipment, weather restraints, etc.). 88-Not Attempted due to Medical Conditions or Safety Concerns. Roll Left to Right (QC): 4 Sit to Lying (QC): 4 Sit to Stand (QC): 5 Chair/Ock-pd-Rpccg Xfer(QC): 4 Car Transfer (QC): 3 Gait Training Does the Patient Walk?: Yes Distance: 150' Walk 10 feet (QC): 3 Walk 50 ft with 2 Turns(QC): 3 Walk 150 ft (QC): 3 Walking 10ft/uneven surface-QC: 88 Gait Persons Needed: 1 Gait Assistive Device: Walker Timothy Wheelchair Training Does the Pt Use a Wheelchair?: Yes Distance: 150'x2, 120' Wheel 50 ft with 2 turns (QC): 4 Wheel 150 ft (QC): 4 Type of Wheelchair: Manual Stair Training 1 Step (curb) (QC): 88 4 Steps (QC): 88 12 Steps (QC): 88 Balance Picking up an Object (QC): 88 ADL-Treatment Eating (QC): 6 Oral Hygiene (QC): 6 Shower/Bathe Self (QC): 4 (per report) Upper Body Dressing (QC): 4 Lower Body Dressing (QC): 3 On/Off Footwear (QC): 2 Toileting Hygiene (QC): 4 Toilet Transfer (QC): 4 Assessment/Plan Assessment and Plan Assess & Plan/Chief Complaint Assessment: Debility CVA Right sided weakness Dysarthria HTN Diabetes mellitus type 2 HLD Sleep apnea Anxiety Chronic back pain Fall risk SAHE suspected needs sleep study Suspected AF monitor in place and placed on Eliquis empirically on 06/04/2022 by me Depression Plan: Start PT, OT, speech therapy Monitor blood sugars Start long acting insulin and SSI Restart home meds Pain control Closely monitor due to risk of fall 06/01/2022: Fall risk Monitor closely 06/02/2022: Behavioral health consult for depression Supportive care 06/03/2022: Dramatic improvement Ambulated 06/04/2022: Start Eliquis Youth Teacher closely 06/05/2022: Eliquis PT and OT 06/06/2022: Eliquis Aggressive therapy 06/07/2022: Suspect SHAE Monitor BP 06/08/2022: Try to rise above grief and depression 06/09/2022: Improved status 06/10/2022: Supportive care Dramatic improvement 06/11/2022: Supportive care Participation is good 06/12/2022: Improved status Sugars good 06/13/2022: Continue insulin 06/14/2022: DC next week 06/15/2022: Monitor BP (1) CVA (cerebral vascular accident) (2) Dysarthria (3) Right sided weakness (4) Uncontrolled type 2 diabetes mellitus Status: Acute (5) Hypertension Status: Acute DEBBY ORTIZ DO Jun 15, 2022 06:54
[2022-06-15] MEDS: CLOPIDOGREL 75 MG (PLAVIX) TABLET PO SCH (07:27)
[2022-06-15] MEDS: VERAPAMIL SR 240 MG (CALAN SR) TAB PO SCH (07:27)
[2022-06-15] MEDS: FENOFIBRATE 134 MG (LOFIBRA) CAPSULE PO SCH (07:27)
[2022-06-15] MEDS: LOSARTAN 100 MG (COZAAR) TABLET PO SCH (07:27)
[2022-06-15] MEDS: APIXABAN 5 MG (ELIQUIS) TABLET PO SCH ×2 (07:27→20:46)
[2022-06-15 07:33] VITALS: BP 149/66
[2022-06-15] MEDS: inSUlin ASPART (NovoLOG) 1 UNIT/0.01 ML (CHARGE PER UNIT) SC SCH ×4 (07:43→17:05)
--- NOTE | 2022-06-15 08:52 | Physical Therapy Daily Note ---
PT Daily Note-Current Subjective Patient in recliner pre tx, agrees to PT, has no complaints of pain. Appearance Patient in recliner post tx with nurse call, phone, tray, all needs met. Mental Status Patient Orientation: Person, Unable to Assess, Non-Verbal/Aphasic Transfers SCALE: Activities may be completed with or without assistive devices. 2-Vspzwrbamg-vqzjjwp completes the activity by him/herself with no assistance from a helper. 5-Set-up or Clean-up Assistance-helper sets up or cleans up; patient completes activity. [place] assists only prior to or following the activity. 4-Supervision or Touching Assistance-helper provides verbal cues and/or touching/steadying and/or contact guard assistance as patient completes activity. Assistance may be provided throughout the activity or intermittently. 3-Partial/Moderate Assistance-helper does LESS THAN HALF the effort. [place] lift s, holds or supports trunk or limbs, but provides less than half the effort. 2-Substantial/Maximal Assistance-helper does MORE THAN HALF the effort. [place] lifts or holds trunk or limbs and provides more than half the effort. 3-Qndhhykxd-rtnskt does ALL the effort. Patient does none of the effort to complete the activity. Or, the assistance of 2 or more helpers is required for the patient to complete the activity. If activity was not attempted, code reason: 7-Patient Refused. 9-Not Applicable-not attempted and the patient did not perform the activity before the current illness, exacerbation or injury. 10-Not Attempted due to Environmental Limitations-(lack of equipment, weather restraints, etc.). 88-Not Attempted due to Medical Conditions or Safety Concerns. Roll Left & Right (QC): 6 Sit to Lying (QC): 4 Lying to Sitting/Side of Bed(Q: 4 Sit to Stand (QC): 4 Chair/Fji-zg-Sxyvz Xfer(QC): 4 Toilet Transfer (QC): 4 Car Transfer (QC): 4 Patient performs rolling with independence, supine <-> sit SBA, sit <-> stand CGA, transfers to the left CGA and to the right min assist, car transfer CGA. Patient needs occasional cues for positioning and safety. Weight Bearing Full Weight Bearing Full Weight Bearing Gait Training Distance: 150' Walk 10 feet (QC): 3 Walk 50 ft with 2 Turns(QC): 3 Walk 150 ft (QC): 3 Walking 10ft/uneven surface-QC: 3 Gait Persons Needed: 1 Gait Assistive Device: Walker Timothy Patient can ambulate 150' with a hemiwalker and AFO and knee cage with min assist (including 50' with at least 2 turns of 90 degrees and 10' over an uneven surface), patient needs occasional assist with balance but very little assist with weight shifting now, getting better at clearing foot when stepping and with step through. Wheelchair Training Does the Pt Use a Wheelchair?: Yes Wheel 50 ft with 2 turns (QC): 4 Wheel 150 ft (QC): 4 Type of Wheelchair: Manual SBA Stair Training Stair Training: Handrails/: 1 handrail #of Steps: 4 1 Step (curb) (QC): 3 4 Steps (QC): 3 12 Steps (QC): 88 Stairs: Pattern: Step to Patient can go up and down 4 steps using 1 handrail with min assist, cues for foot placement and positioning Balance Picking up an Object (QC): 4 (CGA with banquet bartender) Exercises NuStep Minutes: 15 NuStep Workload: 5 Treatments bed mobility and transfers, ambulation, stair training, functional strengthening Assessment Current Status: Fair Progress slow but steady progress, still requires assist with ambulation and transfers to the right side but it is improving PT Short Term Goals Short Term Goals Time Frame: Jun 07, 2022 Roll Left & Right: 4 (CGA) Sit to lyin (CGA) Lying to sitting on side of be: 4 (CGA) Sit to stand: 4 (CGA) Chair/jfy-zp-vgzgd transfer: 4 (CGA) Walk 10 feet: 4 (CGA) Walk 50 feet with two turns: 4 (CGA) PT [facility] Goals Longterm Goals PT [facility] Goals Time Frame: Jun 21, 2022 Roll Left & Right (QC): 4 (SBA) Sit to Lying (QC): 4 (SBA) Lying-Sitting on Side/Bed(QC): 4 (SBA) Sit to Stand (QC): 4 (SBA) Chair/Rmj-xd-Qawob Xfer(QC): 4 (SBA) Toilet Transfer (QC): 4 (SBA) Car Transfer (QC): 4 (CGA) Does the Patient Walk: Yes Walk 10 feet (QC): 4 (SBA) Walk 50ft with 2 Turns (QC): 4 (SBA) Walk 150 ft (QC): 4 (SBA) Walking 10ft on Uneven Surface: 4 (CGA) 1 Step (curb) (QC): 4 (CGA) 4 Steps (QC): 88 12 Steps (QC): 88 Picking up an Object (QC): 4 (CGA using banquet bartender) Wheel 50 feet with 2 turns (QC: 6 Wheel 150 feet: 6 PT Plan Problem List Problem List: Activity Tolerance, Functional Strength, Safety, Balance, Gait, Transfer, Bed Mobility, ROM Treatment/Plan Treatment Plan: Continue Plan of Care Treatment Plan: Bed Mobility, Education, Functional Activity Malini, Functional Strength, Group Therapy, Gait, Safety, Therapeutic Exercise, Transfers Treatment Duration: Jun 21, 2022 Frequency: At least 5 of 7 days/Wk (IRF) Estimated Hrs Per Day: 1.5 hours per day Patient and/or Family Agrees t: Yes Safety Risks/Education Patient Education: Gait Training, Transfer Techniques, Steps, Correct Positioning, W/C Management, Safety Issues Teaching Recipient: Patient Teaching Methods: Demonstration, Discussion Response to Teaching: Reinforcement Needed Time/GCodes Time In: 0800 Time Out: 0900 Total Billed Treatment Time: 60 Total Billed Treatment 1 visit EX 15' FA 45' BUDDY GARCIA PT Jun 15, 2022 08:52
[2022-06-15] MEDS: SENNA W/DOCUSATE (SENOKOT S) TABLET PO SCH ×2 (09:54→20:47)
[2022-06-15] MEDS: polyethylene glycoL POWDER 17 GM (MIRALAX) PACK PO SCH ×2 (09:54→20:47)
--- NOTE | 2022-06-15 10:15 | Speech Therapy Daily Note ---
Speech Daily Progress Note Subjective Date Seen by Provider: Jun 15, 2022 Time Seen by Provider: 09:45 The patient was seated upright in his recliner, awake and alert upon entrance to the patient's room. The patient greeted the clinician appropriately and was agreeable to participation in the cognitive linguistic treatment session. Objective Expression of Ideas/Wants: Frequently (2) Understanding Verbal Content: Understands (4) Brief Interview-Mental Status: Yes Repetition of Three Words: Three (3) Temporal Orientation: Year: Correct (3) Temporal Orientation: Month: Accurate within 5 days(2) Temporal Orientation: Day: Correct (1) Recall : Wear to say "Sock": Yes (2) Recall : Color: Yes (2) Recall : Bed: Yes (2) Memory/Recall Ability: Room number, staff names, hospital setting/location, season The patient and clinician reviewed the patient's expressive language goals and discussed the progression the patient has displayed. The patient was able to participate in structured conversation on this date with short, spontaneous phrases (five to six words in length) with intermittent pauses for anomia. Word- finding strategies were discussed, as well as, exercises to be practiced in the home environment. On this date, the patient was able to complete generative naming with eight animal, upon admission the patient was able to name two. Assessment Assessment Current Status: Good Progress Treatment Plan Discontinue ST Speech Short Term Goals Short Term Goals Short Term Goals 1. The patient will complete confrontational naming with 90% accuracy and mild clinician verbal cueing. Time Frame-STG: One Week. Speech Fci Goals Fci Goals 1. The patient will display improved expressive communication for safe discharge to the least restricted environment. Time Frame: Three Weeks. Speech-Plan Treatment Plan Speech Therapy Treatment Plan: Discontinue ST Treatment Duration: Jun 01, 2022 Frequency: Modified Program (IRF) Estimated Hrs Per Day: .5 hour per day Rehab Potential: Fair Safety Risks/Education Teaching Recipient: Patient Teaching Methods: Discussion Response to Teaching: Verbalize Understanding Education Topics Provided: Results, Recommendations, Plan of Care Time Speech Therapy Time In: 09:45 Speech Therapy Time Out: 10:15 Total Billed Time: 30 Billed Treatment Time 1DEBBIESHADY ST Jun 15, 2022 10:15
--- NOTE | 2022-06-15 10:20 | Therapy Team Discharge Summary ---
Therapy Discharge Summary Discharge Recommendations Date of Discharge Physical Therapy Roll Left to Right (QC): 6 Sit to Lying (QC): 4 Lying to Sitting/Side of Bed(Q: 4 Sit to Stand (QC): 4 Chair/Czt-kf-Bnihh Xfer(QC): 4 Toilet Transfer (QC): 4 Car Transfer (QC): 4 Does the Patient Walk: Yes Mode of Locomotion: Both Anticipated Mode of Locomotion: Walk Walk 10 feet (QC): 3 Walk 50 ft with 2 Turns(QC): 3 Walk 150 ft (QC): 3 Walking 10ft on uneven surface: 3 Distance: 20'x4 Gait Assistive Device: Walker Timothy Does the Pt Use a Wheelchair: Yes Wheelchair Distance: 150'x2, 120' Wheel 50 ft with 2 turns (QC): 4 Wheel 150 ft (QC): 4 Type of Wheelchair: Manual #of Steps: 4 1 Step (curb) (QC): 3 4 Steps (QC): 3 12 Steps (QC): 88 Balance Sitting Static: Fair Balance Sitting Dynamic: Poor Balance-Standing Static: Poor Picking up an Object (QC): 4 (CGA with hydro electric station operator) Occupational Therapy Decreased Activ Tolerance, Decreased UE Strength, Impaired Self-Care Skills, Restricted Funct UE ROM Eating (QC): 6 Oral Hygiene (QC): 6 Shower/Bathe Self (QC): 4 (per report) Upper Body Dressing (QC): 4 Lower Body Dressing (QC): 3 On/Off Footwear (QC): 2 Toileting Hygiene (QC): 4 Speech-Language Pathology Expression of Ideas/Wants: Frequently (2) Understanding Verbal Content: Understands (4) Brief Interview-Mental Status: Yes Repetition of Three Words: Three (3) Temporal Orientation: Year: Correct (3) Temporal Orientation: Month: Accurate within 5 days(2) Temporal Orientation: Day: Correct (1) Recall : Wear to say "Sock": Yes (2) Recall : Color: Yes (2) Recall : Bed: Yes (2) Memory/Recall Ability: Room number, staff names, hospital setting/location, season PT Nursing Home Goals Test Facility Engineer Goals PT Nursing Home Goals Time Frame: Jun 21, 2022 Roll Left to Right (QC): 4 (SBA) Sit to Lying (QC): 4 (SBA) Lying-Sitting on Side/Bed(QC): 4 (SBA) Sit to Stand (QC): 4 (SBA) Chair/Fhu-eh-Wzjbs Xfer(QC): 4 (SBA) Car Transfer (QC): 4 (CGA) Does the Patient Walk: Yes Walk 10 feet (QC): 4 (SBA) Walk 10ft-Uneven Surface(QC): 4 (CGA) Walk 50ft with 2 Turns (QC): 4 (SBA) Walk 150 ft (QC): 4 (SBA) Wheel 50 feet with 2 turns (QC: 6 1 Step (curb) (QC): 4 (CGA) 4 Steps (QC): 88 12 Steps (QC): 88 Picking up an Object (QC): 4 (CGA using hydro electric station operator) OT Test Facility Engineer Goals Nursing Home Goals Time Frame: Jul 02, 2022 Eating (FIM): 6 Eating (QC): 6 Oral Hygiene (QC): 6 Shower/Bathe Self (QC): 6 Upper Body Dressing (QC): 6 Lower Body Dressing (QC): 6 On/Off Footwear (QC): 6 Toileting(FIM): 6 Toileting Hygiene (QC): 6 Toilet/Commode Transfer (QC): 4 (SBA) Additional Goals: 1-Demonstrate ADL Tasks, 2-Verbalize Understanding, 3- ImproveStrength/Malini 1=Demonstrate adherence to instructed precautions during ADL tasks. 2=Patient will verbalize/demonstrate understanding of assistive devices/modifications for ADL. 3=Patient will improve strength/tolerance for activity to enable patient to perform ADL's. Speech Test Facility Engineer Goals Nursing Home Goals 1. The patient will display improved expressive communication for safe discharge to the least restricted environment. MET. Expression of Ideas/Wants: Frequently (2) Understanding Verbal Content: Understands (4) Brief Interview-Mental Status: Yes Repetition of Three Words: Three (3) Temporal Orientation: Year: Correct (3) Temporal Orientation: Month: Accurate within 5 days(2) Temporal Orientation: Day: Correct (1) Recall : Wear to say "Sock": Yes (2) Recall : Color: Yes (2) Recall : Bed: Yes (2) Memory/Recall Ability: Room number, staff names, hospital setting/location, season Time Frame: Three Weeks. SHADY HERNANDEZ Jun 15, 2022 10:20
--- NOTE | 2022-06-15 11:59 | Physical Therapy Daily Note ---
PT Daily Note-Current Subjective Patient in bed pre tx, agrees to PT, has no complaints of pain. Appearance Patient in bed post tx with nurse call, phone, tray, all needs met. Mental Status Patient Orientation: Person, Unable to Assess, Non-Verbal/Aphasic Transfers SCALE: Activities may be completed with or without assistive devices. 2-Pifnycrawg-etweknl completes the activity by him/herself with no assistance from a helper. 5-Set-up or Clean-up Assistance-helper sets up or cleans up; patient completes activity. [place] assists only prior to or following the activity. 4-Supervision or Touching Assistance-helper provides verbal cues and/or touching/steadying and/or contact guard assistance as patient completes activity. Assistance may be provided throughout the activity or intermittently. 3-Partial/Moderate Assistance-helper does LESS THAN HALF the effort. [place] lifts, holds or supports trunk or limbs, but provides less than half the effort. 2-Substantial/Maximal Assistance-helper does MORE THAN HALF the effort. [place] lifts or holds trunk or limbs and provides more than half the effort. 9-Ckeotsiim-gwekxi does ALL the effort. Patient does none of the effort to complete the activity. Or, the assistance of 2 or more helpers is required for the patient to complete the activity. If activity was not attempted, code reason: 7-Patient Refused. 9-Not Applicable-not attempted and the patient did not perform the activity before the current illness, exacerbation or injury. 10-Not Attempted due to Environmental Limitations-(lack of equipment, weather restraints, etc.). 88-Not Attempted due to Medical Conditions or Safety Concerns. Weight Bearing Full Weight Bearing Full Weight Bearing Exercises RLE exercises x20, bridges (both legs), hip flexion (AAROM barely), manually resisted leg press, LAQ AROM, hooklying hip abd/add AROM Treatments RLE strengthening Assessment Current Status: Fair Progress slowly improving strength, less assist needed PT Short Term Goals Short Term Goals Time Frame: Jun 07, 2022 Roll Left & Right: 4 (CGA) Sit to lyin (CGA) Lying to sitting on side of be: 4 (CGA) Sit to stand: 4 (CGA) Chair/trg-tm-lbmth transfer: 4 (CGA) Walk 10 feet: 4 (CGA) Walk 50 feet with two turns: 4 (CGA) PT Drugless Doctor Goals Detention Goals PT Drugless Doctor Goals Time Frame: Jun 21, 2022 Roll Left & Right (QC): 4 (SBA) Sit to Lying (QC): 4 (SBA) Lying-Sitting on Side/Bed(QC): 4 (SBA) Sit to Stand (QC): 4 (SBA) Chair/Vlx-om-Boaqk Xfer(QC): 4 (SBA) Toilet Transfer (QC): 4 (SBA) Car Transfer (QC): 4 (CGA) Does the Patient Walk: Yes Walk 10 feet (QC): 4 (SBA) Walk 50ft with 2 Turns (QC): 4 (SBA) Walk 150 ft (QC): 4 (SBA) Walking 10ft on Uneven Surface: 4 (CGA) 1 Step (curb) (QC): 4 (CGA) 4 Steps (QC): 88 12 Steps (QC): 88 Picking up an Object (QC): 4 (CGA using material expediter) Wheel 50 feet with 2 turns (QC: 6 Wheel 150 feet: 6 PT Plan Problem List Problem List: Activity Tolerance, Functional Strength, Safety, Balance, Gait, Transfer, Bed Mobility, ROM Treatment/Plan Treatment Plan: Continue Plan of Care Treatment Plan: Bed Mobility, Education, Functional Activity Malini, Functional Strength, Group Therapy, Gait, Safety, Therapeutic Exercise, Transfers Treatment Duration: Jun 21, 2022 Frequency: At least 5 of 7 days/Wk (IRF) Estimated Hrs Per Day: 1.5 hours per day Patient and/or Family Agrees t: Yes Safety Risks/Education Patient Education: Correct Positioning, Safety Issues Teaching Recipient: Patient Teaching Methods: Demonstration, Discussion Response to Teaching: Reinforcement Needed Time/GCodes Time In: 1145 Time Out: 1200 Total Billed Treatment Time: 15 Total Billed Treatment 1 visit EX BUDDY GUY PT Jun 15, 2022 11:59
--- NOTE | 2022-06-15 12:52 | Occupational Ther Daily Note ---
OT Current Status-Daily Note Subjective Pt alert, sitting in recliner. Pt agrees to therapy. Pt c/o R shldr pain, did not rate. Massage and gentle stretch to area decreased pain. Mental Status/Objective Patient Orientation: Person, Place, Time, Situation ADL-Treatment QC gathered by report and clinical judgment due to pt's refusal to allow GAFFNEY to assist with bathing. Sitting on shower bench, pt able to complete bathing except under R UE and R foot. is assisting pt with ADLs and has demonstrated proficiency and safety with transfer and functional tasks. Pt has demonstrated ability to complete upper body dressing by self after set up. Independent with oral care while sitting at sink. Using grabbars, pt able to complete toileting independently. Pt has demonstrated ability to thread B feet into pants then hike over hips though takes increased time. Pt will ask to complete due to frustration. Assist to don/doff socks and don R shoe, dons/doff left shoe by self after set up. Therapy Code Descriptions/Definitions Functional [place] Measure: 0=Not Assessed/NA 4=Minimal Assistance 1=Total Assistance 5=Supervision or Setup 2=Maximal Assistance 6=Modified [place] 3=Moderate Assistance 7=Complete IndependenceSCALE: Activities may be completed with or without assistive devices. 9-Nusphgmvfa-oihdhup completes the activity by him/herself with no assistance from a helper. 5-Set-up or Clean-up Assistance-helper sets up or cleans up; patient completes activity. [place] assists only prior to or following the activity. 4-Supervision or Touching Assistance-helper provides verbal cues and/or touching/steadying and/or contact guard assistance as patient completes activity. Assistance may be provided throughout the activity or intermittently. 3-Partial/Moderate Assistance-helper does LESS THAN HALF the effort. [place] lifts, holds or supports trunk or limbs, but provides less than half the effort. 2-Substantial/Maximal Assistance-helper does MORE THAN HALF the effort. [place] lifts or holds trunk or limbs and provides more than half the effort. 2-Zdvhkdcsq-wcapls does ALL the effort. Patient does none of the effort to complete the activity. Or, the assistance of 2 or more helpers is required for the patient to complete the activity. If activity was not attempted, code reason: 7-Patient Refused. 9-Not Applicable-not attempted and the patient did not perform the activity before the current illness, exacerbation or injury. 10-Not Attempted due to Environmental Limitations-(lack of equipment, weather restraints, etc.). 88-Not Attempted due to Medical Conditions or Safety Concerns. Eating (QC): 6 Oral Hygiene (QC): 6 Shower/Bathe Self (QC): 3 Upper Body Dressing (QC): 5 Lower Body Dressing (QC): 3 On/Off Footwear: 2 (mod A) Toileting Hygiene (QC): 6 Toilet Transfer (QC): 6 Other Treatment Pt has demonstrated good progress with movement of R UE. Pt is able to complete elbow flex/ext, wrist flex/ext, finger flex/ext with 57-75% ROM. AAROM with shldr flexion, shldr abd/add, horizontal shldr abd/add. R shldr sublux has decreased though pt still experiences pain in that area. After session, pt lying in bed with call light/phone in reach. All needs met in room. OT Short Term Goals Short Term Goals Time Frame: Jun 23, 2022 Oral hygiene: 5 Toileting hygiene: 4 Shower/bathe self: 4 Lower body dressin Putting on/taking off footwear: 4 OT Car Trimmer Goals Car Trimmer Goals Time Frame: Jul 02, 2022 Eating (QC): 6 (met) Oral Hygiene (QC): 6 (met) Toileting Hygiene (QC): 6 (met) Shower/Bathe Self (QC): 6 (not met) Upper Body Dressing (QC): 6 (not met) Lower Body Dressing (QC): 6 (not met) On/Off Footwear (QC): 6 (not met) Additional Goals: 1-Demonstrate ADL Tasks, 2-Verbalize Understanding, 3- ImproveStrength/Malini 1=Demonstrate adherence to instructed precautions during ADL tasks. 2=Patient will verbalize/demonstrate understanding of assistive devices/modifications for ADL. 3=Patient will improve strength/tolerance for activity to enable patient to perform ADL's. OT Education/Plan Problem List/Assessment Assessment: Impaired Self-Care Skills, Restricted Funct UE ROM Discharge Recommendations Plan/Recommendations: Continue POC Therapy Discharge Recommendati: Home & Family, Post Acute OT Equpiment Recommendations-D/C: Bath Chair Treatment Plan/Plan of Care Patient would benefit from OT for education, treatment and training to promote independence in ADL's, mobility, safety and/or upper extremity function for ADL's. Plan of Care: ADL Retraining, Functional Mobility, Group Exercise/Act as Ind, UE Funct Exercise/Act, UE Neuromus Re-Ed/Coord, W/C Management Training Treatment Duration: Jul 02, 2022 Frequency: At least 5 of 7 days/Wk (IRF) Estimated Hrs Per Day: 1.5 hours per day Agreement: Yes Rehab Potential: Fair Time/GCodes Start Time: 10:30 Stop Time: 11:45 Total Time Billed (hr/min): 75 Billed Treatment Time 1 visit-ADL 1 (20 min) NM 4 (55 min) JEANETTE VALDOVINOS Jun 15, 2022 12:52
[2022-06-15 19:30] VITALS: BP 131/77
[2022-06-15] MEDS: amLODIPine 10 MG (NORVASC) TAB PO SCH (20:46)
--- NOTE | 2022-06-16 06:43 | PM&R Progress Note ---
Subjective HPI/CC On Admission Date Seen by Provider: Jun 16, 2022 Time Seen by Provider: 08:45 Subjective/Events-last exam 06/16/2022: 06/15/2022: No major issues Participation is good Speaking more clearly 06/14/2022: Doing well No major issues Sugars reviewed 06/13/2022: Patient in a good mood today Talking more clearly Supportive care will continue Insulin has been maintained for about a year he reports 06/12/2022: Doing much better Having lunch with his daughter No pain reported No concerns Sugars reviewed 06/11/2022: Pt is doing really well Bowels moved yesterday Very impulsive Overall feels pretty good 06/10/2022: Patient doing much better Dramatic improvement Participating in therapy Having no new issues 06/09/2022: Improved status today No pain Improved emotional well being today Participating in therapy 06/08/2022: Major issues from an emotional status Tried to give him a pep talk like Jeff, PT did Very difficult to rise out of grief of catastrophic CVA 06/07/2022: Much improved status Working with therapy Motivation doing fairly well Declines anti-depressant No falls 06/06/2022: Patient doing well Eliquis maintained No bleeding problems Discontinue the telemetry Monitoring closely 06/05/2022: Appreciate Dr. Powers Doing well overall and son at the bedside Concerned about his vision at times Eliquis maintained 06/04/2022: Patient still doing pretty well Right eye drooping noted and the decision was made to place on Eliquis empirically since he is external monitoring is not a live feed so will place on telemetry in the meantime Consulting cardiology evaluated the records and noted Eliquis was not on the discharge med list so it was not started until today when I started it Patient overall doing much better Hesitant about depression medication and I did speak with Deb after she saw him at 1400 06/03/2022: Patient dramatically improved Able to walk with a complex cane with leg support Feels much better Improved morale 06/02/2022: Pt is doing pretty well Bowels are moving Responding better Severely depressed so will initiate a behavioral consult No pain is reported 06/01/2022: Pt is doing a lot better Pt is a very private person Discontinue Gabapnetin per request Bowels moved yesterday He fell last night without an injury Updated pt and regarding the plan Review of Systems General: Fatigue Neurological: Weakness, Numbness, Incoordination Objective Exam Vital Signs Vital Signs Date Time Temp Pulse Resp B/P (MAP) Pulse Ox O2 Delivery O2 Flow Rate FiO2 06/16/22 09:00 Room Air 06/16/22 07:34 36.8 77 18 169/81 (110) 97 Capillary Refill : General Appearance: No Apparent Distress, WD/WN, Obese HEENT: PERRL/EOMI, Normal ENT Inspection, Pharynx Normal Neck: Full Range of Motion, Normal Inspection, Non Tender, Supple, Carotid Bruit Respiratory: Chest Non Tender, Lungs Clear, Normal Breath Sounds, No Accessory Muscle Use, No Respiratory Distress Cardiovascular: Regular Rate, Rhythm, No Edema, No Gallop, No JVD, No Murmur, N ormal Peripheral Pulses Gastrointestinal: Normal Bowel Sounds, No Organomegaly, No Pulsatile Mass, Non Tender, Soft Back: Normal Inspection, No CVA Tenderness, No Vertebral Tenderness Extremity: Normal Capillary Refill, Normal Inspection, Normal Range of Motion (except right side), Non Tender, No Calf Tenderness, No Pedal Edema Neurologic/Psychiatric: Alert, Oriented x3, Normal Mood/Affect, assembler ping pong table II-XII Norm as Tested, Abnormal Gait, Aphasia, Depressed Affect, Motor Weakness (right sided weakness 1/5) Skin: Normal Color, Warm/Dry Lymphatic: No Adenopathy Results/Procedures Lab Patient resulted labs reviewed. FIM Transfers Therapy Code Descriptions/Definitions Functional [place] Measure: 0=Not Assessed/NA 4=Minimal Assistance 1=Total Assistance 5=Supervision or Setup 2=Maximal Assistance 6=Modified [place] 3=Moderate Assistance 7=Complete IndependenceSCALE: Activities may be completed with or without assistive devices. 3-Bofjgabxsb-bwrwgrg completes the activity by him/herself with no assistance from a helper. 5-Set-up or Clean-up Assistance-helper sets up or cleans up; patient completes activity. [place] assists only prior to or following the activity. 4-Supervision or Touching Assistance-helper provides verbal cues and/or touching/steadying and/or contact guard assistance as patient completes activity. Assistance may be provided throughout the activity or intermittently. 3-Partial/Moderate Assistance-helper does LESS THAN HALF the effort. [place] lifts, holds or supports trunk or limbs, but provides less than half the effort. 2-Substantial/Maximal Assistance-helper does MORE THAN HALF the effort. [place] lifts or holds trunk or limbs and provides more than half the effort. 0-Ejymzluwk-pzhyzv does ALL the effort. Patient does none of the effort to complete the activity. Or, the assistance of 2 or more helpers is required for the patient to complete the activity. If activity was not attempted, code reason: 7-Patient Refused. 9-Not Applicable-not attempted and the patient did not perform the activity before the current illness, exacerbation or injury. 10-Not Attempted due to Environmental Limitations-(lack of equipment, weather restraints, etc.). 88-Not Attempted due to Medical Conditions or Safety Concerns. Roll Left to Right (QC): 6 Sit to Lying (QC): 4 Sit to Stand (QC): 4 Chair/Ydp-vh-Zvowc Xfer(QC): 4 Car Transfer (QC): 4 Gait Training Does the Patient Walk?: Yes Distance: 150' Walk 10 feet (QC): 3 Walk 50 ft with 2 Turns(QC): 3 Walk 150 ft (QC): 3 Walking 10ft/uneven surface-QC: 3 Gait Persons Needed: 1 Gait Assistive Device: Walker Timothy Wheelchair Training Does the Pt Use a Wheelchair?: Yes Distance: 150'x2, 120' Wheel 50 ft with 2 turns (QC): 4 Wheel 150 ft (QC): 4 Type of Wheelchair: Manual Stair Training Stair Training: Handrails/: 1 handrail #of Steps: 4 1 Step (curb) (QC): 3 4 Steps (QC): 3 12 Steps (QC): 88 Stairs: Pattern: Step to Balance Picking up an Object (QC): 4 (CGA with shell sorter) ADL-Treatment Eating (QC): 6 Oral Hygiene (QC): 6 Shower/Bathe Self (QC): 3 Upper Body Dressing (QC): 5 Lower Body Dressing (QC): 3 On/Off Footwear (QC): 2 (mod A) Toileting Hygiene (QC): 6 Toilet Transfer (QC): 6 Assessment/Plan Assessment and Plan Assess & Plan/Chief Complaint Assessment: Debility CVA Right sided weakness Dysarthria HTN Diabetes mellitus type 2 HLD Sleep apnea Anxiety Chronic back pain Fall risk SHAE suspected needs sleep study Suspected AF monitor in place and placed on Eliquis empirically on 06/04/2022 by me Depression Plan: Start PT, OT, speech therapy Monitor blood sugars Start long acting insulin and SSI Restart home meds Pain control Closely monitor due to risk of fall 06/01/2022: Fall risk Monitor closely 06/02/2022: Behavioral health consult for depression Supportive care 06/03/2022: Dramatic improvement Ambulated 06/04/2022: Start Eliquis Quality Control Auditor closely 06/05/2022: Eliquis PT and OT 06/06/2022: Eliquis Aggressive therapy 06/07/2022: Suspect SHAE Monitor BP 06/08/2022: Try to rise above grief and depression 06/09/2022: Improved status 06/10/2022: Supportive care Dramatic improvement 06/11/2022: Supportive care Participation is good 06/12/2022: Improved status Sugars good 06/13/2022: Continue insulin 06/14/2022: DC next week 06/15/2022: Monitor BP 06/16/2022: (1) CVA (cerebral vascular accident) (2) Dysarthria (3) Right sided weakness (4) Uncontrolled type 2 diabetes mellitus Status: Acute (5) Hypertension Status: Acute DEBBY ORTIZ DO Jun 16, 2022 06:43
--- NOTE | 2022-06-16 07:12 | Occupational Ther Daily Note ---
OT Current Status-Daily Note Subjective Pt alert, lying in bed. Pt agrees to therapy. No c/o pain. OT/PT co-treat [id number], skills of 2 clinicians required to decrease fall risk while completing ambulation and transfers using FWW. OT focusing on R UE positioning during ambulation/transfers while PT focusing on ambulation/transfers. Mental Status/Objective Patient Orientation: Person, Place, Non-Verbal/Aphasic, Time, Situation ADL-Treatment Independent supine to EOB. Supervision for SPT from surface to surface. Independent with toilet transfer using w/c and grabbars and toileting. present in room at end of toileting. to assist pt with showering. Sitting at sink, pt able to complete oral care and grooming. After set up, pt able to don/doff shirt by self. Assist to thread feet into pants then able to hike pants over hips. Assist from to don/doff socks and don R shoe, pt able to don L shoe and doff both shoes. Pt able to use one handed techniques to set up meal then uses regular utensils to eat. Therapy Code Descriptions/Definitions Functional [place] Measure: 0=Not Assessed/NA 4=Minimal Assistance 1=Total Assistance 5=Supervision or Setup 2=Maximal Assistance 6=Modified [place] 3=Moderate Assistance 7=Complete IndependenceSCALE: Activities may be completed with or without assistive devices. 1-Etatgwbycf-fejrbxl completes the activity by him/herself with no assistance from a helper. 5-Set-up or Clean-up Assistance-helper sets up or cleans up; patient completes activity. [place] assists only prior to or following the activity. 4-Supervision or Touching Assistance-helper provides verbal cues and/or touching/steadying and/or contact guard assistance as patient completes activity. Assistance may be provided throughout the activity or intermittently. 3-Partial/Moderate Assistance-helper does LESS THAN HALF the effort. [place] lifts, holds or supports trunk or limbs, but provides less than half the effort. 2-Substantial/Maximal Assistance-helper does MORE THAN HALF the effort. [place] lifts or holds trunk or limbs and provides more than half the effort. 8-Vzqahiwkb-grtlpd does ALL the effort. Patient does none of the effort to complete the activity. Or, the assistance of 2 or more helpers is required for the patient to complete the activity. If activity was not attempted, code reason: 7-Patient Refused. 9-Not Applicable-not attempted and the patient did not perform the activity before the current illness, exacerbation or injury. 10-Not Attempted due to Environmental Limitations-(lack of equipment, weather restraints, etc.). 88-Not Attempted due to Medical Conditions or Safety Concerns. Other Treatment Subluxation significantly decreased in R shldr. Pt educated on posture that will assist with decreasing R shldr discomfort. Pt demonstrated self ROM with AAROM of shldr flex/ext. Pt is demonstrating increased muscle activation with fair to good strength with elbow flex/ext, forearm sup/pron, wrist flex/ext and finger flex/ext. Pt working on gross motor movement and initiating refined movements for functional tasks. After therapy, left in care of PT. All needs met. OT Short Term Goals Short Term Goals Time Frame: Jun 23, 2022 Oral hygiene: 5 Toileting hygiene: 4 Shower/bathe self: 4 Lower body dressin Putting on/taking off footwear: 4 OT Dumping Machine Operator Goals Dumping Machine Operator Goals Time Frame: Jul 02, 2022 Eating (QC): 6 (met) Oral Hygiene (QC): 6 (met) Toileting Hygiene (QC): 6 (met) Shower/Bathe Self (QC): 6 (not met) Upper Body Dressing (QC): 6 (not met) Lower Body Dressing (QC): 6 (not met) On/Off Footwear (QC): 6 (not met) Additional Goals: 1-Demonstrate ADL Tasks, 2-Verbalize Understanding, 3- ImproveStrength/Malini 1=Demonstrate adherence to instructed precautions during ADL tasks. 2=Patient will verbalize/demonstrate understanding of assistive devices/modifications for ADL. 3=Patient will improve strength/tolerance for activity to enable patient to perform ADL's. OT Education/Plan Problem List/Assessment Assessment: Decreased Activ Tolerance, Decreased UE Strength, Impaired Self-Car e Skills Discharge Recommendations Plan/Recommendations: Continue POC Treatment Plan/Plan of Care Patient would benefit from OT for education, treatment and training to promote independence in ADL's, mobility, safety and/or upper extremity function for ADL's. Plan of Care: ADL Retraining, Functional Mobility, Group Exercise/Act as Ind, UE Funct Exercise/Act, UE Neuromus Re-Ed/Coord, W/C Management Training Treatment Duration: Jul 02, 2022 Frequency: At least 5 of 7 days/Wk (IRF) Estimated Hrs Per Day: 1.5 hours per day Agreement: Yes Rehab Potential: Fair Time/GCodes Start Time: 06:45 Stop Time: 08:15 Total Time Billed (hr/min): 90 Billed Treatment Time 1 visit-ADL 5 (75 min) NM 1 (15 min) individual [id number], co-treat [id number] JEANETTE VALDOVINOS Jun 16, 2022 07:12
[2022-06-16 07:34] VITALS: BP 169/81
[2022-06-16] MEDS: inSUlin ASPART (NovoLOG) 1 UNIT/0.01 ML (CHARGE PER UNIT) SC SCH ×2 (08:26→13:17)
[2022-06-16] MEDS: VERAPAMIL SR 240 MG (CALAN SR) TAB PO SCH (08:26)
[2022-06-16] MEDS: CLOPIDOGREL 75 MG (PLAVIX) TABLET PO SCH (08:27)
[2022-06-16] MEDS: FENOFIBRATE 134 MG (LOFIBRA) CAPSULE PO SCH (08:27)
[2022-06-16] MEDS: LOSARTAN 100 MG (COZAAR) TABLET PO SCH (08:27)
[2022-06-16] MEDS: APIXABAN 5 MG (ELIQUIS) TABLET PO SCH ×2 (08:27→16:20)
[2022-06-16] MEDS: SENNA W/DOCUSATE (SENOKOT S) TABLET PO SCH (08:31)
[2022-06-16] MEDS: polyethylene glycoL POWDER 17 GM (MIRALAX) PACK PO SCH (08:31)
--- NOTE | 2022-06-16 09:07 | Physical Therapy Daily Note ---
PT Daily Note-Current Subjective Pt sitting up in bed upon arrival. OT is just finishing up tx. Nurse give morning meds. Pain Location: No Pain Reported Mental Status Patient Orientation: Person, Place, Situation Attachments: Other-See Comments (AFO ) Transfers SCALE: Activities may be completed with or without assistive devices. 1-Dvauptnksc-gfcrslr completes the activity by him/herself with no assistance from a helper. 5-Set-up or Clean-up Assistance-helper sets up or cleans up; patient completes activity. [place] assists only prior to or following the activity. 4-Supervision or Touching Assistance-helper provides verbal cues and/or touching/steadying and/or contact guard assistance as patient completes act ivity. Assistance may be provided throughout the activity or intermittently. 3-Partial/Moderate Assistance-helper does LESS THAN HALF the effort. [place] lifts, holds or supports trunk or limbs, but provides less than half the effort. 2-Substantial/Maximal Assistance-helper does MORE THAN HALF the effort. [place] lifts or holds trunk or limbs and provides more than half the effort. 6-Bqvqjhifi-idrwkl does ALL the effort. Patient does none of the effort to complete the activity. Or, the assistance of 2 or more helpers is required for the patient to complete the activity. If activity was not attempted, code reason: 7-Patient Refused. 9-Not Applicable-not attempted and the patient did not perform the activity before the current illness, exacerbation or injury. 10-Not Attempted due to Environmental Limitations-(lack of equipment, weather restraints, etc.). 88-Not Attempted due to Medical Conditions or Safety Concerns. Lying to Sitting/Side of Bed(Q: 5 Sit to Stand (QC): 5 Pt has HOB raised and uses bed railing to pull self to EOB. Weight Bearing Full Weight Bearing Full Weight Bearing Wheelchair Training Does the Pt Use a Wheelchair?: Yes Wheel 50 ft with 2 turns (QC): 6 Wheel 150 ft (QC): 6 Type of Wheelchair: Manual Exercises Supine Ex: Ankle pumps, Quad Set, Glut sets, Heel Slides, Short Arc Quads, Straight leg raise, Hip abd/add Supine Reps: 15 Seated Therapy Exercises: Ankle pumps (AAROM on R side), Long arc quads (Pt intiates movement but AAROM to complete EX), Hip flexion, Glut set Seated Reps: 15 Treatments OT/PT co-treat [id number], skills of 2 clinicians required to decrease fall risk while completing ambulation and transfers using FWW. OT focusing on R UE positioning during ambulation/transfers while PT focusing on ambulation/transfers. Pt reviews written HEP issued by HIDES AND SKINS COLORER for Supine & Seated EX. Pt received new WCH so pt practice to feel comfortable w/WCH mobility. Pt is able to complete bed mobility and transfers at SBA. Pt resting at end of tx with all needs met, call light in hand. Assessment Current Status: Good Progress Pt is bummed thinking he was d/c today. Pt completes tx well and has improved in strength, mobility and independence of tasks. PT Short Term Goals Short Term Goals Time Frame: Jun 07, 2022 Roll Left & Right: 4 (CGA) Sit to lyin (CGA) Lying to sitting on side of be: 4 (CGA) Sit to stand: 4 (CGA) Chair/wyr-qn-fiarl transfer: 4 (CGA) Walk 10 feet: 4 (CGA) Walk 50 feet with two turns: 4 (CGA) PT Property Management Accountant Goals [place] Goals PT Property Management Accountant Goals Time Frame: Jun 21, 2022 Roll Left & Right (QC): 4 (SBA) Sit to Lying (QC): 4 (SBA) Lying-Sitting on Side/Bed(QC): 4 (SBA) Sit to Stand (QC): 4 (SBA) Chair/Ezq-cp-Pfdee Xfer(QC): 4 (SBA) Toilet Transfer (QC): 4 (SBA) Car Transfer (QC): 4 (CGA) Does the Patient Walk: Yes Walk 10 feet (QC): 4 (SBA) Walk 50ft with 2 Turns (QC): 4 (SBA) Walk 150 ft (QC): 4 (SBA) Walking 10ft on Uneven Surface: 4 (CGA) 1 Step (curb) (QC): 4 (CGA) 4 Steps (QC): 88 12 Steps (QC): 88 Picking up an Object (QC): 4 (CGA using dehydrating press operator) Wheel 50 feet with 2 turns (QC: 6 Wheel 150 feet: 6 PT Plan Problem List Problem List: Activity Tolerance, Functional Strength Treatment/Plan Treatment Plan: Continue Plan of Care Treatment Plan: Bed Mobility, Education, Functional Activity Malini, Functional Strength, Group Therapy, Gait, Safety, Therapeutic Exercise, Transfers Treatment Duration: Jun 21, 2022 Frequency: At least 5 of 7 days/Wk (IRF) Estimated Hrs Per Day: 1.5 hours per day Patient and/or Family Agrees t: Yes Safety Risks/Education Patient Education: Transfer Techniques, Issued Written HEP, Correct Positioning, Safety Issues Teaching Recipient: Patient Teaching Methods: Discussion Response to Teaching: Verbalize Understanding Time/GCodes Time In: 800 Time Out: 930 Total Billed Treatment Time: 90 Total Billed Treatment Co-treat w/OT from 800-815 (15m), Indiv. PT for 75m 1, WCH x2(30m), EX x2 (30m) & FA x2 (30m) CARMITA ANNE HIDES AND SKINS COLORER Jun 16, 2022 09:07
[2022-06-16] MEDS ORDERED: APIX5TAB PO (14:04)
[2022-06-16] MEDS ORDERED: ALPR0.5T7 PO (14:04)
[2022-06-16] MEDS ORDERED: FENO200C27 PO (14:04)
[2022-06-16] MEDS ORDERED: AMLO-251 PO (14:04)
[2022-06-16] MEDS ORDERED: LOSA100T57 PO (14:04)
[2022-06-16] MEDS ORDERED: CLOP75TA28 PO (14:04)
[2022-06-16] MEDS ORDERED: HYDR-34 PO (14:04)
[2022-06-16] MEDS ORDERED: ATOR80TA76 PO (14:04)
[2022-06-16] MEDS ORDERED: TIZA-186 PO (14:04)
[2022-06-16] MEDS ORDERED: VERA240T90 PO (14:04)
--- NOTE | 2022-06-16 14:05 | Discharge Summary ---
Diagnosis/Chief Complaint Date of Admission May 31, 2022 at 14:55 Date of Discharge Discharge Date: Jun 16, 2022 Discharge Diagnosis Assessment: Debility CVA Right sided weakness Dysarthria HTN Diabetes mellitus type 2 HLD Sleep apnea Anxiety Chronic back pain Fall risk SHAE suspected needs sleep study Suspected AF monitor in place and placed on Eliquis empirically on 06/04/2022 by me Depression Plan: Start PT, OT, speech therapy Monitor blood sugars Start long acting insulin and SSI Restart home meds Pain control Closely monitor due to risk of fall 06/01/2022: Fall risk Monitor closely 06/02/2022: Behavioral health consult for depression Supportive care 06/03/2022: Dramatic improvement Ambulated 06/04/2022: Start 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 Sheet 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 06/05/2022: Eliquis PT and OT 06/06/2022: Eliquis Aggressive therapy 06/07/2022: Suspect SHAE Monitor BP 06/08/2022: Try to rise above grief and depression 06/09/2022: Improved status 06/10/2022: Supportive care Dramatic improvement 06/11/2022: Supportive care Participation is good 06/12/2022: Improved status Sugars good 06/13/2022: Continue insulin 06/14/2022: DC next week 06/15/2022: Monitor BP (1) CVA (cerebral vascular accident) (2) Dysarthria (3) Right sided weakness (4) Uncontrolled type 2 diabetes mellitus Status: Acute (5) Hypertension Status: Acute Discharge Summary Discharge Physical Examination Allergies: Coded Allergies: No Known Drug Allergies (Unverified , 10/25/17) Vitals & I&Os Vital Signs Date Time Temp Pulse Resp B/P (MAP) Pulse Ox O2 Delivery O2 Flow Rate FiO2 06/16/22 17:24 36.8 77 18 169/81 97 Room Air General Appearance: Alert, Oriented X3, Cooperative Respiratory: Clear to Auscultation Cardiovascular: Regular Rate Psych/Mental Status: Mental Status NL Hospital Course Was the Problem List Reviewed?: Yes Pt is doing really well Set for discharge tomorrow Pt had no complaints Goes to [facility] for pharmacy Will organize discharge for tomorrow Course: patient had a lengthy but productive hospital course after sustaining a CVA with right sided weakness. Suspicion for PAF causing embolic CVA prompted Cardiology consultation and addition of Eliquis along with Plavix and telemetry for a short time while patient had 30 day heart monitor on. Sugars remained stable and all meds were tolerated and patient overall had a successful course and regained function with use of AD and was ready for DC. Labs (last 24 hrs) Laboratory Tests 05/31/22 16:23: Glucometer 195H 05/31/22 20:40: Glucometer 129H 06/01/22 05:37: Glucometer 149H 06/01/22 05:51: White Blood Count 7.1, Red Blood Count 3.30L, Hemoglobin 10.1L, Hematocrit 30L, Mean Corpuscular Volume 91, Mean Corpuscular Hemoglobin 31, Mean Corpuscular Hemoglobin Concent 34, Red Cell Distribution Width 13.5, Platelet Count 200, Mean Platelet Volume 10.2, Immature Granulocyte % (Auto) 0, Neutrophils (%) (Auto) 62, Lymphocytes (%) (Auto) 27, Monocytes (%) (Auto) 9, Eosinophils (%) (Auto) 1, Basophils (%) (Auto) 0, Neutrophils # (Auto) 4.4, Lymphocytes # (Auto) 1.9, Monocytes # (Auto) 0.6, Eosinophils # (Auto) 0.1, Basophils # (Auto) 0.0, Immature Granulocyte # (Auto) 0.0, Sodium Level 142, Potassium Level 3.8, Chloride Level 111H, Carbon Dioxide Level 21, Anion Gap 10, Blood Urea Nitrogen 20H, Creatinine 0.95, Estimat Glomerular Filtration Rate 90, BUN/Creatinine Ratio 21, Glucose Level 148H, Calcium Level 8.8, Corrected Calcium 9.3, Total Bilirubin 0.4, Aspartate Amino Transf (AST/SGOT) 29, Alanine Aminotransferase (ALT/SGPT) 36, Alkaline Phosphatase 64, Total Protein 5.8L, Albumin 3.4 06/01/22 10:51: Glucometer 146H 06/01/22 15:25: Glucometer 174H 06/01/22 20:58: Glucometer 131H 06/02/22 05:37: Glucometer 120H 06/02/22 12:37: Glucometer 111H 06/02/22 15:15: Glucometer 174H 06/02/22 20:43: Glucometer 205H 06/03/22 06:09: Glucometer 126H 06/03/22 10:53: Glucometer 159H 06/03/22 15:38: Glucometer 152H 06/03/22 20:46: Glucometer 149H 06/04/22 05:28: Glucometer 126H 06/04/22 10:51: Glucometer 124H 06/04/22 16:00: Glucometer 122H 06/04/22 21:01: Glucometer 106 06/05/22 06:00: Glucometer 105 06/05/22 11:11: Glucometer 121H 06/05/22 15:41: Glucometer 158H 06/05/22 20:33: Glucometer 168H 06/06/22 05:44: Glucometer 113H 06/06/22 11:19: Glucometer 185H 06/06/22 15:34: Glucometer 164H 06/06/22 20:18: Glucometer 135H 06/07/22 05:38: White Blood Count 5.7, Red Blood Count 3.58L, Hemoglobin 10.9L, Hematocrit 33L, Mean Corpuscular Volume 92, Mean Corpuscular Hemoglobin 30, Mean Corpuscular Hemoglobin Concent 33, Red Cell Distribution Width 13.1, Platelet Count 114L, Mean Platelet Volume 11.8, Immature Granulocyte % (Auto) 0, Neutrophils (%) (Auto) 55, Lymphocytes (%) (Auto) 36, Monocytes (%) (Auto) 7, Eosinophils (%) ( Auto) 2, Basophils (%) (Auto) 1, Neutrophils # (Auto) 3.1, Lymphocytes # (Auto) 2.0, Monocytes # (Auto) 0.4, Eosinophils # (Auto) 0.1, Basophils # (Auto) 0.1, Immature Granulocyte # (Auto) 0.0, Sodium Level 137, Potassium Level 4.7, Chloride Level 109H, Carbon Dioxide Level 14L, Anion Gap 14, Blood Urea Nitrogen 18, Creatinine 0.93, Estimat Glomerular Filtration Rate 92, BUN/Creatinine Ratio 19, Glucose Level 101, Calcium Level 8.8, Corrected Calcium 9.4, Total Bilirubin 0.4, Aspartate Amino Transf (AST/SGOT) 41H, Alanine Aminotransferase (ALT/SGPT) 33, Alkaline Phosphatase 59, Total Protein 6.7, Albumin 3.3 06/07/22 06:12: Glucometer 94 06/07/22 11:08: Glucometer 108 06/07/22 15:28: Glucometer 154H 06/07/22 21:07: Glucometer 155H 06/08/22 05:34: Glucometer 130H 06/08/22 10:56: Glucometer 126H 06/08/22 15:47: Glucometer 148H 06/08/22 20:39: Glucometer 164H 06/09/22 06:09: Glucometer 126H 06/09/22 10:54: Glucometer 139H 06/09/22 16:19: Glucometer 135H 06/09/22 20:40: Glucometer 133H 06/10/22 05:46: Glucometer 116H 06/10/22 11:00: Glucometer 119H 06/10/22 15:23: Glucometer 165H 06/10/22 20:04: Glucometer 133H 06/11/22 05:48: Glucometer 126H 06/11/22 11:00: Glucometer 177H 06/11/22 15:22: Glucometer 153H 06/11/22 20:24: Glucometer 139H 06/12/22 11:07: Glucometer 122H 06/12/22 16:20: Glucometer 167H 06/12/22 20:18: Glucometer 146H 06/13/22 06:29: Glucometer 105 06/13/22 11:03: Glucometer 137H 06/13/22 15:26: Glucometer 135H 06/14/22 06:10: White Blood Count 5.4, Red Blood Count 3.89L, Hemoglobin 11.5L, Hematocrit 35L, Mean Corpuscular Volume 90, Mean Corpuscular Hemoglobin 30, Mean Corpuscular Hemoglobin Concent 33, Red Cell Distribution Width 13.0, Platelet Count 189, Mean Platelet Volume 10.4, Immature Granulocyte % (Auto) 0, Neutrophils (%) (Auto) 54, Lymphocytes (%) (Auto) 37, Monocytes (%) (Auto) 7, Eosinophils (%) (Auto) 2, Basophils (%) (Auto) 1, Neutrophils # (Auto) 2.9, Lymphocytes # (Auto) 2.0, Monocytes # (Auto) 0.4, Eosinophils # (Auto) 0.1, Basophils # (Auto) 0.1, Immature Granulocyte # (Auto) 0.0, Sodium Level 142, Potassium Level 4.3, Chloride Level 109H, Carbon Dioxide Level 24, Anion Gap 9, Blood Urea Nitrogen 17, Creatinine 0.92, Estimat Glomerular Filtration Rate 93, BUN/Creatinine Ratio 18, Glucose Level 123H, Calcium Level 9.2, Corrected Calcium 9.4, Total Bilirubin 0.5, Aspartate Amino Transf (AST/SGOT) 26, Alanine Aminotransferase (ALT/SGPT) 30, Alkaline Phosphatase 60, Total Protein 6.6, Albumin 3.8 06/14/22 06:19: Glucometer 127H 06/14/22 15:24: Glucometer 179H 06/14/22 20:13: Glucometer 146H 06/15/22 05:31: Glucometer 136H 06/15/22 10:45: Glucometer 110 06/15/22 15:41: Glucometer 122H 06/15/22 20:17: Glucometer 166H 06/16/22 05:21: Glucometer 112H 06/16/22 11:29: Glucometer 116H Pending Labs Laboratory Tests 05/31/22 16:23: Glucometer 195 05/31/22 20:40: Glucometer 129 06/01/22 05:37: Glucometer 149 06/01/22 05:51: White Blood Count 7.1, Red Blood Count 3.30, Hemoglobin 10.1, Hematocrit 30, Mean Corpuscular Volume 91, Mean Corpuscular Hemoglobin 31, Mean Corpuscular Hemoglobin Concent 34, Red Cell Distribution Width 13.5, Platelet Count 200, Mean Platelet Volume 10.2, Immature Granulocyte % (Auto) 0, Neutrophils (%) (Auto) 62, Lymphocytes (%) (Auto) 27, Monocytes (%) (Auto) 9, Eosinophils (%) (Auto) 1, Basophils (%) (Auto) 0, Neutrophils # (Auto) 4.4, Lymphocytes # (Auto) 1.9, Monocytes # (Auto) 0.6, Eosinophils # (Auto) 0.1, Basophils # (Auto) 0.0, Immature Granulocyte # (Auto) 0.0, Sodium Level 142, Potassium Level 3.8, Chloride Level 111, Carbon Dioxide Level 21, Anion Gap 10, Blood Urea Nitrogen 20, Creatinine 0.95, Estimat Glomerular Filtration Rate 90, BUN/Creatinine Ratio 21, Glucose Level 148, Calcium Level 8.8, Corrected Calcium 9.3, Total Bilirubin 0.4, Aspartate Amino Transf (AST/SGOT) 29, Alanine Aminotransferase (ALT/SGPT) 36, Alkaline Phosphatase 64, Total Protein 5.8, Albumin 3.4 06/01/22 10:51: Glucometer 146 06/01/22 15:25: Glucometer 174 06/01/22 20:58: Glucometer 131 06/02/22 05:37: Glucometer 120 06/02/22 12:37: Glucometer 111 06/02/22 15:15: Glucometer 174 06/02/22 20:43: Glucometer 205 06/03/22 06:09: Glucometer 126 06/03/22 10:53: Glucometer 159 06/03/22 15:38: Glucometer 152 06/03/22 20:46: Glucometer 149 06/04/22 05:28: Glucometer 126 06/04/22 10:51: Glucometer 124 06/04/22 16:00: Glucometer 122 06/04/22 21:01: Glucometer 106 06/05/22 06:00: Glucometer 105 06/05/22 11:11: Glucometer 121 06/05/22 15:41: Glucometer 158 06/05/22 20:33: Glucometer 168 06/06/22 05:44: Glucometer 113 06/06/22 11:19: Glucometer 185 06/06/22 15:34: Glucometer 164 06/06/22 20:18: Glucometer 135 06/07/22 05:38: White Blood Count 5.7, Red Blood Count 3.58, Hemoglobin 10.9, Hematocrit 33, Mean Corpuscular Volume 92, Mean Corpuscular Hemoglobin 30, Mean Corpuscular Hemoglobin Concent 33, Red Cell Distribution Width 13.1, Platelet Count 114, Mean Platelet Volume 11.8, Immature Granulocyte % (Auto) 0, Neutrophils (%) (Auto) 55, Lymphocytes (%) (Auto) 36, Monocytes (%) (Auto) 7, Eosinophils (%) (Auto) 2, Basophils (%) (Auto) 1, Neutrophils # (Auto) 3.1, Lymphocytes # (Auto) 2.0, Monocytes # (Auto) 0.4, Eosinophils # (Auto) 0.1, Basophils # (Auto) 0.1, Immature Granulocyte # (Auto) 0.0, Sodium Level 137, Potassium Level 4.7, Chloride Level 109, Carbon Dioxide Level 14, Anion Gap 14, Blood Urea Nitrogen 18, Creatinine 0.93, Estimat Glomerular Filtration Rate 92, BUN/Creatinine Ratio 19, Glucose Level 101, Calcium Level 8.8, Corrected Calcium 9.4, Total Bilirubin 0.4, Aspartate Amino Transf (AST/SGOT) 41, Alanine Aminotransferase (ALT/SGPT) 33, Alkaline Phosphatase 59, Total Protein 6.7, Albumin 3.3 06/07/22 06:12: Glucometer 94 06/07/22 11:08: Glucometer 108 06/07/22 15:28: Glucometer 154 06/07/22 21:07: Glucometer 155 06/08/22 05:34: Glucometer 130 06/08/22 10:56: Glucometer 126 06/08/22 15:47: Glucometer 148 06/08/22 20:39: Glucometer 164 06/09/22 06:09: Glucometer 126 06/09/22 10:54: Glucometer 139 06/09/22 16:19: Glucometer 135 06/09/22 20:40: Glucometer 133 06/10/22 05:46: Glucometer 116 06/10/22 11:00: Glucometer 119 06/10/22 15:23: Glucometer 165 06/10/22 20:04: Glucometer 133 06/11/22 05:48: Glucometer 126 06/11/22 11:00: Glucometer 177 06/11/22 15:22: Glucometer 153 06/11/22 20:24: Glucometer 139 06/12/22 11:07: Glucometer 122 06/12/22 16:20: Glucometer 167 06/12/22 20:18: Glucometer 146 06/13/22 06:29: Glucometer 105 06/13/22 11:03: Glucometer 137 06/13/22 15:26: Glucometer 135 06/14/22 06:10: White Blood Count 5.4, Red Blood Count 3.89, Hemoglobin 11.5, Hematocrit 35, Mean Corpuscular Volume 90, Mean Corpuscular Hemoglobin 30, Mean Corpuscular Hemoglobin Concent 33, Red Cell Distribution Width 13.0, Platelet Count 189, Mean Platelet Volume 10.4, Immature Granulocyte % (Auto) 0, Neutrophils (%) (Auto) 54, Lymphocytes (%) (Auto) 37, Monocytes (%) (Auto) 7, Eosinophils (%) (Auto) 2, Basophils (%) (Auto) 1, Neutrophils # (Auto) 2.9, Lymphocytes # (Auto) 2.0, Monocytes # (Auto) 0.4, Eosinophils # (Auto) 0.1, Basophils # (Auto) 0.1, Immature Granulocyte # (Auto) 0.0, Sodium Level 142, Potassium Level 4.3, Chloride Level 109, Carbon Dioxide Level 24, Anion Gap 9, Blood Urea Nitrogen 17, Creatinine 0.92, Estimat Glomerular Filtration Rate 93, BUN/Creatinine Ratio 18, Glucose Level 123, Calcium Level 9.2, Corrected Calcium 9.4, Total Bilirubin 0.5, Aspartate Amino Transf (AST/SGOT) 26, Alanine Aminotransferase (ALT/SGPT) 30, Alkaline Phosphatase 60, Total Protein 6.6, Albumin 3.8 06/14/22 06:19: Glucometer 127 06/14/22 15:24: Glucometer 179 06/14/22 20:13: Glucometer 146 06/15/22 05:31: Glucometer 136 06/15/22 10:45: Glucometer 110 06/15/22 15:41: Glucometer 122 06/15/22 20:17: Glucometer 166 06/16/22 05:21: Glucometer 112 06/16/22 11:29: Glucometer 116 Discharge Home Medications: Active Scripts Active HYDROcodone/APAP 7.5/325 TAB (Acetaminophen/Hydrocodone Bitart) 1 Ea Tablet 1 Ea PO Q4H PRN Tizanidine HCl 4 Mg Tablet 4 Mg PO Q6HR PRN Amlodipine Besylate 10 Mg Tablet 10 Mg PO HS Atorvastatin Calcium 80 Mg Tablet 80 Mg PO HS Clopidogrel (Clopidogrel Bisulfate) 75 Mg Tablet 75 Mg PO DAILY Eliquis (Apixaban) 5 Mg Tablet 5 Mg PO BID Losartan Potassium 100 Mg Tablet 100 Mg PO DAILY Alprazolam 0.5 Mg Tablet 0.5 Mg PO Q8H PRN Fenofibrate (Fenofibrate,Micronized) 200 Mg Capsule 200 Mg PO DAILY Verapamil ER (Verapamil HCl) 240 Mg Tablet.er 240 Mg PO DAILY Reported Fiasp 100 Unit/ml Flextouch (Insulin Aspart (Niacinamide)) 100 Unit/Ml (3 Ml) Insuln.pen 8 Units SC AC Tresiba Flextouch U-200 (Insulin Degludec) 200 Unit/Ml (3 Ml) Insuln.pen 24 Units SC DAILY Instructions to patient/family Please see electronic discharge instructions given to patient. Diagnosis/Problems Diagnosis/Problems (1) CVA (cerebral vascular accident) (2) Dysarthria (3) Right sided weakness (4) Uncontrolled type 2 diabetes mellitus Status: Acute (5) Hypertension Status: Acute DEBBY ORTIZ DO Jun 16, 2022 14:05
--- NOTE | 2022-06-16 14:20 | Therapy Team Discharge Summary ---
Therapy Discharge Summary Discharge Recommendations Date of Discharge Therapy D/C Recommendations: Occupational Therapy Outpatient Physical Therapy Roll Left to Right (QC): 6 Sit to Lying (QC): 4 Lying to Sitting/Side of Bed(Q: 5 Sit to Stand (QC): 5 Chair/Bso-wy-Ratym Xfer(QC): 4 Toilet Transfer (QC): 5 Car Transfer (QC): 4 Does the Patient Walk: Yes Mode of Locomotion: Both Anticipated Mode of Locomotion: Walk Walk 10 feet (QC): 3 Walk 50 ft with 2 Turns(QC): 3 Walk 150 ft (QC): 3 Walking 10ft on uneven surface: 3 Distance: 20'x4 Gait Assistive Device: Walker Timothy Does the Pt Use a Wheelchair: Yes Wheelchair Distance: 150'x2, 120' Wheel 50 ft with 2 turns (QC): 6 Wheel 150 ft (QC): 6 Type of Wheelchair: Manual #of Steps: 4 1 Step (curb) (QC): 3 4 Steps (QC): 3 12 Steps (QC): 88 Balance Sitting Static: Fair Balance Sitting Dynamic: Poor Balance-Standing Static: Poor Picking up an Object (QC): 4 (CGA with paint line operator) Occupational Therapy Pt admitted to ARU s/p CVA. At [facility], pt was independent with ADLs and functional mobility, no AD. Upon initial evaluation, pt required set up with eating, independent oral care, mod A UE dressing and total assist showering, LE dress ing, footwear and toileting. OT tx focused on increasing BUE strength and activity tolerance, increasing independence and safety with ADLs and functional mobility, and increasing functional use/neuromuscular reeducation of RUE. Pt made functional progress towards goals, but did not attain all LTGs. Pt to discharge home with spouse, OT recommends Outpatient OT, d/c from OT at this t aracelis. Decreased Activ Tolerance, Decreased UE Strength, Impaired Self-Care Skills Eating (QC): 6 Oral Hygiene (QC): 6 Shower/Bathe Self (QC): 3 Upper Body Dressing (QC): 5 Lower Body Dressing (QC): 3 On/Off Footwear (QC): 2 (mod A) Toileting Hygiene (QC): 6 PT Glass Inserter Goals Glass Inserter Goals PT Jail Goals Time Frame: Jun 21, 2022 Roll Left to Right (QC): 4 (SBA) Sit to Lying (QC): 4 (SBA) Lying-Sitting on Side/Bed(QC): 4 (SBA) Sit to Stand (QC): 4 (SBA) Chair/Uat-ap-Jftem Xfer(QC): 4 (SBA) Car Transfer (QC): 4 (CGA) Does the Patient Walk: Yes Walk 10 feet (QC): 4 (SBA) Walk 10ft-Uneven Surface(QC): 4 (CGA) Walk 50ft with 2 Turns (QC): 4 (SBA) Walk 150 ft (QC): 4 (SBA) Wheel 50 feet with 2 turns (QC: 6 1 Step (curb) (QC): 4 (CGA) 4 Steps (QC): 88 12 Steps (QC): 88 Picking up an Object (QC): 4 (CGA using paint line operator) OT Jail Goals Jail Goals Time Frame: Jul 02, 2022 Eating (FIM): 6 Eating (QC): 6 (met) Oral Hygiene (QC): 6 (met) Shower/Bathe Self (QC): 6 (not met) Upper Body Dressing (QC): 6 (not met) Lower Body Dressing (QC): 6 (not met) On/Off Footwear (QC): 6 (not met) Toileting(FIM): 6 Toileting Hygiene (QC): 6 (met) Toilet/Commode Transfer (QC): 4 (SBA) Additional Goals: 1-Demonstrate ADL Tasks, 2-Verbalize Understanding, 3- ImproveStrength/Malini 1=Demonstrate adherence to instructed precautions during ADL tasks. 2=Patient will verbalize/demonstrate understanding of assistive devices/modifications for ADL. 3=Patient will improve strength/tolerance for activity to enable patient to perform ADL's. Speech Jail Goals Jail Goals 1. The patient will display improved expressive communication for safe discharge to the least restricted environment. MET. Expression of Ideas/Wants: Frequently (2) Understanding Verbal Content: Understands (4) Brief Interview-Mental Status: Yes Repetition of Three Words: Three (3) Temporal Orientation: Year: Correct (3) Temporal Orientation: Month: Accurate within 5 days(2) Temporal Orientation: Day: Correct (1) Recall : Wear to say "Sock": Yes (2) Recall : Color: Yes (2) Recall : Bed: Yes (2) Memory/Recall Ability: Room number, staff names, hospital setting/location, season Time Frame: Three Weeks. DYLON DIETZ OT Jun 16, 2022 14:20
[2022-06-16 17:24] VITALS: BP 169/81
--- NOTE | 2022-06-17 10:51 | Therapy Team Discharge Summary ---
Therapy Discharge Summary Discharge Recommendations Date of Discharge Jun 16, 2022 at 16:30 Therapy D/C Recommendations: Occupational Therapy Outpatient Physical Therapy Patient came to rehab post CVA. Upon evaluation patient performs rolling and supine <-> sit with min assist, sit <-> stand min assist, stand pivot to the left with min assist and to the right with mod assist, car transfer mod assist, can ambulate 20' with a platform walker with min assist, and propelled a manual WC 150' with min assist. Patient has been performing bed mobility and transfer training, balance and endurance training, functional strengthening, stair training, gait training, and education. 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 Now, patient performs rolling with independence, supine <-> sit SBA, sit <-> stand CGA, transfers to the left CGA and to the right min assist, car transfer CGA, ambulate 150' with a hemiwalker and AFO and knee cage with min assist (including 50' with at least 2 turns of 90 degrees and 10' over an uneven surface), can go up and down 4 steps using 1 handrail with min assist, can propel a manual WC with SBA, and can fish bait picker an object from the floor using a lost charge card clerk with CGA. Patient has been discharged from this facility and will be discharged from PT at this time. Roll Left to Right (QC): 6 Sit to Lying (QC): 4 Lying to Sitting/Side of Bed(Q: 5 Sit to Stand (QC): 5 Chair/Usa-tg-Rdfpi Xfer(QC): 4 Toilet Transfer (QC): 5 Car Transfer (QC): 4 Does the Patient Walk: Yes Mode of Locomotion: Both Anticipated Mode of Locomotion: Walk Walk 10 feet (QC): 3 Walk 50 ft with 2 Turns(QC): 3 Walk 150 ft (QC): 3 Walking 10ft on uneven surface: 3 Distance: 20'x4 Gait Assistive Device: Walker Timothy Does the Pt Use a Wheelchair: Yes Wheelchair Distance: 150'x2, 120' Wheel 50 ft with 2 turns (QC): 6 Wheel 150 ft (QC): 6 Type of Wheelchair: Manual #of Steps: 4 1 Step (curb) (QC): 3 4 Steps (QC): 3 12 Steps (QC): 88 Balance Sitting Static: Fair Balance Sitting Dynamic: Poor Balance-Standing Static: Poor Picking up an Object (QC): 4 (CGA with lost charge card clerk) Occupational Therapy Decreased Activ Tolerance, Decreased UE Strength, Impaired Self-Care Skills Eating (QC): 6 Oral Hygiene (QC): 6 Shower/Bathe Self (QC): 3 Upper Body Dressing (QC): 5 Lower Body Dressing (QC): 3 On/Off Footwear (QC): 2 (mod A) Toileting Hygiene (QC): 6 PT Facilities Mechanical Design Engineer Goals Facilities Mechanical Design Engineer Goals PT Facilities Mechanical Design Engineer Goals Time Frame: Jun 21, 2022 Roll Left to Right (QC): 4 (SBA) Sit to Lying (QC): 4 (SBA) Lying-Sitting on Side/Bed(QC): 4 (SBA) Sit to Stand (QC): 4 (SBA) Chair/Mkj-pp-Gcxic Xfer(QC): 4 (SBA) Car Transfer (QC): 4 (CGA) Does the Patient Walk: Yes Walk 10 feet (QC): 4 (SBA) Walk 10ft-Uneven Surface(QC): 4 (CGA) Walk 50ft with 2 Turns (QC): 4 (SBA) Walk 150 ft (QC): 4 (SBA) Wheel 50 feet with 2 turns (QC: 6 1 Step (curb) (QC): 4 (CGA) 4 Steps (QC): 88 12 Steps (QC): 88 Picking up an Object (QC): 4 (CGA using lost charge card clerk) OT Facilities Mechanical Design Engineer Goals Mcfp Goals Time Frame: Jul 02, 2022 Eating (FIM): 6 Eating (QC): 6 (met) Oral Hygiene (QC): 6 (met) Shower/Bathe Self (QC): 6 (not met) Upper Body Dressing (QC): 6 (not met) Lower Body Dressing (QC): 6 (not met) On/Off Footwear (QC): 6 (not met) Toileting(FIM): 6 Toileting Hygiene (QC): 6 (met) Toilet/Commode Transfer (QC): 4 (SBA) Additional Goals: 1-Demonstrate ADL Tasks, 2-Verbalize Understanding, 3- ImproveStrength/Malini 1=Demonstrate adherence to instructed precautions during ADL tasks. 2=Patient will verbalize/demonstrate understanding of assistive devices/modifications for ADL. 3=Patient will improve strength/tolerance for activity to enable patient to perform ADL's. Speech Facilities Mechanical Design Engineer Goals Facilities Mechanical Design Engineer Goals 1. The patient will display improved expressive communication for safe discharge to the least restricted environment. MET. Expression of Ideas/Wants: Frequently (2) Understanding Verbal Content: Understands (4) Brief Interview-Mental Status: Yes Repetition of Three Words: Three (3) Temporal Orientation: Year: Correct (3) Temporal Orientation: Month: Accurate within 5 days(2) Temporal Orientation: Day: Correct (1) Recall : Wear to say "Sock": Yes (2) Recall : Color: Yes (2) Recall : Bed: Yes (2) Memory/Recall Ability: Room number, staff names, hospital setting/location, season Time Frame: Three Weeks. BUDDY GARCIA PT Jun 17, 2022 10:51
== END 2022-06-16 16:30 | disposition home or self-care (01) | DRG 57 ==
PROVIDERS: ADMIT Internal Medicine; ATTEND Internal Medicine
DX: I69.351 Hemiplegia and hemiparesis following cerebral infarction affecting right dominant side (principal); I69.322 Dysarthria following cerebral infarction; I69.392 Facial weakness following cerebral infarction; I69.320 Aphasia following cerebral infarction; I48.0 Paroxysmal atrial fibrillation; F32.A Depression, unspecified; I10 Essential (primary) hypertension; F41.9 Anxiety disorder, unspecified; M19.90 Unspecified osteoarthritis, unspecified site; M54.9 Dorsalgia, unspecified; E78.00 Pure hypercholesterolemia, unspecified; G47.33 Obstructive sleep apnea (adult) (pediatric); E11.65 Type 2 diabetes mellitus with hyperglycemia; Z79.899 Other long term (current) drug therapy; Z79.4 Long term (current) use of insulin; Z79.82 Long term (current) use of aspirin; Z91.81 History of falling
CPT/HCPCS: 36415; 80053; 82947; 85025; 93005

== ENCOUNTER 2022-07-08 08:46 | Outpatient (RCR) | payer MEDICARE ==
[~2022-07-08 08:46] MED LIST changes: +ALPR0.5T7 PO; +AMLO-251 PO; +APIX5TAB PO; +ASPI-1238 PO; +ATOR40TA70 PO; +ATOR80TA76 PO; +CLOP75TA28 PO; +GABA-486 PO; +INSU100I40 SC; +INSU200I4 SC; +LOSA100T57 PO; +MELO15TA39 PO; +TIZA-186 PO
== END 2022-07-09 | disposition home or self-care (01) ==
PROVIDERS: ATTEND Internal Medicine
DX: I69.30 Unspecified sequelae of cerebral infarction (principal)

== ENCOUNTER → 2022-08-09 | Outpatient (RCR) | payer MEDICARE | END | disposition home or self-care (01) | PROVIDERS: ATTEND Internal Medicine | DX: I69.30 Unspecified sequelae of cerebral infarction (principal); I10 Essential (primary) hypertension; E11.9 Type 2 diabetes mellitus without complications ==

== ENCOUNTER 2022-09-06 12:50 | Outpatient (RCR) | payer MEDICARE | END 2022-09-08 | disposition home or self-care (01) | PROVIDERS: ATTEND Internal Medicine | DX: I69.30 Unspecified sequelae of cerebral infarction (principal); I10 Essential (primary) hypertension; E11.9 Type 2 diabetes mellitus without complications ==

== ENCOUNTER 2022-10-07 12:53 | Outpatient (RCR) | payer MEDICARE | END 2022-10-09 | disposition home or self-care (01) | PROVIDERS: ATTEND Internal Medicine | DX: I63.9 Cerebral infarction, unspecified (principal); R47.01 Aphasia; R47.1 Dysarthria and anarthria ==